=== PATIENT | male | born 1940 | race Caucasian/White ===

== ENCOUNTER → 2016-11-25 | Outpatient (CLI) | payer MEDICARE ==
[~2016-11-25] MED LIST: ASPI-586 PO; ENAL2.5T PO; MELO15TA14 PO; PRAV10TA PO; TAMS0.4C98 PO; TRAM50TA2 PO
--- NOTE | 2016-11-25 12:42 | Diagnostic Imaging Report ---
PROCEDURE: US abdomen complete. TECHNIQUE: Multiple Real-time grayscale images were obtained over the abdomen in various projections. INDICATION: R. 94.5. Abnormal labs. FINDINGS: The pancreas is largely obscured by bowel gas. The liver is normal in size and the parenchyma is unremarkable with no focal lesion. Hepatopetal flow in the portal vein is seen. The gallbladder demonstrates no stones or wall thickening. No pericholecystic fluid. The CBD is 6.6 mm in caliber which is at the upper limits of normal but is probably normal for the patient's age. The abdominal aorta visualized portions demonstrate mild ectasia measuring up to 2.4 cm in caliber in its distal aspect. The visualized portion of the IVC is unremarkable. The spleen is 9.6 cm in length and is normal. The right kidney is 10 and the left kidney is 10.2 cm in length. No hydronephrosis or focal lesion is seen. No fluid collection is seen. The sonographic Rosario sign is reportedly negative. IMPRESSION: Ectasia of the distal abdominal aorta. Dictated by: Dictated on workstation # [id number]
== END ==
LOC: RAD 08:27
PROVIDERS: ATTEND Family Medicine
DX: I77.819 Aortic ectasia, unspecified site (principal); R94.5 Abnormal results of liver function studies; R74.8 Abnormal levels of other serum enzymes
CPT/HCPCS: 76700

== ENCOUNTER 2018-01-16 11:33 | Emergency (ER) | payer MEDICARE ==
[~2018-01-16] VITALS: Ht 188 cm; Wt 78.0 kg
[~2018-01-16 11:33] MED LIST changes: +CIPR-225 PO
--- NOTE | 2018-01-16 12:07 | ED General ---
General Chief Complaint: Neurological Problems Stated Complaint: WEAKNESS Source of Information: Patient, Family Exam Limitations: No Limitations History of Present Illness Date Seen by Provider: Jan 16, 2018 Time Seen by Provider: 12:02 Initial Comments This 77-year-old male presents with generalized weakness and an associated 25 pound weight loss without explanation over the last 6 months. Although the patient relates that he has an adequate caloric intake his weight loss has been persistent during the last half year. He denies associated fever , cough or shortness of breath, abdominal pain, nausea vomiting diarrhea or hemoptysis, hematemesis, or black or tarry stools. Patient's significant past medical history includes coronary bypass surgery and stents. The patient has a large prostate for which he is being treated by Dr. Brush. Patient smokes approximately a pack a day for the last 50 years. Patient denies recreational drugs. The patient has stopped drinking. Allergies and Home Medications Allergies Coded Allergies: No Known Drug Allergies (Unverified , 02/23/16) Home Medications Aspirin 81 Mg Tablet.dr, 81 MG PO DAILY, (Reported) Ciprofloxacin HCl 500 Mg Tablet, 500 MG PO BID Prescribed by: SOUMYA PAREDES on 08/19/17 1551 Enalapril Maleate 2.5 Mg Tablet, 2.5 MG PO BID, (Reported) Pravastatin Sodium 10 Mg Tablet, 10 MG PO DAILY, (Reported) Tamsulosin HCl 0.4 Mg Cap, 0.4 MG PO DAILY, (Reported) Patient Home Medication List Home Medication List Reviewed: Yes Review of Systems Review of Systems Constitutional: chills; No fever; weakness EENTM: hearing loss (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.); No ear pain Respiratory: No cough, No short of breath Cardiovascular: No chest pain, No palpitations Gastrointestinal: No abdominal pain, No diarrhea, No nausea, No vomiting Genitourinary: decreased output Musculoskeletal: No back pain, No joint pain Skin: No rash Psychiatric/Neurological: No Symptoms Reported Hematologic/Lymphatic: No Symptoms Reported Immunological/Allergic: no symptoms reported Past Eamxmbu-Imqqms-Eyulta Hx Past Med/Social Hx: Reviewed Nursing Past Med/Soc Hx Patient Social History Alcohol Use: Denies Use Recreational Drug Use: No Smoking Status: Current Everyday Smoker Type Used: Cigarettes Recent Hopitalizations: No Physical Abuse: No Sexual Abuse: No Mistreated: No Fear: No Immunizations Up To Date Tetanus Booster (TDap): Unknown PED Vaccines UTD: No Seasonal Allergies Seasonal Allergies: No Past Medical History Surgeries: Yes (OPEN HEART) Angioplasty, CABG, Orthopedic Respiratory: No Currently Using CPAP: No Currently Using BIPAP: No Cardiac: Yes (OPEN HEART ) Coronary Artery Disease, Heart Attack, High Cholesterol Neurological: Yes Concussion Reproductive Disorders: No HIV/AIDS: No Genitourinary: Yes Benign Prostatic Hyperpl, Prostate Problems Gastrointestinal: No Musculoskeletal: No Endocrine: No Loss of Vision: Denies Hearing Impairment: Denies Cancer: No Psychosocial: Yes Anxiety Integumentary: No Blood Disorders: No Adverse Reaction/Blood Tranf: No Physical Exam Vital Signs Vital Signs - First Documented 01/16/18 11:56 Temp 97.3 Pulse 53 Resp 20 B/P (MAP) 101/88 (92) Pulse Ox 94 O2 Delivery Room Air Capillary Refill : Height, Weight, BMI Height: 6'1.00" Weight: 178lbs. oz. 80.862555qy; BMI Method:Stated General Appearance: No Apparent Distress Eyes: Bilateral Eye Normal Inspection HEENT: Normal ENT Inspection Neck: Normal Inspection, Supple Respiratory: Lungs Clear Cardiovascular: Regular Rate, Rhythm Gastrointestinal: Normal Bowel Sounds, Non Tender, Soft Back: Normal Inspection Extremity: Normal Inspection Neurologic/Psychiatric: Alert, Oriented x3, No Motor/Sensory Deficits, Normal Mood/Affect Skin: Normal Color, Warm/Dry Progress/Results/Core Measures Suspected Sepsis SIRS Temperature: Pulse: Respiratory Rate: Laboratory Tests 01/16/18 11:42: White Blood Count 5.8 Blood Pressure / Mean: Laboratory Tests 01/16/18 11:42: Creatinine 0.83, Platelet Count 171, Total Bilirubin 0.7 Results/Orders Lab Results Laboratory Tests Test 01/16/18 11:40 01/16/18 11:42 01/16/18 13:29 Range/Units Glucometer 133 H 70-110 MG/DL White Blood Count 5.8 4.3-11.0 10^3/uL Red Blood Count 4.51 4.35-5.85 10^6/uL Hemoglobin 15.1 13.3-17.7 G/DL Hematocrit 43 40-54 % Mean Corpuscular Volume 96 80-99 FL Mean Corpuscular Hemoglobin 34 25-34 PG Mean Corpuscular Hemoglobin Concent 35 32-36 G/DL Red Cell Distribution Width 14.2 10.0-14.5 % Platelet Count 171 130-400 10^3/uL Mean Platelet Volume 10.1 7.4-10.4 FL Neutrophils (%) (Auto) 64 42-75 % Lymphocytes (%) (Auto) 24 12-44 % Monocytes (%) (Auto) 10 0-12 % Eosinophils (%) (Auto) 2 0-10 % Basophils (%) (Auto) 1 0-10 % Neutrophils # (Auto) 3.7 1.8-7.8 X 10^3 Lymphocytes # (Auto) 1.4 1.0-4.0 X 10^3 Monocytes # (Auto) 0.6 0.0-1.0 X 10^3 Eosinophils # (Auto) 0.1 0.0-0.3 10^3/uL Basophils # (Auto) 0.0 0.0-0.1 10^3/uL Sodium Level 140 135-145 MMOL/L Potassium Level 4.4 3.6-5.0 MMOL/L Chloride Level 110 H 98-107 MMOL/L Carbon Dioxide Level 22 21-32 MMOL/L Anion Gap 8 5-14 MMOL/L Blood Urea Nitrogen 9 7-18 MG/DL Creatinine 0.83 0.60-1.30 MG/DL Estimat Glomerular Filtration Rate > 60 BUN/Creatinine Ratio 11 Glucose Level 139 H 70-105 MG/DL Calcium Level 9.5 8.5-10.1 MG/DL Corrected Calcium 9.6 8.5-10.1 MG/DL Total Bilirubin 0.7 0.1-1.0 MG/DL Aspartate Amino Transf (AST/SGOT) 14 5-34 U/L Alanine Aminotransferase (ALT/SGPT) 13 0-55 U/L Alkaline Phosphatase 148 H 40-136 U/L C-Reactive Protein High Sensitivity 0.44 0.00-0.50 MG/DL Total Protein 6.6 6.4-8.2 GM/DL Albumin 3.9 3.2-4.5 GM/DL Lipase 60 8-78 U/L Urine Color YELLOW Urine Clarity CLEAR Urine pH 7 5-9 Urine Specific [place] 1.005 L 1.016-1.022 Urine Protein 1+ H NEGATIVE Urine Glucose (UA) NEGATIVE NEGATIVE Urine Ketones NEGATIVE NEGATIVE Urine Nitrite NEGATIVE NEGATIVE Urine Bilirubin NEGATIVE NEGATIVE Urine Urobilinogen NORMAL NORMAL MG/DL Urine Leukocyte Esterase 1+ H NEGATIVE Urine RBC (Auto) 5+ H NEGATIVE Urine RBC 25-50 H /HPF Urine WBC 5-10 H /HPF Urine Squamous Epithelial Cells RARE /HPF Urine Crystals NONE /LPF Urine Bacteria TRACE /HPF Urine Casts NONE /LPF Urine Mucus NEGATIVE /LPF Urine Culture Indicated YES My Orders Orders - SARAH GARCIA MD Cbc With Automated Diff (01/16/18 11:58) Comprehensive Metabolic Panel (01/16/18 11:58) Psa Screen (01/16/18 11:58) Lipase (01/16/18 11:58) Ua Culture If Indicated (01/16/18 11:58) Ct Chest/Abdomen/Pelvis W (01/16/18 11:58) Carcinoembryonic Antigen (01/16/18 11:58) Hs C Reactive Protein (01/16/18 11:58) Iohexol Injection (Omnipaque 350 Mg/Ml 1 (01/16/18 13:00) Ns (Ivpb) (Sodium Chloride 0.9%) (01/16/18 13:00) Pharmacy Communication (Pharmacy Communi (01/16/18 12:51) Urine Culture (01/16/18 13:29) Medications Given in ED Current Medications Medications Dose Ordered Sig/Ayesha Route Start Time Stop Time Status Last Admin Dose Admin Iohexol 100 ml ONCE ONCE IV 01/16/18 13:00 01/16/18 13:01 DC 01/16/18 13:01 100 ML Sodium Chloride 250 ml ONCE ONCE IV 01/16/18 13:00 01/16/18 13:01 DC 01/16/18 13:02 80 ML Vital Signs/I&O 01/16/18 11:56 Temp 97.3 Pulse 53 Resp 20 B/P (MAP) 101/88 (92) Pulse Ox 94 O2 Delivery Room Air Capillary Refill : Progress Note : Time: 13:59 Progress Note The patient's CT the chest abdomen and pelvis film demonstrated evidence of acute pathology. Patient's laboratory evaluation was similarly unremarkable. I discussed findings with patient and his . I recommend further close follow-up with their caregiver of choice on Friday. I invited them to return to the emergency department for any further problems or questions. Departure Impression Primary Impression: Weight loss, non-intentional Disposition: HOME, SELF-CARE Condition: Unchanged Departure-Patient Inst. Decision time for Depature: 14:01 Referrals: MERVAT GUERRERO MD (PCP) Primary Care Physician Add. Discharge Instructions: Close follow-up with your caregiver choice on Friday. Return if any problems or questions. All discharge instructions reviewed with patient and/or family. Voiced understanding. SARAH GARCIA MD Jan 16, 2018 12:07
[2018-01-16 12:14] LABS: BASOPHILS % (AUTO) 1 % (0-10); EOSINOPHILS # (AUTO) 0.1 10^3/uL (0.0-0.3); EOSINOPHILS % (AUTO) 2 % (0-10); HEMATOCRIT 43 % (40-54); HEMOGLOBIN 15.1 G/DL (13.3-17.7); LYMPHOCYTES # (AUTO) 1.4 X 10^3 (1.0-4.0); LYMPHOCYTES % (AUTO) 24 % (12-44); MEAN CORPUSCULAR HEMOGLOBIN 34 PG (25-34); MEAN CORPUSCULAR HGB CONC 35 G/DL (32-36); MEAN CORPUSCULAR VOLUME 96 FL (80-99); MEAN PLATELET VOLUME 10.1 FL (7.4-10.4); MONOCYTES # (AUTO) 0.6 X 10^3 (0.0-1.0); MONOCYTES % (AUTO) 10 % (0-12); NEUTROPHILS # (AUTO) 3.7 X 10^3 (1.8-7.8); NEUTROPHILS % (AUTO) 64 % (42-75); PLATELET COUNT 171 10^3/uL (130-400); RED BLOOD COUNT 4.51 10^6/uL (4.35-5.85); RED CELL DISTRIBUTION WIDTH 14.2 % (10.0-14.5); WHITE BLOOD COUNT 5.8 10^3/uL (4.3-11.0)
[2018-01-16 12:26] LABS: ALANINE AMINOTRANSFERASE 13 U/L (0-55); ALBUMIN 3.9 GM/DL (3.2-4.5); ALKALINE PHOSPHATASE 148 U/L (40-136); BILIRUBIN,TOTAL 0.7 MG/DL (0.1-1.0); BUN/CREATININE RATIO 11; CALCIUM 9.5 MG/DL (8.5-10.1); CARBON DIOXIDE 22 MMOL/L (21-32); CHLORIDE 110 MMOL/L (98-107); CREATININE SERUM 0.83 MG/DL (0.60-1.30); GFR ESTIMATED > 60; GLUCOSE 139 MG/DL (70-105); LIPASE 60 U/L (8-78); POTASSIUM 4.4 MMOL/L (3.6-5.0); SODIUM 140 MMOL/L (135-145); TOTAL PROTEIN 6.6 GM/DL (6.4-8.2)
[2018-01-16] MEDS ORDERED: NS 250 ML (IVPB) BAG IV ONE (13:00)
[2018-01-16] MEDS ORDERED: IOHEXOL 350 MG/ML 100 ML (OMNIPAQUE 350) VIAL IV ONE (13:00)
[2018-01-16 13:34] LABS: BILIRUBIN,URINE NEGATIVE (NEGATIVE); CLARITY,URINE CLEAR; COLOR,URINE YELLOW; GLUCOSE, URINE (UA) NEGATIVE (NEGATIVE); KETONES,URINE NEGATIVE (NEGATIVE); LEUKOCYTE ESTERASE ,URINE 1+ (NEGATIVE); NITRITE,URINE NEGATIVE (NEGATIVE); PH,URINE 7 (5-9); PROTEIN,URINE 1+ (NEGATIVE); UROBILINOGEN,URINE NORMAL (NORMAL)
--- NOTE | 2018-01-16 13:43 | Diagnostic Imaging Report ---
PROCEDURE: CT chest, abdomen, and pelvis with contrast. TECHNIQUE: Multiple contiguous axial images were obtained through the chest, abdomen, and pelvis after the administration of intravenous contrast. INDICATION: Right hand numbness and weakness, history of open heart surgery. COMPARISON: CT from 08/19/2017. FINDINGS: CT chest: The heart is normal in size. There is no pericardial effusion. No central pulmonary embolus is seen. The aorta demonstrates mild atherosclerosis with no aneurysm. There are mildly prominent lower paratracheal lymph nodes, which measure up to 9 mm in short axis. There are multiple hypoattenuating nodules in the thyroid bilaterally. No focal stenosis is seen in the bilateral subclavian arteries. Sternotomy wires are noted. There is minimal atelectasis in the dependent lungs bilaterally. No airspace consolidation is seen. There is a 4 mm subpleural nodule in the anterior left upper lobe (image 26 series 2). No pleural effusion or pneumothorax is present. No acute osseous abnormality is seen. CT abdomen/pelvis: The liver demonstrates no focal lesions. The spleen appears normal. The adrenal glands are normal. The pancreas is normal. There is mild bilateral perirenal stranding, but no hydronephrosis or evidence of delayed excretion. There is a simple appearing small cyst on the superior right kidney. There is moderate atherosclerosis in the aorta with a small aneurysmal dilatation at the infrarenal abdominal aorta which measures up to 3.4 x 3.1 cm axially. There is significant mural thrombus, but without significant stenosis. Atherosclerosis extends into the bilateral iliac and femoral arteries without a high-grade stenosis seen on this non-angiographic exam. No retroperitoneal adenopathy is seen. The branch vessels of the aorta appear patent. The bowel loops are nondistended without evidence of obstruction. The appendix is normal. There is diverticulosis of the descending colon and sigmoid colon. The sigmoid colon appears to demonstrate wall thickening, although this may be due to decompression. There is no significant pericolonic fat stranding. There is a heterogeneous prostate which appears normal in contour, perhaps slightly large. IMPRESSION: 1. Small 4 mm nodule in the anterior left upper lobe. If the patient is high risk for cancer, consider followup CT in 12 months. 2. No evidence of subclavian stenosis. 3. Small infrarenal abdominal aortic aneurysm measuring up to 3.4 cm without evidence of rupture. 4. Diverticulosis of the distal colon. Wall thickening of the sigmoid colon is thought to be due to decompression, less likely colitis. Dictated by: Dictated on workstation # [id number]
[2018-01-16 13:50] LABS: BACTERIA,URINE TRACE /HPF; RBC,URINE 25-50 /HPF; SQUAMOUS EPITHELIAL CELL,UR RARE /HPF
[2018-01-16 14:14] VITALS: BP 155/89
== END 2018-01-16 14:14 | disposition home or self-care (01) ==
LOC: EDUNIT# 11:33 → ER 11:34
DX: R63.4 Abnormal weight loss (principal); R20.0 Anesthesia of skin; R53.1 Weakness; I25.10 Atherosclerotic heart disease of native coronary artery without angina pectoris; I25.2 Old myocardial infarction; E78.00 Pure hypercholesterolemia, unspecified; F41.9 Anxiety disorder, unspecified; F17.210 Nicotine dependence, cigarettes, uncomplicated; Z79.82 Long term (current) use of aspirin; Z95.5 Presence of coronary angioplasty implant and graft; Z95.1 Presence of aortocoronary bypass graft
CPT/HCPCS: 36415; 71260; 74177; 80053; 81000; 82378; 82962; 83690; 84153; 85025; 86141; 87077; 87088; 93005

== ENCOUNTER 2018-02-05 15:10 | Day surgery (SDC) | payer MEDICARE ==
[~2018-02-05] VITALS: Ht 182.9 cm; Wt 79.1 kg
[2018-02-05] VITALS (7 sets, daily range): BP systolic 122–152; BP diastolic 70–86
[2018-02-05] MEDS ORDERED: HEParin DRIP 25000 UNIT/500ML 500 ML IV SCH (15:30)
[2018-02-05] MEDS ORDERED: CLOPIDOGREL 300 MG (PLAVIX) TABLET PO NR (16:12)
[2018-02-05] MEDS ORDERED: ASPIRIN 325 MG (5 GR) TABLET PO NR (16:12)
[2018-02-05] MEDS ORDERED: PANTOPRAZOLE 40 MG (PROTONIX) TAB PO NR (16:13)
[2018-02-05] MEDS ORDERED: FINA5TAB6 PO (16:14)
[2018-02-05] MEDS ORDERED: ENAL5TAB PO (16:14)
[2018-02-05 16:16] LABS: HEMOGLOBIN 15.8 G/DL (13.3-17.7); MEAN PLATELET VOLUME 9.4 FL (7.4-10.4); RED BLOOD COUNT 4.88 10^6/uL (4.35-5.85); RED CELL DISTRIBUTION WIDTH 13.6 % (10.0-14.5); WHITE BLOOD COUNT 7.9 10^3/uL (4.3-11.0)
[2018-02-05 16:25] LABS: INR 0.9 (0.8-1.4); PROTHROMBIN TIME PATIENT 12.6 SEC (12.2-14.7)
--- NOTE | 2018-02-05 16:25 | Diagnostic Imaging Report ---
INDICATION: History of smoking and peripheral vascular disease. PA and lateral chest obtained at 4:34 p.m. FINDINGS: Heart is normal in size. The patient has had previous sternotomy. The aorta is tortuous. The lungs appear clear. There is no pneumothorax or pleural fluid. There is hyperinflation compatible with COPD. IMPRESSION: COPD changes with hyperinflation. No focal infiltrate, pneumothorax, or pleural fluid. Evidence of previous sternotomy. Dictated by: Dictated on workstation # [id number]
[2018-02-05] MEDS: NS IV 1000 ML 1,000 ML IV SCH (16:30)
[2018-02-05] MEDS: HEParin 1000 UNIT/ML (10ML VIAL) FOR BOLUS IV PRN (16:33)
[2018-02-05 16:40] LABS: ALANINE AMINOTRANSFERASE 23 U/L (0-55); ALBUMIN 4.3 GM/DL (3.2-4.5); ALKALINE PHOSPHATASE 172 U/L (40-136); BILIRUBIN,TOTAL 0.8 MG/DL (0.1-1.0); BUN/CREATININE RATIO 17; CARBON DIOXIDE 22 MMOL/L (21-32); CHLORIDE 108 MMOL/L (98-107); GFR ESTIMATED > 60; GLUCOSE 105 MG/DL (70-105); POTASSIUM 4.7 MMOL/L (3.6-5.0); SODIUM 139 MMOL/L (135-145); TOTAL PROTEIN 7.6 GM/DL (6.4-8.2)
[2018-02-05] MEDS ORDERED: FLU QUADRIvalent (5+ YOA) 2018-2019 (AFLURIA) 0.5 ML IM ONE (17:00)
[2018-02-06] VITALS (13 sets, daily range): BP systolic 104–156; BP diastolic 61–95
[2018-02-06] MEDS: NS IV 1000 ML 1,000 ML IV SCH (02:20)
[2018-02-06 03:24] LABS: HEMOGLOBIN 13.7 G/DL (13.3-17.7); MEAN PLATELET VOLUME 9.3 FL (7.4-10.4); RED BLOOD COUNT 4.2 10^6/uL (4.35-5.85); RED CELL DISTRIBUTION WIDTH 13.2 % (10.0-14.5); WHITE BLOOD COUNT 7.4 10^3/uL (4.3-11.0)
[2018-02-06 03:39] LABS: ALANINE AMINOTRANSFERASE 20 U/L (0-55); ALBUMIN 3.3 GM/DL (3.2-4.5); ALKALINE PHOSPHATASE 134 U/L (40-136); BILIRUBIN,TOTAL 0.6 MG/DL (0.1-1.0); BUN/CREATININE RATIO 22; CALCIUM 8.8 MG/DL (8.5-10.1); CARBON DIOXIDE 19 MMOL/L (21-32); CHLORIDE 112 MMOL/L (98-107); CHOLESTEROL 131 MG/DL (< 200); CREATININE SERUM 0.82 MG/DL (0.60-1.30); GFR ESTIMATED > 60; GLUCOSE 113 MG/DL (70-105); HDL CHOLESTEROL 29 MG/DL (40-60); SODIUM 140 MMOL/L (135-145); TOTAL PROTEIN 5.6 GM/DL (6.4-8.2); TRIGLYCERIDES 83 MG/DL (<150); VLDL CHOLESTEROL 17 MG/DL (5-40)
[2018-02-06] MEDS: HEParin 1000 UNIT/ML (10ML VIAL) FOR BOLUS IV PRN (04:05)
[2018-02-06] MEDS ORDERED: HEParin (CATH LAB) 2,000 ML IV ONE (06:56)
[2018-02-06] MEDS ORDERED: LIDOCAINE 1% INJ 20 ML 20 ML VIAL ONE ×2 (06:56→08:54)
[2018-02-06] MEDS ORDERED: PANTOPRAZOLE 40 MG (PROTONIX) TAB PO SCH (07:00)
[2018-02-06] MEDS ORDERED: MIDAZOLAM 5 MG/5 ML (VERSED) VIAL ONE (07:04)
[2018-02-06] MEDS ORDERED: fentaNYL INJECTION 100 MCG/2 ML AMP ONE (07:04)
--- NOTE | 2018-02-06 07:12 | Cardiology History & Physical ---
HPI-Cardiology Cardiology Consultation Date of Consultation 02/06/18 Date of Admission Time Seen by Provider: 07:08 Indication: Left foot pain and cyanosis HPI 77 years old gentleman with history of coronary artery disease, history of CABG , no cardiology follow-up was done for long time. Started having pain and cyanosis in his foot for about a week which has been worsening. He was sent to my office last night and I admitted him directly. This morning he still having pain and numbness in his feet and toes. There is an early ulceration. Denied any chest pain, having frequent premature ventricular contractions. No syncope or near syncopal episode. Patient is an active smoker with some dyspnea on exertion. No recent cardiac workup was done PMH-Cardiology Immunizations Up To Date Tetanus Booster (DTap): Unknown Seasonal Allergies Seasonal Allergies: No Surgeries Yes (OPEN HEART) Respiratory No Cardiovascular Yes (OPEN HEART 2004 @ [facility], 2006 1 or 2 stents, PVD) High Cholesterol, Hypertension, Coronary Artery Disease Neurological No Concussion Reproductive System Hx Reproductive Disorders: No HIV/AIDS: No Genitourinary Yes Benign Prostatic Hyperpl, Prostate Problems Gastrointestinal No Musculoskeletal No Endocrine No HEENT No Loss of Vision: Denies Hearing Impairment: Denies Cancer No Psychosocial Yes Anxiety Integumentary No Blood Transfusions No Adverse Rxn to Transfusion: No Other PMHx Past medical history as described below Social History Patient Social History Marrital Status: Employed/Student: retired Alcohol Use: Denies Use Recreational Drug Use: No Smoking: Current every day smoker Recent Foreign Travel: No Contact w/other who traveled: No Recent Infectious Disease Expo: No Family Hx Family History: Diabetes mellitus 19 FATHER 19 MOTHER Myocardial infarction 19 MOTHER G8 BROTHER G8 SISTER Neoplasm G8 BROTHER (lung and bladder cancer ) ROS-Cardiology Review of Systems General: No Chills, No Night Sweats, No Fatigue; Malaise; No Appetite HEENT: No Head Aches, No Visual Changes, No Eye Pain, No Ear Pain, No Dysphasia , No Sinus Congestion, No Post Nasal Drip, No Sore Throat Pulmonary: Dyspnea; No Cough, No Pleuritic Chest Pain Cardiovascular: No: Chest Pain, Palpitations, Orthopnea, Paroxysmal Noc. Dyspnea, Edema, Lt Headedness Gastrointestinal: No: Nausea, Vomiting, Abdominal Pain, Diarrhea, Constipation , Melena, Hematochezia Genitourinary: No Dysuria, No Frequency, No Incontinence, No Hematuria, No Retention Musculoskeletal: leg pain, foot pain; No: neck pain, shoulder pain, arm pain, back pain, hand pain Neurological: No: Weakness, Numbness, Incoordination, Change in speech, Confusion, Seizures Home Medications & Allergies Allergies: Coded Allergies: No Known Drug Allergies (Unverified , 02/05/18) Home Medication List Reviewed: Yes Exam-Cardiology Vital Signs Vital Signs Date Time Temp Pulse Resp B/P (MAP) Pulse Ox O2 Delivery O2 Flow Rate FiO2 02/06/18 04:00 98.1 63 14 156/74 (101) 96 Room Air Exam General Appearance: Alert, Oriented X3, Cooperative, No Acute Distress HEENT: Atraumatic, PERRLA Respiratory: Clear to Auscultation, Normal Air Movement Cardiovascular: Regular Rate, Normal S1, Normal S2, Other (Systolic murmur at the left sternal border) Abdominal: Normal Bowel Sounds, Soft, No Tenderness, No Hepatosplenomegaly, No Masses Extremities: Other (Diminished pulse bilaterally, I was unable to palpate dorsalis pedis pulse on the left, cyanosis of the toes and tenderness) Skin: No Rashes, No Significant Lesion, Other (Small ulceration on the third toe on the left) Neuro: Normal Gait, Normal Speech, Strength at 5/5 X4 Ext, Normal Tone, Sensation Intact Psych/Mental Status: Mental Status NL, Mood NL Results Labs Labs Laboratory Tests 02/05/18 16:04: White Blood Count 7.9, Red Blood Count 4.88, Hemoglobin 15.8, Hematocrit 46, Mean Corpuscular Volume 94, Mean Corpuscular Hemoglobin 32, Mean Corpuscular Hemoglobin Concent 34, Red Cell Distribution Width 13.6, Platelet Count 183, Mean Platelet Volume 9.4, Prothrombin Time 12.6, INR Comment 0.9, Activated Partial Thromboplast Time 24, Sodium Level 139, Potassium Level 4.7, Chloride Level 108H, Carbon Dioxide Level 22, Anion Gap 9, Blood Urea Nitrogen 17, Creatinine 1.00, Estimat Glomerular Filtration Rate > 60, BUN/Creatinine Ratio 17, Glucose Level 105, Calcium Level 10.0, Corrected Calcium 9.8, Total Bilirubin 0.8, Aspartate Amino Transf (AST/SGOT) 17, Alanine Aminotransferase ( ALT/SGPT) 23, Alkaline Phosphatase 172H, Total Protein 7.6, Albumin 4.3, Thyroid Stimulating Hormone (TSH) 0.24L 02/05/18 20:28: Activated Partial Thromboplast Time 63H 02/06/18 03:06: White Blood Count 7.4, Red Blood Count 4.20L, Hemoglobin 13.7, Hematocrit 40, Mean Corpuscular Volume 95, Mean Corpuscular Hemoglobin 33, Mean Corpuscular Hemoglobin Concent 35, Red Cell Distribution Width 13.2, Platelet Count 153, Mean Platelet Volume 9.3, Activated Partial Thromboplast Time 47H, Sodium Level 140, Potassium Level 4.0, Chloride Level 112H, Carbon Dioxide Level 19L, Anion Gap 9, Blood Urea Nitrogen 18, Creatinine 0.82, Estimat Glomerular Filtration Rate > 60, BUN/Creatinine Ratio 22, Glucose Level 113H, Calcium Level 8.8, Corrected Calcium 9.4, Total Bilirubin 0.6, Aspartate Amino Transf (AST/SGOT) 17 , Alanine Aminotransferase (ALT/SGPT) 20, Alkaline Phosphatase 134, Total Protein 5.6L, Albumin 3.3, Triglycerides Level 83, Cholesterol Level 131, LDL Cholesterol Direct 99, VLDL Cholesterol 17, HDL Cholesterol 29L A/P-Cardiology Admission Diagnosis Critical limb ischemia Coronary artery disease Hypertension Hyperlipidemia Tobaccoism Admission Status: Observation Assessment/Plan Subacute ischemic foot, critical limb ischemia, I am planning to proceed with angiogram possible angioplasty and stenting. Started on aspirin and Plavix, given heparin. Coronary artery disease history of CABG 1 using DIAZ to LAD done in 2004, no recent cardiac workup. Frequent premature ventricular contractions. We will initiate beta blockers after the angiogram Hypertension, monitor blood pressure. Restart home medication Hyperlipidemia, started on statin and fish oil Tobaccoism, still an active smoker. Educated in length about smoking cessation Prostatic hypertrophy maintained on Flomax. Clinical Quality Measures DVT/VTE Risk/Contraindication: Risk Factor Score Per Nursin RFS Level Per Nursing on Admit: 3=High ABILIO CLAROS MD Feb 06, 2018 07:12
--- NOTE | 2018-02-06 07:15 | Cardiac Procedure Note-CS/ASA ---
Pre-Procedure Note Pre-Op Procedure Note H&P Reviewed The H&P was reviewed, patient examined and no changes noted. Date H&P Reviewed: Feb 06, 2018 Time H&P Reviewed: 07:15 Conscious Sedation Pre-Proced Time 07:15 ASA Score 3 For ASA 3 and 4: Consider anesthesia and medical clearance. Also, for patients with a history of failed moderate sedation consider anesthesia. Airway Lungs Heart ASA score ASA 1: a normal healthy patient ASA 2: a patient with a mild systemic disease (mid diabetes, controlled hypertension, obesity x ASA 3: a patient with a severe systemic disease that limits activity (angina , COPD, prior Myocardial infarction) ASA 4: a patient with an incapacitating disease that is a constant threat to life (CHF, renal failure) ASA 5: a moribund patient not expected to survive 24 hrs. (ruptured aneurysm) ASA 6: a declared brain patient whose organs are being harvested. For emergent operations, add the letter E after the classification Mallampati Classification Grade 3 Sedation Plan Analgesia, Amnesia, Plan communicated to team members, Discussed options with patient/fam, Discussed risks with patient/fam The patient is an appropriate candidate to undergo the planned procedure, sedation, and anesthesia. The patient immediately re-assessed prior to indication. ABILIO CLAROS MD Feb 06, 2018 07:15
[2018-02-06] MEDS ORDERED: HEParin 1000 UNIT/ML (10ML VIAL) FOR BOLUS ONE (07:27)
[2018-02-06] MEDS ORDERED: NITRO DRIP 25000 MCG/D5W 250 ML IV ONE (08:17)
[2018-02-06] MEDS ORDERED: ENALAPRIL 5 MG (VASOTEC) TAB PO SCH (09:00)
[2018-02-06] MEDS ORDERED: FINASTERIDE (PROSCAR) 5 MG TAB PO SCH (09:00)
[2018-02-06] MEDS ORDERED: CLOPIDOGREL 75 MG (PLAVIX) TABLET PO SCH (09:00)
[2018-02-06] MEDS ORDERED: HEParin DRIP 25000 UNIT/500ML 500 ML IV ONE (09:28)
[2018-02-06] MEDS ORDERED: NS IV 1000 ML 1,000 ML IV SCH (09:33)
[2018-02-06] MEDS ORDERED: PRAV10TA PO (09:34)
--- NOTE | 2018-02-06 09:39 | Cardiology Discharge Summary ---
Diagnosis/Chief Complaint Date of Admission Feb 05, 2018 at 3:14 pm Date of Discharge February 07, 2008 Admission Diagnosis Critical limb ischemia Coronary artery disease Hypertension Hyperlipidemia Tobaccoism Discharge Diagnosis Critical limb ischemia Peripheral arterial disease Coronary artery disease Hypertension Hyperlipidemia Chief Complaint/HPI Chief Complaint/HPI Patient was admitted with subacute ischemic foot, cyanosis of his toes with small ulcer. He was started on heparin drip, brought to the catheter lab. Angiogram was done which showed severe disease with occlusion of the distal SFA , balloon angioplasty to the proximal SFA was done, I was unable to cross the distal SFA retrograde or antegrade. Discussed the patient management with Dr. Pratt, I will arrange for transfer to [facility] Summary Hospital Course Hospital Course Subacute ischemic foot, critical limb ischemia, I am planning to proceed with angiogram possible angioplasty and stenting. Started on aspirin and Plavix, given heparin. Peripheral angiogram done showing total occlusion of the left SFA, slow flow distally, unable to cross the lesion, there was severe stenosis of the proximal SFA successful balloon angioplasty with good results, small dissection was noted proximally. Arrangement to transfer the patient to a tertiary care center , discussed the management plan with Dr. Pratt. Coronary artery disease history of CABG 1 using DIAZ to LAD done in 2004, no recent cardiac workup. Frequent premature ventricular contractions. We will initiate beta blockers after the angiogram Hypertension, monitor blood pressure. Restart home medication Hyperlipidemia, started on statin and fish oil Tobaccoism, still an active smoker. Educated in length about smoking cessation Prostatic hypertrophy maintained on Flomax. Labs Laboratory Tests 02/05/18 16:04: Chloride Level 108H, Alkaline Phosphatase 172H, Thyroid Stimulating Hormone (TSH ) 0.24L 02/05/18 20:28: Activated Partial Thromboplast Time 63H 02/06/18 03:06: Chloride Level 112H, Activated Partial Thromboplast Time 47H, Red Blood Count 4.20L, Carbon Dioxide Level 19L, Glucose Level 113H, Total Protein 5.6L, HDL Cholesterol 29L Procedures None. Discharge Physical Examination Allergies: Coded Allergies: No Known Drug Allergies (Unverified , 02/05/18) Vitals & I&Os Vital Signs Date Time Temp Pulse Resp B/P (MAP) Pulse Ox O2 Delivery O2 Flow Rate FiO2 02/06/18 07:45 Room Air 02/06/18 07:00 69 02/06/18 04:00 98.1 14 156/74 (083) 96 General Appearance: Alert, Oriented X3, Cooperative HEENT: Atraumatic, PERRLA Respiratory: Clear to Auscultation Cardiovascular: Regular Rate, Normal S1, Normal S2 Abdominal: Normal Bowel Sounds Extremities: No Clubbing, Other Skin: No Rashes, Other (Ischemic toes with ulcer) Neuro: Normal Gait Discharge Home Medications Reviewed and agree with Discharge Medication list on patient's Discharge Instruction sheet Instructions to Patient/Family Please see electronic discharge instructions given to patient. Clinical Quality Measures Admission Status Admission Status: Observation DVT/VTE Risk/Contraindication: Risk Factor Score Per Nursin RFS Level Per Nursing on Admit: 3=High ABILIO CLAROS MD Feb 06, 2018 9:39 am
[2018-02-06] MEDS ORDERED: PATIENT MAY USE OWN MEDS, ALL PO SCH (09:45)
[2018-02-06] MEDS ORDERED: NITROGLYCERIN 2% OINT 1 GM UNIT DOSE PACKET TOP NR (10:45)
--- NOTE | 2018-02-06 14:05 | OPERATIVE REPORT ---
DATE OF SERVICE: 02/06/2018 PERIPHERAL ANGIOGRAM REPORT BRIEF HISTORY: The patient is a 77-year-old gentleman with history of coronary artery disease, history of CABG, admitted to the hospital with critical limb ischemia, had cyanosis of his toes with ulceration. He was started on heparin drip. Then, he was brought for peripheral angiogram and possible angioplasty and stent. PROCEDURE NOTE: After explaining the procedure to the patient, all pros and cons were explained, all questions were answered. The patient signed the consent, then he was placed on the cardiac catheterization laboratory. His right groin was prepped in a sterile fashion. Local anesthesia applied. The right groin 6-Northern Irish sheath was placed in the right femoral artery. Runoff of the right lower extremity was done through the sheath. Then, I advanced a rim catheter to the abdominal aorta just above the bifurcation and aortogram was done, evaluated the bifurcation that appeared normal. I tried to cross over with a rim catheter without success. I exchanged the rim catheter into IM catheter and I was able to cross over with a Storq wire, then advanced a straight catheter down to the left common iliac artery and performed runoff of the left lower extremity. At that point, I decided to proceed with peripheral intervention. The patient has severe stenosis at the mid left SFA, total occlusion of the distal left SFA, slight amount of contrast in the tibioperoneal trunk and there was slow flow in the posterior tibial artery and anterior tibial artery. The patient was given 6000 units of heparin. The sheath was exchanged into 6-Northern Irish long sheath. Then, I advanced a Command wire 0.014 without success in crossing the lesion, tried mini catheter as a support catheter without success, then I advanced 0.018 V-18 then Command 18 to cross without success in crossing into the true channel of the popliteal artery. I was able to cross to a false channel. The catheter was pulled back and angiogram showed no complication. I decided to do balloon angioplasty to the proximal SFA, which was done using 5 x 200 balloon with good results. At that point, I elected to try retrograde access through the pedal artery. I was able to access the posterior tibial artery with a 6-Northern Irish slender sheath. I tried to advance the Command wire, again it went through a false channel in the popliteal artery. I was unable to communicate between the tibioperoneal trunk and the popliteal artery. Angiogram showed small dissection at the popliteal area. The wire was removed. Then, I performed angiograms through the sheath again showing good flow in the SFA and the collaterals filling the anterior and posterior tibial artery. At that point, I decided to abort the procedure, arrange for transfer to a tertiary care center for high risk intervention and possible vascular surgery with fem-pop bypass surgery. ACT was 140. CONCLUSION: 1. Total occlusion at the distal left SFA unable to cross the lesion using retrograde access and antegrade access. 2. Severe stenosis at the proximal SFA on the left side with successful balloon angioplasty and some improvement of the flow in the collaterals. 3. Total occlusion of the right SFA with minimal collateral filling the popliteal artery. DISCUSSION AND RECOMMENDATION: Attempt for intervention to the left distal SFA for the critical limb ischemia was not successful. Arrangement to transfer the patient to [facility] for attempt for high risk intervention and possible vascular surgery intervention to save the foot at this time. The patient is still having cyanosis of his foot. Job ID: [id number] DocumentID: [id number] Dictated Date: 02/06/2018 10:22:14 Hand Drawer In Date: 02/06/2018 14:04:26 Dictated By: ABILIO CLAROS MD
[2018-02-06] MEDS ORDERED: OMEGA 3 (FISH OIL) 1000 MG CAP PO SCH (17:00)
[2018-02-06] MEDS ORDERED: TAMSULOSIN 0.4 MG (FLOMAX) CAP PO SCH (18:00)
[2018-02-06] MEDS ORDERED: ATORVASTATIN 10 MG (LIPITOR) TABLET PO SCH (21:00)
== END 2018-02-06 13:50 | disposition short-term general hospital (02) ==
LOC: ICU 15:10 → CATH 15:10 → UNDOADMOB 15:14 → ICU 15:14 → EDSTATUS 15:36 → ICU 02-06 12:23 → UNDODISOB 02-06 13:50 → CATH 02-06 13:50
PROVIDERS: ATTEND Internal Medicine Cardiovascular Disease
DX: I70.235 Atherosclerosis of native arteries of right leg with ulceration of other part of foot (principal); I70.245 Atherosclerosis of native arteries of left leg with ulceration of other part of foot; I70.92 Chronic total occlusion of artery of the extremities; I25.10 Atherosclerotic heart disease of native coronary artery without angina pectoris; I49.3 Ventricular premature depolarization; I10 Essential (primary) hypertension; E78.5 Hyperlipidemia, unspecified; F17.210 Nicotine dependence, cigarettes, uncomplicated; N40.0 Benign prostatic hyperplasia without lower urinary tract symptoms; Z95.1 Presence of aortocoronary bypass graft; Z79.899 Other long term (current) drug therapy
CPT/HCPCS: 36415; 71046; 80053; 80061; 84443; 85027; 85610; 85730; 99211

== ENCOUNTER 2018-02-20 16:01 | Emergency (ER) | payer MEDICARE ==
[~2018-02-20] VITALS: Ht 182.9 cm; Wt 78.5 kg
[~2018-02-20 16:01] MED LIST changes: +ENAL5TAB PO; +FINA5TAB6 PO
[2018-02-20 16:15] VITALS: BP 177/71
[2018-02-20 16:36] LABS: CLARITY,URINE VERY CLOUDY; COLOR,URINE AMBER; GLUCOSE, URINE (UA) NEGATIVE (NEGATIVE); KETONES,URINE 1+ (NEGATIVE); LEUKOCYTE ESTERASE ,URINE 2+ (NEGATIVE); NITRITE,URINE POSITIVE (NEGATIVE); PH,URINE 5 (5-9); PROTEIN,URINE 3+ (NEGATIVE); UROBILINOGEN,URINE 1 MG/DL (NORMAL)
[2018-02-20] MEDS ORDERED: SULF1TAB35 PO (16:50)
--- NOTE | 2018-02-20 16:52 | ED General ---
General Chief Complaint: General Problems/Pain Stated Complaint: L FOOT TOE REDNESS/PAIN,URINATING BLOOD Nursing Triage Note: Pt ambulated to rm 5. Pt c/o fourth toe on L foot being painful due to pt filing skin off. Pt also c/o urinating blood for two weeks since he had a "vein opened up" in his leg. Pt states pt is on plavix. Nursing Sepsis Screen: No Definite Risk Allergies and Home Medications Allergies Coded Allergies: No Known Drug Allergies (Unverified , 02/05/18) Home Medications Enalapril Maleate 5 Mg Tablet, 5 MG PO HS, (Reported) Finasteride 5 Mg Tablet, 5 MG PO DAILY, (Reported) LAST FILLED #30 12-29-17 Pravastatin Sodium 10 Mg Tablet, 10 MG PO HS, (Reported) Sulfamethoxazole/Trimethoprim 1 Each Tablet, 1 EACH PO BID Prescribed by: EMMA JACKSON on 02/20/18 1650 Tamsulosin HCl 0.4 Mg Cap, 0.4 MG PO 1800, (Reported) LAST FILLED #30 12-05-17 Past Bqneact-Ksipwe-Hotbnh Hx Patient Social History Type Used: Cigarettes Recent Foreign Travel: No Contact w/Someone Who Travel: No Recent Infectious Disease Expo: No Recent Hopitalizations: No Immunizations Up To Date Tetanus Booster (TDap): Unknown PED Vaccines UTD: No Seasonal Allergies Seasonal Allergies: No Past Medical History Surgeries: Yes (OPEN HEART) Angioplasty, CABG, Orthopedic Respiratory: No Currently Using CPAP: No Currently Using BIPAP: No Cardiac: Yes (OPEN HEART 2004 @ [facility], 2006 1 or 2 stents, PVD) Coronary Artery Disease, Heart Attack, High Cholesterol Neurological: No Concussion Reproductive Disorders: No HIV/AIDS: No Genitourinary: Yes Benign Prostatic Hyperpl, Prostate Problems Gastrointestinal: No Musculoskeletal: No Endocrine: No HEENT: No Loss of Vision: Denies Hearing Impairment: Denies Cancer: No Psychosocial: Yes Anxiety Integumentary: No Blood Disorders: No Adverse Reaction/Blood Tranf: No Family Medical History Diabetes mellitus 19 FATHER 19 MOTHER Myocardial infarction 19 MOTHER G8 BROTHER G8 SISTER Neoplasm G8 BROTHER (lung and bladder cancer ) Physical Exam Vital Signs Vital Signs - First Documented 02/20/18 16:15 Temp 96.9 Pulse 47 Resp 17 B/P (MAP) 177/71 (106) Pulse Ox 98 O2 Delivery Room Air Capillary Refill : Less Than 3 Seconds Height, Weight, BMI Height: 6'0" Weight: 173lbs. 6.0oz. 78.808934gx; 23.5 BMI Method:Stated Progress/Results/Core Measures Suspected Sepsis Recent Fever Within 48 Hours: No Infection Criteria Present: None New/Unexplained Altered Menta: No Sepsis Screen: No Definite Risk SIRS Temperature:96.9 Pulse: 47 Respiratory Rate: 17 Blood Pressure 177 /71 Mean: 106 Results/Orders Lab Results Laboratory Tests Test 02/20/18 16:30 Range/Units Urine Color BRENDA H Urine Clarity VERY CLOUDY H Urine pH 5 5-9 Urine Specific [place] 1.020 1.016-1.022 Urine Protein 3+ H NEGATIVE Urine Glucose (UA) NEGATIVE NEGATIVE Urine Ketones 1+ H NEGATIVE Urine Nitrite POSITIVE H NEGATIVE Urine Bilirubin 1+ H NEGATIVE Urine Urobilinogen 1 NORMAL MG/DL Urine Leukocyte Esterase 2+ H NEGATIVE Urine RBC (Auto) 5+ H NEGATIVE Urine RBC TNTC H /HPF Urine WBC 10-25 H /HPF Urine Squamous Epithelial Cells NONE /HPF Urine Crystals NONE /LPF Urine Bacteria NEGATIVE /HPF Urine Casts NONE /LPF Urine Mucus NEGATIVE /LPF Urine Culture Indicated YES My Orders Orders - EMMA RODRIGUEZ MD Ua Culture If Indicated (02/20/18 16:15) Urine Culture (02/20/18 16:30) Vital Signs/I&O 02/20/18 16:15 Temp 96.9 Pulse 47 Resp 17 B/P (MAP) 177/71 (106) Pulse Ox 98 O2 Delivery Room Air Capillary Refill : Less Than 3 Seconds Blood Pressure Mean: 106 Departure Impression Primary Impression: Abrasion of toe of left foot Qualified Codes: S90.415A - Abrasion, left lesser toe(s), initial encounter Additional Impressions: Peripheral vascular disease Hematuria Qualified Codes: R31.9 - Hematuria, unspecified Disposition: 01 HOME, SELF-CARE Condition: Against Medical Advice Departure-Patient Inst. Referrals: MERVAT GUERRERO MD (PCP/Family) Primary Care Physician Patient Instructions: Blood in the Urine (Hematuria) in Adults Add. Discharge Instructions: Stop Plavix until blood in your urine stops. Follow-up with your primary care provider next week regarding the blood in your urine and your irritated toe. Complete your antibiotics as prescribed. If your toe worsens, return to care. Also return to care if you develop fevers. If this happens after hours, go to [place] where ultrasound studies can be performed at night. Do not take any sharp objects to your feet including nail files. Have calluses managed by a testing and regulating chief. You may apply antibiotic ointment to your toe to reduce irritation. Stop smoking as soon as possible and seek assistance from your primary care provider if necessary. All discharge instructions reviewed with patient and/or family. Voiced understanding. Scripts Sulfamethoxazole/Trimethoprim (Bactrim Ds Tablet) 1 Each Tablet 1 EACH PO BID, #14 TAB Prov: EMMA RODRIGUEZ MD 02/20/18 Copy Copies To 1: ABILIO CLAROS MD, JOSHUA T MD Feb 20, 2018 16:52
[2018-02-20 16:54] LABS: BACTERIA,URINE NEGATIVE /HPF; BILIRUBIN,URINE 1+ (NEGATIVE); RBC,URINE TNTC /HPF
== END 2018-02-20 17:20 | disposition home or self-care (01) ==
LOC: EDUNIT# 16:01 → ER 16:03
DX: S90.415A Abrasion, left lesser toe(s), initial encounter (principal); I73.9 Peripheral vascular disease, unspecified; R31.9 Hematuria, unspecified; I25.10 Atherosclerotic heart disease of native coronary artery without angina pectoris; I25.2 Old myocardial infarction; E78.00 Pure hypercholesterolemia, unspecified; F41.9 Anxiety disorder, unspecified; Z82.49 Family history of ischemic heart disease and other diseases of the circulatory system; Z80.1 Family history of malignant neoplasm of trachea, bronchus and lung; Z80.52 Family history of malignant neoplasm of bladder; Z79.02 Long term (current) use of antithrombotics/antiplatelets; Z87.448 Personal history of other diseases of urinary system; Z95.1 Presence of aortocoronary bypass graft; Z98.61 Coronary angioplasty status; Z95.5 Presence of coronary angioplasty implant and graft; X58.XXXA Exposure to other specified factors, initial encounter
CPT/HCPCS: 81000; 87088; 99282

== ENCOUNTER 2018-05-17 09:50 | Emergency (ER) | payer MEDICARE | END 2018-05-17 11:31 | disposition home or self-care (01) | LOC: ER 09:50 ==

== ENCOUNTER 2018-07-13 06:06 | Emergency (ER) | payer MEDICARE | END 2018-07-13 07:41 | disposition home or self-care (01) | LOC: ER FS 06:06 ==

== ENCOUNTER → 2018-07-23 | Outpatient (CLI) | payer MEDICARE ==
[~2018-07-23] MED LIST changes: +SULF1TAB35 PO
--- NOTE | 2018-07-23 09:39 | Diagnostic Imaging Report ---
PROCEDURE: CT abdomen and pelvis without contrast. TECHNIQUE: Multiple contiguous axial images were obtained through the abdomen and pelvis without the use of intravenous contrast. Auto Exposure Controls were utilized during the CT exam to meet ALARA standards for radiation dose reduction. INDICATION: Gross hematuria. Correlation is made with prior CT from 01/16/2018. FINDINGS: The lung bases are clear. Imaging through the liver demonstrates development of multiple low-density masses. The largest is in the anterior right lobe measuring approximately 2.1 cm in diameter. Features are concerning for metastatic disease. Gallbladder is unremarkable. No biliary ductal dilatation is seen. The pancreas and kidney are unremarkable. No discrete adrenal mass is identified. No renal mass or hydronephrosis is identified. 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 No central retroperitoneal lymphadenopathy is seen. There are mildly prominent lymph nodes in the vijaya hepatis region. The small and large bowel loops are normal caliber. There is diverticulosis of the sigmoid but no evidence of acute diverticulitis. Diverticular disease of the descending colon is also seen. There is no ascites. There appears to be abnormal appearance to the bladder. There is apparent wall thickening of bladder base and to the left. This is not well evaluated without IV contrast. There is enlarged right iliac lymph node measuring 17 mm x 15 mm. No inguinal lymphadenopathy is seen. Bony structures are unremarkable. IMPRESSION: 1. Abnormal appearance of the urinary bladder which appears to be thickwalled and contains possible mass at the base and to the left. Evaluation is limited without IV contrast. Post contrast imaging or cystoscopy is recommended for further evaluation. In addition, there has been development of numerous low-density solid-appearing masses throughout the liver concerning for hepatic metastatic disease. There are some mildly prominent lymph nodes in the vijaya hepatis as well as in the right iliac region which could be metastatic as well. Dictated by: Dictated on workstation # [id number]
== END ==
LOC: RAD 08:09
PROVIDERS: ATTEND Urology
DX: R31.0 Gross hematuria (principal); R16.0 Hepatomegaly, not elsewhere classified; R59.0 Localized enlarged lymph nodes
CPT/HCPCS: 74176

== ENCOUNTER 2018-08-05 17:23 | Inpatient (IN) | payer MEDICARE ==
[~2018-08-05] VITALS: Ht 185.4 cm; Wt 79.9 kg
--- OUTSIDE RECORDS SUMMARY | 2018-08-05 17:28 | XMS REPORT | Encounter Summary ---
Author Author [facility] Organization [facility] Address Unknown Phone Unavailable Care Team Providers Care Steno Typist Name Role Phone Ebonie Isaacs PCP Encounter Details Care Team Description Date Type Department Arrived 07/23/2018 Hospital [facility] [address] [place] [id number] Social History Date Tobacco Use Types Packs/Day Years Used Never Assessed Sex Assigned at Date Recorded Not on file Industry Job Start Date Occupation Not on file Not on file Not on file Travel End Travel History Travel Start No recent travel history available. documented as of this encounter Plan of Treatment Not on filedocumented as of this encounter Procedures Comments Procedure Name Priority Date/Time Associated Diagnosis CT ABD/PEL EXTERNAL Routine 07/23/2018 IMAGING 12:00 AM CDT documented in this encounter Results * CT ABD/PEL EXTERNAL IMAGING (07/23/2018 12:00 AM CDT) Narrative Performed At This order has been auto finalized and does not contain a result. documented in this encounter Visit Diagnoses Not on filedocumented in this encounter
--- OUTSIDE RECORDS SUMMARY | 2018-08-05 17:28 | XMS REPORT | Clinical Summary ---
Author Author [facility] Organization [facility] Address Unknown Phone Unavailable Care Team Providers Care Director Custom Name Role Phone Ebonie Isaacs PCP Source Comments Some departments are not documenting in the electronic medical record. If you do not see the information that you expected, contact Release of Information in the Health Information Management department at [phone] for further assistance in locating additional records.[facility] Allergies Not on File Medications Not on file Active Problems Not on file Encounters Care Team Description Date Type Specialty Bernardino Garcia 08/03/2018 Documentation Oncology Arrived 07/23/2018 Hospital Radiology Encounter from Last 3 Months Social History Date Tobacco Use Types Packs/Day Years Used Never Assessed Sex Assigned at Date Recorded Not on file Industry Job Start Date Occupation Not on file Not on file Not on file Travel End Travel History Travel Start No recent travel history available. Last Filed Vital Signs Not on file Plan of Treatment Health Maintenance Due Date Last Done Comments PHYSICAL (COMPREHENSIVE) 1948 EXAM DTAP/TDAP VACCINES (1 - 11/21/1959 Tdap) SHINGLES RECOMBINANT 11/21/1991 VACCINE (1 of 2) PNEUMONIA (PCV13/PPSV23) 2006 VACCINES (1 of 2 - PCV13) INFLUENZA VACCINE 11/26/2018 Procedures Comments Procedure Name Priority Date/Time Associated Diagnosis CT ABD/PEL EXTERNAL Routine 07/23/2018 IMAGING 12:00 AM CDT from Last 3 Months Results * CT ABD/PEL EXTERNAL IMAGING (07/23/2018 12:00 AM CDT) Narrative Performed At This order has been auto finalized and does not contain a result. from Last 3 Months Insurance Type Payer Benefit Subscriber ID Effective Phone Address Plan / Dates Group Medicare MEDICARE MEDICARE xxxxxxxxxxx [id number] PART A AND resent B Advance Directives Patient has advance care planning documents on file. For more information, please contact: [address] [address]
--- OUTSIDE RECORDS SUMMARY | 2018-08-05 17:28 | XMS REPORT | Encounter Summary ---
Author Author [facility] Organization [facility] Address Unknown Phone Unavailable Care Team Providers Care Pottery Decorator Name Role Phone Ebonie Isaacs PCP Encounter Details Care Team Description Date Type Department Bernardino Garcia 08/03/2018 Documentation [facility] [address] [id number] Social History Date Tobacco Use Types Packs/Day Years Used Never Assessed Sex Assigned at Date Recorded Not on file Industry Job Start Date Occupation Not on file Not on file Not on file Travel End Travel History Travel Start No recent travel history available. documented as of this encounter Plan of Treatment Not on filedocumented as of this encounter Visit Diagnoses Not on filedocumented in this encounter
[2018-08-05] MEDS ORDERED: ONDANSETRON 4 MG/2 ML (SDV) Z0FRAN IVP ONE (17:45)
[2018-08-05] MEDS ORDERED: KETOROLAC 15 MG/ML VIAL IVP ONE (17:45)
[2018-08-05] MEDS ORDERED: KETOROLAC 30 MG/ML VIAL ONE (17:48)
--- NOTE | 2018-08-05 17:54 | ED General ---
General Chief Complaint: Neuro-Stroke Like Symptoms Stated Complaint: RT SIDE ABD PAIN; RT ARM NUMB Nursing Triage Note: ARRIVED VIA WC FROM HOME. STATES YESTERDAY HIS RIGHT ARM/HAND BECAME NUMB AND TODAY IT DOES NOT WANT TO MOVE. ALSO STATES HE IS HAVING PAIN RIGHT LOWER RIB CAGE AND WANTS SCANNED FOR CANCER. Nursing Sepsis Screen: No Definite Risk (KIANA TURPIN DO) History of Present Illness Date Seen by Provider: Aug 05, 2018 Time Seen by Provider: 17:48 Initial Comments Patient presenting to the emergency department with for evaluation of multiple medical symptoms. He says for the past 2 days she has been having right upper quadrant abdominal pain/right lower rib pain. Patient says that the pain is sharp and is worse with deep breaths movements and palpation. No known injury and he denies any fevers chills nausea vomiting dysuria hematuria. He was seeing Dr. Brush for possible bladder cancer and is being seen by oncology on Friday. No biopsies have been done to this point. His other symptom that he is presenting with is right arm weakness. He says he was sitting in his chair with his arm leading to the side and woke up and was not able to move his arm. Time frame on this is quite uncertain as he said it started today however said he was complaining of yesterday and then they think it may have started 2 days ago. He says he is fussy at all time as he just sits at home and does not do anything so all of his days run together. Patient does have weakness and cannot extend his right wrist but he says his right wrist has not been able to extend for 40 years due to a prior tendon surgery. He does have problems with strength and coordination in his right upper extremity and has to use his left arm to lift his right arm. He is right- handed. Says he has a history of heart disease but no prior strokes. (KIANA TURPIN DO) Allergies and Home Medications Allergies Coded Allergies: No Known Drug Allergies (Unverified , 08/05/18) Home Medications Enalapril Maleate 5 Mg Tablet, 5 MG PO HS, (Reported) Finasteride 5 Mg Tablet, 5 MG PO DAILY, (Reported) LAST FILLED #30 9-3-18 Pravastatin Sodium 10 Mg Tablet, 10 MG PO HS, (Reported) Tamsulosin HCl 0.4 Mg Cap, 0.4 MG PO 1800, (Reported) LAST FILLED #30 12-05-17 Patient Home Medication List Home Medication List Reviewed: Yes (KIANA TURPIN DO) Review of Systems Review of Systems Constitutional: No fever EENTM: No blurred vision Respiratory: No short of breath Cardiovascular: No chest pain Gastrointestinal: abdominal pain (RUQ) Genitourinary: No dysuria Musculoskeletal: No back pain Skin: No rash Psychiatric/Neurological: Denies Numbness; Weakness (KIANA TURPIN DO) All Other Systems Reviewed Negative Unless Noted: Yes (KIAAN TURPIN DO) Past Xsazrfc-Fiqcrq-Xylvgr Hx Patient Social History Alcohol Use: Denies Use Recreational Drug Use: No Smoking Status: Current Everyday Smoker Type Used: Cigarettes 2nd Hand Smoke Exposure: No Recent Foreign Travel: No Contact w/Someone Who Travel: No Recent Infectious Disease Expo: No Recent Hopitalizations: No (KIANA TURPIN DO) Immunizations Up To Date Tetanus Booster (TDap): Unknown PED Vaccines UTD: No (KIANA TURPIN DO) Seasonal Allergies Seasonal Allergies: No (KIANA TURPIN DO) Past Medical History Surgeries: Yes (OPEN HEART) Angioplasty, CABG, Orthopedic Respiratory: No Currently Using CPAP: No Currently Using BIPAP: No Cardiac: Yes (OPEN HEART 2004 @ [facility], 2006 1 or 2 stents, PVD) Coronary Artery Disease, Heart Attack, High Cholesterol, Peripheral Vascular Neurological: No Concussion Reproductive Disorders: No HIV/AIDS: No Genitourinary: Yes Benign Prostatic Hyperpl, Prostate Problems Gastrointestinal: No Musculoskeletal: No Endocrine: No HEENT: No Loss of Vision: Denies Hearing Impairment: Denies Cancer: Yes (POSSIBLE BLADDER CA ET HAS UPCOMING APPT AT . ) Bladder Psychosocial: Yes Anxiety Integumentary: No Blood Disorders: No Adverse Reaction/Blood Tranf: No (KIANA TURPIN DO) Family Medical History Diabetes mellitus 19 FATHER 19 MOTHER Myocardial infarction 19 MOTHER G8 BROTHER G8 SISTER Neoplasm G8 BROTHER (lung and bladder cancer ) Physical Exam Vital Signs Vital Signs - First Documented 08/05/18 17:28 Temp 98.5 Pulse 82 Resp 16 B/P (MAP) 132/69 (90) Pulse Ox 96 O2 Delivery Room Air (EMMA RAMEY MD) Vital Signs Capillary Refill : Less Than 3 Seconds (KIANA TURPIN DO) Height, Weight, BMI Height: 6'1.00" Weight: 165lbs. 6.0oz. 74.373375wd; 23.5 BMI Method:Stated General Appearance: WD/WN HEENT: PERRL/EOMI Neck: Full Range of Motion, Non Tender Respiratory: Lungs Clear, No Respiratory Distress Cardiovascular: Regular Rate, Rhythm Gastrointestinal: Normal Bowel Sounds, Tenderness (RUQ) Back: Other (R lateral low rib ttp.) Neurologic/Psychiatric: Alert, Oriented x3, Other (Sensation equal in extremities but he has limb ataxia and weakness with RUE in crossing watchman, wrist, elbow, shouler.) Skin: Normal Color, Warm/Dry (KIANA TURPIN DO) Progress/Results/Core Measures Suspected Sepsis Recent Fever Within 48 Hours: No Infection Criteria Present: None New/Unexplained Altered Menta: No Sepsis Screen: No Definite Risk SIRS Temperature:98.5 Pulse: 82 Respiratory Rate: 16 Blood Pressure 132 /69 Mean: 90 (KIANA TURPIN DO) Results/Orders Lab Results Laboratory Tests Test 08/05/18 17:50 08/05/18 17:55 Range/Units Urine Color OTHER H Urine Clarity CLEAR Urine pH 6.0 5-9 Urine Specific Marrero <=1.005 1.016-1.022 Urine Protein 1+ H NEGATIVE Urine Glucose (UA) NEGATIVE NEGATIVE Urine Ketones NEGATIVE NEGATIVE Urine Nitrite NEGATIVE NEGATIVE Urine Bilirubin NEGATIVE NEGATIVE Urine Urobilinogen 0.2 NORMAL MG/DL Urine Leukocyte Esterase 1+ H NEGATIVE Urine RBC (Auto) 3+ H NEGATIVE Urine RBC 10-25 H /HPF Urine WBC 25-50 H /HPF Urine Squamous Epithelial Cells 0-2 /HPF Urine Crystals NONE /LPF Urine Bacteria TRACE /HPF Urine Casts NONE /LPF Urine Mucus NONE /LPF Urine Yeast FEW H /HPF Urine Culture Indicated YES White Blood Count 6.5 4.3-11.0 10^3/uL Red Blood Count 3.92 L 4.35-5.85 10^6/uL Hemoglobin 12.5 L 13.3-17.7 G/DL Hematocrit 37 L 40-54 % Mean Corpuscular Volume 95 80-99 FL Mean Corpuscular Hemoglobin 32 25-34 PG Mean Corpuscular Hemoglobin Concent 33 32-36 G/DL Red Cell Distribution Width 13.7 10.0-14.5 % Platelet Count 158 130-400 10^3/uL Mean Platelet Volume 9.7 7.4-10.4 FL Neutrophils (%) (Auto) 59 42-75 % Lymphocytes (%) (Auto) 27 12-44 % Monocytes (%) (Auto) 10 0-12 % Eosinophils (%) (Auto) 3 0-10 % Basophils (%) (Auto) 0 0-10 % Neutrophils # (Auto) 3.9 1.8-7.8 X 10^3 Lymphocytes # (Auto) 1.8 1.0-4.0 X 10^3 Monocytes # (Auto) 0.7 0.0-1.0 X 10^3 Eosinophils # (Auto) 0.2 0.0-0.3 10^3/uL Basophils # (Auto) 0.0 0.0-0.1 10^3/uL Sodium Level 142 135-145 MMOL/L Potassium Level 4.3 3.6-5.0 MMOL/L Chloride Level 106 98-107 MMOL/L Carbon Dioxide Level 21 21-32 MMOL/L Anion Gap 15 H 5-14 MMOL/L Blood Urea Nitrogen 16 7-18 MG/DL Creatinine 0.92 0.60-1.30 MG/DL Estimat Glomerular Filtration Rate > 60 BUN/Creatinine Ratio 17 Glucose Level 112 H 70-105 MG/DL Calcium Level 9.4 8.5-10.1 MG/DL Corrected Calcium 9.8 8.5-10.1 MG/DL Magnesium Level 2.1 1.8-2.4 MG/DL Total Bilirubin 0.5 0.1-1.0 MG/DL Aspartate Amino Transf (AST/SGOT) 19 5-34 U/L Alanine Aminotransferase (ALT/SGPT) 16 0-55 U/L Alkaline Phosphatase 152 H 40-136 U/L Troponin T 8 <=15 NG/L Pro-B-Type Natriuretic Peptide 460.5 H <75.0 PG/ML Total Protein 6.8 6.4-8.2 GM/DL Albumin 3.5 3.2-4.5 GM/DL Lipase 27 8-78 U/L (EMMA RAMEY MD) My Orders Orders - EMMA RAMEY MD Levofloxacin Tablet (Levaquin Tablet) (08/05/18 20:45) Nicotine Patch (Nicoderm Patch) (08/06/18 09:00) Nicotine Patch (Nicoderm Patch) (08/05/18 23:03) Levofloxacin Tablet (Levaquin Tablet) (08/05/18 23:03) (EMMA RAMEY MD) Medications Given in ED Current Medications Medications Dose Ordered Sig/Ayesha Route Start Time Stop Time Status Last Admin Dose Admin Ketorolac Tromethamine 15 mg ONCE ONCE IVP 08/05/18 17:45 08/05/18 17:46 DC 08/05/18 17:55 15 MG Ondansetron HCl 4 mg ONCE ONCE IVP 08/05/18 17:45 08/05/18 17:46 DC 08/05/18 17:55 4 MG (EMMA RAMEY MD) Vital Signs/I&O 08/05/18 08/05/18 08/05/18 08/05/18 17:28 21:17 22:05 22:12 Temp 98.5 98.7 97.8 Pulse 82 57 85 Resp 16 18 20 B/P (MAP) 132/69 (90) 119/76 (90) 113/70 Pulse Ox 96 98 98 O2 Delivery Room Air Room Air Room Air 08/05/18 08/06/18 23:20 00:27 Temp 98.2 Pulse 73 71 Resp 18 B/P (MAP) 110/57 (74) Pulse Ox 96 O2 Delivery Room Air (EMMA RAMEY MD) Vital Signs/I&O Capillary Refill : Less Than 3 Seconds (KIANA TURPIN DO) Blood Pressure Mean: 90 Progress Note : Progress Note Patient with multiple complaints I will start with labs and CT head and cervical spine and he may require more imaging. Workup pending at time of shift change at 1800. Transfer of care to Dr. Ramey. (KIANA TURPIN DO) Progress Note : Time: 20:51 Progress Note Care of this patient was assumed from Dr. Turpin at shift change. CT of the head was pending at that time. CT was reviewed with the radiologist who recommended follow-up with MRI to help differentiate the abnormal finding which could be subacute stroke versus mass. By the time of my evaluation patient no longer had any abdominal or flank pain. He was not tender to palpation. His neurologic symptoms in the right upper extremity had also resolved. Patient may have had a nerve palsy from brachial plexus compression due to the position he had been in 2 nights ago. The symptomatology that brought him to the emergency room had completely resolved. Patient's urinalysis suggested a remote recurrence of urinary tract infection. Urine culture from prior visit was reviewed. Levaquin appeared appropriate and he was given Levaquin 500 mg orally in the ER. Options were discussed with patient and his primary care provider, Dr. Lambert. Dr. Lambert wish to ensure patient had MRI of the brain and parotid glands prior to his appointment at [facility] on Friday. She requested patient be transferred to [facility] for MRI imaging and observation. Consultation was sought with Dr. Brush as well. Patient was sent to [facility] via private vehicle. (EMMA RAMEY MD) Diagnostic Imaging Diagonstic Imaging: CT Plain Films/CT/US/NM/MRI: head Comments NAME: SARA ALANIZ [facility] REC#: [id number] PT STATUS: REG ER : 1940 PHYSICIAN: KIANA TURPIN DO ADMIT DATE: 08/05/18/ER FS Signed Date of Exam: 08/05/18 CT HEAD/CERVICAL SPINE WO CLINICAL INDICATION: Yesterday, the patient's right hand and arm became numb and today he does not want to move. Patient has pain in the right lower ribcage and concern for cancer. EXAM: Head CT without IV contrast. Axial CT scan of the cervical spine with sagittal and coronal reformations. COMPARISON: None. FINDINGS: HEAD CT: There is a hruwv-de-ooqheima sized area of low-attenuation involving the left frontal lobe with the appearance of loss of tavarez-white matter distinction. There appears to be mass effect in this area or possibly cystic encephalomalacia. This may be related to infarct, but an underlying mass should be excluded. There is also encephalomalacia involving the anterior aspect of the left temporal lobe. Diffuse brain parenchymal volume loss is seen. There are patchy areas of low-attenuation white matter changes scattered throughout both cerebral hemispheres. There is no hydrocephalus, brain herniation or midline shift. The extracranial soft tissue, skull and orbits show no significant abnormality. There is euijs-wh-wlaftdlj patchy mucosal thickening involving the ethmoid sinus and air-fluid levels. There is partial consolidation of the right mastoid air cells with sclerosis seen. CT CERVICAL SPINE: There is no acute cervical spine fracture. There is grade 1 anterolisthesis of C3 on C4 and C7 on T1. There is intervertebral bony bridging/fusion of the C3-C4 level. There is suggestion of diffuse disc bulge at the C5-C6 level with wnjarete-ye-vhkrtg loss of intervertebral disc height and uncinate spurs. There is severe bilateral C5-C6 neural foramen narrowing. There is no significant bony central canal narrowing. There is moderate right C7-T1 neural foramen narrowing due to facet arthropathy. Mild paraseptal emphysematous changes are seen. Bilateral apical pleural-parenchymal thickening/scarring is noted. There are multiple bilateral intraparotid and periparotid masses seen with the largest one on the right side measuring grossly 1.6 cm x 2.2 cm and the largest one on the left side partially obscured by dental streak artifact and measuring grossly 1.4 cm x 2.5 cm. The remainder of the neck soft tissue structures show no other significant abnormality. Impression: 1: There is a small to moderate-sized area of low density involving the left frontal lobe which is of unknown age. An underlying mass or cystic encephalomalacia in this region may be considered. A subacute or chronic infarct also may be considered. MRI of the brain with and without IV contrast is suggested for further evaluation. 2: Chronic encephalomalacia involving the anterior aspect of the left temporal lobe. 3: There are bilateral intraparotid and periparotid masses. 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 Given patient's age and bilateral location of these lesions, Warthin's tumors are of concern. Enlarged nodes may also be considered. Nonemergent MRI of the parotid glands with and without IV contrast is suggested. ENT consultation is also suggested. 4: Cervical spine degenerative disease with no acute fracture or dislocation. There is no cervical spine mass seen. Results of this report were discussed with Dr. Ramey via the telephone on 08/05/2018 at 1940 hours. Dictated by: Dictated on workstation # [id number] Dict: 08/05/181924 Trans: 08/05/182027 Interpreted by: MARY THURSTON MD Electronically signed by: MARY THURSTON MD 08/05/182027 Reviewed: Reviewed by Me (EMMA RAMEY MD) Departure Communication (Admissions) Time/Spoke to Admitting Phy: 20:35 Dr. Lambert Time/Spoke to Consulting Phy: 20:45 Dr. Brush (EMMA RAMEY MD) Impression Primary Impression: RUE weakness Additional Impressions: Brain lesion Lesion of parotid gland Urinary tract infection Qualified Codes: N39.0 - Urinary tract infection, site not specified; R31.9 - Hematuria, unspecified Right flank pain Bladder cancer Qualified Codes: C67.9 - Malignant neoplasm of bladder, unspecified Disposition: 09 ADMITTED INPATIENT Condition: Improved Admissions Decision to Admit Reason: Admit from ER (General) Decision to Admit/Date: Aug 06, 2018 Time/Decision to Admit Time: 20:35 (EMMA RAMEY MD) Transfer Time Spoke to Accepting Phy: 20:35 Transfer Facility: [place] [facility] Method of Transfer: Private Vehicle (EMMA RAMEY MD) Departure-Patient Inst. Referrals: JM LAMBERT DO (PCP/Family) Primary Care Physician KIANA TURPIN DO Aug 05, 2018 17:54 EMMA RAMEY MD Aug 05, 2018 20:53
[2018-08-05 18:08] LABS: BILIRUBIN,URINE NEGATIVE (NEGATIVE); CLARITY,URINE CLEAR; COLOR,URINE OTHER; GLUCOSE, URINE (UA) NEGATIVE (NEGATIVE); KETONES,URINE NEGATIVE (NEGATIVE); LEUKOCYTE ESTERASE ,URINE 1+ (NEGATIVE); NITRITE,URINE NEGATIVE (NEGATIVE); PROTEIN,URINE 1+ (NEGATIVE); UROBILINOGEN,URINE 0.2 MG/DL (NORMAL)
[2018-08-05 18:09] LABS: BACTERIA,URINE TRACE /HPF; SQUAMOUS EPITHELIAL CELL,UR 0-2 /HPF; WBC,URINE 25-50 /HPF; YEAST,URINE FEW /HPF
[2018-08-05 18:10] LABS: HEMATOCRIT 37 % (40-54); HEMOGLOBIN 12.5 G/DL (13.3-17.7); MEAN CORPUSCULAR HEMOGLOBIN 32 PG (25-34); MEAN CORPUSCULAR HGB CONC 33 G/DL (32-36); MEAN CORPUSCULAR VOLUME 95 FL (80-99); MEAN PLATELET VOLUME 9.7 FL (7.4-10.4); PLATELET COUNT 158 10^3/uL (130-400); RED CELL DISTRIBUTION WIDTH 13.7 % (10.0-14.5); WHITE BLOOD COUNT 6.5 10^3/uL (4.3-11.0)
[2018-08-05 18:11] LABS: BASOPHILS % (AUTO) 0 % (0-10); EOSINOPHILS # (AUTO) 0.2 10^3/uL (0.0-0.3); EOSINOPHILS % (AUTO) 3 % (0-10); LYMPHOCYTES # (AUTO) 1.8 X 10^3 (1.0-4.0); LYMPHOCYTES % (AUTO) 27 % (12-44); MONOCYTES # (AUTO) 0.7 X 10^3 (0.0-1.0); MONOCYTES % (AUTO) 10 % (0-12); NEUTROPHILS # (AUTO) 3.9 X 10^3 (1.8-7.8); NEUTROPHILS % (AUTO) 59 % (42-75)
[2018-08-05 18:43] LABS: BUN/CREATININE RATIO 17; CARBON DIOXIDE 21 MMOL/L (21-32); CHLORIDE 106 MMOL/L (98-107); CREATININE SERUM 0.92 MG/DL (0.60-1.30); GFR ESTIMATED > 60; POTASSIUM 4.3 MMOL/L (3.6-5.0); SODIUM 142 MMOL/L (135-145)
[2018-08-05 18:44] LABS: ALANINE AMINOTRANSFERASE 16 U/L (0-55); ALBUMIN 3.5 GM/DL (3.2-4.5); ALKALINE PHOSPHATASE 152 U/L (40-136); BILIRUBIN,TOTAL 0.5 MG/DL (0.1-1.0); CALCIUM 9.4 MG/DL (8.5-10.1); GLUCOSE 112 MG/DL (70-105); MAGNESIUM 2.1 MG/DL (1.8-2.4); TOTAL PROTEIN 6.8 GM/DL (6.4-8.2)
[2018-08-05 18:45] LABS: LIPASE 27 U/L (8-78)
--- NOTE | 2018-08-05 18:54 | NUR ---
REPORT GIVEN TO MARINO ZAPATA.
--- NOTE | 2018-08-05 20:20 | Diagnostic Imaging Report ---
CLINICAL INDICATION: Yesterday, the patient's right hand and arm became numb and today he does not want to move. Patient has pain in the right lower ribcage and concern for cancer. EXAM: Head CT without IV contrast. Axial CT scan of the cervical spine with sagittal and coronal reformations. COMPARISON: None. FINDINGS: HEAD CT: There is a nawvj-xu-nxbrtxcu sized area of low-attenuation involving the left frontal lobe with the appearance of loss of tavaerz-white matter distinction. There appears to be mass effect in this area or possibly cystic encephalomalacia. This may be related to infarct, but an underlying mass should be excluded. There is also encephalomalacia involving the anterior aspect of the left temporal lobe. Diffuse brain parenchymal volume loss is seen. There are patchy areas of low-attenuation white matter changes scattered throughout both cerebral hemispheres. There is no hydrocephalus, brain herniation or midline shift. The extracranial soft tissue, skull and orbits show no significant abnormality. There is uvari-rg-luzjfewc patchy mucosal thickening involving the ethmoid sinus and air-fluid levels. There is partial consolidation of the right mastoid air cells with sclerosis seen. CT CERVICAL SPINE: There is no acute cervical spine fracture. There is grade 1 anterolisthesis of C3 on C4 and C7 on T1. There is intervertebral bony bridging/fusion of the C3-C4 level. There is suggestion of diffuse disc bulge at the C5-C6 level with wxeotgpa-no-pnzwlw loss of intervertebral disc height and uncinate spurs. There is severe bilateral C5-C6 neural foramen narrowing. There is no significant bony central canal narrowing. There is moderate right C7-T1 neural foramen narrowing due to facet arthropathy. Mild paraseptal emphysematous changes are seen. Bilateral apical pleural-parenchymal thickening/scarring is noted. There are multiple bilateral intraparotid and periparotid masses seen with the largest one on the right side measuring grossly 1.6 cm x 2.2 cm and the largest one on the left side partially obscured by dental streak artifact and measuring grossly 1.4 cm x 2.5 cm. The remainder of the neck soft tissue structures show no other significant abnormality. Impression: 1: There is a small to moderate-sized area of low density involving the left frontal lobe which is of unknown age. An underlying mass or cystic encephalomalacia in this region may be considered. A subacute or chronic infarct also may be considered. MRI of the brain with and without IV contrast is suggested for further evaluation. 2: Chronic encephalomalacia involving the anterior aspect of the left temporal lobe. 3: There are bilateral intraparotid and periparotid masses. 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 Given patient's age and bilateral location of these lesions, Warthin's tumors are of concern. Enlarged nodes may also be considered. Nonemergent MRI of the parotid glands with and without IV contrast is suggested. ENT consultation is also suggested. 4: Cervical spine degenerative disease with no acute fracture or dislocation. There is no cervical spine mass seen. Results of this report were discussed with Dr. Ramey via the telephone on 08/05/2018 at 1940 hours. Dictated by: Dictated on workstation # [id number]
[2018-08-05] MEDS ORDERED: LEVOFLOXACIN 500 MG TAB (LEVAQUIN) PO ONE (20:45)
--- OUTSIDE RECORDS SUMMARY | 2018-08-05 21:55 | XMS REPORT | Clinical Summary ---
Author Author [facility] Organization [facility] Address Unknown Phone Unavailable Care Team Providers Care Account Resolution Analyst Name Role Phone Ebonie Isaacs PCP Source Comments Some departments are not documenting in the electronic medical record. If you do not see the information that you expected, contact Release of Information in the Health Information Management department at [phone] for further assistance in locating additional records.[facility] Allergies Not on File Medications Not on [...] on file. For more information, please contact: [address] [address]
--- OUTSIDE RECORDS SUMMARY | 2018-08-05 21:55 | XMS REPORT | Encounter Summary ---
Author Author [facility] Organization [facility] Address Unknown Phone Unavailable Care Team Providers Care Grain Trimmer Name Role Phone Ebonie Isaacs PCP Encounter Details Care Team Description Date Type Department Arrived 07/23/2018 Hospital [facility] [address] [place] [id number] Social History Date Tobacco Use Types [...]
--- OUTSIDE RECORDS SUMMARY | 2018-08-05 21:55 | XMS REPORT | Encounter Summary ---
Author Author [facility] Organization [facility] Address Unknown Phone Unavailable Care Team Providers Care Natural Gas Shothole Driller Name Role Phone Ebonie Isaacs PCP Encounter Details Care Team Description Date Type Department Bernardino Garcia 08/03/2018 Documentation [facility] [address] [id number] Social History Date Tobacco Use Types Packs/Day [...]
--- NOTE | 2018-08-05 22:05 | NUR ---
SARA ALANIZ admitted to room 417-1, with an admitting diagnosis of brain lesion, UTI, weakness and bladder cancer, on 08/05/18 from [facility] via POV, accompanied by his . SARA ALANIZ introduced to surroundings, call light, bed controls, phone, TV, temperature control, lights, meal times, smoking policy, visitor policy, side rail policy, bathrooms and showers. Patient Rights given to patient in the handbook. SARA ALANIZ verbalizes understanding that [facility] is not responsible for the loss or damage to any personal effects or valuables that are kept in the patients posession during their hospitalization. Plan of care is discussed and there are no questions at this time.
[2018-08-05 22:12] VITALS: BP 113/70
[2018-08-05] MEDS ORDERED: NICOTINE 21 MG (NICODERM) PATCH ONE (23:03)
[2018-08-05] MEDS ORDERED: LEVOFLOXACIN 500 MG TAB (LEVAQUIN) ONE (23:03)
[2018-08-05] MEDS: LEVOFLOXACIN 500 MG TAB (LEVAQUIN) PO SCH (23:08)
--- NOTE | 2018-08-05 23:09 | NUR ---
Nicotine patch is offered and patient refused at this time.
[2018-08-05] MEDS ORDERED: ONDANSETRON 4 MG/2 ML (SDV) Z0FRAN IV PRN (23:15)
[2018-08-05] MEDS ORDERED: ALPRAZolam 0.25 MG (XANAX) TAB PO PRN (23:15)
[2018-08-06 00:27] VITALS: BP 110/57
[2018-08-06 04:00] VITALS: BP 116/62
--- NOTE | 2018-08-06 05:55 | NUR ---
Patient is bladder scanned due to low output overnight. Bladder scan shows 114 mls of urine.
[2018-08-06 06:00] LABS: BASOPHILS % (AUTO) 0 % (0-10); EOSINOPHILS # (AUTO) 0.3 10^3/uL (0.0-0.3); EOSINOPHILS % (AUTO) 4 % (0-10); HEMATOCRIT 35 % (40-54); HEMOGLOBIN 11.7 G/DL (13.3-17.7); LYMPHOCYTES # (AUTO) 1.6 X 10^3 (1.0-4.0); LYMPHOCYTES % (AUTO) 27 % (12-44); MEAN CORPUSCULAR HEMOGLOBIN 32 PG (25-34); MEAN CORPUSCULAR HGB CONC 33 G/DL (32-36); MEAN CORPUSCULAR VOLUME 96 FL (80-99); MONOCYTES # (AUTO) 0.6 X 10^3 (0.0-1.0); MONOCYTES % (AUTO) 10 % (0-12); NEUTROPHILS # (AUTO) 3.6 X 10^3 (1.8-7.8); NEUTROPHILS % (AUTO) 59 % (42-75); PLATELET COUNT 169 10^3/uL (130-400); RED CELL DISTRIBUTION WIDTH 13.9 % (10.0-14.5)
[2018-08-06 06:20] LABS: ALANINE AMINOTRANSFERASE 18 U/L (0-55); ALBUMIN 3.2 GM/DL (3.2-4.5); ALKALINE PHOSPHATASE 141 U/L (40-136); BILIRUBIN,TOTAL 0.4 MG/DL (0.1-1.0); BUN/CREATININE RATIO 17; CALCIUM 9.2 MG/DL (8.5-10.1); CARBON DIOXIDE 22 MMOL/L (21-32); CHLORIDE 108 MMOL/L (98-107); CREATININE SERUM 1.17 MG/DL (0.60-1.30); GFR ESTIMATED > 60; GLUCOSE 153 MG/DL (70-105); POTASSIUM 4.4 MMOL/L (3.6-5.0); SODIUM 138 MMOL/L (135-145)
[2018-08-06] MEDS: NICOTINE 21 MG (NICODERM) PATCH TD SCH (07:35)
[2018-08-06 08:24] VITALS: BP 109/56
[2018-08-06] MEDS ORDERED: PRAV20TA3 PO (09:24)
--- NOTE | 2018-08-06 09:28 | NUR ---
SPOKE WITH THE PATIENT ABOUT HIS MEDICATIONS. HIS LISTED WHAT HE TAKES. I CALLED NOAH IN [place] TO VERIFY. [facility]AH FILLED: 07-24-18 FLOMAX 0.4MG BID 07-10-18 PROSCAR 5MG DAILY 05-05-18 PRAVASTATIN 20MG #90 (STATES HE CUTS IN HALF AND TAKES 1/2 HS) 05-22-18 ENALAPRIL 5MG DAILY #90 (TAKES AT HS) HE DOES NOT TAKE ANY MEDICATIONS OTC AT THIS TIME.
--- NOTE | 2018-08-06 10:19 | History & Physical-Hospitalist ---
History of Present Illness HPI/Chief Complaint Chief Complaint: Right sided weakness HPI: This is a 77yoWM clinic pt of mine only for a couple of visits, has not followed up due to noncompliance, who was recently diagnosed after cystoscopy was normal in August but repeat last month showed a bladder mass that was very aggressive that showed signs of metastasis who had been scheduled to see Urology at at 8:30 on Friday morning this upcoming week with Dr. Bertrand who presented to the [facility] ER with right sided weakness found to have mass on CT Scan so MRI was ordered and along with neck because of parotid gland masses. Currently he feels like his right sided weakness has improved. Still continues to have bladder spasms but pt is tolerating Levaquin for UTI. I will consult PT and OT to evaluate his deficits. Source: patient, family Exam Limitations: no limitations Date Seen 08/06/18 Time Seen by a Provider: 10:00 Attending Physician Ebonie Isaacs DO PCP Ebonie Isaacs DO Referring Physician Date of Admission Aug 05, 2018 at 20:35 Home Medications & Allergies Home Medications Reviewed patient Home Medication Reconciliation performed by pharmacy medication reconciliations machine technician and/or nursing. Patients Allergies have been reviewed. Allergies Allergies Coded Allergies No Known Drug Allergies (Unverified08/05/18) Past Yshkasy-Ixbfht-Crcbuy Hx Past Med/Social Hx: Reviewed Nursing Past Med/Soc Hx, Reviewed and Corrections made Patient Social History Marrital Status: Employed/Student: retired Alcohol Use: Denies Use Recreational Drug Use: No Smoking Status: Current Everyday Smoker Type Used: Cigarettes 2nd Hand Smoke Exposure: No Physical Abuse Screen: No Sexual Abuse: No Recent Foreign Travel: No Contact w/other who traveled: No Recent Hopitalizations: No Recent Infectious Disease Expo: No Immunizations Up To Date Tetanus Booster (TDap): Unknown Pediatric: No Seasonal Allergies Seasonal Allergies: No Past Medical History Surgeries: Angioplasty, CABG, Orthopedic Respiratory: COPD Currently Using CPAP: No Currently Using BIPAP: No Cardiac: Coronary Artery Disease, Heart Attack, High Cholesterol, Peripheral Vascular Neurological: Concussion Reproductive: No HIV/AIDS: No Genitourinary: Benign Prostatic Hyperpl, Prostate Problems Loss of Vision: Denies Hearing Impairment: Denies Cancer: Bladder Psychosocial: Anxiety History of Blood Disorders: No Adverse Reaction to Blood Mcmahon: No Family History Diabetes mellitus 19 FATHER 19 MOTHER Myocardial infarction 19 MOTHER G8 BROTHER G8 SISTER Neoplasm G8 BROTHER (lung and bladder cancer ) Review of Systems Constitutional: see HPI, malaise EENTM: no symptoms reported Respiratory: no symptoms reported Cardiovascular: no symptoms reported Gastrointestinal: no symptoms reported Genitourinary: dysuria, frequency, hematuria, hesitancy Musculoskeletal: no symptoms reported Skin: no symptoms reported Psychiatric/Neurological: Numbness, Paresthesia, Weakness All Other Systems Reviewed Negative Unless Noted: Yes Physical Exam Physical Exam Vital Signs Vital Signs - First Documented 08/05/18 17:28 Temp 98.5 Pulse 82 Resp 16 B/P (MAP) 132/69 (90) Pulse Ox 96 O2 Delivery Room Air Capillary Refill : Less Than 3 Seconds Height, Weight, BMI Height: 6'1.00" Weight: 176lbs. 2.0oz. 79.586847mg; 21.8 BMI Method:Stated General Appearance: No Apparent Distress, WD/WN, Chronically ill, Thin Eyes: Right Eye Normal Inspection, Right Eye PERRL HEENT: PERRL/EOMI, Normal ENT Inspection, Pharynx Normal, Moist Mucous Membranes Neck: Full Range of Motion, Normal Inspection, Non Tender Respiratory: Chest Non Tender, Lungs Clear, Normal Breath Sounds, No Accessory Muscle Use, No Respiratory Distress Cardiovascular: Regular Rate, Rhythm, No Edema, No Gallop, No JVD, No Murmur, Normal Peripheral Pulses Gastrointestinal: Normal Bowel Sounds, No Organomegaly, No Pulsatile Mass, Non Tender, Soft Back: Normal Inspection, No CVA Tenderness, No Vertebral Tenderness Extremity: Normal Capillary Refill, Normal Inspection, Normal Range of Motion, Non Tender, No Calf Tenderness, No Pedal Edema Neurologic/Psychiatric: Alert, Oriented x3, No Motor/Sensory Deficits (except right hand), Normal Mood/Affect, Motor Weakness (right hand 4/5) Skin: Normal Color, Warm/Dry Lymphatic: No Adenopathy Results Results/Procedures Labs Laboratory Tests 08/05/18 17:55 08/06/18 05:40 Patient resulted labs reviewed. Assessment/Plan Admission Diagnosis Assessment: Neurological deficit Mass on CT brain Parotid gland masses Bladder cancer with mets Hematuria Smoker PVD CAD Plan: Home meds PT/OT MRI [facility] Urology Friday Admission Status: Observation Diagnosis/Problems Diagnosis/Problems (1) RUE weakness Status: Acute (2) PVD (peripheral vascular disease) Status: Chronic (3) CAD (coronary artery disease) Qualifiers: Coronary Disease-Associated Artery/Lesion type: [place] artery [place] vs. transplanted heart: [place] heart Associated angina: without angina Qualified Codes: I25.10 - Atherosclerotic heart disease of [place] coronary artery without angina pectoris (4) Smoker Status: Chronic (5) Non-compliance Status: Chronic (6) Brain lesion Status: Acute (7) Lesion of parotid gland Status: Acute (8) Bladder cancer Status: Acute Qualifiers: Bladder location: unspecified site Qualified Codes: C67.9 - Malignant neoplasm of bladder, unspecified (9) Urinary tract infection Status: Acute Qualifiers: Urinary tract infection type: site unspecified Hematuria presence: with hematuria Qualified Codes: N39.0 - Urinary tract infection, site not specified ; R31.9 - Hematuria, unspecified Clinical Quality Measures DVT/VTE Risk/Contraindication: Risk Factor Score Per Nursin RFS Level Per Nursing on Admit: 4+=Very High EBONIE ISAACS DO Aug 06, 2018 10:19
[2018-08-06] MEDS: LEVOFLOXACIN 500 MG TAB (LEVAQUIN) PO SCH (11:29)
[2018-08-06] MEDS: HYDROcodone/APAP 5 MG/325 MG (LORTAB) TAB PO PRN ×2 (11:30→16:27)
--- NOTE | 2018-08-06 11:54 | Physical Therapy Evaluation ---
PT Evaluation-General Medical Diagnosis Admission Date Aug 05, 2018 at 20:35 Medical Diagnosis: brain lesion/UTI/right UE numbness/weakness Onset Date: Aug 05, 2018 Therapy Diagnosis Therapy Diagnosis: debility Height/Weight Height (Feet): 6 Height (Inches): 1.00 Weight (Pounds): 176 Weight (Ounces): 2.0 Precautions Precautions/Isolations: Fall Prevention, Standard Precautions Referral Physician: Ferny Reason for Referral: Evaluation/Treatment Medical History Pertinent Medical History: CABG, CAD, [place], PVD, Smoking Additional Medical History possible prostate/bladder CA per report Current History ED secondary to right UE weakness/numbness and right flank pain. Reviewed History: Yes Social History Home: Single Level Current Living Status: Spouse Entry Into Home: Stairs With Railing PT Steps Into Home: 3 Prior/Core FIM Prior Level of Function Therapy Code Descriptions/Definitions Functional [place] Measure: 0=Not Assessed/NA 4=Minimal Assistance 1=Total Assistance 5=Supervision or Setup 2=Maximal Assistance 6=Modified [place] 3=Moderate Assistance 7=Complete [place] Therapy Quality Codes: 6 Independent with activity with or without an assistive device 5 Patient requires set up or clean up by helper. Patient completes activity by themselves 4 Supervision or touching assist (CGA). [place] provide cues , steadying assist 3 The helper provides less than half the effort to complete the activity 2 The helper provides more than half the effort to complete the activity 1 Dependent. The helper does all the effort to complete an activity 7 Patient refused to complete or attempt activity 9 The patient did not perform the activity before the current illness or injury 88 Not attempted due to Medical conditions or safety concerns Functional Abilities and Goals: Independent: Patient completed the activities by him/herself, with or without an assistive device, with no assistance from a helper. Needed Some Help: Patient needed partial assistance from another person to complete activities. Dependent: A helper completed the activities for the patient. Unknown: Not Applicable: Bed Mobility: 7 Transfers (B,C,W/C) (FIM): 7 Gait: 7 Stairs: 7 Indoor Mobility (Ambulation): Independent Stairs: Independent Prior Devices Use: None PT Evaluation-Current Subjective Patient agrees to PT. Patient reports he is back to "normal" and wants to go home. Pain Numeric Pain Scale: 0-No Pain Location: No Pain Reported Objective Patient Orientation: Normal For Age Problem Solving: Fair ROM/Strength ROM Lower Extremities bilateral LE WFL Strength Lower Extremities 4+/5 grossly bilaterally Integumentary/Posture Integumentary refer to nursing notes Bowel Incontinence: No Bladder Incontinence: No Posture slight kyphosis Neuromuscular (Tone, Coordination, Reflexes) grossly intact Sensory Vision: Functional Hearing: Deaf (right ear) Sensation Right Lower Extremit: Impaired Sensation Left Lower Extremity: Impaired Transfers Therapy Code Descriptions/Definitions Functional [place] Measure: 0=Not Assessed/NA 4=Minimal Assistance 1=Total Assistance 5=Supervision or Setup 2=Maximal Assistance 6=Modified [place] 3=Moderate Assistance 7=Complete [place] Transfers (B, C, W/C) (FIM): 7 Scootin Rollin Supine to/from Sit: 7 Sit to/from Stand: 7 Gait Mode of Locomotion: Walk Anticipated Mode of Locomotion: Walk Gait (FIM): 7 Distance (FIM): 3=150 ft Distance: 400' Gait Level of Assist: 7 Gait Assistive Device: None Comments/Gait Description steady gait sequence/2 episodes of LOB with self correct Stairs Stairs (FIM): 2 #of Steps: 4 Level of Assist: 6 Balance Sitting Static: Normal Sitting Dynamic: Normal Standing Static: Good Standing Dynamic: Good Assessment/Needs 77 y.o. male, is currently at independent [facility] with all gross motor skills and does not require skilled therapy intervention. Thank you for this referral. Rehab Potential: Fair PT Plan Treatment/Plan Treatment Plan: Discontinue PT, goals met Treatment Plan: Other Treatment Duration: Aug 06, 2018 Frequency: 1 time per week Estimated Hrs Per Day: .5 hour per day Patient and/or Family Agrees t: Yes Discharge Recommendations Therapy D/C Recommendations: Home w/ Family Support Time/GCodes Time In: 1130 Time Out: 1146 Total Billed Treatment Time: 16 Total Billed Treatment 1 visit EVLowC 16 min ROLAND BENAVIDES PT Aug 06, 2018 11:54
[2018-08-06 12:00] VITALS: BP 135/53
--- NOTE | 2018-08-06 12:56 | CONSULTATION REPORT ---
DATE OF SERVICE: 08/06/2018 ATTENDING PHYSICIAN: Dr. Isaacs. SUMMARY: This 77-year-old man known to me, who was recently found to have very aggressive cancer of the bladder, filling up most of his bladder and found to have by CT to have liver lesions, lymph node enlargements. He is being admitted for question brain lesion causing neurological symptoms in the right upper extremity and he still have gross hematuria and pyuria. He has an appointment at [facility] with Dr. Bertrand on Friday at 8:30 in the morning. He was unable to get his MRI of the brain today because of pain and inability to lie on the bed. ASSESSMENT: Aggressive metastatic cancer of the bladder, question another primary. PLAN: Give some sedation or pain medication to the patient to be able to take the MRI and make sure that he makes to the appointment on Friday at . Job ID: [id number] DocumentID: [id number] Dictated Date: 08/06/2018 12:37:19 Ignition Expert Date: 08/06/2018 12:55:57 Dictated By: PETE ARMENDARIZ MD
[2018-08-06] MEDS ORDERED: LORazepam INJ 2 MG/ML (ATIVAN) VIAL IVP PRN ×2 (14:15→16:15)
--- NOTE | 2018-08-06 14:50 | Occupational Therapy Eval ---
OT Evaluation-General/PLF Medical Diagnosis Admission Date Aug 05, 2018 at 20:35 Medical Diagnosis: brain lesion/UTI/right UE numbness/weakness Onset Date: Aug 05, 2018 Therapy Diagnosis Therapy Diagnosis: Weakness Height/Weight Height (Feet): 6 Height (Inches): 1.00 Weight (Pounds): 176 Weight (Ounces): 2.0 Precautions Precautions/Isolations: Fall Prevention, Standard Precautions Weight Bear Status Weight Bearing Restriction: Weight Bearing/Tolerated Referral Physician: Ferny Referral Reason: Activity Tolerance, Self Care, Evaluation/Treatment, Strengthening/ROM Medical History Pertinent Medical History: CABG, CAD, [place], PVD, Smoking Additional Medical History Pt. states that he has a "weak right hip." Pt. also has hearing loss on right side. Current History Pt. woke up with decreased right UE movement. This has since resolved. Reviewed History: Yes Social History Home: Single Level Current Living Status: Spouse Entry Into Home: Stairs With Railing Steps Into Home: 3 ADL-Prior Level of Function Therapy Code Descriptions/Definitions Functional [place] Measure: 0=Not Assessed/NA 4=Minimal Assistance 1=Total Assistance 5=Supervision or Setup 2=Maximal Assistance 6=Modified [place] 3=Moderate Assistance 7=Complete [place] Therapy Quality Codes: 6 Independent with activity with or without an assistive device 5 Patient requires set up or clean up by helper. Patient completes activity by themselves 4 Supervision or touching assist (CGA). [place] provide cues , steadying assist 3 The helper provides less than half the effort to complete the activity 2 The helper provides more than half the effort to complete the activity 1 Dependent. The helper does all the effort to complete an activity 7 Patient refused to complete or attempt activity 9 The patient did not perform the activity before the current illness or injury 88 Not attempted due to Medical conditions or safety concerns Functional Abilities and Goals: Independent: Patient completed the activities by him/herself, with or without an assistive device, with no assistance from a helper. Needed Some Help: Patient needed partial assistance from another person to complete activities. Dependent: A helper completed the activities for the patient. Unknown: Not Applicable: ADL PLOF Comments Pt. was fully independent with all ADL skills. Does state that he has always had balance issues since he lost his hearing in right ear. Self Care: Independent Functional Cognition: Unknown DME/Equipment: Tub/Shower OT Current Status Subjective No pain reported. Appearance Pt. in bed. Agrees to work with OT. Mental Status/Objective Patient Orientation: Unable to Assess Attachments: IV Current Hand Dominance: Right Upper Extremity ROM Pt. demonstrates full ROM in bilateral UE. Upper Extremity Strength 5/5 bilateral UE. ADL-Treatment Therapy Code Descriptions/Definitions Functional [place] Measure: 0=Not Assessed/NA 4=Minimal Assistance 1=Total Assistance 5=Supervision or Setup 2=Maximal Assistance 6=Modified [place] 3=Moderate Assistance 7=Complete [place] Therapy Quality Codes: 6 Independent with activity with or without an assistive device 5 Patient requires set up or clean up by helper. Patient completes activity by themselves 4 Supervision or touching assist (CGA). [place] provide cues , steadying assist 3 The helper provides less than half the effort to complete the activity 2 The helper provides more than half the effort to complete the activity 1 Dependent. The helper does all the effort to complete an activity 7 Patient refused to complete or attempt activity 9 The patient did not perform the activity before the current illness or injury 88 Not attempted due to Medical conditions or safety concerns Lower Body Dressing (FIM): 6 Transfers (B, C, W/C) (FIM): 5 (SBA without ambulation device.) Other Treatments Pt. is alert and oriented. Spouse in the room. Pt. begins by stating that he isnt doing well, that he can't walk. reminds him that he ambulated earlier and did well with this. Pt. is able to demonstrate full ROM and good strength in right UE. OT encourages pt. to shower. Pt. states that he can do all that by himself, and agrees. However, pt. is reminded that he is having balance issues and requires supervision. Pt. states that he has always had balance issues. States, "do I stink or something?" Pt. apparently went for MRI, but was unable to lay still. States that he is getting "squirrely" in the bed. Pt. is encouraged to ambulate with OT. Transfers supine-sit with Mod I. Ambulated in hallway with supervision due to decreased balance at times. Pt. ambulated without device, but did hold onto rail in hallway. Ambulated approximately 200 feet. Ambulated back to room and transferred to bed with no difficulty. Will continue to monitor pt. and address needs as they arise, as pt. nor seem to have significant concerns at this time in regards to ADL skills. Education OT Patient Education: Correct positioning, Modified ADL techniques, Progress toward Goal/Update tx plan, Purpose of tx/functional activities, Reviewed precautions, Rehab process, Transfer techniques Teaching Recipient: Patient, Significant Other Teaching Methods: Demonstration, Discussion Response to Teaching: Verbalize Understanding, Return Demonstration OT Short Term Goals Short Term Goals 1=Demonstrate adherence to instructed precautions during ADL tasks. 2=Patient will verbalize/demonstrate understanding of assistive devices/ modifications for ADL. 3=Patient will improve strength/tolerance for activity to enable patient to perform ADL's. OT Mcfp Goals Mcfp Goals Time Frame: Aug 13, 2018 Eating (FIM): 6 Grooming(FIM): 6 Bathing(FIM): 5 Upper Body Dressing(FIM): 6 Lower Body Dressing(FIM): 6 Toileting(FIM): 6 Transfers (B,C,W/C) (FIM): 6 Toilet/Commode Transfer(FIM): 6 Shower Transfer(FIM): 5 Additional Goals: 1-Demonstrate ADL Tasks, 2-Verbalize Understanding, 3- ImproveStrength/Juvencio 1=Demonstrate adherence to instructed precautions during ADL tasks. 2=Patient will verbalize/demonstrate understanding of assistive devices/ modifications for ADL. 3=Patient will improve strength/tolerance for activity to enable patient to perform ADL's. OT Education/Plan Problem List/Assessment Assessment: Decreased Activ Tolerance, Dependent Transfers Discharge Recommendations Plan/Recommendations: Continue POC Therapy D/C Recommendations: Home w/ Family Support Comment Equipment needs to be determined. Treatment Plan/Plan of Care Treatment,Training & Education: Yes Patient would benefit from OT for education, treatment and training to promote independence in ADL's, mobility, safety and/or upper extremity function for ADL' s. Plan of Care: ADL Retraining, Functional Mobility, UE Funct Exercise/Act Treatment Duration: Aug 13, 2018 Frequency: 5 times per week Estimated Hrs Per Day: .25 hour per day Agreement: Yes Rehab Potential: Fair Time/GCodes Start Time: 13:40 Stop Time: 14:05 Total Time Billed (hr/min): 25 Billed Treatment Time 1, EVL x 10minutes, FA x 15minutes ANNEMARIE GREEN OT Aug 06, 2018 14:50
--- NOTE | 2018-08-06 16:25 | Consultation-Cardiology ---
HPI-Cardiology Cardiology Consultation Date of Consultation 08/06/18 Date of Admission Time Seen by Provider: 16:19 Indication: Peripheral arterial disease HPI 77 years old gentleman with history of coronary artery disease, peripheral arterial disease, hypertension hyperlipidemia, active smoker, had bladder tumor , has been complaining of increasing weakness and fatigue, loss of energy, slight confusion, Bhavani to the emergency room and noted to have brain tumor on his workup, he is scheduled for evaluation at next week Home Medications & Allergies Allergies: Coded Allergies: No Known Drug Allergies (Unverified , 08/05/18) Home Medication List Reviewed: Yes [id number] Hx Patient Social History Marital Status: Employed/Student: retired Alcohol Use: Denies Use Recreational Drug Use: No Smoking Status: Current Everyday Smoker Type Used: Cigarettes 2nd Hand Smoke Exposure: No Recent Foreign Travel: No Recent Infectious Disease Expo: No Recent Hopitalizations: No Physical Abuse Screen: No Sexual Abuse: No Immunizations Up To Date Tetanus Booster (TDap): Unknown Past Medical History past medical history as described below Family Medical History Family History: Diabetes mellitus 19 FATHER 19 MOTHER Myocardial infarction 19 MOTHER G8 BROTHER G8 SISTER Neoplasm G8 BROTHER (lung and bladder cancer ) Review of Systems Constitutional: see HPI, malaise, weakness EENTM: see HPI Respiratory: see HPI, cough, dyspnea on exertion; No hemoptysis, No orthopnea, No phlegm, No short of breath, No stridor, No wheezing, No other Cardiovascular: no symptoms reported, see HPI; No chest pain, No edema, No Hx of Intervention, No palpitations, No syncope; vascular heart diseas; No other Gastrointestinal: RUQ, see HPI Genitourinary: see HPI, dysuria, hematuria Musculoskeletal: see HPI, joint pain, muscle pain, muscle weakness Skin: see HPI Psychiatric/Neurological: No Symptoms Reported, See HPI Reviewed Test Results Reviewed Test Results Lab Laboratory Tests Test 08/05/18 17:50 08/05/18 17:55 08/06/18 05:40 08/06/18 11:26 Range/Units Urine Color OTHER H Urine Clarity CLEAR Urine pH 6.0 5-9 Urine Specific [place] <=1.005 1.016-1.022 Urine Protein 1+ H NEGATIVE Urine Glucose (UA) NEGATIVE NEGATIVE Urine Ketones NEGATIVE NEGATIVE Urine Nitrite NEGATIVE NEGATIVE Urine Bilirubin NEGATIVE NEGATIVE Urine Urobilinogen 0.2 NORMAL MG/DL Urine Leukocyte Esterase 1+ H NEGATIVE Urine RBC (Auto) 3+ H NEGATIVE Urine RBC 10-25 H /HPF Urine WBC 25-50 H /HPF Urine Squamous Epithelial Cells 0-2 /HPF Urine Crystals NONE /LPF Urine Bacteria TRACE /HPF Urine Casts NONE /LPF Urine Mucus NONE /LPF Urine Yeast FEW H /HPF Urine Culture Indicated YES White Blood Count 6.5 6.0 4.3-11.0 10^3/uL Red Blood Count 3.92 L 3.66 L 4.35-5.85 10^6/uL Hemoglobin 12.5 L 11.7 L 13.3-17.7 G/DL Hematocrit 37 L 35 L 40-54 % Mean Corpuscular Volume 95 96 80-99 FL Mean Corpuscular Hemoglobin 32 32 25-34 PG Mean Corpuscular Hemoglobin Concent 33 33 32-36 G/DL Red Cell Distribution Width 13.7 13.9 10.0-14.5 % Platelet Count 158 169 130-400 10^3/uL Mean Platelet Volume 9.7 10.0 7.4-10.4 FL Neutrophils (%) (Auto) 59 59 42-75 % Lymphocytes (%) (Auto) 27 27 12-44 % Monocytes (%) (Auto) 10 10 0-12 % Eosinophils (%) (Auto) 3 4 0-10 % Basophils (%) (Auto) 0 0 0-10 % Neutrophils # (Auto) 3.9 3.6 1.8-7.8 X 10^3 Lymphocytes # (Auto) 1.8 1.6 1.0-4.0 X 10^3 Monocytes # (Auto) 0.7 0.6 0.0-1.0 X 10^3 Eosinophils # (Auto) 0.2 0.3 0.0-0.3 10^3/uL Basophils # (Auto) 0.0 0.0 0.0-0.1 10^3/uL Sodium Level 142 138 135-145 MMOL/L Potassium Level 4.3 4.4 3.6-5.0 MMOL/L Chloride Level 106 108 H 98-107 MMOL/L Carbon Dioxide Level 21 22 21-32 MMOL/L Anion Gap 15 H 8 5-14 MMOL/L Blood Urea Nitrogen 16 20 H 7-18 MG/DL Creatinine 0.92 1.17 0.60-1.30 MG/DL Estimat Glomerular Filtration Rate > 60 > 60 BUN/Creatinine Ratio 17 17 Glucose Level 112 H 153 H 70-105 MG/DL Calcium Level 9.4 9.2 8.5-10.1 MG/DL Corrected Calcium 9.8 9.8 8.5-10.1 MG/DL Magnesium Level 2.1 1.8-2.4 MG/DL Total Bilirubin 0.5 0.4 0.1-1.0 MG/DL Aspartate Amino Transf (AST/SGOT) 19 20 5-34 U/L Alanine Aminotransferase (ALT/SGPT) 16 18 0-55 U/L Alkaline Phosphatase 152 H 141 H 40-136 U/L Troponin T 8 <=15 NG/L Pro-B-Type Natriuretic Peptide 460.5 H <75.0 PG/ML Total Protein 6.8 6.0 L 6.4-8.2 GM/DL Albumin 3.5 3.2 3.2-4.5 GM/DL Lipase 27 8-78 U/L Glucometer 130 H 70-110 MG/DL Physical Exam Vital Signs Vital Signs - First Documented 08/05/18 17:28 Temp 98.5 Pulse 82 Resp 16 B/P (MAP) 132/69 (90) Pulse Ox 96 O2 Delivery Room Air Capillary Refill : Less Than 3 Seconds Height, Weight, BMI Height: 6'1.00" Weight: 176lbs. 2.0oz. 79.486292ni; 21.8 BMI Method:Stated General Appearance: No Apparent Distress, WD/WN Eyes: Bilateral Eye Normal Inspection, Bilateral Eye PERRL, Bilateral Eye EOMI HEENT: PERRL/EOMI, TMs Normal, Normal ENT Inspection, Pharynx Normal Neck: Full Range of Motion, Normal Inspection, Non Tender, Supple, Carotid Bruit Respiratory: Chest Non Tender, Lungs Clear, Normal Breath Sounds, No Accessory Muscle Use, No Respiratory Distress Cardiovascular: Regular Rate, Rhythm, No JVD, Systolic Murmur, Gallop/S3 Gastrointestinal: Normal Bowel Sounds, No Organomegaly, No Pulsatile Mass, Non Tender, Soft Back: Normal Inspection, No CVA Tenderness, No Vertebral Tenderness Extremity: Normal Capillary Refill, Normal Inspection, Normal Range of Motion, Non Tender, No Calf Tenderness, No Pedal Edema, Slow Capillary Refill Neurologic/Psychiatric: Alert, Oriented x3, No Motor/Sensory Deficits, Normal Mood/Affect Skin: Normal Color, Warm/Dry Lymphatic: No Adenopathy A/P-Cardiology Admission Diagnosis Metastatic brain tumor Generalized weakness Peripheral arterial disease Coronary artery disease Assessment/Plan Metastatic brain tumor, noted incidentally on CT of the head, undergoing MRI of the head today, CT scan was reported as small to moderate size area involving the left frontal lobe with questionable subacute or chronic infarct, chronic encephalomalacia of the left temporal lobe, 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 Probably due to multiple comorbid condition. Managed by primary care physician History of hematuria, bladder tumor, following with Dr. Brush. Scheduled for evaluation at Peripheral arterial disease, had total occlusion of the distal left SFA, transferred to [facility] underwent peripheral angiogram and angioplasty to the left SFA, had patent 2 vessel runoff. 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 Was unable to tolerate dual antiplatelet therapy due to recurrent hematuria, patient has diminished pulse on the right dorsalis pedis pulse, but a pulse on the left side. Feeling colder on the right side, no acute ischemia was noted at this time. Continue to monitor Coronary artery disease, history of CABG 1 using DIAZ to LAD done in 2004, patient has been refusing any stress testing in the past. Frequent PVC's noted on telemetry, start BB and continue to monitor Hypertension, continue to monitor blood pressure Hyperlipidemia, monitor lipids Tobaccoism, still an active smoker, educated on smoking cessation Significant weight loss over the past 9 months, lung nodule suspicious of malignancy that need further investigation. CT chest done December 2017 revealed small 4 mm nodule in the anterior left upper lobe. Recommended follow- up CT in 12 months. Small infrarenal abdominal aortic aneurysm measuring 3.4 cm without evidence of rupture per CTA done December 2017, continue to monitor. Prostate hypertrophy, maintained on Flomax. Noncompliance with medication and appointment, patient was last seen in my office in February 2018, did not follow-up on his appointment Clinical Quality Measures DVT/VTE Risk/Contraindication: Risk Factor Score Per Nursin RFS Level Per Nursing on Admit: 4+=Very High ABILIO CLAROS MD Aug 06, 2018 16:25
[2018-08-06] MEDS ORDERED: GADOBUTROL 10 MMOL/10 ML (GADAVIST) VIAL IV ONE (17:30)
[2018-08-06 17:41] VITALS: BP 138/66
--- NOTE | 2018-08-06 19:15 | Diagnostic Imaging Report ---
PROCEDURE: MR imaging of the brain with and without contrast. TECHNIQUE: Multiplanar, multisequence MR imaging of the brain was performed with and without contrast. INDICATION: Cancer. COMPARISON STUDY: CT scan of the head and cervical spine from the previous day. FINDINGS: MRI of the brain with and without contrast was obtained. The patient was in severe pain so MRI of the neck was not completed. There are a few images obtained through the parotid glands. FINDINGS: No enhancing lesions are seen within the brain. Diffuse atrophy and white matter changes are present. There is an old area of encephalomalacia in the left frontal lobe. There are few punctate areas of diffusion restriction in the high left parietal region and to lesser degree on the right side. There is also some in the posterior right frontal region near the vertex. Given their distribution from different vascular sources, this is probably embolic from the heart. An area of encephalomalacia is also present in the anterior left frontal lobe. No mass effect or hemorrhage is present. Small amount of fluid is present in the right mastoid air cells. Mucosal thickening and polyps or mucous retention cysts are present in the left maxillary sinus. Images through the parotid glands are very limited and the lesion seen on CT cannot be evaluated. IMPRESSION: 1. There are punctate areas of diffusion restriction in both cerebellar hemispheres consistent with acute punctate infarctions, probably from a cardiogenic source. 2. Old infarcts are present in the left frontal lobe and left temporal lobe. 3. Atrophy and small vessel disease are present. 4. The patient could not tolerate further imaging. Imaging through the parotid lesions was not obtained. 5. There is fluid in the right mastoid air cells. 6. Left maxillary sinusitis. Dictated by: Dictated on workstation # [id number]
[2018-08-06 19:31] VITALS: BP 138/83
[2018-08-06] MEDS: ENALAPRIL 5 MG (VASOTEC) TAB PO SCH (20:31)
[2018-08-06] MEDS: TAMSULOSIN 0.4 MG (FLOMAX) CAP PO SCH (20:31)
[2018-08-06] MEDS: SIMvastatin 10 MG (ZOCOR) TAB PO SCH (20:33)
--- NOTE | 2018-08-06 22:25 | NUR ---
Dr Brush notified of urine retention and results of both pre void and post void bladder scan. orders to place cath to dependent drainage received.
--- NOTE | 2018-08-06 22:35 | NUR ---
report given to and care given to Lorie ZAPATA
[2018-08-07] VITALS (7 sets, daily range): BP systolic 112–137; BP diastolic 56–70
[2018-08-07 06:03] LABS: BASOPHILS % (AUTO) 0 % (0-10); EOSINOPHILS # (AUTO) 0.2 10^3/uL (0.0-0.3); EOSINOPHILS % (AUTO) 3 % (0-10); HEMATOCRIT 35 % (40-54); HEMOGLOBIN 11.7 G/DL (13.3-17.7); LYMPHOCYTES # (AUTO) 1.3 X 10^3 (1.0-4.0); LYMPHOCYTES % (AUTO) 21 % (12-44); MEAN CORPUSCULAR HEMOGLOBIN 32 PG (25-34); MEAN CORPUSCULAR HGB CONC 34 G/DL (32-36); MEAN CORPUSCULAR VOLUME 96 FL (80-99); MEAN PLATELET VOLUME 10.4 FL (7.4-10.4); MONOCYTES # (AUTO) 0.7 X 10^3 (0.0-1.0); MONOCYTES % (AUTO) 11 % (0-12); NEUTROPHILS # (AUTO) 3.8 X 10^3 (1.8-7.8); NEUTROPHILS % (AUTO) 64 % (42-75); PLATELET COUNT 178 10^3/uL (130-400); RED CELL DISTRIBUTION WIDTH 13.8 % (10.0-14.5)
[2018-08-07 06:29] LABS: ALANINE AMINOTRANSFERASE 22 U/L (0-55); ALBUMIN 3.3 GM/DL (3.2-4.5); ALKALINE PHOSPHATASE 138 U/L (40-136); BILIRUBIN,TOTAL 0.4 MG/DL (0.1-1.0); BUN/CREATININE RATIO 21; CALCIUM 9.5 MG/DL (8.5-10.1); CARBON DIOXIDE 18 MMOL/L (21-32); CHLORIDE 111 MMOL/L (98-107); CREATININE SERUM 1.03 MG/DL (0.60-1.30); GFR ESTIMATED > 60; GLUCOSE 124 MG/DL (70-105); MAGNESIUM 2.1 MG/DL (1.8-2.4); POTASSIUM 4.6 MMOL/L (3.6-5.0); SODIUM 140 MMOL/L (135-145)
[2018-08-07] MEDS: TAMSULOSIN 0.4 MG (FLOMAX) CAP PO SCH ×2 (08:58→21:13)
[2018-08-07] MEDS: FINASTERIDE (PROSCAR) 5 MG TAB PO SCH (08:58)
[2018-08-07] MEDS: NICOTINE 21 MG (NICODERM) PATCH TD SCH (09:00)
--- NOTE | 2018-08-07 09:59 | Progress Note-Urology ---
Progress Note-Urology Progress Notes/Assess & Plan Progress/Assessment & Plan ROB INSERTED LAST CHER. URINE CLEAR. DC ROB. KEEP ON FLOMAX BID AND PROSCAR ONCE A DAY. KU ON FRIDAY Final Diagnosis CA BLADDER PETE ARMENDARIZ MD Aug 07, 2018 09:59
--- NOTE | 2018-08-07 10:38 | Occupational Ther Daily Note ---
OT Current Status-Daily Note Subjective Pt alert, lying in bed. Pt agrees to therapy. No c/o pain at this time. Mental Status/Objective Patient Orientation: Person Therapy Code Descriptions/Definitions Functional Dimmit Measure: 0=Not Assessed/NA 4=Minimal Assistance 1=Total Assistance 5=Supervision or Setup 2=Maximal Assistance 6=Modified Dimmit 3=Moderate Assistance 7=Complete Dimmit Attachments: Connors Catheter, IV ADL-Treatment Pt requests using toilet stating that sitting on the toilet helps his bladder empty out into the bag. After therapy, pt lying in bed with call light/phone in reach. present in room. All needs met in room. Grooming (FIM): 7 (Standing at sink, pt able to complete own grooming.) Toileting (FIM): 6 (Using grabbar, pt able to complete own toileting.) Transfers (B, C, W/C) (FIM): 6 (Safety concerns. Pt completes without AE.) Toilet/Commode Transfer (FIM): 7 (Pt able to complete by self.) OT Short Term Goals Short Term Goals 1=Demonstrate adherence to instructed precautions during ADL tasks. 2=Patient will verbalize/demonstrate understanding of assistive devices/ modifications for ADL. 3=Patient will improve strength/tolerance for activity to enable patient to perform ADL's. OT Mcc Goals Supervisor Calibration Goals Time Frame: Aug 13, 2018 Eating (FIM): 6 Grooming(FIM): 6 Bathing(FIM): 5 Upper Body Dressing(FIM): 6 Lower Body Dressing(FIM): 6 Toileting(FIM): 6 Transfers (B,C,W/C) (FIM): 6 Toilet/Commode Transfer(FIM): 6 Shower Transfer(FIM): 5 Additional Goals: 1-Demonstrate ADL Tasks, 2-Verbalize Understanding, 3- ImproveStrength/Juvencio 1=Demonstrate adherence to instructed precautions during ADL tasks. 2=Patient will verbalize/demonstrate understanding of assistive devices/ modifications for ADL. 3=Patient will improve strength/tolerance for activity to enable patient to perform ADL's. OT Education/Plan Discharge Recommendations Plan/Recommendations: Continue POC Treatment Plan/Plan of Care Patient would benefit from OT for education, treatment and training to promote independence in ADL's, mobility, safety and/or upper extremity function for ADL' s. Plan of Care: ADL Retraining, Functional Mobility, UE Funct Exercise/Act Treatment Duration: Aug 13, 2018 Frequency: 5 times per week Estimated Hrs Per Day: .25 hour per day Agreement: Yes Rehab Potential: Fair Time/GCodes Start Time: 10:30 Stop Time: 10:50 Total Time Billed (hr/min): 10 Billed Treatment Time 1 visit-ADL 1 (10 min) SRINIVASAN CARRILLO Aug 07, 2018 10:38
--- NOTE | 2018-08-07 11:33 | Cardiology Progress Note ---
Subjective Date Seen by Provider: Aug 07, 2018 Time Seen by Provider: 11:31 Subjective/Events-last exam patient is laying down in bed, no new complaint, generalized weakness. No chest pain Review of Systems General: No Chills, No Night Sweats, No Fatigue, No Malaise, No Appetite, No Other HEENT: No Head Aches, No Visual Changes, No Eye Pain, No Ear Pain, No Dysphasia , No Sinus Congestion, No Post Nasal Drip, No Sore Throat, No Other Pulmonary: No Dyspnea, No Cough, No Pleuritic Chest Pain, No Other Cardiovascular: No: Chest Pain, Palpitations, Orthopnea, Paroxysmal Noc. Dyspnea, Edema, Lt Headedness, Other Objective-Cardiology Exam Last Set of Vital Signs Vital Signs 08/07/18 08:00 Temp 97.5 Pulse 71 Resp 18 B/P (MAP) 118/60 (79) Pulse Ox 96 O2 Delivery Room Air Capillary Refill : Less Than 3 Seconds I&O Intake and Output 08/07/18 00:00 Intake Total 2430 ml Output Total 900 ml Balance 1530 ml Intake Oral 2430 ml Output Urine Total 900 ml Bladder Scan Volume Amount 515 ml 509 ml # Bowel Movements 2 General: Alert, Oriented X3, Cooperative HEENT: Atraumatic, PERRLA Neck: Supple, No JVD, No Thyromegaly Lungs: Clear to Auscultation, Normal Air Movement Heart: Regular Rate, Normal S1, Normal S2, No Murmurs, Other (S3 present) Abdomen: Normal Bowel Sounds, Soft, No Tenderness, No Hepatosplenomegaly, No Masses Extremities: No Clubbing, No Cyanosis, No Edema, Normal Pulses, No Tenderness/ Swelling Skin: No Rashes, No Breakdown, No Significant Lesion Neuro: Normal Gait, Normal Speech, Strength at 5/5 X4 Ext, Normal Tone, Sensation Intact Psych/Mental Status: Mental Status NL, Mood NL Results Lab Laboratory Tests 08/07/18 05:30 A/P-Cardiology Admission Diagnosis Metastatic brain tumor Generalized weakness Peripheral arterial disease Coronary artery disease Assessment/Plan Multiple brain lesions noted incidentally on CT, was considered metastatic lesion, MRI suggestive of embolization with cardiac source, 2-D echo was done, I 'll review it and planning to evaluate MARK ANTHONY in addition I will evaluate carotid ultrasound. Patient will need to be on aspirin and possible Plavix if he can tolerate it without active bleeding Generalized weakness and loss of energy. Probably due to multiple comorbid condition. Managed by primary care physician History of hematuria, bladder tumor, currently no active bleeding, following with Dr. Brush. Scheduled for evaluation at Peripheral arterial disease, had total occlusion of the distal left SFA, transferred to [facility] underwent peripheral angiogram and angioplasty to the left SFA, had patent 2 vessel runoff. 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 Was unable to tolerate dual antiplatelet therapy due to recurrent hematuria, patient has diminished pulse on the right dorsalis pedis pulse, but a pulse on the left side. Feeling colder on the right side, no acute ischemia was noted at this time. Continue to monitor Coronary artery disease, history of CABG 1 using DIAZ to LAD done in 2004, patient has been refusing any stress testing in the past. Frequent PVC's noted on telemetry, start BB and continue to monitor Hypertension, continue to monitor blood pressure Hyperlipidemia, monitor lipids Tobaccoism, still an active smoker, educated on smoking cessation Significant weight loss over the past 9 months, lung nodule suspicious of malignancy that need further investigation. CT chest done December 2017 revealed small 4 mm nodule in the anterior left upper lobe. Recommended follow- up CT in 12 months. Small infrarenal abdominal aortic aneurysm measuring 3.4 cm without evidence of rupture per CTA done December 2017, continue to monitor. Prostate hypertrophy, maintained on Flomax. Noncompliance with medication and appointment, patient was last seen in my office in February 2018, did not follow-up on his appointment Clinical Quality Measures DVT/VTE Risk/Contraindication: Risk Factor Score Per Nursin RFS Level Per Nursing on Admit: 4+=Very High ABILIO CLAROS MD Aug 07, 2018 11:33
[2018-08-07] MEDS: LEVOFLOXACIN 500 MG TAB (LEVAQUIN) PO SCH (12:09)
--- NOTE | 2018-08-07 12:36 | Progress Note-Hospitalist ---
Subjective HPI/CC On Admission Date Seen by Provider: Aug 07, 2018 Time Seen by Provider: 11:00 Chief Complaint: Right sided weakness HPI: This is a 77yoWM clinic pt of mine only for a couple of visits, has not followed up due to noncompliance, who was recently diagnosed after cystoscopy was normal in August but repeat last month showed a bladder mass that was very aggressive that showed signs of metastasis who had been scheduled to see Urology at at 8:30 on Friday morning this upcoming week with Dr. Bertrand who presented to the [facility] ER with right sided weakness found to have mass on CT Scan so MRI was ordered and along with neck because of parotid gland masses. Currently he feels like his right sided weakness has improved. Still continues to have bladder spasms but pt is tolerating Levaquin for UTI. I will consult PT and OT to evaluate his deficits. Subjective/Events-last exam MRI confirmed strokes likely cardiogenic in origin Updated Dr. Garcia Echocardiogram reveals low ejection fraction Can't even tolerate aspirin Plavix or anticoagulation due to hemorrhagic episodes and bladder due to aggressive bladder tumor Will undergo transesophageal echocardiogram tomorrow to confirm whether vegetation in place causing the clot to the brain or atrial thrombus Maintained on statin treatment Review of Systems General: Fatigue Genitourinary: Hematuria Objective Exam Vital Signs Vital Signs Date Time Temp Pulse Resp B/P (MAP) Pulse Ox O2 Delivery O2 Flow Rate FiO2 08/07/18 08:00 97.5 71 18 118/60 (79) 96 Room Air Capillary Refill : Less Than 3 Seconds General Appearance: No Apparent Distress, WD/WN, Chronically ill, Thin HEENT: PERRL/EOMI, Normal ENT Inspection, Pharynx Normal, Moist Mucous Membranes Neck: Full Range of Motion, Normal Inspection, Non Tender Respiratory: Chest Non Tender, Lungs Clear, Normal Breath Sounds, No Accessory Muscle Use, No Respiratory Distress Cardiovascular: Regular Rate, Rhythm, No Edema, No Gallop, No JVD, No Murmur, Normal Peripheral Pulses Gastrointestinal: Normal Bowel Sounds, No Organomegaly, No Pulsatile Mass, Non Tender, Soft Back: Normal Inspection, No CVA Tenderness, No Vertebral Tenderness Extremity: Normal Capillary Refill, Normal Inspection, Normal Range of Motion, Non Tender, No Calf Tenderness, No Pedal Edema Neurologic/Psychiatric: Alert, Oriented x3, No Motor/Sensory Deficits (except right hand), Normal Mood/Affect, Motor Weakness (right hand 4/5) Skin: Normal Color, Warm/Dry Lymphatic: No Adenopathy Results/Procedures Lab Laboratory Tests 08/07/18 05:30 Patient resulted labs reviewed. 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 to evaluate those structures Bladder cancer with mets Hematuria Smoker PVD CAD Plan: Home meds PT/OT appreciated MRI reviewed Dr Garcia is appreciated MARK ANTHONY tomorrow to evaluate for vegetations versus arterial thrombosis as source for infarcts on MRI brain [facility] Urology Friday Cannot tolerate aspirin or Plavix or anticoagulation due to hemorrhagic episodes from the aggressive bladder tumor considered risk outweighed benefits Diagnosis/Problems Diagnosis/Problems (1) Cerebral infarction Status: Acute Qualifiers: Cerebral infarction mechanism: unspecified mechanism Qualified Codes: I63.9 - Cerebral infarction, unspecified (2) RUE weakness Status: Resolved Resolution Date/Time: 08/07/18 @ 12:35 (3) PVD (peripheral vascular disease) Status: Chronic (4) CAD (coronary artery disease) Qualifiers: Coronary Disease-Associated Artery/Lesion type: [place] artery [place] vs. transplanted heart: [place] heart Associated angina: without angina Qualified Codes: I25.10 - Atherosclerotic heart disease of [place] coronary artery without angina pectoris (5) Smoker Status: Chronic (6) Non-compliance Status: Chronic (7) Brain lesion Status: Acute (8) Lesion of parotid gland Status: Acute (9) Bladder cancer Status: Acute Qualifiers: Bladder location: unspecified site Qualified Codes: C67.9 - Malignant neoplasm of bladder, unspecified (10) Urinary tract infection Status: Acute Qualifiers: Urinary tract infection type: site unspecified Hematuria presence: with hematuria Qualified Codes: N39.0 - Urinary tract infection, site not specified ; R31.9 - Hematuria, unspecified (11) At risk for excessive bleeding Status: Acute Clinical Quality Measures DVT/VTE Risk/Contraindication: Risk Factor Score Per Nursin RFS Level Per Nursing on Admit: 4+=Very High JM LAMBERT DO Aug 07, 2018 12:36
--- NOTE | 2018-08-07 14:50 | NUR ---
Pastoral care visit.
--- NOTE | 2018-08-07 14:59 | Diagnostic Imaging Report ---
CLINICAL INDICATION: Patient with brain lesion, CVA. Comparison: None. Exam: Real-time carotid Doppler duplex imaging is performed bilaterally. Peak systolic velocity, ICA/CCA peak systolic ratio, spectral analysis, and vascular morphology are studied. Findings: ARTERY VELOCITY Right Left CCA 1.00 m/s 0.79 m/s ICA 0.95 m/s 0.80 m/s ECA 1.29 m/s 1.13 m/s ICA/CCA 0.95 1.01 VERT.ART Antegrade Antegrade Irregular heartbeat is noted. There is scattered areas of atherosclerotic disease involving the bilateral carotid arteries which demonstrate no significant stenosis. Impression: 1: Mild bilateral carotid artery atherosclerotic disease with no grayscale or Doppler evidence of significant vascular stenosis. 2: Irregular heartbeat noted. Dictated by: Dictated on workstation # [id number]
--- NOTE | 2018-08-07 16:51 | NUR ---
Referral received from Dr. Isaacs to assist with pt's financial concerns. Pt has Medicare only and no supplement. Pt and his given a financial assistance application and advised to meet with our financial counselors who are available during the week. Also pt provided gas assistance as he has appt. at on Friday.
[2018-08-07] MEDS: ENALAPRIL 5 MG (VASOTEC) TAB PO SCH (21:13)
[2018-08-07] MEDS: SIMvastatin 10 MG (ZOCOR) TAB PO SCH (21:14)
[2018-08-08 04:15] VITALS: BP 121/63
[2018-08-08 07:31] VITALS: BP 94/54
--- NOTE | 2018-08-08 08:32 | Cardiology Progress Note ---
Subjective Date Seen by Provider: Aug 08, 2018 Time Seen by Provider: 08:31 Subjective/Events-last exam patient is laying down in bed, no new complaint. No chest pain or shortness of breath. No palpitation Review of Systems General: No Chills, No Night Sweats, No Fatigue, No Malaise, No Appetite, No Other HEENT: No Head Aches, No Visual Changes, No Eye Pain, No Ear Pain, No Dysphasia , No Sinus Congestion, No Post Nasal Drip, No Sore Throat, No Other Pulmonary: No Dyspnea, No Cough, No Pleuritic Chest Pain, No Other Cardiovascular: No: Chest Pain, Palpitations, Orthopnea, Paroxysmal Noc. Dyspnea, Edema, Lt Headedness, Other Objective-Cardiology Exam Last Set of Vital Signs Vital Signs 08/08/18 08/08/18 07:31 07:53 Temp 97.4 Pulse 61 Resp 20 B/P (MAP) 94/54 (67) Pulse Ox 97 O2 Delivery Room Air Capillary Refill : Less Than 3 Seconds I&O Intake and Output 08/08/18 00:00 Intake Total 2421 ml Output Total 1205 ml Balance 1216 ml Intake Oral 2421 ml Output Urine Total 1155 ml Post Void Residual 50 ml # Voids 2 # Bowel Movements 1 General: Alert, Oriented X3, Cooperative HEENT: Atraumatic, PERRLA Neck: Supple, No JVD, No Thyromegaly Lungs: Clear to Auscultation, Normal Air Movement Heart: Regular Rate, Normal S1, Normal S2, No Murmurs, Other (S3 present) Abdomen: Normal Bowel Sounds, Soft, No Tenderness, No Hepatosplenomegaly, No Masses Extremities: No Clubbing, No Cyanosis, No Edema, Normal Pulses, No Tenderness/ Swelling Skin: No Rashes, No Breakdown, No Significant Lesion Neuro: Normal Gait, Normal Speech, Strength at 5/5 X4 Ext, Normal Tone, Sensation Intact Psych/Mental Status: Mental Status NL, Mood NL Results Lab Laboratory Tests Test 08/07/18 11:53 08/07/18 16:01 Range/Units Glucometer 137 H 146 H 70-110 MG/DL A/P-Cardiology Admission Diagnosis Metastatic brain tumor Generalized weakness Peripheral arterial disease Coronary artery disease Assessment/Plan Multiple brain lesions noted incidentally on CT, was considered metastatic lesion, MRI suggestive of embolization with cardiac source, planning to evaluate MARK ANTHONY in addition I will evaluate carotid ultrasound. Patient will need to be on aspirin and possible Plavix if he can tolerate it without active bleeding Generalized weakness and loss of energy. Probably due to multiple comorbid condition. Managed by primary care physician History of hematuria, bladder tumor, currently no active bleeding, following with Dr. Brush. Scheduled for evaluation at Peripheral arterial disease, had total occlusion of the distal left SFA, transferred to [facility] underwent peripheral angiogram and angioplasty to the left SFA, had patent 2 vessel runoff. 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 Was unable to tolerate dual antiplatelet therapy due to recurrent hematuria, patient has diminished pulse on the right dorsalis pedis pulse, but a pulse on the left side. Feeling colder on the right side, no acute ischemia was noted at this time. Continue to monitor Coronary artery disease, history of CABG 1 using DIAZ to LAD done in 2004, patient has been refusing any stress testing in the past. Frequent PVC's noted on telemetry, start BB and continue to monitor Hypertension, continue to monitor blood pressure Hyperlipidemia, monitor lipids Tobaccoism, still an active smoker, educated on smoking cessation Significant weight loss over the past 9 months, lung nodule suspicious of malignancy that need further investigation. CT chest done December 2017 revealed small 4 mm nodule in the anterior left upper lobe. Recommended follow- up CT in 12 months. Small infrarenal abdominal aortic aneurysm measuring 3.4 cm without evidence of rupture per CTA done December 2017, continue to monitor. Prostate hypertrophy, maintained on Flomax. Noncompliance with medication and appointment, patient was last seen in my office in February 2018, did not follow-up on his appointment Clinical Quality Measures DVT/VTE Risk/Contraindication: Risk Factor Score Per Nursin RFS Level Per Nursing on Admit: 4+=Very High ABILIO CLAROS MD Aug 08, 2018 08:32
[2018-08-08] MEDS ORDERED: fentaNYL INJECTION 100 MCG/2 ML AMP ONE (09:04)
[2018-08-08] MEDS ORDERED: MIDAZOLAM 2 MG/2 ML (VERSED) VIAL ONE ×2 (09:04→09:29)
[2018-08-08] MEDS ORDERED: NS IV 500 ML 500 ML ONE (09:05)
[2018-08-08 09:08] LABS: INR 1.1 (0.8-1.4); PROTHROMBIN TIME PATIENT 14.2 SEC (12.2-14.7)
[2018-08-08] MEDS ORDERED: LIDOCAINE 2% VISCOUS 15 ML UDC ONE (09:28)
[2018-08-08] MEDS ORDERED: HURRICAINE EXT TUBE (BENZOCAINE) ONE (09:31)
[2018-08-08] MEDS ORDERED: MIDAZOLAM 2 MG/2 ML (VERSED) VIAL IV ONE (10:00)
--- NOTE | 2018-08-08 11:20 | NUR ---
Pt transferred to room 417 at this time via bed. Pt is awake and alert prior to and during transfer, gag reflex present. Bedside report given to JODI Vyas who will assume pt care at this time.
[2018-08-08 11:23] VITALS: BP 110/54
[2018-08-08] MEDS: FINASTERIDE (PROSCAR) 5 MG TAB PO SCH (11:34)
[2018-08-08] MEDS: LEVOFLOXACIN 500 MG TAB (LEVAQUIN) PO SCH (11:35)
[2018-08-08] MEDS: TAMSULOSIN 0.4 MG (FLOMAX) CAP PO SCH (11:35)
[2018-08-08] MEDS: NICOTINE 21 MG (NICODERM) PATCH TD SCH (11:37)
[2018-08-08] MEDS ORDERED: METO-387 PO (11:46)
[2018-08-08] MEDS ORDERED: NICO-588 TD (11:46)
[2018-08-08] MEDS ORDERED: LEVO500T80 PO (11:46)
--- NOTE | 2018-08-08 11:47 | Discharge Summary-Hospitalist ---
Diagnosis/Chief Complaint Date of Admission Aug 07, 2018 at 13:36 Date of Discharge Discharge Date: Aug 08, 2018 Admission Diagnosis Assessment: Neurological deficit Mass on CT brain Parotid gland masses Bladder cancer with mets Hematuria Smoker PVD CAD Plan: Home meds PT/OT MRI [facility] Urology Friday Discharge Diagnosis (1) Cerebral infarction Status: Acute (2) RUE weakness Status: Resolved (3) PVD (peripheral vascular disease) Status: Chronic (4) CAD (coronary artery disease) (5) Smoker Status: Chronic (6) Non-compliance Status: Chronic (7) Brain lesion Status: Acute (8) Lesion of parotid gland Status: Acute (9) Bladder cancer Status: Acute (10) Urinary tract infection Status: Acute (11) At risk for excessive bleeding Status: Acute Discharge Summary Discharge Physical Exam Allergies: Coded Allergies: No Known Drug Allergies (Unverified , 08/05/18) Vitals & I&Os Vital Signs Date Time Temp Pulse Resp B/P (MAP) Pulse Ox O2 Delivery O2 Flow Rate FiO2 08/08/18 12:00 08/08/18 11:23 97.4 52 20 94 Room Air General Appearance: No Apparent Distress, WD/WN, Chronically ill, Cachetic Respiratory: Chest Non Tender, Lungs Clear, Normal Breath Sounds, No Accessory Muscle Use, No Respiratory Distress Cardiovascular: Regular Rate, Rhythm, No Edema, No Gallop, No JVD, No Murmur, Normal Peripheral Pulses Neurologic/Psychiatric: Alert, Oriented x3, No Motor/Sensory Deficits, Normal Mood/Affect Hospital Course Was the Problem List Reviewed?: Yes Hospital course: Patient had an uneventful hospital course after he was admitted for right upper extremity weakness and abnormality on CT scan. MRI was obtained after Ativan given showing cerebral infarction possibly cardiogenic source. Echocardiogram completed. Dr. Keller consulted for irregular heartbeat. Patient could not withstand aspirin Plavix or anticoagulation due to hemorrhage risk with chronic hematuria from aggressive bladder mass set to be assessed by Dr. Bertrand in urology at [facility] on Friday morning. PT and OT assess the patient weakness resolved and he was deemed stable for discharge after MARK ANTHONY did not show any source of cardiogenic cause of the stroke. Patient will have close follow-up with me in 1 week. Patient understands the risk of recurrent stroke since he is not on any anticoagulation or antiplatelet therapy because the risk of hemorrhage outweigh the benefits of recurrent stroke. Labs (last 24 hrs) Laboratory Tests 4/13/19 08:47: Prothrombin Time 14.2, INR Comment 1.1, Activated Partial Thromboplast Time 28 Microbiology 08/05/18 Urine Culture - Final, Complete NO GROWTH Patient resulted labs reviewed. Pending Labs Discussion & Recommendations Discharge Planning: <30 minutes discharge planning Discharge Home Medications: Active Scripts Active Metoprolol Succinate 25 Mg Tab.er.24h 25 Mg PO DAILY Nicotine Patch (Nicotine) 1 Each Patch.td24 21 Mg TD DAILY@0900 Levofloxacin 500 Mg Tablet 500 Mg PO DAILY@11 Reported Pravastatin Sodium 20 Mg Tablet 10 Mg PO HS TAKES 1/2 (20MG) TABLET Finasteride 5 Mg Tablet 5 Mg PO DAILY Enalapril Maleate 5 Mg Tablet 5 Mg PO HS Flomax (Tamsulosin HCl) 0.4 Mg Cap 0.4 Mg PO BID Instructions to patient/family Please see electronic discharge instructions given to patient. Clinical Quality Measures DVT/VTE Risk/Contraindication: Risk Factor Score Per Nursin RFS Level Per Nursing on Admit: 4+=Very High Problem Qualifiers (1) Cerebral infarction: Cerebral infarction mechanism: unspecified mechanism Qualified Codes: I63.9 - Cerebral infarction, unspecified (2) CAD (coronary artery disease): Coronary Disease-Associated Artery/Lesion type: [place] artery [place] vs. transplanted heart: [place] heart Associated angina: without angina Qualified Codes: I25.10 - Atherosclerotic heart disease of [place] coronary artery without angina pectoris (3) Bladder cancer: Bladder location: unspecified site Qualified Codes: C67.9 - Malignant neoplasm of bladder, unspecified (4) Urinary tract infection: Urinary tract infection type: site unspecified Hematuria presence: with hematuria Qualified Codes: N39.0 - Urinary tract infection, site not specified ; R31.9 - Hematuria, unspecified JM LAMBERT DO Aug 08, 2018 11:47
== END 2018-08-08 12:30 | disposition home or self-care (01) | DRG 65 ==
LOC: EDUNIT# 17:23 → ER FS 17:24 → 4TH 20:35 → INTOOBSV 20:35 → UNDOADMOB 20:35 → 4TH 22:05 → OBSVTOIN 08-07 13:30 → INTOOBSV 08-07 13:30 → 4TH 08-07 13:32 → OBSVTOIN 08-07 13:36 → INTOOBSV 08-07 13:36 → UNDODISIN 08-08 12:30
PROVIDERS: ADMIT Internal Medicine; ATTEND Internal Medicine
DX: I63.9 Cerebral infarction, unspecified (principal); G81.91 Hemiplegia, unspecified affecting right dominant side; N39.0 Urinary tract infection, site not specified; C67.9 Malignant neoplasm of bladder, unspecified; C79.9 Secondary malignant neoplasm of unspecified site; G93.9 Disorder of brain, unspecified; K11.8 Other diseases of salivary glands; N40.0 Benign prostatic hyperplasia without lower urinary tract symptoms; I49.3 Ventricular premature depolarization; R31.0 Gross hematuria; F17.210 Nicotine dependence, cigarettes, uncomplicated; I25.10 Atherosclerotic heart disease of native coronary artery without angina pectoris; I70.203 Unspecified atherosclerosis of native arteries of extremities, bilateral legs; I10 Essential (primary) hypertension; E78.00 Pure hypercholesterolemia, unspecified; I71.4 Abdominal aortic aneurysm, without rupture; F41.9 Anxiety disorder, unspecified; I25.2 Old myocardial infarction; Z95.1 Presence of aortocoronary bypass graft; Z95.5 Presence of coronary angioplasty implant and graft; Z91.14 Patient's other noncompliance with medication regimen; Z91.19 Patient's noncompliance with other medical treatment and regimen; Z95.820 Peripheral vascular angioplasty status with implants and grafts
CPT/HCPCS: 36415; 70450; 70553; 72125; 80053; 81000; 82962; 83690; 83735; 83880; 84484; 85025; 85027; 85610; 85730; 87088; 93306; 93312; 93320; 93325; 93880; G0378

== ENCOUNTER 2018-09-02 06:21 | Outpatient (CLI) | payer MEDICARE ==
[~2018-09-02] VITALS: Ht 185.4 cm; Wt 74.4 kg
[~2018-09-02 06:21] MED LIST changes: +LEVO500T80 PO; +METO-387 PO; +NICO-588 TD; +PRAV20TA3 PO
[2018-09-02] MEDS ORDERED: AMIO400T5 PO (11:09)
[2018-09-03] MEDS ORDERED: HYDR-3812 PO (08:35)
[2018-09-04] MEDS ORDERED: METO-387 PO (15:04)
== END 2018-09-02 11:21 | disposition home or self-care (01) ==
LOC: PREOP 06:21
PROVIDERS: ATTEND Surgery
DX: Z01.818 Encounter for other preprocedural examination (principal)

== ENCOUNTER 2018-09-03 08:24 | Day surgery (SDC) | payer MEDICARE ==
[2018-09-03] VITALS (10 sets, daily range): BP systolic 90–124; BP diastolic 45–63
[~2018-09-03] VITALS: Ht 185.4 cm; Wt 74.4 kg
[~2018-09-03 08:24] MED LIST changes: +AMIO400T5 PO
--- OUTSIDE RECORDS SUMMARY | 2018-09-03 08:28 | XMS REPORT | Clinical Summary ---
Author Author [facility] Organization [facility] Address Unknown Phone Unavailable Care Team Providers Care Dairy Lab Technician Name Role Phone Ebonie Isaacs PCP Source Comments Some departments are not documenting in the electronic medical record. If you do not see the information that you expected, contact Release of Information in the Health Information Management department at [phone] for further assistance in locating additional records.[facility] Allergies No Known Allergies Medications End Date Status Medication Sig Dispensed Refills Start Date Active finasteride (PROSCAR) 5 1 tablet by 0 mg tablet mouth daily Active tamsulosin (FLOMAX) 0.4 Take 1 0 11/19/ mg capsule capsule by 6 mouth twice daily. Active pravastatin (PRAVACHOL) Take 1 tablet 0 10 mg tablet by mouth at 6 bedtime Active metoprolol XL (TOPROL XL) Take 25 mg by 0 25 mg extended release mouth daily. 9 tablet Hold for Pulse < 60 or hypotensive. Active bacitracin 500 unit/g Apply to tip 14 g 0 topical ointment of penis 3 9 times daily Active hyoscyamine (ANASPAZ; Place one 30 tablet 0 NULEV; SYMAX FASTABS; tablet under 9 HYOMAX-FT; ED-SPAZ; tongue every OSCIMIN) 0.125 mg rapid 6 hours as dissolve tablet needed. Active amiodarone (PACERONE) 400 Twice daily 90 tablet 3 mg tablet Until 08/19 9 and then once daily 08/15/2018 Discontinued enalapril (VASOTEC) 5 mg 1 tablet by 0 tablet mouth at bedtime Active Problems Problem Noted Date Severe malnutrition 08/12/2018 Hypotension 08/10/2018 Encounters Care Team Description Date Type Specialty Jerzy, Sedrick, MD Bladder mass (Primary Dx); Bladder tumor 08/25/2018 Orders Only Oncology Sedrick Fermin MD TRANSURETHRAL RESECTION PROSTATE TUMOR - MEDIUM - 2.0 CM - 5.0 CM 08/14/2018 Surgery Apolonia Calixto CRNA 08/14/2018 Anesthesia Event Gabriel Sheela, KASSANDRA 08/13/2018 Anesthesia Event Sravan Sullivan MD Tarakji, Ahmad Ghaith, MD Ansari, Mohammed W, MD Hypotension 08/10/2018 Hospital - Encounter 08/15/2018 Sedrick Fermin MD Bladder mass 08/10/2018 Ancillary Pre-Admission Testing Procedure Sedrick Fermin MD Bladder mass (Primary Dx) 08/10/2018 Office Visit Oncology Sedrick Fermin MD Bladder tumor (Primary Dx) 08/10/2018 Prep for Case Oncology 08/06/2018 Hospital Radiology Encounter Sedrick Fermin MD Navigation Assessment 08/06/2018 Telephone Oncology 08/05/2018 Hospital Radiology Encounter Bernardino Garcia 08/03/2018 Documentation Oncology 07/23/2018 Hospital Radiology Encounter from Last 3 Months Family History Medical History Relation Name Comments Cancer Brother Heart Disease Brother Heart Disease Mother Heart Disease Sister Relation Name Status Comments Brother Mother Sister Social History Date Tobacco Use Types Packs/Day Years Used Quit: 2017 Former Smoker Cigars, 1 40 Cigarettes Smokeless Tobacco: Never Used Tobacco Cessation: Ready to Quit: No Alcohol Use Drinks/Week oz/Week Comments Never Alcohol Habits Answer Date Recorded How often do you have a drink containing alcohol? Never 08/10/2018 How many drinks containing alcohol do you have on Not asked a typical day when you are drinking? How often do you have six or more drinks on one Not asked occasion? Sex Assigned at Date Recorded Not on file Industry Job Start Date Occupation Not on file Not on file Not on file Travel End Travel History Travel Start No recent travel history available. Last Filed Vital Signs Time Taken Vital Sign Reading 08/15/2018 10:11 AM CDT Blood Pressure 108/56 08/15/2018 10:11 AM CDT Pulse 54 08/15/2018 10:11 AM CDT Temperature 36.5 C (97.7 F) 08/10/2018 8:51 AM CDT Respiratory Rate 18 08/15/2018 10:11 AM CDT Oxygen Saturation 97% - Inhaled Oxygen - Concentration 08/14/2018 7:13 AM CDT Weight 75.4 kg (166 lb 3.6 oz) 08/14/2018 7:13 AM CDT Height 182.9 cm (6') 08/14/2018 7:13 AM CDT Body Mass Index 22.54 Plan of Treatment Health Maintenance Due Date Last Done Comments PHYSICAL (COMPREHENSIVE) 1947 EXAM DTAP/TDAP VACCINES (1 - 11/21/1959 Tdap) SHINGLES RECOMBINANT 11/21/1991 VACCINE (1 of 2) PNEUMONIA (PCV13/PPSV23) 2006 VACCINES (1 of 2 - PCV13) INFLUENZA VACCINE 01/26/2019 Procedures Comments Procedure Name Priority Date/Time Associated Diagnosis MAGNESIUM Routine 08/15/2018 4:30 AM CDT CBC Routine 08/15/2018 4:30 AM CDT BASIC METABOLIC PANEL Routine 08/15/2018 4:30 AM CDT SURGICAL PATHOLOGY 08/14/2018 9:09 AM CDT CYSTOURETHROSCOPY WITH 08/14/2018 Bladder mass FULGURATION/ RESECTION 8:00 AM CDT BLADDER TUMOR - MEDIUM - 2.0 CM - 5.0 CM MAGNESIUM Routine 08/14/2018 5:06 AM CDT CBC Routine 08/14/2018 5:06 AM CDT BASIC METABOLIC PANEL Routine 08/14/2018 5:06 AM CDT MULTI GATED Routine 08/13/2018 7:43 AM CDT TYPE & CROSSMATCH STAT 08/13/2018 Bladder mass 7:00 AM CDT MAGNESIUM Routine 08/13/2018 5:19 AM CDT CBC Routine 08/13/2018 5:19 AM CDT BASIC METABOLIC PANEL Routine 08/13/2018 5:19 AM CDT MAGNESIUM Routine 08/12/2018 4:32 AM CDT BASIC METABOLIC PANEL Routine 08/12/2018 4:32 AM CDT CBC Routine 08/12/2018 4:32 AM CDT ECG 12-LEAD Routine 08/11/2018 5:[address] ABD/PELV W CONTRAST Routine 08/11/2018 2:[address] CHEST W CONTRAST Routine 08/11/2018 2:31 PM CDT 2-D + DOPPLER Routine 08/11/2018 ECHOCARDIOGRAM 2:20 PM CDT CULTURE-URINE Routine 08/11/2018 W/SENSITIVITY 9:30 AM CDT PHOSPHORUS Routine 08/11/2018 6:06 AM CDT MAGNESIUM Routine 08/11/2018 6:06 AM CDT BASIC METABOLIC PANEL Routine 08/11/2018 6:06 AM CDT CBC Routine 08/11/2018 6:06 AM CDT TROPONIN-I Routine 08/11/2018 12:23 AM CDT ECG-SCAN 08/11/2018 12:00 AM CDT TROPONIN-I Routine 08/10/2018 7:25 PM CDT CONTACT AOD TO REQUEST STAT 08/10/2018 INTERNAL MEDICINE 2:45 PM CDT ADMISSION FROM ED NON-OFFICE AUTOMATION CLERK CYTOLOGY (BODY 08/10/2018 FLUIDS/TISSUE) 2:10 PM CDT URINALYSIS, MICROSCOPIC STAT 08/10/2018 1:51 PM CDT URINALYSIS DIPSTICK STAT 08/10/2018 1:51 PM CDT CULTURE-URINE Specimen 08/10/2018 W/SENSITIVITY in Lab 1:51 PM CDT CHEST SINGLE VIEW STAT 08/10/2018 1:38 PM CDT ECG 12-LEAD STAT 08/10/2018 1:27 PM CDT POC TROPONIN 08/10/2018 1:15 PM CDT TSH WITH FREE T4 REFLEX STAT 08/10/2018 1:07 PM CDT PHOSPHORUS STAT 08/10/2018 1:07 PM CDT MAGNESIUM STAT 08/10/2018 1:07 PM CDT COMPREHENSIVE METABOLIC STAT 08/10/2018 PANEL 1:07 PM CDT CBC AND DIFF STAT 08/10/2018 1:07 PM CDT TYPE & SCREEN (NOT Routine 08/10/2018 Bladder mass CROSSMATCH ELIGIBLE) 10:47 AM CDT COMPREHENSIVE METABOLIC Routine 08/10/2018 Bladder mass PANEL 10:47 AM CDT CBC Routine 08/10/2018 Bladder mass 10:47 AM CDT TELEMETRY STRIPS-SCAN 08/10/2018 12:00 AM CDT ECG-SCAN 08/10/2018 12:00 AM CDT MRI HEAD EXTERNAL IMAGING Routine 08/06/2018 4:[address] C-SPINE EXTERNAL Routine 08/05/2018 IMAGING 1:[address] ABD/PEL EXTERNAL Routine 07/23/2018 IMAGING 12:00 AM CDT from Last 3 Months Results * CBC (08/15/2018 4:30 AM CDT) Only the most recent of 6 results within the time period is included. White Blood 6.1 4.5 - 11.0 K/UL [facility] Cells RBC 3.17 (L) 4.4 - 5.5 M/UL [facility] Hemoglobin 10.4 (L) 13.5 - 16.5 GM/DL [facility] Hematocrit 30.0 (L) 40 - 50 % [facility] MCV 94.8 80 - 100 FL [facility] MCH 32.9 26 - 34 PG [facility] MCHC 34.7 32.0 - 36.0 G/DL [facility] RDW 13.5 11 - 15 % [facility] Platelet Count 147 (L) 150 - 400 K/UL [facility] MPV 7.3 7 - 11 FL [facility] Performing Organization Address City/[facility] Phone Number MA[facility] LAB [address] [place] [address] * MAGNESIUM (08/15/2018 4:30 AM CDT) Only the most recent of 6 results within the time period is included. Magnesium 1.9 1.6 - 2.6 mg/dL [facility] Performing Organization Address [facility] Phone Number MAIN LAB [address] [phone] * BASIC METABOLIC PANEL (08/15/2018 4:30 AM CDT) Only the most recent of 5 results within the time period is included. Sodium 135 (L) 137 - 147 MMOL/L [facility] Potassium 3.9 3.5 - 5.1 MMOL/L [facility] Chloride 109 98 - 110 MMOL/L [facility] CO2 21 21 - 30 MMOL/L [facility] Anion Gap 5 3 - 12 [facility] Glucose 106 (H) 70 - 100 MG/DL [facility] Blood Urea 13 7 - 25 MG/DL [facility] Nitrogen Creatinine 0.84 0.4 - 1.24 MG/DL [facility] Calcium 8.8 8.5 - 10.6 MG/DL [facility] eGFR Non >60 >60 mL/min [facility] Comment: [place] The eGFR is not validated for use in drug dosing adjustments.Continue to use estimated creatinine clearance per dosing reference text.Please contact the Clinical Pharmacist for questions. eGFR >60 >60 mL/min [facility] [place] Comment: The eGFR is not validated for use in drug dosing adjustments.Continue to use estimated creatinine clearance per dosing reference text.Please contact the Clinical Pharmacist for questions. Performing Organization Address City/[facility] Phone Number MA[facility] [address] [place] [address] * SURGICAL PATHOLOGY (08/14/2018 9:09 AM CDT) PATHOLOGY [email or web address] Department of Pathology and Laboratory Medicine [address] [place] [address] Surgical Pathology Office:[phone] :[phone] SURGICAL PATHOLOGY REPORT NAME: SARA LEIVA SURG PATH #: [id number] MR #: [id number] SPECIMEN CLASS: SR BILLING #: [id number] ALT ID #:LOCATION: DISCHARGED DATE OF PROCEDURE: 08/14/2018 AGE:77 SEX: M DATE RECEIVED: 08/14/2018 : 1941TIME RECEIVED:09:09 PHYSICIAN: SEDRICK FERMIN MD DATE OF REPORT: 08/19/2018 COPY TO:DATE OF PRINTIN08/19/2018 ############################## ############################## ############ Final Diagnosis: A. 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 See comment. Comment: The specimen is composed exclusively of tumor involving smooth muscle and stromal type tissue. Tumor diffusely involves nearly all of the prostate chips. There is no normal prostatic tissue or normal surface urothelium identifiable which makes it difficult to tell the exact site of the tumor. Per the operative report, the abnormal tissue was in the prostatic urethra with no tumor identified in the bladder, therefore the urethra cancer checklist is utilized in this case; clinical correlation is recommended to confirm exact site, since involvement of the bladder wall cannot be excluded histologically. URETHRA: Biopsy Note: Use of case summary for biopsy specimens is optional. Select a single response unless otherwise indicated. Specimen Urethra Tumor Site (select all that apply) Male Prostatic Tumor Type Invasive carcinoma Histologic Type Urothelial Urothelial carcinoma, invasive Associated Epithelial Lesions (select all that apply) None identified Histologic Grade (select all that apply) Urothelial carcinoma High-grade Tumor Extension (select all that apply) Male Urothelial carcinoma of the prostatic urethra Tumor invades the prostatic stroma surrounding ducts either by direct extension from the urothelial surface or by invasion from prostatic ducts The possibility of tumor invading adjacent structures (extraprostatic invasion of the bladder wall): cannot be excluded Tumor Configuration (select all that apply) Solid/nodule Perineural invasion: Present Lymphovascular invasion: Present The pathologic stage assigned here should be regarded as provisional, as it reflects only current pathologic data and does not incorporate full knowledge of the patient's clinical status and/or prior pathology. Immunostain GATA3 on block A5 is positive in the tumor cells, supporting the diagnosis. Pursuant to the Research Recruiter Program at the [facility] Pathology Department, selected slides from this case have been concurrently reviewed by the following pathologist:Dr. Hanna Ricci, who agrees with the final diagnosis. Block for biomarker testing [A5] Attestation: By this signature, I attest that I have personally formulated the final interpretation expressed in this report and that the above diagnosis is based upon my examination of the slides and/or other material indicated in this report. +++ +++ true/08/14/2018 ############################## ############################## ############ Material Received: A: prostate chips History: 77-year-old male with history of bladder mass. Gross Description: A. Received in formalin labeled "prostate chips" is a 5.0 x 3.7 x 1.1 cm aggregate of irregular, pale louis-pink, glistening soft tissue fragments. The specimen is entirely submitted in cassettes A1-A5. (cg) cg/08/14/2018 If immunohistochemical stains and/or in situ hybridization are cited in this report, the performance characteristics were determined by the Department of Pathology and Laboratory Medicine of the [facility] ([employer]) in compliance with CLIA'88 regulations.Some of these tests rely on the use of "analyte specific reagents" and are subject to specific labeling requirements by the FDA. Known positive and negative control tissues demonstrate appropriate staining.Results should be interpreted with caution given the likelihood of false negativity on decalcified specimens.This testing was developed by the Department of Pathology and Laboratory Medicine of the [facility].It has not been cleared or approved by the FDA.The FDA has determined that such clearance or approval is not necessary. Performing Organization Address City/State/Zipcode Phone Number [facility] [address] [place] [address] * REGADENOSON MPI STRESS TEST (08/13/2018 7:43 AM CDT) Baseline HR 91 bpm OTHER OUTSIDE LAB Baseline BP - 105 mmHg OTHER OUTSIDE Sys LAB Peak HR 94 bpm OTHER OUTSIDE LAB Peak BP - Sys 113 mmHg OTHER OUTSIDE LAB Stress Dose 1.33 mCi OTHER OUTSIDE LAB CV NUCLEAR BMI 22.5 kg/m2 OTHER OUTSIDE LAB Baseline BP - 44 mmHg OTHER OUTSIDE Kwon LAB Peak BP - Kwon 41 OTHER OUTSIDE LAB Study Number [id number] OTHER OUTSIDE LAB PUL TO LUIS M 0.38 OTHER OUTSIDE COUNT RATIO LAB Rest Dose 0.45 mCi OTHER OUTSIDE LAB MPI EF 61 % OTHER OUTSIDE LAB TID Ratio 1.17 OTHER OUTSIDE LAB Summed Stress 2 OTHER OUTSIDE Score LAB Summed Rest 1 OTHER OUTSIDE Score LAB LV volume 76 mL OTHER OUTSIDE LAB Nuclear In aggregate the current study OTHER OUTSIDE Cardiology is low risk in regards to LAB Mortality Risk predicted annual cardiovascular mortality rate. Narrative Performed At OTHER OUTSIDE LAB Nuclear Report [facility] Division of Nuclear Cardiac Imaging Consultation Report EXAMINATION:D-SPECT Gated [id number] Chloride myocardial perfusion single-photon emission computed tomography for viability, resting regional wall function, resting ejection fraction, and perfusion imaging utilizing Regadenoson pharmacological stress. Date of Study:08/13/18 Study #:[id number] Billing ID:[id number] Referring Physician: Requested by:Kong La MD BMI: 22.5 kg/m2 INDICATIONS FOR STUDY (HISTORY):This is a 77 year old male with a history of coronary artery disease, prior bypass surgery, mild LV dysfunction, nonsustained VT.This study is being done to rule out significant myocardial ischemia. PROCEDURAL DETAILS:Initially, the patient received a 5 ml intravenous infusion of Regadenoson at 0.08 mg/ml over 10 to 15 seconds. Approximately 20 seconds later 1.33 mCi of [id number] was injected intravenously. Throughout the infusion continuous electrocardiographic monitoring and serial electrocardiograms were obtained, as well as intermittent blood pressure recordings.Gated upright D-SPECT tomographic images were then acquired approximately 5 minutes after discontinuation of the regadenoson infusion. When indicated supine D-SPECT images were also obtained.The patient returned in approximately 4 hours and received an additional intravenous injection of 0.45 mCi of [id number] Chloride as a reinjected dose to assist in the detection of myocardial ischemia and viability.Images were then reacquired and compared to post stress images. FINDINGS: Pharmacological Stress Electrocardiogram:The patient's resting heart rate was 91 bpm and the resting blood pressure was 105/44.The patient s peak stress heart rate was 94 bpm and the peak stress blood pressure was 113/41. The patient experienced no chest pain. The resting ECG shows Sinus rhythm with PVCs.Following Regadenoson infusion there are no new diagnostic ECG changes. Conclusion:Pharmacologic stress ECG is negative for ischemia. Ysnerpiro-gq-Lslvvlxdgj Count Ratio:0.38(normal=or < 0.52). Scintigraphic Findings:Raw images reveal the left ventricular cavity is normal in size.There is normal pulmonary tracer uptake.There is a mild degree of diaphragmatic attenuation present.No transient ischemic dilation is present. Tomographic images were reconstructed in three orthogonal views.There is fairly normal homogenous uptake of thallium in all myocardial segments on stress imaging.There are no perfusion defects.All myocardial segments appear viable. Polar coordinate map identifies no perfusion abnormalities. TID Ratio:1.17(normal <1.36). Summed Stress Score:2 , Summed Rest Score:1 Regional Wall Thickening and Motion Post Stress: There is normal left ventricular wall motion and thickening of all myocardial segments. Left Ventricular Ejection Fraction=61 %. Left Ventricular End Diastolic Volume: 76 mL SUMMARY/OPINION:This study is probably normal with no evidence of significant myocardial ischemia. Left ventricular systolic function is normal. There are no high risk prognostic indicators present.The ECG portion of the study is negative for ischemia. There are no prior studies available for comparison. In aggregate the current study is low risk in regards to predicted annual cardiovascular mortality rate. Performing Organization Address City/State/Zipcode Phone Number OTHER OUTSIDE LAB * TYPE & CROSSMATCH (08/13/2018 7:00 AM CDT) Units Ordered 0 [facility] Crossmatch 08/16/2018 [facility] Expires Record Check FOUND [facility] ABO/RH(D) A POS [facility] Antibody Screen NEG [facility] Electronic YES [facility] Crossmatch Specimen Blood Performing Organization Address City/State/Zipcode Phone Number MAIN LAB [address] [place] [address] * CT ABD/PELV W CONTRAST (08/11/2018 2:31 PM CDT) Impressions Performed At CHEST: [facility] RAD RESULTS 1. Development of multiple subcentimeter bilateral pulmonary nodules suggestive of pulmonary metastatic disease. 2. No thoracic lymphadenopathy. ABDOMEN AND PELVIS: 1. Asymmetric masslike thickening, centered in the base of the prostate, suggestive of primary prostate neoplasm. Bladder mass with invasion of the prostate could also produce this appearance. 2. At least one additional separate site of nodule bladder wall thickening and enhancement, suggestive of separate primary bladder neoplasm or bladder metastasis. 3. Mild metastatic pelvic lymphadenopathy. 4. Increase in multifocal hepatic metastatic disease. 5. Mild aneurysmal dilatation of the infrarenal abdominal aorta with marked mixed plaque. Approved by Paewl Cash M.D. on 08/11/2018 5:04 PM By my electronic signature, I attest that I have personally reviewed the images for this examination and formulated the interpretations and opinions expressed in this report Finalized by CINDY FLETCHER M.D. on 08/11/2018 5:36 PM. Dictated by Pawel Cash M.D. on 08/11/2018 3:47 PM. Narrative Performed At CT CHEST, ABDOMEN AND PELVIS [facility] RAD RESULTS Clinical Indication:Male, 77 years old. Bladder mass, hematuria, staging Technique: Multiple contiguous axial images were obtained through the chest, abdomen and pelvis following the administration of IV contrast material. Portal venous phase of postcontrast imaging was obtained. Post processing coronal and sagittal reconstruction images were made from the axial images. IV contrast: Yes Bowel contrast:None Comparison: Outside CT chest/abdomen/pelvis 01/16/2018, outside CT abdomen 07/15/2018 CHEST FINDINGS: Lower Neck: Small low-density lesion in the left lobe of thyroid is stable (series 2 image 6). This thyroid nodule(s) does not meet criteria for further ultrasonographic workup based on size and patient age. Axilla, Mediastinum and Jenna: No thoracic lymphadenopathy. Heart and Great Vessels: Prior median sternotomy and CABG. Heart size is normal. There is coronary artery calcification. No pericardial effusion. Thoracic aorta is normal in caliber with mild mixed atherosclerotic plaque. Airway, Lungs and Pleura: There are secretions within the right lower lobe bronchus. There has been development of a multiple subcentimeter bilateral pulmonary nodules, largest in the right lung apex measuring 6 mm (series 2 image 11). There is scarring and atelectasis in the bilateral lung bases. No pneumothorax. Chest Wall and Osseous Structures: No destructive osseous lesion. ABDOMEN AND PELVIS FINDINGS: Liver and Biliary system: Liver is normal in size. There has been increase in size and number of several hypoenhancing metastases throughout both lobes of the liver. A customer care representative mass in segment 3 measures 2.5 cm (series 2 image 97) compared to 2.0 cm on 07/23/2018 when measured in a similar fashion. Major portal and hepatic veins are patent. No calcified gallstone. There is mild ectasia of the common bile duct up to 1 cm. Spleen: Unremarkable. Adrenal Glands and Kidneys: Mild nonspecific thickening of the bilateral adrenal glands. There is bilateral renal cortical scarring. There are a few small bilateral low-density renal lesions which are too small to characterize. No hydronephrosis or nephrolithiasis. Pancreas and Retroperitoneum: Pancreas is unremarkable. No retroperitoneal lymphadenopathy. Aorta and Major Vessels: There is marked mixed atherosclerosis of the abdominal aorta and iliac arteries. There is mild aneurysmal dilatation of the infrarenal abdominal aorta measuring up to 3.2 cm. Bowel, Mesentery and Peritoneal space: Large and small bowel loops are normal in caliber. There are occasional colonic diverticula. No ascites or mesenteric adenopathy. Appendix is normal. Pelvis: There is asymmetric masslike thickening centered within the right base of the prostate, with suggestion of involvement of the lower right seminal vesicle. There is masslike thickening extending to the base of the urinary bladder, suggestive of a primary prostate mass, though incompletely characterized by CT. The bladder is incompletely distended, with at least one subtle separate focus of enhancement along the left posterolateral bladder wall (series 2 image 161, series 602 image 102). There is circumferential bladder wall thickening with mild perivesicular stranding. There is mild bilateral pelvic sidewall and iliac lymphadenopathy. A dominant right external iliac lymph node measures 2.1 x 1.4 cm (series 2 image 155). Several additional indeterminate small perirectal lymph nodes are also noted. No inguinal lymphadenopathy. Abdominal wall and Osseous Structures: Mild lumbar spondylosis. No destructive osseous lesion. Procedure Note Interface, Radiant Results - 08/11/2018 5:[address] CHEST, ABDOMEN AND PELVIS Clinical Indication: Male, 77 years old. Bladder mass, hematuria, staging Technique: Multiple contiguous axial images were obtained through the chest, abdomen and pelvis following the administration of IV contrast material. Portal venous phase of postcontrast imaging was obtained. Post processing coronal and sagittal reconstruction images were made from the axial images. IV contrast: Yes Bowel contrast: None Comparison: Outside CT chest/abdomen/pelvis 01/16/2018, outside CT abdomen 2018 CHEST FINDINGS: Lower Neck: Small low-density lesion in the left lobe of thyroid is stable ( series 2 image 6). This thyroid nodule(s) does not meet criteria for further ultrasonographic workup based on size and patient age. Axilla, Mediastinum and Jenna: No thoracic lymphadenopathy. Heart and Great Vessels: Prior median sternotomy and CABG. Heart size is normal. There is coronary artery calcification. No pericardial effusion. Thoracic aorta is normal in caliber with mild mixed atherosclerotic plaque. Airway, Lungs and Pleura: There are secretions within the right lower lobe bronchus. There has been development of a multiple subcentimeter bilateral pulmonary nodules, largest in the right lung apex measuring 6 mm (series 2 image 11). There is scarring and atelectasis in the bilateral lung bases. No pneumothorax. Chest Wall and Osseous Structures: No destructive osseous lesion. ABDOMEN AND PELVIS FINDINGS: Liver and Biliary system: Liver is normal in size. There has been increase in size and number of several hypoenhancing metastases throughout both lobes of the liver. A customer care representative mass in segment 3 measures 2.5 cm (series 2 image 97 ) compared to 2.0 cm on 07/23/2018 when measured in a similar fashion. Major portal and hepatic veins are patent. No calcified gallstone. There is mild ectasia of the common bile duct up to 1 cm. Spleen: Unremarkable. Adrenal Glands and Kidneys: Mild nonspecific thickening of the bilateral adrenal glands. There is bilateral renal cortical scarring. There are a few small bilateral low-density renal lesions which are too small to characterize. No hydronephrosis or nephrolithiasis. Pancreas and Retroperitoneum: Pancreas is unremarkable. No retroperitoneal lymphadenopathy. Aorta and Major Vessels: There is marked mixed atherosclerosis of the abdominal aorta and iliac arteries. There is mild aneurysmal dilatation of the infrarenal abdominal aorta measuring up to 3.2 cm. Bowel, Mesentery and Peritoneal space: Large and small bowel loops are normal in caliber. There are occasional colonic diverticula. No ascites or mesenteric adenopathy. Appendix is normal. Pelvis: There is asymmetric masslike thickening centered within the right base of the prostate, with suggestion of involvement of the lower right seminal vesicle. There is masslike thickening extending to the base of the urinary bladder, suggestive of a primary prostate mass, though incompletely characterized by CT. The bladder is incompletely distended, with at least one subtle separate focus of enhancement along the left posterolateral bladder wall (series 2 image 161, series 602 image 102). There is circumferential bladder wall thickening with mild perivesicular stranding. There is mild bilateral pelvic sidewall and iliac lymphadenopathy. A dominant right external iliac lymph node measures 2.1 x 1.4 cm (series 2 image 155). Several additional indeterminate small perirectal lymph nodes are also noted. No inguinal lymphadenopathy. Abdominal wall and Osseous Structures: Mild lumbar spondylosis. No destructive osseous lesion. IMPRESSION CHEST: 1. Development of multiple subcentimeter bilateral pulmonary nodules suggestive of pulmonary metastatic disease. 2. No thoracic lymphadenopathy. ABDOMEN AND PELVIS: 1. Asymmetric masslike thickening, centered in the base of the prostate, suggestive of primary prostate neoplasm. Bladder mass with invasion of the prostate could also produce this appearance. 2. At least one additional separate site of nodule bladder wall thickening and enhancement, suggestive of separate primary bladder neoplasm or bladder metastasis. 3. Mild metastatic pelvic lymphadenopathy. 4. Increase in multifocal hepatic metastatic disease. 5. Mild aneurysmal dilatation of the infrarenal abdominal aorta with marked mixed plaque. Approved by Pawel Cash M.D. on 08/11/2018 5:04 PM By my electronic signature, I attest that I have personally reviewed the images for this examination and formulated the interpretations and opinions expressed in this report Finalized by CINDY FLETCHER M.D. on 08/11/2018 5:36 PM. Dictated by Pawel Cash M.D. on 08/11/2018 3:47 PM. Performing Organization Address City/State/Zipcode Phone Number [facility] * CT CHEST W CONTRAST (08/11/2018 2:31 PM CDT) Impressions Performed At CHEST: [facility] 1. Development of multiple subcentimeter bilateral pulmonary nodules suggestive of pulmonary metastatic disease. 2. No thoracic lymphadenopathy. ABDOMEN AND PELVIS: 1. Asymmetric masslike thickening, centered in the base of the prostate, suggestive of primary prostate neoplasm. Bladder mass with invasion of the prostate could also produce this appearance. 2. At least one additional separate site of nodule bladder wall thickening and enhancement, suggestive of separate primary bladder neoplasm or bladder metastasis. 3. Mild metastatic pelvic lymphadenopathy. 4. Increase in multifocal hepatic metastatic disease. 5. Mild aneurysmal dilatation of the infrarenal abdominal aorta with marked mixed plaque. Approved by Pawel Cash M.D. on 08/11/2018 5:04 PM By my electronic signature, I attest that I have personally reviewed the images for this examination and formulated the interpretations and opinions expressed in this report Finalized by CINDY FLETCHER M.D. on 08/11/2018 5:36 PM. Dictated by Pawel Cash M.D. on 08/11/2018 3:47 PM. Narrative Performed At CT CHEST, ABDOMEN AND PELVIS [facility] Clinical Indication:Male, 77 years old. Bladder mass, hematuria, staging Technique: Multiple contiguous axial images were obtained through the chest, abdomen and pelvis following the administration of IV contrast material. Portal venous phase of postcontrast imaging was obtained. Post processing coronal and sagittal reconstruction images were made from the axial images. IV contrast: Yes Bowel contrast:None Comparison: Outside CT chest/abdomen/pelvis 01/16/2018, outside CT abdomen 07/15/2018 CHEST FINDINGS: Lower Neck: Small low-density lesion in the left lobe of thyroid is stable (series 2 image 6). This thyroid nodule(s) does not meet criteria for further ultrasonographic workup based on size and patient age. Axilla, Mediastinum and Jenna: No thoracic lymphadenopathy. Heart and Great Vessels: Prior median sternotomy and CABG. Heart size is normal. There is coronary artery calcification. No pericardial effusion. Thoracic aorta is normal in caliber with mild mixed atherosclerotic plaque. Airway, Lungs and Pleura: There are secretions within the right lower lobe bronchus. There has been development of a multiple subcentimeter bilateral pulmonary nodules, largest in the right lung apex measuring 6 mm (series 2 image 11). There is scarring and atelectasis in the bilateral lung bases. No pneumothorax. Chest Wall and Osseous Structures: No destructive osseous lesion. ABDOMEN AND PELVIS FINDINGS: Liver and Biliary system: Liver is normal in size. There has been increase in size and number of several hypoenhancing metastases throughout both lobes of the liver. A customer care representative mass in segment 3 measures 2.5 cm (series 2 image 97) compared to 2.0 cm on 07/23/2018 when measured in a similar fashion. Major portal and hepatic veins are patent. No calcified gallstone. There is mild ectasia of the common bile duct up to 1 cm. Spleen: Unremarkable. Adrenal Glands and Kidneys: Mild nonspecific thickening of the bilateral adrenal glands. There is bilateral renal cortical scarring. There are a few small bilateral low-density renal lesions which are too small to characterize. No hydronephrosis or nephrolithiasis. Pancreas and Retroperitoneum: Pancreas is unremarkable. No retroperitoneal lymphadenopathy. Aorta and Major Vessels: There is marked mixed atherosclerosis of the abdominal aorta and iliac arteries. There is mild aneurysmal dilatation of the infrarenal abdominal aorta measuring up to 3.2 cm. Bowel, Mesentery and Peritoneal space: Large and small bowel loops are normal in caliber. There are occasional colonic diverticula. No ascites or mesenteric adenopathy. Appendix is normal. Pelvis: There is asymmetric masslike thickening centered within the right base of the prostate, with suggestion of involvement of the lower right seminal vesicle. There is masslike thickening extending to the base of the urinary bladder, suggestive of a primary prostate mass, though incompletely characterized by CT. The bladder is incompletely distended, with at least one subtle separate focus of enhancement along the left posterolateral bladder wall (series 2 image 161, series 602 image 102). There is circumferential bladder wall thickening with mild perivesicular stranding. There is mild bilateral pelvic sidewall and iliac lymphadenopathy. A dominant right external iliac lymph node measures 2.1 x 1.4 cm (series 2 image 155). Several additional indeterminate small perirectal lymph nodes are also noted. No inguinal lymphadenopathy. Abdominal wall and Osseous Structures: Mild lumbar spondylosis. No destructive osseous lesion. Procedure Note Interface, Radiant Results - 08/11/2018 5:[address] CHEST, ABDOMEN AND PELVIS Clinical Indication: Male, 77 years old. Bladder mass, hematuria, staging Technique: Multiple contiguous axial images were obtained through the chest, abdomen and pelvis following the administration of IV contrast material. Portal venous phase of postcontrast imaging was obtained. Post processing coronal and sagittal reconstruction images were made from the axial images. IV contrast: Yes Bowel contrast: None Comparison: Outside CT chest/abdomen/pelvis 01/16/2018, outside CT abdomen 2018 CHEST FINDINGS: Lower Neck: Small low-density lesion in the left lobe of thyroid is stable ( series 2 image 6). This thyroid nodule(s) does not meet criteria for further ultrasonographic workup based on size and patient age. Axilla, Mediastinum and Jenna: No thoracic lymphadenopathy. Heart and Great Vessels: Prior median sternotomy and CABG. Heart size is normal. There is coronary artery calcification. No pericardial effusion. Thoracic aorta is normal in caliber with mild mixed atherosclerotic plaque. Airway, Lungs and Pleura: There are secretions within the right lower lobe bronchus. There has been development of a multiple subcentimeter bilateral pulmonary nodules, largest in the right lung apex measuring 6 mm (series 2 image 11). There is scarring and atelectasis in the bilateral lung bases. No pneumothorax. Chest Wall and Osseous Structures: No destructive osseous lesion. ABDOMEN AND PELVIS FINDINGS: Liver and Biliary system: Liver is normal in size. There has been increase in size and number of several hypoenhancing metastases throughout both lobes of the liver. A customer care representative mass in segment 3 measures 2.5 cm (series 2 image 97 ) compared to 2.0 cm on 07/23/2018 when measured in a similar fashion. Major portal and hepatic veins are patent. No calcified gallstone. There is mild ectasia of the common bile duct up to 1 cm. Spleen: Unremarkable. Adrenal Glands and Kidneys: Mild nonspecific thickening of the bilateral adrenal glands. There is bilateral renal cortical scarring. There are a few small bilateral low-density renal lesions which are too small to characterize. No hydronephrosis or nephrolithiasis. Pancreas and Retroperitoneum: Pancreas is unremarkable. No retroperitoneal lymphadenopathy. Aorta and Major Vessels: There is marked mixed atherosclerosis of the abdominal aorta and iliac arteries. There is mild aneurysmal dilatation of the infrarenal abdominal aorta measuring up to 3.2 cm. Bowel, Mesentery and Peritoneal space: Large and small bowel loops are normal in caliber. There are occasional colonic diverticula. No ascites or mesenteric adenopathy. Appendix is normal. Pelvis: There is asymmetric masslike thickening centered within the right base of the prostate, with suggestion of involvement of the lower right seminal vesicle. There is masslike thickening extending to the base of the urinary bladder, suggestive of a primary prostate mass, though incompletely characterized by CT. The bladder is incompletely distended, with at least one subtle separate focus of enhancement along the left posterolateral bladder wall (series 2 image 161, series 602 image 102). There is circumferential bladder wall thickening with mild perivesicular stranding. There is mild bilateral pelvic sidewall and iliac lymphadenopathy. A dominant right external iliac lymph node measures 2.1 x 1.4 cm (series 2 image 155). Several additional indeterminate small perirectal lymph nodes are also noted. No inguinal lymphadenopathy. Abdominal wall and Osseous Structures: Mild lumbar spondylosis. No destructive osseous lesion. IMPRESSION CHEST: 1. Development of multiple subcentimeter bilateral pulmonary nodules suggestive of pulmonary metastatic disease. 2. No thoracic lymphadenopathy. ABDOMEN AND PELVIS: 1. Asymmetric masslike thickening, centered in the base of the prostate, suggestive of primary prostate neoplasm. Bladder mass with invasion of the prostate could also produce this appearance. 2. At least one additional separate site of nodule bladder wall thickening and enhancement, suggestive of separate primary bladder neoplasm or bladder metastasis. 3. Mild metastatic pelvic lymphadenopathy. 4. Increase in multifocal hepatic metastatic disease. 5. Mild aneurysmal dilatation of the infrarenal abdominal aorta with marked mixed plaque. Approved by Pawel Cash M.D. on 08/11/2018 5:04 PM By my electronic signature, I attest that I have personally reviewed the images for this examination and formulated the interpretations and opinions expressed in this report Finalized by CINDY FLETCHER M.D. on 08/11/2018 5:36 PM. Dictated by Pawel Cash M.D. on 08/11/2018 3:47 PM. Performing Organization Address City/State/Zipcode Phone Number [facility] * 2-D + DOPPLER ECHOCARDIOGRAM (08/11/2018 2:20 PM CDT) IVS 1.16 0.6 - 1.0 cm OTHER OUTSIDE LAB LVIDD 5.28 4.2 - 5.8 cm OTHER OUTSIDE LAB LVIDS 3.84 2.5 - 4.0 cm OTHER OUTSIDE LAB PW 0.84 0.6 - 1.0 cm OTHER OUTSIDE LAB TDI e' 0.08 m/s OTHER OUTSIDE LAB Right 3.04 1.9 - 3.5 cm OTHER OUTSIDE Ventricular Mid LAB Diameter LA size 4.05 3.0 - 4.0 cm OTHER OUTSIDE LAB LA volume 72.09 18 - 58 mL OTHER OUTSIDE LAB Right Atrial 17.82 <18 cm2 OTHER OUTSIDE Area LAB Right Atrial 4.65 2.1 - 2.7 cm OTHER OUTSIDE Major Dimension LAB and a peak 7.56 mmHg OTHER OUTSIDE gradient of LAB AV peak 1.37 m/s OTHER OUTSIDE velocity LAB MV Peak A Sonny 1.13 m/s OTHER OUTSIDE LAB MV Peak E Sonny 0.91 m/s OTHER OUTSIDE PW LAB Right 3.86 2.5 - 4.1 cm OTHER OUTSIDE Ventricular LAB Basal Diameter Right Heart 1.90 >1.7 cm OTHER OUTSIDE Systolic Mmode LAB TAPSE Sinus 3.51 2.8 - 4.0 cm OTHER OUTSIDE LAB BSA 1.96 m2 OTHER OUTSIDE LAB Referring Ebonie Isaacs OTHER OUTSIDE Provider LAB FS 27.27 28 - 44 % OTHER OUTSIDE LAB EF 46.36 % OTHER OUTSIDE LAB LV mass 199.14 96 - 200 g OTHER OUTSIDE LAB RWT 0.32 <=0.42 OTHER OUTSIDE LAB E/A ratio 0.81 OTHER OUTSIDE LAB E/E' ratio 11.38 OTHER OUTSIDE LAB Left Atrium 36.78 16 - 34 OTHER OUTSIDE Index LAB Cardiology Siemens [id number] OTHER OUTSIDE Ultrasound LAB Machine Left Ventricle 101.60 50 - 102 g/m2 OTHER OUTSIDE Mass Index LAB MV vena 0.40 cm OTHER OUTSIDE contracta LAB Right Heart 0.100 m/s OTHER OUTSIDE Systolic TDI S' LAB ECHO EF 50 % OTHER OUTSIDE LAB TV rest 37 mmHg OTHER OUTSIDE pulmonary LAB artery pressure Narrative Performed At OTHER OUTSIDE LAB Left Ventricle: Normal size and wall thickness. Mildly decreased ejection fraction. Frequent PVCs making the accurate estimation of EF difficult due to post PVC augmentation. EF 45-50%, post PVC augmentation to 55%. Global hypokinesis. Right Ventricle: Normal size. Mildly reduced ejection fraction. No hemodynamically significant valvular abnormalities. Left pleural effusion. Estimated Peak Systolic PA Pressure (32 + RA pressure) mmHg. Performing Organization Address City/State/Zipcode Phone Number OTHER OUTSIDE LAB * CULTURE-URINE W/SENSITIVITY (08/11/2018 9:30 AM CDT) Only the most recent of 2 results within the time period is included. Battery Name URINE CULTURE [facility] Specimen URINE, STRAIGHT CATH [facility] Description Special NONE [facility] Requests Culture NO GROWTH [facility] Report Status FINAL [facility] 08/12/2018 Specimen Urine - Urine Straight Catheter Performing Organization Address [facility] Phone Number [facility] [address] [place] [address] * PHOSPHORUS (08/11/2018 6:06 AM CDT) Only the most recent of 2 results within the time period is included. Phosphorus 3.1Comment: NOTE NEW REFERENCE 2.0 - 4.5 MG/DL [facility] RANGES Performing Organization Address [facility] Phone Number [facility] [address] [place] [address] * TROPONIN-I (08/11/2018 12:23 AM CDT) Only the most recent of 2 results within the time period is included. Troponin-I 0.01 0.0 - 0.05 NG/ML [facility] Specimen Blood Performing Organization Address [facility] Phone Number [facility] [address] [place] [address] * ECG-SCAN (08/11/2018 12:00 AM CDT) Narrative Performed At Ordered by an unspecified provider. * NON-OFFICE AUTOMATION CLERK CYTOLOGY (BODY FLUIDS/TISSUE) (08/10/2018 2:10 PM CDT) Cytology [facility] [email or web address] Department of Pathology and Laboratory Medicine [address] [place] [address] Surgical Pathology Office:[phone] :[phone] CYTOLOGY REPORT NAME: SARA LEIVA CYTOLOGY #: [id number] MR #: [id number] ALT ID #: [id number] #: [id number] LOCATION: [facility] DATE OF PROCEDURE: 08/10/2018 AGE: 77 SEX: M DATE RECEIVED: 08/10/2018 : 1940TIME RECEIVED:14:10 PHYSICIAN: SEDRICK FERMIN MD DATE OF REPORT: 08/11/2018 COPY TO:DATE OF PRINTIN08/11/2018 Material Received: A: Urine (Voided) History: 77 year old male with hematuria and bladder lesions. Gross Description: (1 Thinprep)Received 50 ml of turbid pink fluid. ############################## ############################## ############ Final Diagnosis: A. Urine (Voided): High grade urothelial carcinoma. Attestation: By this signature, I attest that I have personally formulated the final interpretation expressed in this report and that the above diagnosis is based upon my examination of the slides and/or other material indicated in this report. +++Electronically Signed Out By+++ /08/11/2018 Interpreted by: Karli Carrasco MD, PhD Anna Holliday D.O. Performing Organization Address City/[facility] Phone Number [facility] [address] [place] [address] * URINALYSIS, MICROSCOPIC (08/10/2018 1:51 PM CDT) WBCs,UA PACKED 0 - 2 /HPF MAIN LAB RBCs,UA PACKED 0 - 3 /HPF MAIN LAB MucousUA 1+ [facility] Bacteria,UA FEW (A) NEG-NEG MAIN LAB Squamous 2-5 0 - 5 [facility] Epithelial Cells Specimen Urine - Urine Performing Organization Address [facility] Phone Number [facility] [address] [place] [address] * URINALYSIS DIPSTICK (08/10/2018 1:51 PM CDT) Color,UA BRENDA [facility] Turbidity,UA 2+ (A) CLEAR-CLEAR [facility] Specific 1.018 1.003 - 1.035 MAIN LAB [place]-Urine pH,UA 5.0 5.0 - 8.0 [facility] Protein,UA 2+ (A) NEG-NEG [facility] Glucose,UA NEG NEG-NEG [facility] Ketones,UA TRACE (A) NEG-NEG MAIN LAB Bilirubin,UA POS (A) NEG-NEG [facility] Blood,UA 3+ (A) NEG-NEG [facility] Urobilinogen,UA INCREASED (A) NORM-NORMAL [facility] Nitrite,UA NEG NEG-NEG [facility] Leukocytes,UA 2+ (A) NEG-NEG [facility] Urine Ascorbic NEG NEG-NEG [facility] Acid, UA Specimen Urine - Urine Performing Organization Address City/[facility]/Zipcode Phone Number [facility] [address] [place] [address] * CHEST SINGLE VIEW (08/10/2018 1:38 PM CDT) Impressions Performed At No acute cardiopulmonary abnormality. [facility] Approved by Nabeel Berrios M.D. on 08/10/2018 3:09 PM By my electronic signature, I attest that I have personally reviewed the images for this examination and formulated the interpretations and opinions expressed in this report Finalized by SHIRLEY FISHER M.D. on 08/10/2018 3:15 PM. Dictated by Nabeel Berrios M.D. on 08/10/2018 2:08 PM. Narrative Performed At CHEST SINGLE VIEW [facility] Clinical Indication: Male, 77 years old. Hypotension, chest pain Comparison: External CT chest 01/15/2018 Findings: Prior median sternotomy and CABG. The heart size and pulmonary vasculature are unremarkable. No consolidating pneumonia, pleural effusion, or pneumothorax. Procedure Note Interface, Radiant Results - 08/10/2018 3:18 PM CDT CHEST SINGLE VIEW Clinical Indication: Male, 77 years old. Hypotension, chest pain Comparison: External CT chest 01/15/2018 Findings: Prior median sternotomy and CABG. The heart size and pulmonary vasculature are unremarkable. No consolidating pneumonia, pleural effusion, or pneumothorax. IMPRESSION No acute cardiopulmonary abnormality. Approved by Nabeel Berrios M.D. on 08/10/2018 3:09 PM By my electronic signature, I attest that I have personally reviewed the images for this examination and formulated the interpretations and opinions expressed in this report Finalized by SHIRLEY FISHER M.D. on 08/10/2018 3:15 PM. Dictated by Nabeel Berrios M.D. on 08/10/2018 2:08 PM. Performing Organization Address City/State/Zipcode Phone Number [facility] RESULTS * POC TROPONIN (08/10/2018 1:15 PM CDT) Cbocyrrt-C-RPJ 0.01 0.00 - 0.05 NG/ML [facility] Performing Organization Address City/[facility]/Zipcode Phone Number [facility] [address] [place] [address] * TSH WITH FREE T4 REFLEX (08/10/2018 1:07 PM CDT) Pathologist [facility] TSH 1.010 0.35 - 5.00 MCU/ML [facility] Specimen Blood Performing Organization Address City/[facility]/Zipcode Phone Number [facility] [address] [place] [address] * CBC AND DIFF (08/10/2018 1:07 PM CDT) Pathologist [facility] White Blood 7.6 4.5 - 11.0 K/UL [facility] Cells RBC 3.88 (L) 4.4 - 5.5 M/UL [facility] Hemoglobin 13.1 (L) 13.5 - 16.5 GM/DL [facility] Hematocrit 37.9 (L) 40 - 50 % [facility] MCV 97.6 80 - 100 FL [facility] MCH 33.6 26 - 34 PG [facility] MCHC 34.4 32.0 - 36.0 G/DL [facility] RDW 13.6 11 - 15 % [facility] Platelet Count 185 150 - 400 K/UL [facility] MPV 8.4 7 - 11 FL [facility] Neutrophils 75 41 - 77 % [facility] Lymphocytes 15 (L) 24 - 44 % [facility] Monocytes 9 4 - 12 % [facility] Eosinophils 0 0 - 5 % [facility] Basophils 1 0 - 2 % [facility] Absolute 5.70 1.8 - 7.0 K/UL [facility] Neutrophil Count Absolute Lymph 1.10 1.0 - 4.8 K/UL [facility] Count Absolute 0.70 0 - 0.80 K/UL [facility] Monocyte Count Absolute 0.00 0 - 0.45 K/UL [facility] Eosinophil Count Absolute 0.10 0 - 0.20 K/UL [facility] Basophil Count Specimen Blood Performing Organization Address City/[facility]/Zipcode Phone Number [facility] [address] [place] [address] * COMPREHENSIVE METABOLIC PANEL (08/10/2018 1:07 PM CDT) Only the most recent of 2 results within the time period is included. Pathologist [facility] Sodium 138 137 - 147 MMOL/L [facility] Potassium 4.3 3.5 - 5.1 MMOL/L [facility] Chloride 108 98 - 110 MMOL/L [facility] Glucose 125 (H) 70 - 100 MG/DL [facility] Blood Urea 23 7 - 25 MG/DL MAIN LAB Nitrogen Creatinine 1.33 (H) 0.4 - 1.24 MG/DL MAIN LAB Calcium 9.8 8.5 - 10.6 MG/DL MAIN LAB Total Protein 7.1 6.0 - 8.0 G/DL [facility] Total Bilirubin 1.0 0.3 - 1.2 MG/DL MAIN LAB Albumin 3.8 3.5 - 5.0 G/DL [facility] Alk Phosphatase 137 (H) 25 - 110 U/L [facility] AST (SGOT) 23 7 - 40 U/L [facility] CO2 25 21 - 30 MMOL/L [facility] ALT (SGPT) 15 7 - 56 U/L [facility] Anion Gap 5 3 - 12 [facility] eGFR Non 52 (L) >60 mL/min MAIN LAB Comment: [place] The eGFR is not validated for use in drug dosing adjustments.Continue to use estimated creatinine clearance per dosing reference text.Please contact the Clinical Pharmacist for questions. eGFR >60 >60 mL/min [facility] [place] Comment: The eGFR is not validated for use in drug dosing adjustments.Continue to use estimated creatinine clearance per dosing reference text.Please contact the Clinical Pharmacist for questions. Specimen Blood Performing Organization Address City/State/Zipcode Phone Number [facility] [address] [place] [place] [phone] * TYPE & SCREEN (NOT CROSSMATCH ELIGIBLE) (08/10/2018 10:47 AM CDT) ABO/RH(D) A [facility] Antibody Screen [facility] Blood Component [facility] Type Specimen Blood, venous - Blood Performing Organization Address City/[facility]/Zipcode Phone Number [facility] [address] [place] [address] * TELEMETRY STRIPS-SCAN (08/10/2018 12:00 AM CDT) Narrative Performed At Ordered by an unspecified provider. * ECG-SCAN (08/10/2018 12:00 AM CDT) Narrative Performed At Ordered by an unspecified provider. * MRI HEAD EXTERNAL IMAGING (08/06/2018 4:50 PM CDT) Narrative Performed At This order has been auto finalized and does not contain a result. * CT C-SPINE EXTERNAL IMAGING (08/05/2018 1:55 PM CDT) Narrative Performed At This order has been auto finalized and does not contain a result. * CT ABD/PEL EXTERNAL IMAGING (07/23/2018 12:00 AM CDT) Narrative Performed At This order has been auto finalized and does not contain a result. from Last 3 Months Insurance Type Payer Benefit Subscriber ID Effective Phone Address Plan / Dates Group Medicare MEDICARE MEDICARE xxxxxxxxxxx [id number] PART A AND resent B Advance Directives Patient has advance care planning documents, and code status on file. For more information, please contact: [facility] [address] [place] [address] Date Inactivated Comments Code Status Date Activated 08/15/2018 3:04 PM Full Code 08/10/2018 5:36 PM Provider has discussed Code Status No, more discussion w/Patient or Family? needed
--- OUTSIDE RECORDS SUMMARY | 2018-09-03 08:28 | XMS REPORT | Encounter Summary ---
Author Author [facility] Organization [facility] Address Unknown Phone Unavailable Care Team Providers Care [employer] Base As[employer]er Name Role Phone Ebonie Isaacs PCP Reason for Referral * Consult, Test & Treat (Routine) Referred By Contact Referred To Contact Status Reason Specialty Diagnoses / Procedures Sedrick Bertrand MD [address] [place] [address] New Request Specialty Services Diagnoses Required Bladder mass Bladder tumor Encounter Details Care Team Description [place] [address] [place] [address] [phone] Bladder mass (Primary Dx); Bladder tumor 08/25/2018 Orders Only The [address] [phone] Social History Date Tobacco Use Types Packs/Day Years Used Quit: 2017 Former Smoker Cigars, 1 40 Cigarettes Smokeless Tobacco: Never Used Alcohol Use Drinks/Week oz/Week Comments Never Alcohol [...] history available. 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
--- OUTSIDE RECORDS SUMMARY | 2018-09-03 08:29 | XMS REPORT | Encounter Summary ---
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 Pt states his BP was in the 60s. * Auth/Cert Referred By Contact Referred To Contact Status Reason Specialty Diagnoses / Procedures Diagnoses Bladder tumor Bladder tumor [D49.4] P rocedures VA CYSTOURETHROSCOPY W/DEST &/RMVL TUMOR LARGE CYSTOURETHROSCOPY WITH FULGURATION/ RESECTION BLADDER TUMOR -LARGE - GREATER THAN 5.0 CM Encounter Details Care Team Description Date Type Department Sravan Sullivan MD [address] [facility] [place] [address] [phone] Tiffany Morales MD [address] [place] [address] [phone] Saundra Hernandez MD [address] [place] [address] [phone] Hypotension 08/10/2018 [facility] 08/15/[address] [place] [id number] Social History Date Tobacco Use Types Packs/Day [...] history available. documented as of this encounter Last Filed Vital Signs Time Taken Vital Sign Reading 08/15/2018 10:11 AM CDT Blood Pressure 108/56 08/15/2018 10:11 AM CDT Pulse 54 08/15/2018 10:11 AM CDT Temperature 36.5 C (97.7 F) - Respiratory Rate - 08/15/2018 10:11 AM CDT Oxygen Saturation 97% - Inhaled Oxygen - Concentration 08/14/2018 7:13 AM CDT Weight 75.4 kg (166 lb 3.6 oz) 08/14/2018 7:13 AM CDT Height 182.9 cm (6') 08/14/2018 7:13 AM CDT Body Mass Index 22.54 documented in this encounter Functional Status Date of Assessment Functional Status Response 08/11/2018 Does the patient have a hearing impairment: Yes documented as of this encounter Discharge Summaries * Shelli Stone MD - 08/15/2018 11:36 AM CDT Physician Discharge Summary Name: Sara Leiva Date Of : 1940 Age: 77 years Admit date: 08/10/2018 Discharge date: 08/15/2018 Attending Physician: Shelli Stone MD Service: [facility] P- 4709 Physician Summary completed by: Shelli Stone MD Reason for hospitalization: Hypotension Significant PMH: Past Medical History: Diagnosis Date Anxiety Arthritis Bladder cancer (HCC) Coronary artery disease Hearing reduced Heart disease Hyperlipidemia Hypertension Myocardial infarction (HCC) 2004 PVD (peripheral vascular disease) (HCC) TIA (transient ischemic attack) 07/2018 Allergies: Patient has no known allergies. Admission Physical Exam notable for: GENERAL: No distress, alert HEENT: PERRL. EOMI. No LAD. LUNGS: CTA b/l, no rhonchi, no wheezes, no crackles. HEART: RRR, S1S2 wnl, no murmur/rubs/gallops ABDOMEN: Soft, non distended, non tender, + BS EXTREMITIES: no LE edema. Distal pulses palpable SKIN: warm. dry. no rash noticed. NEURO: Speech fluent. no focal limb weakness noted PSYCH: normal judgment Admission Lab/Radiology studies notable for: CBC AND DIFF Collection Time: 08/10/18 1:07 PM Result Value Ref Range White Blood Cells 7.6 4.5 - 11.0 K/UL RBC 3.88 (L) 4.4 - 5.5 M/UL Hemoglobin 13.1 (L) 13.5 - 16.5 GM/DL Hematocrit 37.9 (L) 40 - 50 % MCV 97.6 80 - 100 FL MCH 33.6 26 - 34 PG MCHC 34.4 32.0 - 36.0 G/DL RDW 13.6 11 - 15 % Platelet Count 185 150 - 400 K/UL MPV 8.4 7 - 11 FL Neutrophils 75 41 - 77 % Lymphocytes 15 (L) 24 - 44 % Monocytes 9 4 - 12 % Eosinophils 0 0 - 5 % Basophils 1 0 - 2 % Absolute Neutrophil Count 5.70 1.8 - 7.0 K/UL Absolute Lymph Count 1.10 1.0 - 4.8 K/UL Absolute Monocyte Count 0.70 0 - 0.80 K/UL Absolute Eosinophil Count 0.00 0 - 0.45 K/UL Absolute Basophil Count 0.10 0 - 0.20 K/UL COMPREHENSIVE METABOLIC PANEL Collection Time: 08/10/18 1:07 PM Result Value Ref Range Sodium 138 137 - 147 MMOL/L Potassium 4.3 3.5 - 5.1 MMOL/L Chloride 108 98 - 110 MMOL/L Glucose 125 (H) 70 - 100 MG/DL Blood Urea Nitrogen 23 7 - 25 MG/DL Creatinine 1.33 (H) 0.4 - 1.24 MG/DL Calcium 9.8 8.5 - 10.6 MG/DL Total Protein 7.1 6.0 - 8.0 G/DL Total Bilirubin 1.0 0.3 - 1.2 MG/DL Albumin 3.8 3.5 - 5.0 G/DL Alk Phosphatase 137 (H) 25 - 110 U/L AST (SGOT) 23 7 - 40 U/L CO2 25 21 - 30 MMOL/L ALT (SGPT) 15 7 - 56 U/L Anion Gap 5 3 - 12 eGFR Non 52 (L) >60 mL/min eGFR >60 >60 mL/min MAGNESIUM Collection Time: 08/10/18 1:07 PM Result Value Ref Range Magnesium 2.1 1.6 - 2.6 mg/dL PHOSPHORUS Collection Time: 08/10/18 1:07 PM Result Value Ref Range Phosphorus 3.3 2.0 - 4.5 MG/DL TSH WITH FREE T4 REFLEX Collection Time: 08/10/18 1:07 PM Result Value Ref Range TSH 1.010 0.35 - 5.00 MCU/ML POC TROPONIN Collection Time: 08/10/18 1:15 PM Result Value Ref Range Uoqxpbke-D-LIN 0.01 0.00 - 0.05 NG/ML URINALYSIS DIPSTICK Collection Time: 08/10/18 1:51 PM Result Value Ref Range Color,UA BRENDA Turbidity,UA 2+ (A) CLEAR-CLEAR Specific [place]-Urine 1.018 1.003 - 1.035 pH,UA 5.0 5.0 - 8.0 Protein,UA 2+ (A) NEG-NEG Glucose,UA NEG NEG-NEG Ketones,UA TRACE (A) NEG-NEG Bilirubin,UA POS (A) NEG-NEG Blood,UA 3+ (A) NEG-NEG Urobilinogen,UA INCREASED (A) NORM-NORMAL Nitrite,UA NEG NEG-NEG Leukocytes,UA 2+ (A) NEG-NEG Urine Ascorbic Acid, UA NEG NEG-NEG URINALYSIS, MICROSCOPIC Collection Time: 08/10/18 1:51 PM Result Value Ref Range WBCs,UA PACKED 0 - 2 /HPF RBCs,UA PACKED 0 - 3 /HPF MucousUA 1+ Bacteria,UA FEW (A) NEG-NEG Squamous Epithelial Cells 2-5 0 - 5 Brief Hospital Course: The patient was admitted and the following issues were addressed during this hospitalization: (with pertinent details). Patient admitted with asthmatic hypertension. Also with history of known hematuria and bladder mass.orthostatic hypotension improved with IV fluids and adjusting his medications. Echo showed mild reduced EF. Also noted to have some PVCs. Cardiology consulted. Stress test was done which was unremarkable. Started on amiodarone and also restarted his PLANNER INTERN beta-johnathan. CT C/A/P 08/12/18- Development of multiple subcentimeter bilateral pulmonary nodules suggestive of pulmonary metastatic disease. No thoracic lymphadenopathy. Asymmetric masslike thickening, centered in the base of the prostate, suggestive of primary prostate neoplasm. Bladder mass with invasion of the prostate could also produce this appearance. At least one additional separate site of nodule bladder wall thickening and enhancement, suggestive of separate primary bladder neoplasm or bladder metastasis. Mild metastatic pelvic lymphadenopathy.Increase in multifocal hepatic metastatic disease.Mild aneurysmal dilatation of the infrarenal abdominal aorta with marked mixed plaque.Consulted urology.Patient underwent TURP on 08/14/2018. Patient doing fine post procedure. Instructions and prescriptions.. Patient discharged home in stable state. Follow-up with urology outpatient with pathology results. Also follow-up appointment requested with cardiology as outpatient. 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 Plan on discharge was urology to follow-up results and call patient with the results and arrange outpatient follow-up based on the results. On review of chart it appears urology has attempted to call the patient multiple times without any answer. It appears urology is trying to contact the patient and refer the patient to oncology per notes. 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 Hospital Problems Active Problems Hypotension Severe malnutrition (HCC) Surgical Procedures: None Significant Diagnostic Studies and Procedures: noted in brief hospital course Consults: Cardiology and Urology Patient Disposition: Home Patient instructions/medications: Orders/Medications for Discharges to Home and External Facilities: AMB REFERRAL TO ENT Referral Priority: Routine Referral Type: Consult, Test & Treat Referral Reason: Specialty Services Required Number of Visits Requested: 1 Expiration Date: 08/16/19 Activity as Tolerated It is important to keep increasing your activity level after you leave the hospital. Moving around can help prevent blood clots, lung infection (pneumonia ) and other problems. Gradually increasing the number of times you are up moving around will help you return to your normal activity level more quickly. Continue to increase the number of times you are up to the chair and walking daily to return to your normal activity level. Begin to work toward your normal activity level at discharge Report These Signs and Symptoms Please contact your doctor if you have any of the following symptoms: temperature higher than 100 degrees F, uncontrolled pain, persistent nausea and/ or vomiting, difficulty breathing, chest pain, severe abdominal pain, headache, unable to urinate or unable to have bowel movement Questions About Your Stay For questions or concerns regarding your hospital stay. Call [phone] Discharging attending physician: SHELLI STONE [[id number]] Regular Diet You have no dietary restriction. Please continue with a healthy balanced diet. Additional Discharge Instructions Please call your pcp and make follow up appointment in 1-2 weeks Medication List START taking these medications amiodarone 400 mg tablet Commonly known as: PACERONE Twice daily Until 08/19 and then once daily bacitracin 500 unit/g topical ointment Apply to tip of penis 3 times daily hyoscyamine 0.125 mg rapid dissolve tablet Commonly known as: ANASPAZ; NULEV; SYMAX FASTABS; HYOMAX-FT; ED-SPAZ; OSCIMIN Place one tablet under tongue every 6 hours as needed. CONTINUE taking these medications finasteride 5 mg tablet Commonly known as: PROSCAR FLOMAX 0.4 mg capsule Generic drug: tamsulosin metoprolol XL 25 mg extended release tablet Commonly known as: TOPROL XL pravastatin 10 mg tablet Commonly known as: PRAVACHOL STOP taking these medications enalapril 5 mg tablet Commonly known as: VASOTEC Where to Get Your Medications These medications were sent to [facility] - [place], [place] - [address] [facility] [address] [facility] [address] amiodarone 400 mg tablet bacitracin 500 unit/g topical ointment hyoscyamine 0.125 mg rapid dissolve tablet Pending items needing follow up: path Signed: Shelli Stone MD 08/15/2018 cc: Primary Care Physician: Ebonie Isaacs Verified Referring physicians: No ref. provider found Additional provider(s): documented in this encounter Medications at Time of Discharge Start Date End Date Medication Sig Dispensed Refills 08/15/2018 amiodarone (PACERONE) 400 Twice daily 90 tablet 3 mg tablet Until 08/19 and then once daily 08/15/2018 bacitracin 500 unit/g Apply to tip 14 g 0 topical ointment of penis 3 times daily finasteride (PROSCAR) 5 1 tablet by 0 mg tablet mouth daily 08/15/2018 hyoscyamine (ANASPAZ; Place one 30 tablet 0 NULEV; SYMAX FASTABS; tablet under HYOMAX-FT; ED-SPAZ; tongue every OSCIMIN) 0.125 mg rapid 6 hours as dissolve tablet needed. 08/08/2018 metoprolol XL (TOPROL XL) Take 25 mg by 0 25 mg extended release mouth daily. tablet Hold for Pulse < 60 or hypotensive. 02/23/2016 pravastatin (PRAVACHOL) Take 1 tablet 0 10 mg tablet by mouth at bedtime 2015 tamsulosin (FLOMAX) 0.4 Take 1 0 mg capsule capsule by mouth twice daily. documented as of this encounter Progress Notes * Sedrick Fermin MD - 08/15/2018 12:59 PM CDT I have attempted to call the patient multiple times. The mailbox is not set up so I can't leave a message and there are no alternative numbers. Rigoberto, can you get this patient in to see med onc KARUNA? He was sent by Dr. Brush so I'm thinking someone closer to them will likely be better overall. Thanks! EL * Shelli Stone MD - 08/15/2018 11:36 AM CDT Admission History and Physical Examination Name: Sara Leiva Admission Date: 08/10/2018 Assessment/Plan: 77 M with HTN, HLD, CAD s/p CABG, PVD, recent CVA, was seen in Urology clinic for evaluation for bladder cancer/hematuria and was sent to the ED for asymptomatic hypotension Presumed stage IV bladder cancer/Hematuria - presented with ongoing hematuria and mass on cystoscopy at outside provided. referred to [facility] for further eval. - with liver lesions concerning for mets. - Cystoscopy by Dr. Fermin 08/10 demonstrate friable tumor tissue at the bladder neck and prostatic urethra. - CT C/A/P 08/12/18- Development of multiple subcentimeter bilateral pulmonary nodules suggestive of pulmonary metastatic disease. No thoracic lymphadenopathy. Asymmetric masslike thickening, centered in the base of the prostate, suggestive of primary prostate neoplasm. Bladder mass with invasion of the prostate could also produce this appearance. At least one additional separate site of nodule bladder wall thickening and enhancement, suggestive of separate primary bladder neoplasm or bladder metastasis. Mild metastatic pelvic lymphadenopathy.Increase in multifocal hepatic metastatic disease.Mild aneurysmal dilatation of the infrarenal abdominal aorta with marked mixed plaque. - Consulted urology- appreciate recs. - s/p TURBT, 08/14, catheter removed this morning patient is voiding and urine color improving each voiding. Patient discharged. He will follow-up with urology as outpatient with pathology results UTI: - patient is not sure if he is on ABx. - order urine culutres- contaminated - started on Rocephin 08/11/18- stopped today. Multiple PVCs,VTach? On tele: - consulted cardiology - restart BB - started amiodarone 400 mg on 08/12/18 twice dailyx 7 days followed by 400 mg daily - stress test - 08/13/18- unremarkable - monitor -Pain follow-up with cardiology requested Hypotension -Orthostatic hypotension + - improved with medication adjustment and IVFs - noted in the clinic. 60s/40s. sent to the ED, 99/52 initially. - noted to be orthostatic in the ED, with BP dropping to 84/54 standing. - s/p 1L IVF in the ED. still orthostatic. - ECHO- mildly reduced EF - monitor ISMAEL- improved - creat 1.3 on admission. baseline unknown. - hydration as above. - getting records from [facility] [place] HTN / HLD CAD s/p CABG - PLANNER INTERN on enalapril and metop xl. - restarted BB, holding ACEI for now. - continue statin Recent CVA: - admitted to [facility] [place] and was noted to have (per Urology note) MRI brain with punctate areas of diffusion restriction in both cerebellar hemispheres c/w acute punctate infarctions, probably from a cardiogenic source. Old infarcts are present in the left frontal lobe and left temporal lobe. small vessel disease. - will try to obtain records from [facility] - currently not on antiplatelets due to ongoing hematuria. may need to clarify with Urology if this truly prohibitive. - switch pravastatin to lipitor 40mg. 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 - patient was not able to finish MRI to look into his parotids. -Outpatient referral to ENT placed FEN: - IVF none - replace electrolytes as needed. - Diet: Cardiac Disposition: Patient comfortable, voiding without any difficulty. Instructions and prescriptions given. Patient discharged home in stable state. >31 minutes in [id number] time spent with patient, patient/family counseling, coordination of care, and completion of discharge summary. Subjective: No acute overnight events. Venegas catheter removed. Patient voiding without any difficulty. Is comfortable going home. Review of Systems: Complete 10 point review of system was obtained. It is positive per HPI. All other review of system was negative. Physical Exam: Vital Signs: Last Filed In 24 Hours Vital Signs: 24 Hour Range BP: 108/56 (08/15 101) Temp: 36.5 C (97.7 F) (08/15 101) Pulse: 54 (08/15 101) Respirations: 16 PER MINUTE (08/15 101) SpO2: 97 % (08/15 101) O2 Delivery: None (Room Air) (08/15 1010) BP: (89-126)/(41-63) Temp: [36.3 C (97.4 F)-36.7 C (98.1 F)] Pulse: [50-71] Respirations: [16 PER MINUTE] SpO2: [96 %-99 %] O2 Delivery: None (Room Air) Constitutional: Alert and oriented times three. No acute distress. Answer questions appropriately. HEENT: Normal conjunctivae. Pupils equal, round and reactive. Extraocular muscles are intact. Neck: Supple. No thyroidmegaly. No carotid bruits. No jugular venous distension. Cardiovascular: Regular rhythm and rate. Normal S1 and S2. No murmurs, rubs, or gallop. Respiratory: Breathing comfortable without use of accessory muscles. Breath sounds equal bilaterally. No crackles, wheezes, or rhonchi. Gastrointestinal: Normal bowel sounds. Not distended. No tenderness to palpation. No guarding or rebound. No organomegaly. Musculoskeletal: No clubbing, cyanosis, or edema. Lab/Radiology/Other Diagnostic Tests: Results for orders placed or performed during the hospital encounter of (from the past 24 hour(s)) BASIC METABOLIC PANEL Collection Time: 08/15/18 4:30 AM Result Value Ref Range Sodium 135 (L) 137 - 147 MMOL/L Potassium 3.9 3.5 - 5.1 MMOL/L Chloride 109 98 - 110 MMOL/L CO2 21 21 - 30 MMOL/L Anion Gap 5 3 - 12 Glucose 106 (H) 70 - 100 MG/DL Blood Urea Nitrogen 13 7 - 25 MG/DL Creatinine 0.84 0.4 - 1.24 MG/DL Calcium 8.8 8.5 - 10.6 MG/DL eGFR Non >60 >60 mL/min eGFR >60 >60 mL/min CBC Collection Time: 08/15/18 4:30 AM Result Value Ref Range White Blood Cells 6.1 4.5 - 11.0 K/UL RBC 3.17 (L) 4.4 - 5.5 M/UL Hemoglobin 10.4 (L) 13.5 - 16.5 GM/DL Hematocrit 30.0 (L) 40 - 50 % MCV 94.8 80 - 100 FL MCH 32.9 26 - 34 PG MCHC 34.7 32.0 - 36.0 G/DL RDW 13.5 11 - 15 % Platelet Count 147 (L) 150 - 400 K/UL MPV 7.3 7 - 11 FL MAGNESIUM Collection Time: 08/15/18 4:30 AM Result Value Ref Range Magnesium 1.9 1.6 - 2.6 mg/dL Chest Single View Result Date: 08/10/2018 No acute cardiopulmonary abnormality. Approved by Nabeel Berrios M.D. on 2018 3:09 PM By my electronic signature, I attest that I have personally reviewed the images for this examination and formulated the interpretations and opinions expressed in this report Finalized by SHIRLEY FISHER M.D. on 08/10/2018 3:15 PM. Dictated by Nabeel Berrios M.D. on 08/10/2018 2:08 PM. Pertinent radiology reviewed. Shelli Stone MD * Augusto Sher MD - 08/15/2018 10:36 AM CDT Urology Progress Note 08/15/2018 ASSESSMENT: Sara Leiva is a 77 y.o. Male with HTN, HLD, deaf in right ear, ED, myocardial infarction, CAD s/p CABG, recent hospitalization for "mini strokes" and presumed stage IV bladder cancer. LOS: 4 days PLAN: Will discuss plan with staff surgeon - Dr. Bennett - s/p TURP yesterday. path pending - catheter removed this am. - 3 cup voiding routine. Have patient urinate 3 times and as long as urine is light caba or improving with each void he can discharge - we will call patient with pathology results and arrange follow up based on this. - okay to dc from urology standpoint after voiding. Augusto Sher MD Urology PGY-3 Please page urology nylon machine operator with questions SUBJECTIVE: Overnight events: No acute events overnight. NPO since midnight. (-) Nausea. (- ) Emesis. (+) Ambulation. No signs or symptoms of UTI OBJECTIVE: Vital Signs: Most Recent Vital Signs: Past 24 Hours BP: 108/56 (08/15 1011) Temp: 36.5 C (97.7 F) (08/15 1011) Pulse: 54 (08/15 1011) Respirations: 16 PER MINUTE (08/15 1011) SpO2: 97 % (08/15 1011) O2 Delivery: None (Room Air) (08/15 1011) BP: (89-126)/(41-63) Temp: [36.3 C (97.4 F)-36.7 C (98.1 F)] Pulse: [50-71] Respirations: [16 PER MINUTE] SpO2: [96 %-99 %] O2 Delivery: None (Room Air) Physical Exam: General: Alert & oriented, no acute distress Pulm: Equal chest rise, non-labored on RA CV: Regular rate and rhythm Extremities: No edema, SCD's in place Abd: Soft, non-tender, non-distended : 22fr 3way venegas with clear yellow urine with CBI clamped. Intake/Output: Date 08/14/18700 - 08/15/1869908/15/18700 - 08/16/18 07 Shift 6786-9237 2753-6118 24 Hour Total 7021-4410 6578-3447 24 Hour Total INTAKE P.O. 100 100 I.V.(mL/kg/hr) 450(0.5) 450(0.2) Other 500 500 Shift Total(mL/kg) 1050(13.9) 1050(13.9) OUTPUT Urine(mL/kg/hr) 3550(3.9) 2850(3.1) 6400(3.5) Urine Output (ml) (Indwelling Urinary Catheter 08/14/18 0838 22 FR) 3550 2850 6400 Shift Total(mL/kg) 3550(47.1) 2850(37.8) 6400(84.9) NET -2500 -2850 -5350 Weight (kg) 75.4 75.4 75.4 75.4 75.4 75.4 Stool Occurrence: 0 Labs: Hematology Chemistry Recent Labs 08/15/18 0430 WBC 6.1 HGB 10.4* PLTCT 147* Recent Labs 08/15/18 0430 NA 135* K 3.9 CL 109 CO2 21 BUN 13 CR 0.84 GFR >60 GLU 106* CA 8.8 ACTIVE PROBLEMS: Active Problems: Hypotension Severe malnutrition (HCC) * Singh English RN - 08/15/2018 6:04 AM CDT Patient Problem called about: (document change in assessment or concern): BP SOFT THIS MORNING 89/42 63P. ASYMPTOMATIC. STILL ON CBI. DID GET NEW ORDER FROM UROLOGY FOR HYOSCAMINE & RECIEVED A DOSE. Time MD/PUBLICATION SPECIALIST Notified: [id number] MD/PUBLICATION SPECIALIST Name: [facility] GUIDANCE ADVISER PAGER [phone] /PUBLICATION SPECIALIST Response: Interventions: * Singh Enlgish RN - 08/15/2018 3:51 AM CDT Patient Problem called about: (document change in assessment or concern): C/O BURNING IN PENIS SHAFT. CBI GOING WELL. SOME SEDIMENT IN TUBING. BUT LIGHT YELLOW. FENTANYL NOT VERY EFFECTIVE. JUST GAVE TYLENOL. NOT SURE WHAT ELSE CAN BE DONE. HAD PARTIAL TRANS URETHRAL TUMOR RESECT 08/14 Time MD/PUBLICATION SPECIALIST Notified: [id number] /PUBLICATION SPECIALIST Name: DR Janki SHER MD/PUBLICATION SPECIALIST Response: LEVSIN 0.125 Q6HPRN BACITRACIN AROUND TIP OF PENIS TID Interventions: NOTED ORDER ENTERED * Edgar Nieves - 08/14/2018 3:39 PM CDT PHYSICAL THERAPY NOTE Patient was assigned for activity with the mobility aide by the supervising therapist. Patient is unavailable. Therapist: Edgar Nieves Date: 08/14/2018 * Shabana Fernández, PT - 08/14/2018 9:00 AM CDT PHYSICAL THERAPY NOTE The patient not available for PT this AM secondary to being off floor to OR for procedure. Therapist: Shabana Fernández, PT Date: 08/14/2018 * Saundra Hernandez MD - 08/14/2018 8:22 AM CDT Admission History and Physical Examination Name: Sara Leiva Admission Date: 08/10/2018 Assessment/Plan: 77 M with HTN, HLD, CAD s/p CABG, PVD, recent CVA, was seen in Urology clinic for evaluation for bladder cancer/hematuria and was sent to the ED for asymptomatic hypotension Presumed stage IV bladder cancer/Hematuria - presented with ongoing hematuria and mass on cystoscopy at outside provided. referred to [facility] for further eval. - with liver lesions concerning for mets. - Cystoscopy by Dr. Fermin 08/10 demonstrate friable tumor tissue at the bladder neck and prostatic urethra. - CT C/A/P 08/12/18- Development of multiple subcentimeter bilateral pulmonary nodules suggestive of pulmonary metastatic disease. No thoracic lymphadenopathy. Asymmetric masslike thickening, centered in the base of the prostate, suggestive of primary prostate neoplasm. Bladder mass with invasion of the prostate could also produce this appearance. At least one additional separate site of nodule bladder wall thickening and enhancement, suggestive of separate primary bladder neoplasm or bladder metastasis. Mild metastatic pelvic lymphadenopathy.Increase in multifocal hepatic metastatic disease.Mild aneurysmal dilatation of the infrarenal abdominal aorta with marked mixed plaque. - Consulted urology- appreciate recs. - plan to proceed with TURBT, 08/14- getting continuous bladder irrigation overnight, can be dced tomorrow per urology. UTI: - patient is not sure if he is on ABx. - order urine culutres- contaminated - started on Rocephin 08/11/18- stopped today. Multiple PVCs,VTach? On tele: - consulted cardiology - restart BB - started amiodarone 400 mg on 08/12/18 twice dailyx 7 days followed by 400 mg daily - stress test - 08/13/18- unremarkable - monitor Hypotension -Orthostatic hypotension + - improved with medication adjustment and IVFs - noted in the clinic. 60s/40s. sent to the ED, 99/52 initially. - noted to be orthostatic in the ED, with BP dropping to 84/54 standing. - s/p 1L IVF in the ED. still orthostatic. - ECHO- mildly reduced EF - monitor ISMAEL- improved - creat 1.3 on admission. baseline unknown. - hydration as above. - getting records from [facility] HTN / HLD CAD s/p CABG - PLANNER INTERN on enalapril and metop xl. - restarted BB, holding ACEI for now. - continue statin Recent CVA: - admitted to [facility] and was noted to have (per Urology note) MRI brain with punctate areas of diffusion restriction in both cerebellar hemispheres c/w acute punctate infarctions, probably from a cardiogenic source. Old infarcts are present in the left frontal lobe and left temporal lobe. small vessel disease. - will try to obtain records from [facility] - currently not on antiplatelets due to ongoing hematuria. may need to clarify with Urology if this truly prohibitive. - switch pravastatin to lipitor 40mg. 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 - patient was not able to finish MRI to look into his parotids. - may need ENT evaluation outpatient. FEN: - IVF NS at 100ml/hr - replace electrolytes as needed. - Diet: Cardiac Ppx- None due to hematuria and hypotension Full code Saundra Hernandez MD Hospitalist Subjective: Patient was seen on rounds today, was comfortably lying in bed, no acute events overnight, no new complaints this am. Patient denies fevers, chills, nausea, vomiting, diarrhea, SOA, pedal edema, bowel problems. Review of Systems: Complete 10 point review of system was obtained. It is positive per HPI. All other review of system was negative. Physical Exam: Vital Signs: Last Filed In 24 Hours Vital Signs: 24 Hour Range BP: 139/61 (08/14 712) Temp: 36.6 C (97.9 F) (08/14 712) Pulse: 59 (08/14 712) Respirations: 16 PER MINUTE (08/14 712) SpO2: 96 % (08/14 712) O2 Delivery: None (Room Air) (08/14 712) Height: 182.9 cm (72") (08/14 712) BP: (98-149)/(42-68) Temp: [36.4 C (97.5 F)-36.9 C (98.4 F)] Pulse: [54-70] Respirations: [16 PER MINUTE-20 PER MINUTE] SpO2: [96 %-100 %] O2 Delivery: None (Room Air) Constitutional: Alert and oriented times three. No acute distress. Answer questions appropriately. HEENT: Normal conjunctivae. Pupils equal, round and reactive. Extraocular muscles are intact. Neck: Supple. No thyroidmegaly. No carotid bruits. No jugular venous distension. Cardiovascular: Regular rhythm and rate. Normal S1 and S2. No murmurs, rubs, or gallop. Respiratory: Breathing comfortable without use of accessory muscles. Breath sounds equal bilaterally. No crackles, wheezes, or rhonchi. Gastrointestinal: Normal bowel sounds. Not distended. No tenderness to palpation. No guarding or rebound. No organomegaly. Musculoskeletal: No clubbing, cyanosis, or edema. Lab/Radiology/Other Diagnostic Tests: Results for orders placed or performed during the hospital encounter of (from the past 24 hour(s)) BASIC METABOLIC PANEL Collection Time: 08/14/18 5:06 AM Result Value Ref Range Sodium 138 137 - 147 MMOL/L Potassium 4.1 3.5 - 5.1 MMOL/L Chloride 112 (H) 98 - 110 MMOL/L CO2 20 (L) 21 - 30 MMOL/L Anion Gap 6 3 - 12 Glucose 101 (H) 70 - 100 MG/DL Blood Urea Nitrogen 12 7 - 25 MG/DL Creatinine 0.78 0.4 - 1.24 MG/DL Calcium 9.0 8.5 - 10.6 MG/DL eGFR Non >60 >60 mL/min eGFR >60 >60 mL/min CBC Collection Time: 08/14/18 5:06 AM Result Value Ref Range White Blood Cells 6.0 4.5 - 11.0 K/UL RBC 3.30 (L) 4.4 - 5.5 M/UL Hemoglobin 10.9 (L) 13.5 - 16.5 GM/DL Hematocrit 31.6 (L) 40 - 50 % MCV 95.6 80 - 100 FL MCH 33.0 26 - 34 PG MCHC 34.5 32.0 - 36.0 G/DL RDW 13.3 11 - 15 % Platelet Count 156 150 - 400 K/UL MPV 7.6 7 - 11 FL MAGNESIUM Collection Time: 08/14/18 5:06 AM Result Value Ref Range Magnesium 2.0 1.6 - 2.6 mg/dL Chest Single View Result Date: 08/10/2018 No acute cardiopulmonary abnormality. Approved by Nabeel Berrios M.D. on 2018 3:09 PM By my electronic signature, I attest that I have personally reviewed the images for this examination and formulated the interpretations and opinions expressed in this report Finalized by SHIRLEY FISHER M.D. on 08/10/2018 3:15 PM. Dictated by Nabeel Berrios M.D. on 08/10/2018 2:08 PM. Pertinent radiology reviewed. Saundra Hernandez MD * Sedrick Fermin MD - 08/14/2018 7:03 AM CDT Urology Progress Note 08/14/2018 ASSESSMENT: Sara Leiva is a 77 y.o. Male with HTN, HLD, deaf in right ear, ED, myocardial infarction, CAD s/p CABG, recent hospitalization for "mini strokes" and presumed stage IV bladder cancer, currently admitted for asymptomatic hypotension with cardiac stress test 08/13/18 negative scheduled for TURBT on . LOS: 3 days PLAN: Will discuss plan with staff surgeon - Dr. 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 Staff name: Sedrick Fermin MD Date: 08/17/2018 SUBJECTIVE: Overnight events: No acute events overnight. NPO since midnight. (-) Nausea. (- ) Emesis. (+) Ambulation. No signs or symptoms of UTI OBJECTIVE: Vital Signs: Most Recent Vital Signs: Past 24 Hours BP: 132/64 (08/14 537) Temp: 36.6 C (97.9 F) (08/14 537) Pulse: 66 (08/14 537) Respirations: 16 PER MINUTE (08/14 537) SpO2: 97 % (08/14 537) O2 Delivery: None (Room Air) (08/14 537) BP: (98-149)/(42-68) Temp: [36.4 C (97.5 F)-36.9 C (98.4 F)] Pulse: [54-70] Respirations: [16 PER MINUTE-20 PER MINUTE] SpO2: [97 %-100 %] O2 Delivery: None (Room Air) Physical Exam: General: Alert & oriented, no acute distress Pulm: Equal chest rise, non-labored on RA CV: Regular rate and rhythm Extremities: No edema, SCD's in place Abd: Soft, non-tender, non-distended : Voiding naturally Intake/Output: Date 08/13/18700 - 08/14/1869908/14/18700 - 08/15/18 07 Shift 2092-7319 9703-9671 24 Hour Total 9616-9092 6759-1013 24 Hour Total INTAKE P.O. 0 0 0 Shift Total(mL/kg) 0(0) 0(0) 0(0) OUTPUT Urine(mL/kg/hr) 825(0.9) 775(0.9) 1600(0.9) Urine 478 369 5514 Shift Total(mL/kg) 825(10.9) 775(10.3) 1600(21.2) NET -825 -775 -1600 Weight (kg) 75.4 75.4 75.4 75.4 75.4 75.4 Stool Occurrence: 0 Labs: Hematology Chemistry Recent Labs 08/14/18 0506 WBC 6.0 HGB 10.9* PLTCT 156 Recent Labs 08/14/18 0506 NA 138 K 4.1 CL 112* CO2 20* BUN 12 CR 0.78 GFR >60 GLU 101* CA 9.0 ACTIVE PROBLEMS: Active Problems: Hypotension Severe malnutrition (HCC) * Kendrick Cruz MD - 08/13/2018 5:07 PM CDT Urology Brief Note Patient underwent cardiac stress test today which was grossly negative. We will proceed with transurethral bladder tumor resection tomorrow 08/14- tentatively 8 AM. Will notify the patient of plans, and make NPO @ Midnight for procedure. Kendrick Cruz MD Urology 2250 * Edgar Nieves - 08/13/2018 3:32 PM CDT PHYSICAL THERAPY NOTE Patient was assigned for activity with the mobility aide by the supervising therapist. Patient is unavailable. Patient is working with other staff. Therapist: Edgar Nieves Date: 08/13/2018 * Anuel Oro OT - 08/13/2018 3:27 PM CDT OCCUPATIONAL THERAPY PROGRESS NOTE Patient Name: Sara Leiva Room/Bed: [place] [address] Admitting Diagnosis: Mobility Progressive Mobility Level: Walk in hallway Distance Walked (feet): 250 ft Level of Assistance: Stand by assistance Assistive Device: None Time Tolerated: 11-30 minutes Activity Limited By: Weakness Subjective Pertinent Dx per Physician: 77 M with HTN, HLD, CAD s/p CABG, PVD, recent CVA, was seen in Urology clinic for evaluation for bladder cancer/hematuria and was sent to the ED for asymptomatic hypotension Precautions: Standard(SOBOBA on left side) Pain / Complaints: Patient has no c/o pain;Patient agrees to participate in therapy Objective Psychosocial Status: Willing and Cooperative to Participate Persons Present: Spouse Home Living Type of Home: House Home Layout: One Level;Stairs to Enter w/o Rails Bathroom Shower / Tub: Tub/Shower Unit Bathroom Toilet: Standard Bathroom Equipment: Hand-Held Shower Comment: Patient has 3 RAFAEL; reports he took off railing as he did not use it. Has no AE/DME. Prior Function Level Of [place]: Independent with ADLs and functional transfers; Independent with homemaking w/ ambulation Lives With: Spouse Receives Help From: None Needed Other Function Comments: Patient reports being active prior, was driving. ADL's Where Assessed: Edge of Bed(Hallway) LE Dressing Assist: Stand By Assist LE Dressing Deficits: Supervision/Safety;Thread RLE Into Pants;Thread LLE Into Pants;Pull Up Over Hips;Fasteners Functional Transfer Assist: Stand By Assist Functional Transfer Deficits: Supervision/Safety Comment: Supine to EOB standby assist. Donns BLE pants sitting on EOB with setup and supervision. Sit to stand with functional mobility on unit standby assist. Pt returns EOB, doffs BLE pants returns supine with standby assist. Declines further ADLs/toilet transfer. Pt remains supine in bed with all needs met and bed alarm activated. Activity Tolerance Endurance: 3/5 Tolerates 25-30 Minutes Exercise w/Multiple Rests Sitting Balance: 4+/5 Moves/Returns Trunkal Midpoint 1-2 Inches in Multiple Planes Cognition Overall Cognitive Status: WFL to Adequately Complete Self Care Tasks Safely Memory: WFL Adequate to Recall Day to Day Activities Orientation: Alert & Oriented x4 Attention: Awake/Alert Assessment Assessment: Decreased ADL Status;Decreased Endurance;Decreased High-Level ADLs Prognosis: Good Goal Formulation: Pt/family AM-PAC 6 Clicks Daily Activity Inpatient Putting on and taking off regular lower body clothes?: A Little Bathing (Including washing, rinsing, drying): A Little Toileting, which includes using toilet, bedpan, or urinal: A Little Putting on and taking off regular upper body clothing: None Taking care of personal grooming such as brushing teeth: None Eating meals?: None Daily Activity Raw Score: 21 Standardized (t-scale) score: 44.27 CMS 0-100% Score: 32.79 CMS G Code Modifier: CJ Plan OT Frequency: 3-5x/week OT Plan for Next Visit: Toileting wtih clothing mangement, dynamic standing balance for higher level ADLs ADL Goals Patient Will Perform All ADL's: w/ Modified [place] Functional Transfer Goals Pt Will Perform All Functional Transfers: Modified Independent OT Discharge Recommendations OT Discharge Recommendations: Home with family assist Equipment Recommendations: Too early to be determined Additional Information: Anticipate patient to be at baseline function prior to d /c home. Recommend ongoing assistance for: Ambulation, Stairs, Safety concerns Therapist: FAUSTO Luciano/Nanette [id number] Date: 08/13/2018 * Yo Cunningham MD - 08/13/2018 10:22 AM CDT Cardiology progress Note 08/13/2018 ATT: I have discussed with fellow and examined patient and agree with assessment and plan and exam as outlined below. No s3,rales,edema. Sara Leiva Admission Date: 08/10/2018 Assessment/Plan: Active Problems: Hypotension Severe malnutrition (HCC) 1. Hypotension (prior history of hypertension) 2. H/o CAD status post CABG 3. Hyperlipidemia 4.? Stage IV bladder cancer (undergoing evaluation) 5. Recent CVA Plan Telemetry showing ventricular trigeminy, frequent PVCs, however better than Continue amiodarone 400 mg twice dailyx 7 days followed by 400 mg daily Stress MPI on 08/13 is a low risk study with no reversible defects, Normal LV systolic function on the study Echo on 08/11/2018 with mildly reduced ejection fraction, frequent PVCs making accurate estimation of EF difficult due to post PVC augmentation. EF is 40-50%, post PVC augmentation to 55% Start Toprol-XL at 12.5 mg daily when able to and uptitrate slowly as tolerated Maintain K>4.0 and Mg>2.5 Ensure adequate hydration Thank you for involving us in Mr. Leiva's care. Please call us with questions if any. Patient seen and discussed with Dr. Cunningham __ Reason for consult multiple PVCs and VTach on tele, history of CABG, came in for low BPs,any further intevention or recs ? Subjective: is resting in bed this am. Denies any cp,soa,palpitations , dizziness, lightheadedness, orthopnea or PND Review of systems: As above Allergies: Patient has no known allergies. Medications: Scheduled Meds: amiodarone (CORDARONE) tablet 400 mg 400 mg Oral BID cefTRIAXone (ROCEPHIN) IVP 1 g 1 g Intravenous Q24H* finasteride (PROSCAR) tablet 5 mg 5 mg Oral QDAY metoprolol XL (TOPROL XL) tablet 25 mg 25 mg Oral QDAY pravastatin (PRAVACHOL) tablet 10 mg 10 mg Oral QHS tamsulosin (FLOMAX) capsule 0.4 mg 0.4 mg Oral BID WATER FOR INJECTION, STERILE IJ SOLN (Cabinet Override) NOW Continuous Infusions: lactated ringers infusion sodium chloride 0.9 % infusion 100 mL/hr at 08/12/182047 PRN and Respiratory Meds: Physical Exam: Vital Signs: Last Filed In 24 Hours Vital Signs: 24 Hour Range BP: 126/65 (08/14 911) Temp: 36.4 C (97.5 F) (08/14 911) Pulse: 54 (08/14 911) Respirations: 18 PER MINUTE (08/13 950) SpO2: 98 % (08/13 950) O2 Delivery: None (Room Air) (08/14 911) BP: (125-138)/(48-74) Temp: [36.3 C (97.3 F)-36.8 C (98.2 F)] Pulse: [54-84] Respirations: [16 PER MINUTE-20 PER MINUTE] SpO2: [97 %-99 %] O2 Delivery: None (Room Air) Intake/Output Summary: (Last 24 hours) Intake/Output Summary (Last 24 hours) at 08/13/2018 1022 Last data filed at 08/13/2018 0912 Gross per 24 hour Intake 2452.25 ml Output 1750 ml Net 702.25 ml Physical Exam General Appearance: appears stated age, no acute distress Neck Veins: neck veins are not distended Chest Inspection: chest is normal in appearance Respiratory Effort: breathing comfortably, no respiratory distress Auscultation/Percussion: lungs clear to auscultation anteriorly Cardiac Rhythm: irregular rhythm and normal rate Cardiac Auscultation: S1, S2 normal, no rub, no gallop Murmurs: no obvious murmur Carotid Arteries: no bruits Lower Extremity Edema: no lower extremity edema Abdominal Exam: soft, non-tender Neurologic Exam: moves all extremities Laboratory Review: 24-hour labs: Results for orders placed or performed during the hospital encounter of (from the past 24 hour(s)) BASIC METABOLIC PANEL Collection Time: 08/13/18 5:19 AM Result Value Ref Range Sodium 139 137 - 147 MMOL/L Potassium 4.3 3.5 - 5.1 MMOL/L Chloride 113 (H) 98 - 110 MMOL/L CO2 21 21 - 30 MMOL/L Anion Gap 5 3 - 12 Glucose 104 (H) 70 - 100 MG/DL Blood Urea Nitrogen 12 7 - 25 MG/DL Creatinine 0.80 0.4 - 1.24 MG/DL Calcium 8.8 8.5 - 10.6 MG/DL eGFR Non >60 >60 mL/min eGFR >60 >60 mL/min CBC Collection Time: 08/13/18 5:19 AM Result Value Ref Range White Blood Cells 6.2 4.5 - 11.0 K/UL RBC 3.37 (L) 4.4 - 5.5 M/UL Hemoglobin 11.2 (L) 13.5 - 16.5 GM/DL Hematocrit 32.6 (L) 40 - 50 % MCV 96.5 80 - 100 FL MCH 33.2 26 - 34 PG MCHC 34.4 32.0 - 36.0 G/DL RDW 13.5 11 - 15 % Platelet Count 154 150 - 400 K/UL MPV 9.2 7 - 11 FL MAGNESIUM Collection Time: 08/13/18 5:19 AM Result Value Ref Range Magnesium 1.9 1.6 - 2.6 mg/dL TYPE & CROSSMATCH Collection Time: 08/13/18 7:00 AM Result Value Ref Range Units Ordered 0 Crossmatch Expires 08/16/2018 Record Check FOUND ABO/RH(D) A POS Antibody Screen NEG Electronic Crossmatch YES ECG: Ventricular trigeminy, sinus rhythm, left axis deviation, nonspecific IVCD Telemetry: Ventricular bigeminy, frequent PVCs, short run of NSVT Echo Left Ventricle: Normal size and wall thickness. Mildly decreased ejection fraction. Frequent PVCs making the accurate estimation of EF difficult due to post PVC augmentation. EF 45-50%, post PVC augmentation to 55%. Global hypokinesis. Right Ventricle: Normal size. Mildly reduced ejection fraction. No hemodynamically significant valvular abnormalities. Left pleural effusion. Estimated Peak Systolic PA Pressure (32 + RA pressure) mmHg. Stress MPI This study is probably normal with no evidence of significant myocardial ischemia. Left ventricular systolic function is normal. There are no high risk prognostic indicators present. The ECG portion of the study is negative for ischemia. There are no prior studies available for comparison. In aggregate the current study is low risk in regards to predicted annual cardiovascular mortality rate. Kong La MD CV fellow * Jimenez Canchola RT - 08/13/2018 9:54 AM CDT RT Adult Assessment Note NAME:Sara Leiva :1940 AGE: 77 y.o. ADMISSION DATE: 08/10/2018 DAYS ADMITTED: LOS: 2 days RT Treatment Plan: Additional Comments: Impressions of the patient: Patient resting comfortable on RA. No SOA,CHASIDY, or home inhaler use. No current respiratory modalities indicated at this time. Vital Signs: Pulse: RR: 18 PER MINUTE SpO2: 98 % O2 Device: Liter Flow: O2%: 21 % Breath Sounds: Clear (implies normal) Respiratory Effort: Non-Labored * Saundra Hernandez MD - 08/13/2018 9:44 AM CDT Admission History and Physical Examination Name: Sara Leiva Admission Date: 08/10/2018 Assessment/Plan: 77 M with HTN, HLD, CAD s/p CABG, PVD, recent CVA, was seen in Urology clinic for evaluation for bladder cancer/hematuria and was sent to the ED for asymptomatic hypotension UTI: - patient is not sure if he is on ABx. - order urine culutres- contaminated - Cont Rocephin for now, will treat for 7 days- started 08/11/18 Presumed stage IV bladder cancer/Hematuria - presented with ongoing hematuria and mass on cystoscopy at outside provided. referred to [facility] for further eval. - with liver lesions concerning for mets. - Cystoscopy by Dr. Fermin 08/10 demonstrate friable tumor tissue at the bladder neck and prostatic urethra. - CT C/A/P 08/12/18- Development of multiple subcentimeter bilateral pulmonary nodules suggestive of pulmonary metastatic disease. No thoracic lymphadenopathy. Asymmetric masslike thickening, centered in the base of the prostate, suggestive of primary prostate neoplasm. Bladder mass with invasion of the prostate could also produce this appearance. At least one additional separate site of nodule bladder wall thickening and enhancement, suggestive of separate primary bladder neoplasm or bladder metastasis. Mild metastatic pelvic lymphadenopathy.Increase in multifocal hepatic metastatic disease.Mild aneurysmal dilatation of the infrarenal abdominal aorta with marked mixed plaque. - Consulted urology- appreciate recs. - plan to proceed with TURBT, 08/14- but was held due to stress test this am. Multiple PVCs,VTach? On tele: - consulted cardiology - restart BB - started amiodarone 400 mg on 08/12/18 twice dailyx 7 days followed by 400 mg daily - getting stress test this am. - monitor Hypotension -Orthostatic hypotension + - improved with medication adjustment and IVFs - noted in the clinic. 60s/40s. sent to the ED, 99/52 initially. - noted to be orthostatic in the ED, with BP dropping to 84/54 standing. - s/p 1L IVF in the ED. still orthostatic. - ECHO- mildly reduced EF - monitor ISMAEL- improved - creat 1.3 on admission. baseline unknown. - hydration as above. - getting records from [facility] HTN / HLD CAD s/p CABG - PLANNER INTERN on enalapril and metop xl. - restarted BB, holding ACEI for now. - continue statin Recent CVA: - admitted to [facility] and was noted to have (per Urology note) MRI brain with punctate areas of diffusion restriction in both cerebellar hemispheres c/w acute punctate infarctions, probably from a cardiogenic source. Old infarcts are present in the left frontal lobe and left temporal lobe. small vessel disease. - will try to obtain records from [facility] - currently not on antiplatelets due to ongoing hematuria. may need to clarify with Urology if this truly prohibitive. - switch pravastatin to lipitor 40mg. 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 - patient was not able to finish MRI to look into his parotids. - may need ENT evaluation outpatient. PVD: - was supposed to get stented? FEN: - IVF NS at 100ml/hr - replace electrolytes as needed. - Diet: Cardiac Ppx- None due to hematuria and hypotension Full code Saundra Hernandez MD Hospitalist Subjective: Patient was comfortably lying in bed, no acute events overnight, no new complaints this am. Patient denies fevers, chills, nausea, vomiting, or pain this am. Review of Systems: Complete 10 point review of system was obtained. It is positive per HPI. All other review of system was negative. Physical Exam: Vital Signs: Last Filed In 24 Hours Vital Signs: 24 Hour Range BP: 125/59 (08/13 530) Temp: 36.8 C (98.2 F) (08/13 530) Pulse: 84 (08/13 530) Respirations: 18 PER MINUTE (08/13 530) SpO2: 97 % (08/13 530) O2 Delivery: None (Room Air) (08/13 530) BP: (125-138)/(48-74) Temp: [36.3 C (97.3 F)-36.8 C (98.2 F)] Pulse: [65-84] Respirations: [16 PER MINUTE-20 PER MINUTE] SpO2: [97 %-99 %] O2 Delivery: None (Room Air) Constitutional: Alert and oriented times three. No acute distress. Answer questions appropriately. HEENT: Normal conjunctivae. Pupils equal, round and reactive. Extraocular muscles are intact. Neck: Supple. No thyroidmegaly. No carotid bruits. No jugular venous distension. Cardiovascular: Regular rhythm and rate. Normal S1 and S2. No murmurs, rubs, or gallop. Respiratory: Breathing comfortable without use of accessory muscles. Breath sounds equal bilaterally. No crackles, wheezes, or rhonchi. Gastrointestinal: Normal bowel sounds. Not distended. No tenderness to palpation. No guarding or rebound. No organomegaly. Musculoskeletal: No clubbing, cyanosis, or edema. Lab/Radiology/Other Diagnostic Tests: Results for orders placed or performed during the hospital encounter of (from the past 24 hour(s)) BASIC METABOLIC PANEL Collection Time: 08/13/18 5:19 AM Result Value Ref Range Sodium 139 137 - 147 MMOL/L Potassium 4.3 3.5 - 5.1 MMOL/L Chloride 113 (H) 98 - 110 MMOL/L CO2 21 21 - 30 MMOL/L Anion Gap 5 3 - 12 Glucose 104 (H) 70 - 100 MG/DL Blood Urea Nitrogen 12 7 - 25 MG/DL Creatinine 0.80 0.4 - 1.24 MG/DL Calcium 8.8 8.5 - 10.6 MG/DL eGFR Non >60 >60 mL/min eGFR >60 >60 mL/min CBC Collection Time: 08/13/18 5:19 AM Result Value Ref Range White Blood Cells 6.2 4.5 - 11.0 K/UL RBC 3.37 (L) 4.4 - 5.5 M/UL Hemoglobin 11.2 (L) 13.5 - 16.5 GM/DL Hematocrit 32.6 (L) 40 - 50 % MCV 96.5 80 - 100 FL MCH 33.2 26 - 34 PG MCHC 34.4 32.0 - 36.0 G/DL RDW 13.5 11 - 15 % Platelet Count 154 150 - 400 K/UL MPV 9.2 7 - 11 FL MAGNESIUM Collection Time: 08/13/18 5:19 AM Result Value Ref Range Magnesium 1.9 1.6 - 2.6 mg/dL TYPE & CROSSMATCH Collection Time: 08/13/18 7:00 AM Result Value Ref Range Units Ordered 0 Crossmatch Expires 08/16/2018 Record Check FOUND ABO/RH(D) A POS Antibody Screen NEG Electronic Crossmatch YES Chest Single View Result Date: 08/10/2018 No acute cardiopulmonary abnormality. Approved by Nabeel Berrios M.D. on 2018 3:09 PM By my electronic signature, I attest that I have personally reviewed the images for this examination and formulated the interpretations and opinions expressed in this report Finalized by SHIRLEY FISHER M.D. on 08/10/2018 3:15 PM. Dictated by Nabeel Berrios M.D. on 08/10/2018 2:08 PM. Pertinent radiology reviewed. Saundra Hernandez MD * Aisha Ch RN - 08/13/2018 9:28 AM CDT Pt was scheduled for cystoscopy w/ Turbst but the case was cancelled do to MD wanting stress test before the procedure is preformed. 1st part of the stress test was completed this morning 931. 2nd part of the stress test will be at 1215. Nurse called downstairs to [facility] and confirmed that the cystoscopy was cancelled 08/12. Talked with primary MD which confirmed that pt is able to eat and drink what on [facility] nuclear cardiology for thallium images. * Mee Nazario RN - 08/13/2018 5:51 AM CDT Report received from [facility] RN. Anticipating patient to [address] [id number]. Ella Calling lab to see if type and cross is needed, only screen done by bb, need type and cross for surgery. did not get this drawn when he arrived to pre post before he was sent back to his room. Informed floor RN that TYPE and Cross still needed. Patient arrived to [place] [id number], case was moved because patient needs a stress test before surgery. [facility] NUC [id number], will call for patient when they are ready for him. He is in good spirits and understands, transporter is returning patient to inpatient room. Notifying RN. * Jeanette Denton RN - 08/12/2018 3:57 PM CDT I have reviewed the notes, assessment, flow sheets and/or procedures performed by Pily Zarate, Student Nurse and concur with her/his documentation unless otherwise noted. Jeanette Denton RN [facility] Clinical Candle Wrapping Machine Operator * Edgar Nieves - 08/12/2018 3:01 PM CDT PHYSICAL THERAPY MOBILITY NOTE Patient was mobilized today with the assistance of the P.T. mobility aide as part of the ongoing physical therapy plan of care. Mobility Progressive Mobility Level: Walk in hallway Distance Walked (feet): 300 ft Level of Assistance: Assist X1 Assistive Device: Other (Comment)(IV Pole) Time Tolerated: 11-30 minutes Activity Limited By: Patient request to stop Aide: Edgar Nieves Date: 08/12/2018 * Maximiliano Suzette, OT - 08/12/2018 11:43 AM CDT OCCUPATIONAL THERAPY ASSESSMENT NOTE Patient Name: Sara Leiva Room/Bed: [id number] Admitting Diagnosis: Mobility Progressive Mobility Level: Walk in hallway Distance Walked (feet): 200 ft Level of Assistance: Assist X1 Assistive Device: (IV Pole) Time Tolerated: 11-30 minutes Activity Limited By: Weakness Subjective Pertinent Dx per Physician: 77 M with HTN, HLD, CAD s/p CABG, PVD, recent CVA, was seen in Urology clinic for evaluation for bladder cancer/hematuria and was sent to the ED for asymptomatic hypotension Precautions: Standard(SOBOBA on left side) Pain / Complaints: Patient has no c/o pain;Patient agrees to participate in therapy Comments: Upon arrival, patient supine in bed. Orthostatics taken: supine 133/64 , sitting 105/59, standing 120/62, sitting after activity 114/96. Patient's HR reached 127 with mobility, decreased to 90 once sitting; patient asymptomatic. RN notified of numbers. After session, patient back in bed, alarm on, and all needs in reach. Objective Psychosocial Status: Willing and Cooperative to Participate Persons Present: Physical Therapist;Spouse Home Living Type of Home: House Home Layout: One Level;Stairs to Enter w/o Rails Bathroom Shower / Tub: Tub/Shower Unit Bathroom Toilet: Standard Bathroom Equipment: Hand-Held Shower Comment: Patient has 3 RAFAEL; reports he took off railing as he did not use it. Has no AE/DME. Prior Function Level Of [place]: Independent with ADLs and functional transfers; Independent with homemaking w/ ambulation Lives With: Spouse Receives Help From: None Needed Other Function Comments: Patient reports being active prior, was driving. Vision Comment: No acute visual changes. ADL's Where Assessed: Edge of Bed;Standing at Sink Grooming Assist: Stand By Assist Grooming Deficits: Supervision/Safety Functional Transfer Assist: Minimal Assist(CGA) Functional Transfer Deficits: Supervision/Safety Comment: Patient supine > sitting with standby assist, completes room mobility and grooming at sink with standby assist for safety. Patient uses IV pole for steadying when ambulating in hallway, no LOB. Activity Tolerance Endurance: 3/5 Tolerates 25-30 Minutes Exercise w/Multiple Rests Sitting Balance: 4+/5 Moves/Returns Trunkal Midpoint 1-2 Inches in Multiple Planes Cognition Overall Cognitive Status: WFL to Adequately Complete Self Care Tasks Safely Memory: WFL Adequate to Recall Day to Day Activities Orientation: Alert & Oriented x4 Attention: Awake/Alert UE Strength / Tone Overall Strength / Tone: WFL Able to Perform ADL Tasks Education Persons Educated: Patient/Family Barriers To Learning: None Noted Interventions: Repetition of Instructions Teaching Methods: Verbal Instruction Patient Response: Verbalized Understanding Topics: Role of OT, Goals for Therapy Goal Formulation: With Patient/Family Assessment Assessment: Decreased ADL Status;Decreased Endurance;Decreased High-Level ADLs Prognosis: Good Goal Formulation: Pt/family Comments: Patient limited by weakness, requires steadying support when ambulating in hallway- uses IV pole for steadying assist. AM-PAC 6 Clicks Daily Activity Inpatient Putting on and taking off regular lower body clothes?: A Little Bathing (Including washing, rinsing, drying): A Little Toileting, which includes using toilet, bedpan, or urinal: A Little Putting on and taking off regular upper body clothing: None Taking care of personal grooming such as brushing teeth: None Eating meals?: None Daily Activity Raw Score: 21 Standardized (t-scale) score: 44.27 CMS 0-100% Score: 32.79 CMS G Code Modifier: CJ Plan OT Frequency: 3-5x/week OT Plan for Next Visit: Full LE dressing, toileting with clothing management, increase functional endurance- monitor BP ADL Goals Patient Will Perform All ADL's: w/ Modified [place] Functional Transfer Goals Pt Will Perform All Functional Transfers: Modified Independent OT Discharge Recommendations OT Discharge Recommendations: Home with family assist Equipment Recommendations: Too early to be determined Additional Information: Anticipate patient to be at baseline function prior to d /c home. Recommend ongoing assistance for: Ambulation, Stairs, Safety concerns Therapist: FAUSTO Roberts/Nanette [id number] Date: 08/12/2018 * Michaelle James, PT - 08/12/2018 11:40 AM CDT PHYSICAL THERAPY ASSESSMENT MOBILITY: Mobility Progressive Mobility Level: Walk in hallway Distance Walked (feet): 200 ft Level of Assistance: Assist X1 Assistive Device: (IV Pole) Time Tolerated: 11-30 minutes Activity Limited By: Weakness SUBJECTIVE: Subjective Significant hospital events: 77 M with HTN, HLD, CAD s/p CABG, PVD, recent CVA, was seen in Urology clinic for evaluation for bladder cancer/hematuria and was sent to the ED for asymptomatic hypotension Mental / Cognitive Status: Alert;Cooperative;Follows Commands Persons Present: Occupational Therapist;Spouse Patient Owned Equipment: None Home Situation: Lives with Family Type of Home: House Entry Stairs: 3-5 Stairs;Rail on 1 Side In-Home Stairs: Able to Live on One Level STRENGTH: Strength Overall Strength: WFL;No Focal Deficits Noted(BLE) BED MOBILITY/TRANSFERS: Bed Mobility/Transfers Bed Mobility: Supine to Sit: Independent Bed Mobility: Sit to Supine: Independent Transfer Type: Sit to/from Stand Transfer: Assistance Level: To/From;Bed;Standby Assist Transfer: Assistive Device: None End Of Activity Status: In Bed GAIT: Gait Gait Distance: 200 feet Gait: Assistance Level: Minimal Assist Gait: Assistive Device: IV Pole Gait: Descriptors: Pace: Normal;Normal step length HR elevated to 127 with ambulation Orthostatic vital signs Position Heart rate Blood pressure Symptomatic (Y/N) Supine 78 133/64 N Seated 86 105/59 N Standing 120/62 93 N Post-activity 114/96 96 N ACTIVITY/EXERCISE: Activity / Exercise Comments: Pt declined sitting up in the chair EDUCATION: Education Persons Educated: Patient Patient Barriers To Learning: None Noted Interventions: Repetition of Instructions Teaching Methods: Verbal Instruction Patient Response: More Instruction Required Topics: Plan/Goals of PT Interventions;Use of Assistive Device/Orthosis; Mobility Progression;Safety Awareness;Importance of Increasing Activity; Recommend Continued Therapy ASSESSMENT/PROGRESS: Assessment/Progress Impaired Mobility Due To: Impaired Balance(mild needed 1 UE support) Assessment/Progress: Expect Good Progress AM-PAC 6 Clicks Basic Mobility Inpatient Turning from your back to your side while in a flat bed without using bed rails : None Moving from lying on your back to sitting on the side of a flatbed without using bedrails : None Moving to and from a bed to a chair (including a wheelchair): A Little Standing up from a chair using your arms (e.g. wheelchair, or bedside chair): A Little To walk in hospital room: A Little Climbing 3-5 steps with a railing: A Little Raw Score: 20 Standardized (T-scale) Score: 43.99 Basic Mobility CMS 0-100%: 33.32 CMS G Code Modifier for Basic Mobility: CJ GOALS: Goals Goal Formulation: With Patient/Family Time For Goal Achievement: 7 days Patient Will Transfer Sit to Stand: w/ Stand By Assist Patient Will Ambulate: Greater than 200 Feet, w/ No Device, w/ Stand By Assist Patient Will Go Up / Down Stairs: 3-5 Stairs, w/ Stand By Assist PLAN: Plan Treatment Interventions: Mobility Training Plan Frequency: 3-5 Days per Week PT Plan for Next Visit: Progress ambulation distance and stair training P.T. mobility aide to assist with ongoing mobilization and exercise per instructions of licensed physical therapy staff. RECOMMENDATIONS: PT Discharge Recommendations PT Discharge Recommendations: Home with Assistance Equipment Recommendations: None(likely) Recommend ongoing assistance for: Ambulation;Stairs;Safety concerns Therapist: Michaelle James, PT Date: 08/12/2018 * Radha Pena RD - 08/12/2018 11:25 AM CDT CLINICAL NUTRITION Clinical Nutrition Assessment Summary NAME:Sara Leiva :1940 AGE: 77 y.o. ADMISSION DATE: 08/10/2018 DAYS ADMITTED: LOS: 1 day Nutrition Assessment of Patient: BMI Categories Adult: Acceptable: 18.5-24.9 Unintentional Weight Loss: > 10% in 6 months (severe) Current Oral Intake: Inadequate Estimated Calorie Needs: 1456-4121(30-35 kcal/kg present wt 75.4kg) Estimated Protein Needs: 98-113(1.3-1.5 g/kg present wt) Oral Diet Order: Cardiac ICD-10 code E43: Chronic illness/Severe malnutrition Weight loss: >10% x 6 months, Severe loss of muscle mass Loss of Subcutaneous Fat: Yes Mild Orbital, Triceps Muscle Wasting: Yes Severe [place], Clavicle, Interosseous Edema: No Malnutrition Interventions: Boost Plus [place] TIDWM. Comments: 77 M with HTN, HLD, CAD s/p CABG, PVD, recent CVA, was seen in Urology clinic for evaluation for bladder cancer/hematuria and was sent to the ED for asymptomatic hypotension. Pt sleeping soundly at time of visit, did not wake to name or while verifying wristband with . reports pt with poor appetite PLANNER INTERN and now, biggest limiting factor to PO intake is taste of food. Pt dislikes foods provided. Willing to drink Boost, strawberry. Had 100% of 1 Boost yesterday and 25-50% meals. reports wt loss of 24# (13%) in the last 6 months. This is severe wt loss in addition to physical signs of muscle wasting at temples, clavicles, and interosseous areas. Pt presented from OSH with stage II coccyx pressure injury which is healing and scabbed over per RN. No edema. LBM /16 per industrial machine operator. Will continue to follow. Recommendation: Given malnutrition and hypermetabolism with presumed stage IV bladder cancer , recommend liberalizing diet to Regular. Encourage good PO intake and Boost+ TID/PRN. Intervention / Plan: Monitor PO intake, wt trends, meds, labs, and GI health. Nutrition Diagnosis: Malnutrition Etiology: hypermetabolic disease state Signs & Symptoms: severe wt loss and muscle wasting Goals: Patient to consume >75% of meals/supplements Time Frame: Within 5 Days Prevent further weight loss Time Frame: Throughout Stay Radha Pena RD, [place] Phone: [phone] Pager: [phone] * Saundra Hernandez MD - 08/12/2018 10:24 AM CDT Admission History and Physical Examination Name: Sara Leiva Admission Date: 08/10/2018 Assessment/Plan: 77 M with HTN, HLD, CAD s/p CABG, PVD, recent CVA, was seen in Urology clinic for evaluation for bladder cancer/hematuria and was sent to the ED for asymptomatic hypotension Hypotension -Orthostatic hypotension + - improved with medication adjustment and IVFs - noted in the clinic. 60s/40s. sent to the ED, 99/52 initially. - noted to be orthostatic in the ED, with BP dropping to 84/54 standing. - s/p 1L IVF in the ED. still orthostatic. - ECHO- mildly reduced EF - monitor ISMAEL- improved - creat 1.3 on admission. baseline unknown. - hydration as above. - getting records from [facility] [place] UTI: - patient is not sure if he is on ABx. - order urine culutres- contaminated - Cont Rocephin for now Presumed stage IV bladder cancer/Hematuria - presented with ongoing hematuria and mass on cystoscopy at outside provided. referred to [facility] for further eval. - with liver lesions concerning for mets. - Cystoscopy by Dr. Fermin 08/10 demonstrate friable tumor tissue at the bladder neck and prostatic urethra. - plan to proceed with TURBT, 08/14. - CT C/A/P 08/12/18- Development of multiple subcentimeter bilateral pulmonary nodules suggestive of pulmonary metastatic disease. No thoracic lymphadenopathy. Asymmetric masslike thickening, centered in the base of the prostate, suggestive of primary prostate neoplasm. Bladder mass with invasion of the prostate could also produce this appearance. At least one additional separate site of nodule bladder wall thickening and enhancement, suggestive of separate primary bladder neoplasm or bladder metastasis. Mild metastatic pelvic lymphadenopathy.Increase in multifocal hepatic metastatic disease.Mild aneurysmal dilatation of the infrarenal abdominal aorta with marked mixed plaque. - Consulted urology today- appreciate recs. HTN / HLD CAD s/p CABG - PLANNER INTERN on enalapril and metop xl. - restarted BB, holding ACEI for now. - continue statin Multiple PVCs,VTach? On tele: - consulting cardiology today. - restart BB - monitor Recent CVA: - admitted to [facility] and was noted to have (per Urology note) MRI brain with punctate areas of diffusion restriction in both cerebellar hemispheres c/w acute punctate infarctions, probably from a cardiogenic source. Old infarcts are present in the left frontal lobe and left temporal lobe. small vessel disease. - will try to obtain records from [facility] [place] - currently not on antiplatelets due to ongoing hematuria. may need to clarify with Urology if this truly prohibitive. - switch pravastatin to lipitor 40mg. 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 - patient was not able to finish MRI to look into his parotids. - may need ENT evaluation outpatient. PVD: - was supposed to get stented? FEN: - IVF NS at 100ml/hr - replace electrolytes as needed. - Diet: Cardiac Ppx- None due to hematuria and hypotension Full code Saundra Hernandez MD Hospitalist Subjective: Patient was seen on rounds today, was comfortably lying in bed, no acute events overnight, no new complaints this am. Patient denies fevers, chills, nausea, vomiting, diarrhea, SOA. Review of Systems: Complete 10 point review of system was obtained. It is positive per HPI. All other review of system was negative. Physical Exam: Vital Signs: Last Filed In 24 Hours Vital Signs: 24 Hour Range BP: 121/72 (08/12 828) Temp: 36.3 C (97.3 F) (08/12 828) Pulse: 40 (08/12 828) Respirations: 16 PER MINUTE (08/12 828) SpO2: 99 % (08/12 828) O2 Delivery: None (Room Air) (08/12 828) Height: 182.9 cm (72") (08/11 1420) BP: (121-141)/(42-72) Temp: [36.3 C (97.3 F)-36.9 C (98.4 F)] Pulse: [40-73] Respirations: [16 PER MINUTE] SpO2: [98 %-99 %] O2 Delivery: None (Room Air) Intensity Pain Scale (Self Report): 0 (08/12/18 0900) Constitutional: Alert and oriented times three. No acute distress. Answer questions appropriately. HEENT: Normal conjunctivae. Pupils equal, round and reactive. Extraocular muscles are intact. Neck: Supple. No thyroidmegaly. No carotid bruits. No jugular venous distension. Cardiovascular: Regular rhythm and rate. Normal S1 and S2. No murmurs, rubs, or gallop. Respiratory: Breathing comfortable without use of accessory muscles. Breath sounds equal bilaterally. No crackles, wheezes, or rhonchi. Gastrointestinal: Normal bowel sounds. Not distended. No tenderness to palpation. No guarding or rebound. No organomegaly. Musculoskeletal: No clubbing, cyanosis, or edema. Lab/Radiology/Other Diagnostic Tests: Results for orders placed or performed during the hospital encounter of (from the past 24 hour(s)) CBC Collection Time: 08/12/18 4:32 AM Result Value Ref Range White Blood Cells 6.2 4.5 - 11.0 K/UL RBC 3.41 (L) 4.4 - 5.5 M/UL Hemoglobin 11.2 (L) 13.5 - 16.5 GM/DL Hematocrit 33.1 (L) 40 - 50 % MCV 97.1 80 - 100 FL MCH 32.8 26 - 34 PG MCHC 33.7 32.0 - 36.0 G/DL RDW 13.5 11 - 15 % Platelet Count 156 150 - 400 K/UL MPV 8.2 7 - 11 FL BASIC METABOLIC PANEL Collection Time: 08/12/18 4:32 AM Result Value Ref Range Sodium 139 137 - 147 MMOL/L Potassium 4.2 3.5 - 5.1 MMOL/L Chloride 113 (H) 98 - 110 MMOL/L CO2 20 (L) 21 - 30 MMOL/L Anion Gap 6 3 - 12 Glucose 113 (H) 70 - 100 MG/DL Blood Urea Nitrogen 14 7 - 25 MG/DL Creatinine 0.83 0.4 - 1.24 MG/DL Calcium 9.0 8.5 - 10.6 MG/DL eGFR Non >60 >60 mL/min eGFR >60 >60 mL/min MAGNESIUM Collection Time: 08/12/18 4:32 AM Result Value Ref Range Magnesium 1.9 1.6 - 2.6 mg/dL Chest Single View Result Date: 08/10/2018 No acute cardiopulmonary abnormality. Approved by Nabeel Berrios M.D. on 2018 3:09 PM By my electronic signature, I attest that I have personally reviewed the images for this examination and formulated the interpretations and opinions expressed in this report Finalized by SHIRLEY FISHER M.D. on 08/10/2018 3:15 PM. Dictated by Nabeel Berrios M.D. on 08/10/2018 2:08 PM. Pertinent radiology reviewed. Saundra Hernandez MD * Tierra Butt - 08/11/2018 7:48 PM CDT Notified MPP about pt's 17 beat run of V tach, pt currently asymptomatic resting in bed and VSS. No additional orders at this time, will continue to monitor. 08/11/181937 Vitals Pulse 57 SpO2 99 % O2 Delivery RA BP 128/42 Mean NBP (Calculated) 71 MM HG BP Source Arm, Right Upper BP Patient Position Head of bed (Comment degree) (20) * Kristal Ybarra, RN - 08/11/2018 6:33 PM CDT 1630: Team notified of pts ECHO results, report states multiple PVCs. to order telemetry status on patient. Pt asymptomatic at this time. * Kristal Ybarra, RN - 08/11/2018 5:45 PM CDT notified of vent bigeminy with occasional vent trigeminy. Pt is asymptomatic , VSS. MD to order 12 lead EKG. WCTM. * Michaelle James, PT - 08/11/2018 1:44 PM CDT PHYSICAL THERAPY NOTE Attempted x 2 this date and pt in the shower this am and getting echo in the pm. Will cont to follow and see for PT evaluation. Therapist: Michaelle James, PT Date: 08/11/2018 * Saundra Hernandez MD - 08/11/2018 8:35 AM CDT Admission History and Physical Examination Name: Sara Leiva Admission Date: 08/10/2018 Assessment/Plan: 77 M with HTN, HLD, CAD s/p CABG, PVD, recent CVA, was seen in Urology clinic for evaluation for bladder cancer/hematuria and was sent to the ED for asymptomatic hypotension Hypotension: Orthostatic hypotension - noted in the clinic. 60s/40s. sent to the ED, 99/52 initially. - noted to be orthostatic in the ED, with BP dropping to 84/54 standing. - s/p 1L IVF in the ED. still orthostatic. - continue NS 100/hr and re-check in AM - will order ECHO today. ISMAEL- improved - creat 1.3 on admission. baseline unknown. - hydration as above. - getting records from [facility] Presumed stage IV bladder cancer/Hematuria - presented with ongoing hematuria and mass on cystoscopy at outside provided. referred to [facility] for further eval. - with liver lesions concerning for mets. - Cystoscopy by Dr. Fermin 08/10 demonstrate friable tumor tissue at the bladder neck and prostatic urethra. - plan to proceed with TURBT, 08/14. - plan for repeat CT C/A/P today UTI?: - patient is not sure if he is on ABx. - order urine culutres - will start rocephin today. HTN / HLD CAD s/p CABG - PLANNER INTERN on enalapril and metop xl. will hold both in setting of hypotension above - continue statin Recent CVA: - admitted to [facility] and was noted to have (per Urology note) MRI brain with punctate areas of diffusion restriction in both cerebellar hemispheres c/w acute punctate infarctions, probably from a cardiogenic source. Old infarcts are present in the left frontal lobe and left temporal lobe. small vessel disease. - will try to obtain records from [facility] [place] - currently not on antiplatelets due to ongoing hematuria. may need to clarify with Urology if this truly prohibitive. - switch pravastatin to lipitor 40mg. 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 - patient was not able to finish MRI to look into his parotids. - may need ENT evaluation outpatient. PVD: - was supposed to get stented? FEN: - IVF NS at 100ml/hr - replace electrolytes as needed. - Diet: Cardiac Ppx- None due to hematuria and hypotension Full code Saundra Hernandez MD Hospitalist Subjective: Patient was comfortably lying in bed, no acute events overnight, no new complaints this am. Patient denies fevers, chills, nausea, vomiting, or pain this am. Review of Systems: Complete 10 point review of system was obtained. It is positive per HPI. All other review of system was negative. Physical Exam: Vital Signs: Last Filed In 24 Hours Vital Signs: 24 Hour Range BP: 97/44 (08/11 436) Temp: 36.3 C (97.4 F) (08/12 431) Pulse: 52 (08/11 436) Respirations: 15 PER MINUTE (08/12 431) SpO2: 100 % (08/12 431) O2 Delivery: None (Room Air) (08/12 431) SpO2 Pulse: 41 (08/10 1630) Height: 182.9 cm (72") (08/10 1735) BP: (82-142)/(43-117) Temp: [36.3 C (97.3 F)-36.9 C (98.4 F)] Pulse: [47-100] Respirations: [11 PER MINUTE-22 PER MINUTE] SpO2: [97 %-100 %] O2 Delivery: None (Room Air) Constitutional: Alert and oriented times three. No acute distress. Answer questions appropriately. HEENT: Normal conjunctivae. Pupils equal, round and reactive. Extraocular muscles are intact. Neck: Supple. No thyroidmegaly. No carotid bruits. No jugular venous distension. Cardiovascular: Regular rhythm and rate. Normal S1 and S2. No murmurs, rubs, or gallop. Respiratory: Breathing comfortable without use of accessory muscles. Breath sounds equal bilaterally. No crackles, wheezes, or rhonchi. Gastrointestinal: Normal bowel sounds. Not distended. No tenderness to palpation. No guarding or rebound. No organomegaly. Musculoskeletal: No clubbing, cyanosis, or edema. Lab/Radiology/Other Diagnostic Tests: Results for orders placed or performed during the hospital encounter of (from the past 24 hour(s)) CBC AND DIFF Collection Time: 08/10/18 1:07 PM Result Value Ref Range White Blood Cells 7.6 4.5 - 11.0 K/UL RBC 3.88 (L) 4.4 - 5.5 M/UL Hemoglobin 13.1 (L) 13.5 - 16.5 GM/DL Hematocrit 37.9 (L) 40 - 50 % MCV 97.6 80 - 100 FL MCH 33.6 26 - 34 PG MCHC 34.4 32.0 - 36.0 G/DL RDW 13.6 11 - 15 % Platelet Count 185 150 - 400 K/UL MPV 8.4 7 - 11 FL Neutrophils 75 41 - 77 % Lymphocytes 15 (L) 24 - 44 % Monocytes 9 4 - 12 % Eosinophils 0 0 - 5 % Basophils 1 0 - 2 % Absolute Neutrophil Count 5.70 1.8 - 7.0 K/UL Absolute Lymph Count 1.10 1.0 - 4.8 K/UL Absolute Monocyte Count 0.70 0 - 0.80 K/UL Absolute Eosinophil Count 0.00 0 - 0.45 K/UL Absolute Basophil Count 0.10 0 - 0.20 K/UL COMPREHENSIVE METABOLIC PANEL Collection Time: 08/10/18 1:07 PM Result Value Ref Range Sodium 138 137 - 147 MMOL/L Potassium 4.3 3.5 - 5.1 MMOL/L Chloride 108 98 - 110 MMOL/L Glucose 125 (H) 70 - 100 MG/DL Blood Urea Nitrogen 23 7 - 25 MG/DL Creatinine 1.33 (H) 0.4 - 1.24 MG/DL Calcium 9.8 8.5 - 10.6 MG/DL Total Protein 7.1 6.0 - 8.0 G/DL Total Bilirubin 1.0 0.3 - 1.2 MG/DL Albumin 3.8 3.5 - 5.0 G/DL Alk Phosphatase 137 (H) 25 - 110 U/L AST (SGOT) 23 7 - 40 U/L CO2 25 21 - 30 MMOL/L ALT (SGPT) 15 7 - 56 U/L Anion Gap 5 3 - 12 eGFR Non 52 (L) >60 mL/min eGFR >60 >60 mL/min MAGNESIUM Collection Time: 08/10/18 1:07 PM Result Value Ref Range Magnesium 2.1 1.6 - 2.6 mg/dL PHOSPHORUS Collection Time: 08/10/18 1:07 PM Result Value Ref Range Phosphorus 3.3 2.0 - 4.5 MG/DL TSH WITH FREE T4 REFLEX Collection Time: 08/10/18 1:07 PM Result Value Ref Range TSH 1.010 0.35 - 5.00 MCU/ML POC TROPONIN Collection Time: 08/10/18 1:15 PM Result Value Ref Range Osrdokvp-U-EBG 0.01 0.00 - 0.05 NG/ML URINALYSIS DIPSTICK Collection Time: 08/10/18 1:51 PM Result Value Ref Range Color,UA BRENDA Turbidity,UA 2+ (A) CLEAR-CLEAR Specific [place]-Urine 1.018 1.003 - 1.035 pH,UA 5.0 5.0 - 8.0 Protein,UA 2+ (A) NEG-NEG Glucose,UA NEG NEG-NEG Ketones,UA TRACE (A) NEG-NEG Bilirubin,UA POS (A) NEG-NEG Blood,UA 3+ (A) NEG-NEG Urobilinogen,UA INCREASED (A) NORM-NORMAL Nitrite,UA NEG NEG-NEG Leukocytes,UA 2+ (A) NEG-NEG Urine Ascorbic Acid, UA NEG NEG-NEG URINALYSIS, MICROSCOPIC Collection Time: 08/10/18 1:51 PM Result Value Ref Range WBCs,UA PACKED 0 - 2 /HPF RBCs,UA PACKED 0 - 3 /HPF MucousUA 1+ Bacteria,UA FEW (A) NEG-NEG Squamous Epithelial Cells 2-5 0 - 5 TROPONIN-I Collection Time: 08/10/18 7:25 PM Result Value Ref Range Troponin-I 0.01 0.0 - 0.05 NG/ML TROPONIN-I Collection Time: 08/11/18 12:23 AM Result Value Ref Range Troponin-I 0.01 0.0 - 0.05 NG/ML CBC Collection Time: 08/11/18 6:06 AM Result Value Ref Range White Blood Cells 6.6 4.5 - 11.0 K/UL RBC 3.23 (L) 4.4 - 5.5 M/UL Hemoglobin 10.9 (L) 13.5 - 16.5 GM/DL Hematocrit 31.4 (L) 40 - 50 % MCV 97.2 80 - 100 FL MCH 33.6 26 - 34 PG MCHC 34.5 32.0 - 36.0 G/DL RDW 13.9 11 - 15 % Platelet Count 153 150 - 400 K/UL MPV 8.4 7 - 11 FL BASIC METABOLIC PANEL Collection Time: 08/11/18 6:06 AM Result Value Ref Range Sodium 139 137 - 147 MMOL/L Potassium 4.4 3.5 - 5.1 MMOL/L Chloride 113 (H) 98 - 110 MMOL/L CO2 22 21 - 30 MMOL/L Anion Gap 4 3 - 12 Glucose 103 (H) 70 - 100 MG/DL Blood Urea Nitrogen 19 7 - 25 MG/DL Creatinine 0.95 0.4 - 1.24 MG/DL Calcium 8.9 8.5 - 10.6 MG/DL eGFR Non >60 >60 mL/min eGFR >60 >60 mL/min MAGNESIUM Collection Time: 08/11/18 6:06 AM Result Value Ref Range Magnesium 1.9 1.6 - 2.6 mg/dL PHOSPHORUS Collection Time: 08/11/18 6:06 AM Result Value Ref Range Phosphorus 3.1 2.0 - 4.5 MG/DL Chest Single View Result Date: 08/10/2018 No acute cardiopulmonary abnormality. Approved by Nabeel Berrios M.D. on 2018 3:09 PM By my electronic signature, I attest that I have personally reviewed the images for this examination and formulated the interpretations and opinions expressed in this report Finalized by SHIRLEY FISHER M.D. on 08/10/2018 3:15 PM. Dictated by Nabeel Berrios M.D. on 08/10/2018 2:08 PM. Pertinent radiology reviewed. Saundra Hernandez MD * Nicky Rowland RN - 08/10/2018 6:03 PM CDT Patient arrived to room # ([id number]) via cart accompanied by transport. Patient transferred to the bed without assistance. Bedside safety checks completed. Initial patient assessment completed, refer to flowsheet for details. Skin Assessment Performed skin assessment with (JODI Zapien). Patient has pressure injury upon admission to unit. Pt has a healing scabbed over stage 2. Pressure Injury is Stage 2 or greater: Yes Wound Team Consulted: No Please see doc flowsheet for further wound information. Fall Risk Assessment Admission fall risk assessment completed. Patient's Fall Risk: High Risk per Prieto Score or Clinical Judgment High Fall Risk Bundle Implemented: YES documented in this encounter H&P Notes * Tiffany Morales MD - 08/10/2018 3:45 PM CDT Admission History and Physical Examination Name: Sara Leiva Admission Date: 08/10/2018 Assessment/Plan: Active Problems: Hypotension 77 M with HTN, HLD, CAD s/p CABG, PVD, recent CVA, was seen in Urology clinic for evaluation for bladder cancer/hematuria and was sent to the ED for asymptomatic hypotension Hypotension: Orthostatic hypotension - noted in the clinic. 60s/40s. sent to the ED, 99/52 initially. - noted to be orthostatic in the ED, with BP dropping to 84/54 standing. - s/p 1L IVF in the ED. still orthostatic. - continue NS 100/hr and re-check in AM - try to obtain records from [facility], to see if he had ECHO, if not, he will need to get one here. elevated creatinine: - creat 1.3 on admission. baseline unknown. - hydration as above. - getting records from [facility] as indicated elsewhere. Presumed stage IV bladder cancer: Hematuria - presented with ongoing hematuria and mass on cystoscopy at outside provided. referred to [facility] for further eval. - with liver lesions concerning for mets. - Cystoscopy by Dr. Fermin 08/10 demonstrate friable tumor tissue at the bladder neck and prostatic urethra. - plan to proceed with TURBT, 08/14. - plan for repeat CT C/A/P. May obtain tomorrow if kidney function improved UTI?: - patient is not sure if he is on ABx. HTN / HLD CAD s/p CABG - PLANNER INTERN on enalapril and metop xl. will hold both in setting of hypotension above - continue statin Recent CVA: - admitted to [facility] and was noted to have (per Urology note) MRI brain with punctate areas of diffusion restriction in both cerebellar hemispheres c/w acute punctate infarctions, probably from a cardiogenic source. Old infarcts are present in the left frontal lobe and left temporal lobe. small vessel disease. - will try to obtain records from [facility] - currently not on antiplatelets due to ongoing hematuria. may need to clarify with Urology if this truly prohibitive. - switch pravastatin to lipitor 40mg. 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 - patient was not able to finish MRI to look into his parotids. - may need ENT evaluation outpatient. PVD: - was supposed to get stented? FEN: nS 100/hr. lytes PRN. cardiac diet PPx: non chemical Dispo: admit to medicine. Tiffany Morales MD Internal Medicine [id number] __ Chief Complaint: hypotension History of Present Illness: Sara Leiva is a 77 y.o. male with CAD s/p CABG , HTN, HLD, PVD, recent CVA, who was evaluated in [place] for ongoing hematuria, had cystoscopy that showed concern for malignancy. Patient was referred to Urology for further management, and was seen today in the clinic. He was noted to have BP reportedly 60/40 however asymptomatic. Patient was sent to the ED for further management. In the ED patient was orthostatic, given 1L of fluids and remained orthostatic. Patient is poor historian. He only complains of some discomfort in his bladder from cystoscopy today. He reports being hungry. He noted poor oral intake lately. No falls. No LOC. No other symptoms. 12 point ROS was obtained, remarkable for: Positive for bladder discomfort Negative for fever, chills, chest pain, dyspnea, cough, abd pain, nausea, vomiting, diarrhea. Past Medical History: Diagnosis Date Anxiety Arthritis Bladder cancer (HCC) Coronary artery disease Hearing reduced Heart disease Hyperlipidemia Hypertension Myocardial infarction (HCC) 2004 PVD (peripheral vascular disease) (HCC) TIA (transient ischemic attack) 07/2018 Past Surgical History: Procedure Laterality Date CARDIAC SURGERY 2004 CABG HX HEART CATHETERIZATION 2005 stent BALLOON ANGIOPLASTY, ARTERY left leg COLONOSCOPY Family History Problem Relation Age of Onset Heart Disease Mother Heart Disease Sister Cancer Brother Heart Disease Brother Social History Socioeconomic History Marital status: Spouse name: Not on file Number of children: Not on file Years of education: Not on file Highest education level: Not on file Occupational History Not on file Social Needs Financial resource strain: Not on file Food insecurity: Worry: Not on file Inability: Not on file Transportation needs: Medical: Not on file Non-medical: Not on file Tobacco Use Smoking status: Former Smoker Packs/day: 1.00 Years: 40.00 Pack years: 40.00 Types: Cigars, Cigarettes Last attempt to quit: 2016 Years since quittin.2 Smokeless tobacco: Never Used Substance and Sexual Activity Alcohol use: Never Frequency: Never Drug use: Never Sexual activity: Not on file Lifestyle Physical activity: Days per week: Not on file Minutes per session: Not on file Stress: Not on file Relationships Social connections: Talks on phone: Not on file Gets together: Not on file Attends adventism service: Not on file Active member of club or organization: Not on file Attends meetings of clubs or organizations: Not on file Relationship status: Not on file Intimate partner violence: Fear of current or ex partner: Not on file Emotionally abused: Not on file Physically abused: Not on file Forced sexual activity: Not on file Other Topics Concern Not on file Social History Narrative Not on file Immunizations (includes history and patient reported): There is no immunization history on file for this patient. Allergies: Patient has no known allergies. Medications: (Not in a hospital admission) Physical Exam: Vital Signs: Last Filed In 24 Hours Vital Signs: 24 Hour Range BP: 98/62 (08/10 1431) Temp: 36.3 C (97.4 F) (08/10 1253) Pulse: 78 (08/10 1431) Respirations: 11 PER MINUTE (08/10 1431) SpO2: 98 % (08/10 1431) O2 Delivery: None (Room Air) (08/10 1253) SpO2 Pulse: 39 (08/10 1431) Height: 185 cm (72.84") (08/10 1004) BP: (82-126)/(43-73) Temp: [36.3 C (97.3 F)-36.5 C (97.7 F)] Pulse: [76-100] Respirations: [11 PER MINUTE-22 PER MINUTE] SpO2: [97 %-100 %] O2 Delivery: None (Room Air) GENERAL: No distress, alert HEENT: PERRL. EOMI. No LAD. LUNGS: CTA b/l, no rhonchi, no wheezes, no crackles. HEART: RRR, S1S2 wnl, no murmur/rubs/gallops ABDOMEN: Soft, non distended, non tender, + BS EXTREMITIES: no LE edema. Distal pulses palpable SKIN: warm. dry. no rash noticed. NEURO: Speech fluent. no focal limb weakness noted PSYCH: normal judgment Lab/Radiology/Other Diagnostic Tests: 24-hour labs: Results for orders placed or performed during the hospital encounter of (from the past 24 hour(s)) CBC AND DIFF Collection Time: 08/10/18 1:07 PM Result Value Ref Range White Blood Cells 7.6 4.5 - 11.0 K/UL RBC 3.88 (L) 4.4 - 5.5 M/UL Hemoglobin 13.1 (L) 13.5 - 16.5 GM/DL Hematocrit 37.9 (L) 40 - 50 % MCV 97.6 80 - 100 FL MCH 33.6 26 - 34 PG MCHC 34.4 32.0 - 36.0 G/DL RDW 13.6 11 - 15 % Platelet Count 185 150 - 400 K/UL MPV 8.4 7 - 11 FL Neutrophils 75 41 - 77 % Lymphocytes 15 (L) 24 - 44 % Monocytes 9 4 - 12 % Eosinophils 0 0 - 5 % Basophils 1 0 - 2 % Absolute Neutrophil Count 5.70 1.8 - 7.0 K/UL Absolute Lymph Count 1.10 1.0 - 4.8 K/UL Absolute Monocyte Count 0.70 0 - 0.80 K/UL Absolute Eosinophil Count 0.00 0 - 0.45 K/UL Absolute Basophil Count 0.10 0 - 0.20 K/UL COMPREHENSIVE METABOLIC PANEL Collection Time: 08/10/18 1:07 PM Result Value Ref Range Sodium 138 137 - 147 MMOL/L Potassium 4.3 3.5 - 5.1 MMOL/L Chloride 108 98 - 110 MMOL/L Glucose 125 (H) 70 - 100 MG/DL Blood Urea Nitrogen 23 7 - 25 MG/DL Creatinine 1.33 (H) 0.4 - 1.24 MG/DL Calcium 9.8 8.5 - 10.6 MG/DL Total Protein 7.1 6.0 - 8.0 G/DL Total Bilirubin 1.0 0.3 - 1.2 MG/DL Albumin 3.8 3.5 - 5.0 G/DL Alk Phosphatase 137 (H) 25 - 110 U/L AST (SGOT) 23 7 - 40 U/L CO2 25 21 - 30 MMOL/L ALT (SGPT) 15 7 - 56 U/L Anion Gap 5 3 - 12 eGFR Non 52 (L) >60 mL/min eGFR >60 >60 mL/min MAGNESIUM Collection Time: 08/10/18 1:07 PM Result Value Ref Range Magnesium 2.1 1.6 - 2.6 mg/dL PHOSPHORUS Collection Time: 08/10/18 1:07 PM Result Value Ref Range Phosphorus 3.3 2.0 - 4.5 MG/DL TSH WITH FREE T4 REFLEX Collection Time: 08/10/18 1:07 PM Result Value Ref Range TSH 1.010 0.35 - 5.00 MCU/ML POC TROPONIN Collection Time: 08/10/18 1:15 PM Result Value Ref Range [id number] 0.01 0.00 - 0.05 NG/ML URINALYSIS DIPSTICK Collection Time: 08/10/18 1:51 PM Result Value Ref Range Color,UA BRENDA Turbidity,UA 2+ (A) CLEAR-CLEAR Specific [place]-Urine 1.018 1.003 - 1.035 pH,UA 5.0 5.0 - 8.0 Protein,UA 2+ (A) NEG-NEG Glucose,UA NEG NEG-NEG Ketones,UA TRACE (A) NEG-NEG Bilirubin,UA POS (A) NEG-NEG Blood,UA 3+ (A) NEG-NEG Urobilinogen,UA INCREASED (A) NORM-NORMAL Nitrite,UA NEG NEG-NEG Leukocytes,UA 2+ (A) NEG-NEG Urine Ascorbic Acid, UA NEG NEG-NEG URINALYSIS, MICROSCOPIC Collection Time: 08/10/18 1:51 PM Result Value Ref Range WBCs,UA PACKED 0 - 2 /HPF RBCs,UA PACKED 0 - 3 /HPF MucousUA 1+ Bacteria,UA FEW (A) NEG-NEG Squamous Epithelial Cells 2-5 0 - 5 Pertinent radiology reviewed. documented in this encounter Consult Notes * Yo Cunningham MD - 08/12/2018 4:50 PM CDT Associated Order(s): CONSULT CARDIOLOGY PHYSICIAN Cardiology Consult Note 08/12/2018 ATT: I have discussed with fellow and examined patient and agree with assessment and plan and exam as outlined below. No s3, rales,edma. Sara Leiva Admission Date: 08/10/2018 Assessment/Plan: Active Problems: Hypotension Severe malnutrition (HCC) 1. Hypotension (prior history of hypertension) 2. H/o CAD status post CABG 3. Hyperlipidemia 4.? Stage IV bladder cancer (undergoing evaluation) 5. Recent CVA Plan Telemetry showing ventricular bigeminy, frequent PVCs and few beats of NSVT Recommend starting amiodarone 400 mg twice dailyx 7 days followed by 400 mg daily Recommend ischemia evaluation with a pharmacologic stress MPI tomorrow a.m. N.p.o. after midnight Echo on 08/11/2018 with mildly reduced ejection fraction, frequent PVCs making accurate estimation of EF difficult due to post PVC augmentation. EF is 40-50%, post PVC augmentation to 55% Restart Toprol-XL at 12.5 mg daily and uptitrate slowly as tolerated Ensure adequate hydration Thank you for involving us in Mr. Leiva's care. Please call us with questions if any. Patient seen and discussed with Dr. Cunningham __ Reason for consult multiple PVCs and VTach on tele, history of CABG, came in for low BPs,any further intevention or recs ? HPI: Sara Leiva is a 77 y.o. male with a cardiac history notable for CAD s /p CABG in 2004, PCI in 2005, who presented to Urology clinic on 08/10 for evaluation of possible metastatic bladder cancer. In the clinic, he was found to be hypotensive to 60s/40s and was sent to the ED, where he was initially 99/ 52. Orthostatics were positive, dropping to 84/54 standing. He was given 1L bolus in ED and has received IVF while inpatient. His blood pressure seems better today. Cardiology is consulted today for evaluation of his frequent PVCs , short run of NSVT. Mr. Leiva denies any chest pain, shortness of breath, palpitations, lightheadedness or dizziness today. He is unaware of his PVCs. He seemed pleasant at the time of her visit and has agreed to undergo stress MPI tomorrow. Review of systems: As above Allergies: Patient has no known allergies. Medications: Scheduled Meds: cefTRIAXone (ROCEPHIN) IVP 1 g 1 g Intravenous Q24H* finasteride (PROSCAR) tablet 5 mg 5 mg Oral QDAY metoprolol XL (TOPROL XL) tablet 25 mg 25 mg Oral QDAY pravastatin (PRAVACHOL) tablet 10 mg 10 mg Oral QHS tamsulosin (FLOMAX) capsule 0.4 mg 0.4 mg Oral BID Continuous Infusions: sodium chloride 0.9 % infusion 100 mL/hr at 08/12/18 1030 PRN and Respiratory Meds: Physical Exam: Vital Signs: Last Filed In 24 Hours Vital Signs: 24 Hour Range BP: 128/66 (08/12 1254) Temp: 36.3 C (97.3 F) (08/12 1254) Pulse: 65 (08/12 1254) Respirations: 16 PER MINUTE (08/12 1253) SpO2: 99 % (08/12 125) O2 Delivery: None (Room Air) (08/12 1253) BP: (121-141)/(42-72) Temp: [36.3 C (97.3 F)-36.9 C (98.4 F)] Pulse: [40-73] Respirations: [16 PER MINUTE] SpO2: [98 %-99 %] O2 Delivery: None (Room Air) Intensity Pain Scale (Self Report): 0 (08/12/18 0900) Intake/Output Summary: (Last 24 hours) Intake/Output Summary (Last 24 hours) at 08/12/2018 1650 Last data filed at 08/12/2018 1614 Gross per 24 hour Intake 2382.11 ml Output 2575 ml Net -192.89 ml Physical Exam General Appearance: appears stated age, no acute distress Neck Veins: neck veins are not distended Chest Inspection: chest is normal in appearance Respiratory Effort: breathing comfortably, no respiratory distress Auscultation/Percussion: lungs clear to auscultation anteriorly Cardiac Rhythm: irregular rhythm and normal rate Cardiac Auscultation: S1, S2 normal, no rub, no gallop Murmurs: no obvious murmur Carotid Arteries: no bruits Lower Extremity Edema: no lower extremity edema Abdominal Exam: soft, non-tender Neurologic Exam: moves all extremities Laboratory Review: 24-hour labs: Results for orders placed or performed during the hospital encounter of (from the past 24 hour(s)) CBC Collection Time: 08/12/18 4:32 AM Result Value Ref Range White Blood Cells 6.2 4.5 - 11.0 K/UL RBC 3.41 (L) 4.4 - 5.5 M/UL Hemoglobin 11.2 (L) 13.5 - 16.5 GM/DL Hematocrit 33.1 (L) 40 - 50 % MCV 97.1 80 - 100 FL MCH 32.8 26 - 34 PG MCHC 33.7 32.0 - 36.0 G/DL RDW 13.5 11 - 15 % Platelet Count 156 150 - 400 K/UL MPV 8.2 7 - 11 FL BASIC METABOLIC PANEL Collection Time: 08/12/18 4:32 AM Result Value Ref Range Sodium 139 137 - 147 MMOL/L Potassium 4.2 3.5 - 5.1 MMOL/L Chloride 113 (H) 98 - 110 MMOL/L CO2 20 (L) 21 - 30 MMOL/L Anion Gap 6 3 - 12 Glucose 113 (H) 70 - 100 MG/DL Blood Urea Nitrogen 14 7 - 25 MG/DL Creatinine 0.83 0.4 - 1.24 MG/DL Calcium 9.0 8.5 - 10.6 MG/DL eGFR Non >60 >60 mL/min eGFR >60 >60 mL/min MAGNESIUM Collection Time: 08/12/18 4:32 AM Result Value Ref Range Magnesium 1.9 1.6 - 2.6 mg/dL ECG: Ventricular trigeminy, sinus rhythm, left axis deviation, nonspecific IVCD Telemetry: Ventricular bigeminy, frequent PVCs, short run of NSVT Echo Left Ventricle: Normal size and wall thickness. Mildly decreased ejection fraction. Frequent PVCs making the accurate estimation of EF difficult due to post PVC augmentation. EF 45-50%, post PVC augmentation to 55%. Global hypokinesis. Right Ventricle: Normal size. Mildly reduced ejection fraction. No hemodynamically significant valvular abnormalities. Left pleural effusion. Estimated Peak Systolic PA Pressure (32 + RA pressure) mmHg. Kong La MD CV fellow * Sedrick Fermin MD - 08/12/2018 4:32 PM CDT Associated Order(s): CONSULT UROLOGY PHYSICIAN Urology Consult 08/12/2018 Patient: Sara Leiva Admission Date: 08/10/2018, LOS: 1 day Admission Diagnosis: Hypotension [I95.9] Date of Service: August 12, 2018 Reason for Consult: "[place] with urologic ca, requesting to see urology inpatient for possible cystoscopy" Referring Provider: Saundra Hernandez MD Attending Surgeon: Sedrick Fermin MD Consult Performed by: Silke Escamilla MD ASSESSMENT: 77 y.o. male with HTN, HLD, deaf in right ear, ED, myocardial infarction, CAD s/p CABG, recent hospitalization for "mini strokes" and presumed stage IV bladder cancer who was sent to ED from Urology clinic 08/10 and admitted for asymptomatic hypotension. Urology is consulted as patient has upcoming procedure scheduled (TURBT 08/13) PLAN: - Plan for Cystoscopy with TURBT tomorrow 08/13. Consent in chart and patient is boarded. - NPO at midnight - Rest of care per primary Discussed plan of care with staff surgeon, Dr. Fermin, who directed plan of care. Silke Escamilla MD Urology Resident Please page Urology asset protection agent with questions. ATTESTATION I personally performed the faith portions of the E/M visit, discussed case with resident and concur with resident documentation of history, physical exam, assessment, and treatment plan unless otherwise noted. Staff name: Sedrick Fermin MD Date: 08/19/2018 __ HPI: Sara Leiva is a 77 y.o. male with HTN, HLD, deaf in right ear, ED, myocardial infarctionand CAD s/p CABG with presumed stage IV bladder cancer seen in Dr. Fermin's clinic on 08/10/18 for evaluation for presumed metastatic bladder cancer. Patient has had multiple imaging studies as well as cystoscopic evaluations performed all highly suspicious for metastatic bladder cancer. The patient was scheduled to have TURBT for tissue diagnosis on 08/14 to further direct therapy. However, at the conclusion of the clinic visit, patient was sent to ED from Urology clinic and admitted for asymptomatic hypotension. Currently, patient BP WNL, denies fevers, chills, nausea, vomiting or dizziness. Last BM yesterday. ROS: 14 point ROS performed. Pertinent items listed in HPI and PMH. Otherwise negative. Past Medical History: Diagnosis Date Anxiety Arthritis Bladder cancer (HCC) Coronary artery disease Hearing reduced Heart disease Hyperlipidemia Hypertension Myocardial infarction (HCC) 2004 PVD (peripheral vascular disease) (HCC) TIA (transient ischemic attack) 07/2018 Past Surgical History: Procedure Laterality Date CARDIAC SURGERY 2004 CABG HX HEART CATHETERIZATION 2006 stent BALLOON ANGIOPLASTY, ARTERY left leg COLONOSCOPY Medications: No current facility-administered medications on file prior to encounter. Current Outpatient Medications on File Prior to Encounter Medication Sig Dispense Refill enalapril (VASOTEC) 5 mg tablet 1 tablet by mouth at bedtime finasteride (PROSCAR) 5 mg tablet 1 tablet by mouth daily metoprolol XL (TOPROL XL) 25 mg extended release tablet Take 25 mg by mouth daily. Hold for Pulse < 60 or hypotensive. 0 pravastatin (PRAVACHOL) 10 mg tablet Take 1 tablet by mouth at bedtime tamsulosin (FLOMAX) 0.4 mg capsule Take 1 capsule by mouth twice daily. Allergies: Patient has no known allergies. Social History Socioeconomic History Marital status: Spouse name: Not on file Number of children: Not on file Years of education: Not on file Highest education level: Not on file Occupational History Not on file Tobacco Use Smoking status: Former Smoker Packs/day: 1.00 Years: 40.00 Pack years: 40.00 Types: Cigars, Cigarettes Last attempt to quit: 2017 Years since quittin.2 Smokeless tobacco: Never Used Substance and Sexual Activity Alcohol use: Never Frequency: Never Drug use: Never Sexual activity: Not on file Other Topics Concern Not on file Social History Narrative Not on file Family History Problem Relation Age of Onset Heart Disease Mother Heart Disease Sister Cancer Brother Heart Disease Brother Vitals: Vital Signs: Last Filed In 24 Hours Vital Signs: 24 Hour Range BP: 128/66 (08/12 1254) Temp: 36.3 C (97.3 F) (08/12 1254) Pulse: 65 (08/12 1254) Respirations: 16 PER MINUTE (08/12 1254) SpO2: 99 % (08/12 1254) O2 Delivery: None (Room Air) (08/12 1254) BP: (121-141)/(42-72) Temp: [36.3 C (97.3 F)-36.9 C (98.4 F)] Pulse: [40-73] Respirations: [16 PER MINUTE] SpO2: [98 %-99 %] O2 Delivery: None (Room Air) Intensity Pain Scale (Self Report): 0 (08/12/18 0900) Physical Exam: General: well nourished, alert and oriented, no acute distress Head/Eyes/Ears/Nose/Throat: normocephalic, atraumatic, extraocular movements intact Chest: non-labored on RA Cardiovascular: regular rate/rhythm, palpable symmetric radial pulses Abdomen: soft, nontender, nondistended Extremities: no clubbing, cyanosis, edema Neuro: cranial nerves III-XII grossly intact, no focal deficits, moves all extremities Psych: normal mood, affect, and thought process Intake/Output: Intake/Output Summary (Last 24 hours) at 08/12/2018 1632 Last data filed at 08/12/2018 1614 Gross per 24 hour Intake 2382.11 ml Output 2575 ml Net -192.89 ml Lab/Radiology/Other Diagnostic Tests: Recent Labs 08/10/18 1047 08/10/18 1307 08/11/18 0606 08/12/18 0432 HGB 12.4* 13.1* 10.9* 11.2* HCT 36.4* 37.9* 31.4* 33.1* WBC 7.0 7.6 6.6 6.2 PLTCT 181 185 153 156 NA 137 138 139 139 K 4.7 4.3 4.4 4.2 CL 107 108 113* 113* CO2 23 25 22 20* BUN 22 23 19 14 CR 1.33* 1.33* 0.95 0.83 GLU 145* 125* 103* 113* CA 9.5 9.8 8.9 9.0 MG -- 2.1 1.9 1.9 PO4 -- 3.3 3.1 -- ALBUMIN 3.4* 3.8 -- -- TOTPROT 6.5 7.1 -- -- TOTBILI 0.8 1.0 -- -- AST 19 23 -- -- ALT 15 15 -- -- ALKPHOS 123* 137* -- -- documented in this encounter ED Notes * Phyllis Vargas RN - 08/10/2018 4:53 PM CDT [id number] bed assigned, please [place] Nya [place] @ [phone], thanks! * Nya Bhatti RN - 08/10/2018 2:[address] Hall was notified that patient was still orthostatic after 1 L NS. * Sravan Sullivan MD - 08/10/2018 2:37 PM CDT Sara Leiva is a 77 y.o. male. Chief Complaint: Chief Complaint Patient presents with Hypotension Pt sent from [facility] for low blood pressure and dizziness. Pt states his BP was in the 60s. History of Present Illness: Patient is a 77-year-old male with a past medical history of hypertension, hyperlipidemia, CAD status post CABG, PVD, CVA who presents the ED today from outpatient urology clinic at [facility] for hypertension. Per report patient was noted to be systolic in the 60s, however was asymptomatic, was being evaluated for possible stage IV bladder cancer, and was sent here to the emergency department for evaluation for his hypotension. Patient denies any other symptoms at this time, no dizziness, headaches, vision changes, hearing changes, fevers, chills, recent sick contacts, nausea, vomiting, diarrhea, palpitations, dysuria, any changes in his diet decreased oral intake. Does report some hematuria, however this is why he is going to be evaluated in the urology clinic for known mass on cystoscopy at outside hospital. History provided by: Patient and medical records Review of Systems: Review of Systems Constitutional: Negative for chills and fever. HENT: Negative for ear pain and sore throat. Eyes: Negative for photophobia and pain. Respiratory: Negative for cough and shortness of breath. Cardiovascular: Negative for chest pain and palpitations. Hyportension Gastrointestinal: Negative for abdominal pain, diarrhea, nausea and vomiting. Endocrine: Negative for polydipsia and polyuria. Genitourinary: Negative for dysuria and frequency. Musculoskeletal: Negative for arthralgias and back pain. Skin: Negative for color change and rash. Neurological: Negative for dizziness, numbness and headaches. Psychiatric/Behavioral: Negative for confusion. The patient is not nervous/ anxious. All other systems reviewed and are negative. Allergies: Patient has no known allergies. Past Medical History: Past Medical History: Diagnosis Date Anxiety Arthritis Bladder cancer (HCC) Coronary artery disease Hearing reduced Heart disease Hyperlipidemia Hypertension Myocardial infarction (HCC) 2004 PVD (peripheral vascular disease) (HCC) TIA (transient ischemic attack) 07/2018 Past Surgical History: Past Surgical History: Procedure Laterality Date CARDIAC SURGERY 2004 CABG HX HEART CATHETERIZATION 2006 stent BALLOON ANGIOPLASTY, ARTERY left leg COLONOSCOPY Pertinent medical/surgical history reviewed Social History: Social History Tobacco Use Smoking status: Former Smoker Packs/day: 1.00 Years: 40.00 Pack years: 40.00 Types: Cigars, Cigarettes Last attempt to quit: 2017 Years since quittin.2 Smokeless tobacco: Never Used Substance Use Topics Alcohol use: Never Frequency: Never Drug use: Never Social History Substance and Sexual Activity Drug Use Never Family History: Family History Problem Relation Age of Onset Heart Disease Mother Heart Disease Sister Cancer Brother Heart Disease Brother Vitals: ED Vitals Date and Time T BP P RR SPO2P SPO2 User 08/10/18 1431 -- 98/62 78 11 PER MINUTE 39 98 % 08/10/18 1430 -- 126/56 76 13 PER MINUTE 38 99 % 08/10/18 1400 -- 122/50 77 11 PER MINUTE 39 100 % 08/10/18 1330 -- 109/67 83 13 PER MINUTE 41 98 % 08/10/18 1317 -- 84/54 94 21 PER MINUTE 46 99 % 08/10/18 1315 -- 113/49 89 22 PER MINUTE 50 100 % 08/10/18 1313 -- 114/73 83 14 PER MINUTE 41 98 % 08/10/18 1303 -- -- 86 13 PER MINUTE 43 97 % 08/10/18 1301 -- 117/54 -- -- -- -- HH 08/10/18 1254 -- 93/46 -- -- -- -- DS 08/10/18 1253 36.3 C (97.4 F) 99/52 -- 16 PER MINUTE 57 97 % DS Physical Exam: Physical Exam Constitutional: He is oriented to person, place, and time. No distress. HENT: Head: Normocephalic and atraumatic. Right Ear: External ear normal. Left Ear: External ear normal. Nose: Nose normal. Mouth/Throat: Oropharynx is clear and moist. Eyes: Conjunctivae and EOM are normal. Neck: Normal range of motion. Neck supple. Cardiovascular: Regular rhythm and normal heart sounds. No murmur heard. Slightly bradycardic, hypotensive, orthostatic Pulmonary/Chest: Effort normal and breath sounds normal. No respiratory distress. He has no wheezes. Abdominal: Soft. Bowel sounds are normal. He exhibits no distension. There is no tenderness. Musculoskeletal: He exhibits no edema or deformity. Neurological: He is alert and oriented to person, place, and time. No cranial nerve deficit. Skin: Skin is warm and dry. Capillary refill takes less than 2 seconds. He is not diaphoretic. Psychiatric: He has a normal mood and affect. His behavior is normal. Judgment and thought content normal. Nursing note and vitals reviewed. Laboratory Results: Labs Reviewed CBC AND DIFF - Abnormal Result Value Ref Range Status White Blood Cells 7.6 4.5 - 11.0 K/UL Final RBC 3.88 (*) 4.4 - 5.5 M/UL Final Hemoglobin 13.1 (*) 13.5 - 16.5 GM/DL Final Hematocrit 37.9 (*) 40 - 50 % Final MCV 97.6 80 - 100 FL Final MCH 33.6 26 - 34 PG Final MCHC 34.4 32.0 - 36.0 G/DL Final RDW 13.6 11 - 15 % Final Platelet Count 185 150 - 400 K/UL Final MPV 8.4 7 - 11 FL Final Neutrophils 75 41 - 77 % Final Lymphocytes 15 (*) 24 - 44 % Final Monocytes 9 4 - 12 % Final Eosinophils 0 0 - 5 % Final Basophils 1 0 - 2 % Final Absolute Neutrophil Count 5.70 1.8 - 7.0 K/UL Final Absolute Lymph Count 1.10 1.0 - 4.8 K/UL Final Absolute Monocyte Count 0.70 0 - 0.80 K/UL Final Absolute Eosinophil Count 0.00 0 - 0.45 K/UL Final Absolute Basophil Count 0.10 0 - 0.20 K/UL Final COMPREHENSIVE METABOLIC PANEL - Abnormal Sodium 138 137 - 147 MMOL/L Final Potassium 4.3 3.5 - 5.1 MMOL/L Final Chloride 108 98 - 110 MMOL/L Final Glucose 125 (*) 70 - 100 MG/DL Final Blood Urea Nitrogen 23 7 - 25 MG/DL Final Creatinine 1.33 (*) 0.4 - 1.24 MG/DL Final Calcium 9.8 8.5 - 10.6 MG/DL Final Total Protein 7.1 6.0 - 8.0 G/DL Final Total Bilirubin 1.0 0.3 - 1.2 MG/DL Final Albumin 3.8 3.5 - 5.0 G/DL Final Alk Phosphatase 137 (*) 25 - 110 U/L Final AST (SGOT) 23 7 - 40 U/L Final CO2 25 21 - 30 MMOL/L Final ALT (SGPT) 15 7 - 56 U/L Final Anion Gap 5 3 - 12 Final eGFR Non 52 (*) >60 mL/min Final eGFR >60 >60 mL/min Final URINALYSIS DIPSTICK - Abnormal Color,UA BRENDA Final Turbidity,UA 2+ (*) CLEAR-CLEAR Final Specific [place]-Urine 1.018 1.003 - 1.035 Final pH,UA 5.0 5.0 - 8.0 Final Protein,UA 2+ (*) NEG-NEG Final Glucose,UA NEG NEG-NEG Final Ketones,UA TRACE (*) NEG-NEG Final Bilirubin,UA POS (*) NEG-NEG Final Blood,UA 3+ (*) NEG-NEG Final Urobilinogen,UA INCREASED (*) NORM-NORMAL Final Nitrite,UA NEG NEG-NEG Final Leukocytes,UA 2+ (*) NEG-NEG Final Urine Ascorbic Acid, UA NEG NEG-NEG Final URINALYSIS, MICROSCOPIC - Abnormal WBCs,UA PACKED 0 - 2 /HPF Final RBCs,UA PACKED 0 - 3 /HPF Final MucousUA 1+ Final Bacteria,UA FEW (*) NEG-NEG Final Squamous Epithelial Cells 2-5 0 - 5 Final CULTURE-URINE W/SENSITIVITY MAGNESIUM Magnesium 2.1 1.6 - 2.6 mg/dL Final PHOSPHORUS Phosphorus 3.3 2.0 - 4.5 MG/DL Final TSH WITH FREE T4 REFLEX TSH 1.010 0.35 - 5.00 MCU/ML Final POC TROPONIN Ellqniyl-G-YVH 0.01 0.00 - 0.05 NG/ML Final POC TROPONIN Radiology Interpretation: CHEST SINGLE VIEW Final Result No acute cardiopulmonary abnormality. Approved by Nabeel Berrios M.D. on 08/10/2018 3:09 PM By my electronic signature, I attest that I have personally reviewed the images for this examination and formulated the interpretations and opinions expressed in this report Finalized by SHIRLEY FISHER M.D. on 08/10/2018 3:15 PM. Dictated by Nabeel Berrios M.D. on 08/10/2018 2:08 PM. EK lead EKG shows rate of 77 and sinus rhythm. VA interval, QRS duration, QT interval within normal limits. No ST segment elevations or depressions. Interpretation: sinus rhythm with ventricular bigeminy. ED Course: 77 y.o. male presented to the ED for hypotension. - Patient was evaluated by resident and attending physicians. - Available records were reviewed. - Vitals were significant for bradycardic, orthostatic, hypotensive. - Pertinent exam findings include bradycardia, lungs clear to auscultation, no abdominal tenderness to palpation,see physical exam as noted above. - Initial concern was for orthostatic hypotension secondary to dehydration versus infection versus cardiac abnormality versus electrolyte abnormality. At this time order CBC, CMP, coags, troponin, EKG, chest x-ray, UA, orthostatic vital signs. We will give patient 1 L fluid at this time. - Labs significant for Creatinine 1.33, unknown baseline, UA looks dirty, however it discussed squames, concern for contamination, we will not treat at this time but will send for culture. - Imaging significant for chest x-ray with no acute findings - On re-evaluation, patient still orthostatic, although asymptomatic at this time, discussed recommendation for admission to hospital for further workup and evaluation for hypertension, including but not limited likely echocardiogram in the setting of likely stage IV cancer. Patient verbalizes understanding and is in agreement this plan, admit to internal medicine. - Dispo: Admit to Medicine ED Scoring: MDM Reviewed: previous chart, nursing note and vitals Interpretation: labs, ECG and x-ray Consults: admitting MD Facility Administered Meds: Medications sodium chloride 0.9 % infusion (0 mL Intravenous Infusion Stopped 08/10/18 1400 ) sodium chloride 0.9 % infusion (500 mL Intravenous Given - New Bag 08/10/18 1451) Clinical Impression: Clinical Impression Orthostasis ISMAEL (acute kidney injury) (HCC) Hematuria, unspecified type Disposition/Follow up ED Disposition ED Disposition Admit No follow-up provider specified. Medications: New Prescriptions No medications on file Procedure Notes: Procedures Attestation / Supervision: Reji Hall MD Attestation / Supervision Note concerning Sara Leiva: I personally performed the faith portions of the E/M visit, discussed case with resident and concur with resident documentation of history, physical exam, assessment, and treatment plan unless otherwise noted. Sravan Sullivan MD * Nya Bhatti RN - 08/10/2018 1:22 PM CDT Sara Leiva 77 y/o male presents to ED 32 from triage in wheelchair. Patient was sent over from [place] due to hypotension. Patient reports his bp was in 60 's. Patient denies any dizziness, lightheadedness, or chest pain. Patient recently got diagnosed with bladder cancer and is not on chemotherapy yet. Patient also reports he had a TIA last week. Patient is on levaquin for a UTI. Pt is a/ox4, respirations even on room air, on monitor, call light within reach. Belongings: Jaron Aguero White shirt Phone All valuables will be sent home with . Other valuables at bedside in labeled bag. * Nya Bhatti RN - 08/10/2018 1:[address] Vogt notified that patient was orthostatic. documented in this encounter Miscellaneous Notes * Anesthesia Post Op Day 1 - Yuridia Quinones SRNA - 08/15/2018 10:15 AM CDT Anesthesia Follow-Up Evaluation: Post-Procedure Day One Name: Sara Leiva : 1940 Age: 77 y.o. Sex: male Procedure Date: 08/14/2018 Procedure: Procedure(s): TRANSURETHRAL RESECTION PROSTATE TUMOR - MEDIUM - 2.0 CM - 5.0 CM Physical Assessment Height: 182.9 cm (72") Weight: 75.4 kg (166 lb 3.6 oz) Vital Signs (Last Filed in 24 hours) BP: 108/56 (08/15 1011) Temp: 36.5 C (97.7 F) (08/15 1011) Pulse: 54 (08/15 1011) Respirations: 16 PER MINUTE (08/15 1011) SpO2: 97 % (08/15 101) O2 Delivery: None (Room Air) (08/15 1010) Patient History Allergies No Known Allergies Medications Scheduled Meds: [START ON 08/20/2018] amiodarone (CORDARONE) tablet 400 mg 400 mg Oral QDAY amiodarone (CORDARONE) tablet 400 mg 400 mg Oral BID bacitracin topical ointment Topical TID finasteride (PROSCAR) tablet 5 mg 5 mg Oral QDAY metoprolol XL (TOPROL XL) tablet 25 mg 25 mg Oral QDAY pravastatin (PRAVACHOL) tablet 10 mg 10 mg Oral QHS tamsulosin (FLOMAX) capsule 0.4 mg 0.4 mg Oral BID Continuous Infusions: lactated ringers infusion 1,000 mL (08/14/18 0704) sodium chloride 0.9 % irrigation bag 3,000 mL PRN and Respiratory Meds:acetaminophen Q4H PRN, fentaNYL citrate PF Q2H PRN, hyoscyamine Q6H PRN Diagnostic Tests Hematology: Lab Results Component Value Date HGB 10.4 08/15/2018 HCT 30.0 08/15/2018 PLTCT 147 08/15/2018 WBC 6.1 08/15/2018 NEUT 75 08/10/2018 ANC 5.70 08/10/2018 ALC 1.10 08/10/2018 TARA 9 08/10/2018 AMC 0.70 08/10/2018 EOSA 0 08/10/2018 ABC 0.10 08/10/2018 MCV 94.8 08/15/2018 MCH 32.9 08/15/2018 MCHC 34.7 08/15/2018 MPV 7.3 08/15/2018 RDW 13.5 08/15/2018 General Chemistry: Lab Results Component Value Date NA 135 08/15/2018 K 3.9 08/15/2018 CL 109 08/15/2018 CO2 21 08/15/2018 GAP 5 08/15/2018 BUN 13 08/15/2018 CR 0.84 08/15/2018 GLU 106 08/15/2018 CA 8.8 08/15/2018 ALBUMIN 3.8 08/10/2018 MG 1.9 08/15/2018 TOTBILI 1.0 08/10/2018 PO4 3.1 08/11/2018 Coagulation: No results found for: PT, PTT, INR Follow-Up Assessment Patient location during evaluation: floor Anesthetic Complications: Anesthetic complications: The patient did not experience any anesthestic complications. Pain: Management:satisfactory to patient Level of Consciousness: awake and alert Hydration:acceptable Airway Patency: patent Respiratory Status: acceptable Cardiovascular Status:acceptable Regional/Neuroaxial: * Operative Report (Direct Entry) - Augusto Sher MD - 08/14/2018 8:15 AM CDT OPERATIVE REPORT Name: Sara Leiva is a 77 y.o. male : 1940 DATE OF OPERATION: 08/14/2018 Surgeon(s) and Role: * Sedrick Fermin MD - Primary * Augusto Sher MD - Resident - Assisting Preoperative Diagnosis: Bladder mass [N32.89] Post-op Diagnosis * Bladder mass [N32.89] Procedure(s): TRANSURETHRAL RESECTION PROSTATE TUMOR - MEDIUM - 2.0 CM - 5.0 CM Anesthesia Type: General Indications For Procedure: 77M with metastatic disease of unknown origin. tumor suspected at bladder neck and prostatic urethra. Here for resection. Description and Findings of Operative Procedure: After obtaining informed consent, patient was brought back to the operating room and placed in the supine position. General anesthesia was induced smoothly without complication. A proper timeout was performed confirming proper patient, procedure, and laterality. Patient was moved to the dorsal lithotomy position. Patient was prepped and draped in the usual sterile fashion. All instruments were sterile. We began by inserting the 26 hebrew resectoscope with visual obturator into the urethra and passed it into the bladder. A 360 panendoscopy revealed bilateral ureteral orifices in the orthotopic position. There were noted to be mucosal changes in prostatic urethra near verumontanum and bladder neck. there were not tumors noted in the bladder. There was noted to be moderate trabeculation. The visual obturator was exchanged for the resection loop. We evaluated the prostatic urethra and this revealed trilobar obstruction of the urethra. We identified the verumontanum and marked this so that we did not pass distal to this point. We then started the bladder neck and began to resect prostatic tissue at the 6 o'clock position. We did this until we were down to capsule. We then proceeded to move to the patient's left side and this was resected as well. This was then repeated on the right side. We continued until we are down the capsule on all sides and were careful not to pass distal to the verumontanum. We then irrigated the chips out and sent these to pathology. We also obtained hemostasis by coagulating all areas of resection. This was double checked with water flow off to the resectoscope. We then passed a wire to the scope in place a 22 Lithuanian three-way catheter and started CBI. Patient was awoken from anesthesia and transferred to the PACU in stable condition. Dr. Fermin was present and scrubbed and directed all faith portions of procedure. Estimated Blood Loss: No blood loss documented. Specimen(s) Removed/Disposition: ID Type Source Tests Collected by Time Destination 1 : PROSTATE CHIPS Tissue Prostate SURGICAL PATHOLOGY Sedrick Fermin MD 901 Augusto Sher MD Pager [phone] * Case Mgmt DC Plan - Vianney Lee RN - 08/11/2018 1:06 PM CDT Case Management Admission AssessmentNAME:Sara Leiva :1940 AGE: 77 y.o. ADMISSION DATE: 08/10/2018 DAYS ADMITTED: LOS: 0 days Todays Date: 08/11/2018 Source of Information: Pt and pt . Plan Plan: Case Management Assessment, Assist PRN with SW/NCM Services, Discharge Planning for Home Anticipated NCM at bedside, introduced self and explained CM role. NCM received permission to assess with at bedside. Pt admit with hypotension. Pt confirms PCP as Ebonie Isaacs. Pt is independent and has no mobility concerns. Pt does not have Rx coverage, NCM educated on [facility] and [facility] outpt pharmacy payment plans. CM will continue to follow for dc needs. Patient Address/Phone [address] [address] (home) Emergency Contact Extended Emergency Contact Information Primary Emergency Contact: angelia leiva Relation: Spouse Healthcare Directive Transportation Does the patient need discharge transport arranged?: No Transportation Name, Phone and Availability #1: Angelia hall [phone] Does the patient use Medicaid Transportation?: No Expected Discharge Date Expected Discharge Date: 08/13/18 Living Situation Prior to Admission ? Living Arrangements Type of Residence: Home, independent Living Arrangements: Spouse/significant other Bathroom Shower / Tub: Tub/Shower Unit How many levels in the residence?: 1 Can patient live on one level if needed?: Yes Does residence have entry and/or side stairs?: Yes(4 steps to get into home.) Assistance needed prior to admit or anticipated on discharge: No Who provides assistance or could if needed?: Are they in good health?: Unknown Can support system provide 24/7 care if needed?: Maybe ? Level of Function Prior level of function: Independent ? Cognitive Abilities Cognitive Abilities: Alert and Oriented, Engages in problem solving and planning , Participates in decision making Financial Resources ? Coverage Primary Insurance: Medicare Secondary Insurance: No insurance Additional Coverage: None ? Source of Income Source Of Income: Other longterm income ? Financial Assistance Needed? Pt does not have prescription coverage - please be aware when prescribing medications. Psychosocial Needs ? Mental Health Mental Health History: No ? Substance Use History Substance Use History Screen: No ? Other Current/Previous Services ? PCP Ebonie Isaacs, , ? Pharmacy [facility] [address] [place] [id number] ? Durable Medical Equipment Durable Medical Equipment at home: None ? Home Health Receiving home health: No ? Hemodialysis or Peritoneal Dialysis Undergoing hemodialysis or peritoneal dialysis: No ? Tube/Enteral Feeds Receive tube/enteral feeds: No ? Infusion Receive infusions: No ? Private Duty Private duty help used: No ? Home and Community Based Services Home and community based services: No ? Jairo Rosales: N/A ? Hospice Hospice: No ? Outpatient Therapy PT: No OT: No GOLDSMITH APPRENTICE: No ? Mcfp Facility/Detention SNF: No NH: No ? Inpatient Rehab IPR: No ? Long-Term Acute Care Hospital LTACH: No ? 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, cupola patcher helper [phone] documented in this encounter Plan of Treatment Order Schedule Name Priority Associated Diagnoses ONCE for 1 Occurrences starting 08/14/2018 SURGICAL PATHOLOGY Routine Bladder mass Order Schedule Name Priority Associated Diagnoses Ordered: 08/15/2018 AMB REFERRAL TO ENT Routine Parotid mass documented as of this encounter Procedures Comments Procedure Name Priority Date/Time Associated Diagnosis CBC Routine 08/15/2018 4:30 AM CDT MAGNESIUM Routine 08/15/2018 4:30 AM CDT BASIC METABOLIC PANEL Routine 08/15/2018 4:30 AM CDT SURGICAL PATHOLOGY 08/14/2018 9:09 AM CDT CYSTOURETHROSCOPY WITH 08/14/2018 Bladder mass FULGURATION/ RESECTION 8:00 AM CDT BLADDER TUMOR - MEDIUM - 2.0 CM - 5.0 CM CBC Routine 08/14/2018 5:06 AM CDT MAGNESIUM Routine 08/14/2018 5:06 AM CDT BASIC METABOLIC PANEL Routine 08/14/2018 5:06 AM CDT MULTI GATED Routine 08/13/2018 7:43 AM CDT TYPE & CROSSMATCH STAT 08/13/2018 Bladder mass 7:00 AM CDT CBC Routine 08/13/2018 5:19 AM CDT MAGNESIUM Routine 08/13/2018 5:19 AM CDT BASIC METABOLIC PANEL Routine 08/13/2018 5:19 AM CDT CBC Routine 08/12/2018 4:32 AM CDT MAGNESIUM Routine 08/12/2018 4:32 AM CDT BASIC METABOLIC PANEL Routine 08/12/2018 4:32 AM CDT ECG 12-LEAD Routine 08/11/2018 5:[address] ABD/PELV W CONTRAST Routine 08/11/2018 2:[address] CHEST W CONTRAST Routine 08/11/2018 2:31 PM CDT 2-D + DOPPLER Routine 08/11/2018 ECHOCARDIOGRAM 2:20 PM CDT CULTURE-URINE Routine 08/11/2018 W/SENSITIVITY 9:30 AM CDT CBC Routine 08/11/2018 6:06 AM CDT PHOSPHORUS Routine 08/11/2018 6:06 AM CDT MAGNESIUM Routine 08/11/2018 6:06 AM CDT BASIC METABOLIC PANEL Routine 08/11/2018 6:06 AM CDT TROPONIN-I Routine 08/11/2018 12:23 AM CDT TROPONIN-I Routine 08/10/2018 7:25 PM CDT CONTACT AOD TO REQUEST STAT 08/10/2018 INTERNAL MEDICINE 2:45 PM CDT ADMISSION FROM ED URINALYSIS, MICROSCOPIC STAT 08/10/2018 1:51 PM CDT URINALYSIS DIPSTICK STAT 08/10/2018 1:51 PM CDT CULTURE-URINE Specimen 08/10/2018 W/SENSITIVITY in Lab 1:51 PM CDT CHEST SINGLE VIEW STAT 08/10/2018 1:38 PM CDT ECG 12-LEAD STAT 08/10/2018 1:27 PM CDT POC TROPONIN 08/10/2018 1:15 PM CDT TSH WITH FREE T4 REFLEX STAT 08/10/2018 1:07 PM CDT CBC AND DIFF STAT 08/10/2018 1:07 PM CDT PHOSPHORUS STAT 08/10/2018 1:07 PM CDT MAGNESIUM STAT 08/10/2018 1:07 PM CDT COMPREHENSIVE METABOLIC STAT 08/10/2018 PANEL 1:07 PM CDT TELEMETRY STRIPS-SCAN 08/10/2018 12:00 AM CDT ECG-SCAN 08/10/2018 12:00 AM CDT documented in this encounter Results * MAGNESIUM (08/15/2018 4:30 AM CDT) Magnesium 1.9 1.6 - 2.6 mg/dL MAIN LAB Performing Organization Address [facility] Phone Number MAIN LAB [address] [place] [address] * CBC (08/15/2018 4:30 AM CDT) White Blood 6.1 4.5 - 11.0 K/UL [...] [place] [facility] MAIN LAB Performing Organization Address [facility] Phone Number MAIN LAB [address] [phone] * BASIC METABOLIC PANEL (08/15/2018 4:30 AM CDT) Pathologist [facility] Sodium 135 (L) 137 - 147 MMOL/L [...] >60 >60 mL/min [facility] MAIN [facility] Comment: Micronesian The eGFR is not validated for use in drug dosing adjustments.Continue to use estimated creatinine clearance per dosing reference text.Please contact the Clinical Pharmacist for questions. eGFR >60 >60 mL/min [facility] Micronesian Comment: The eGFR is not validated for use in drug dosing adjustments.Continue to use estimated creatinine clearance per dosing reference text.Please contact the Clinical Pharmacist for questions. Performing Organization Address City/State/Zipcode Phone Number [facility] [address] [place] [address] * SURGICAL PATHOLOGY (08/14/2018 9:09 AM CDT) PATHOLOGY [email or web address] Department of Pathology and Laboratory Medicine [address] [place] [address] Surgical Pathology Office:[phone] :[phone] SURGICAL PATHOLOGY REPORT NAME: SARA LEIVA SURG PATH #: [id number] MR #: [id number] SPECIMEN CLASS: SR BILLING #: [id number] ALT ID #:LOCATION: DISCHARGED DATE OF PROCEDURE: [...] cells, supporting the diagnosis. Pursuant to the Public Health Policy Analyst Program at the [facility] Pathology Department, selected slides from this [...] of Pathology and Laboratory Medicine of the [facility] ([employer]) in compliance with CLIA'88 [...] of Pathology and Laboratory Medicine of the [facility].It has not been cleared or approved by the FDA.The FDA has determined that such clearance or approval is not necessary. Performing Organization Address City/[facility]/Zipcode Phone Number [facility] [address] [place] [address] * MAGNESIUM (08/14/2018 5:06 AM CDT) Pathologist [facility] Magnesium 2.0 1.6 - 2.6 mg/dL [facility] Performing Organization Address City/[facility] Phone Number [facility] [address] [place] [address] * CBC (08/14/2018 5:06 AM CDT) Pathologist [facility] White Blood 6.0 4.5 - 11.0 K/UL [facility] Cells RBC 3.30 (L) 4.4 - 5.5 M/UL [facility] Hemoglobin 10.9 (L) 13.5 - 16.5 GM/DL [facility] Hematocrit 31.6 (L) 40 - 50 % MAIN LAB MCV 95.6 80 - 100 [place] [facility] [facility] MCH 33.0 26 - 34 PG [facility] MCHC 34.5 32.0 - 36.0 G/DL [facility] RDW 13.3 11 - 15 % [facility] Platelet Count 156 150 - 400 K/UL [facility] MPV 7.6 7 - 11 FL [facility] Performing Organization Address [facility] Phone Number [facility] [address] [place] [address] * BASIC METABOLIC PANEL (08/14/2018 5:06 AM CDT) Pathologist [facility] Sodium 138 137 - 147 MMOL/L MAIN LAB Potassium 4.1 3.5 - 5.1 MMOL/L [facility] Chloride 112 (H) 98 - 110 MMOL/L [facility] CO2 20 (L) 21 - 30 MMOL/L [facility] Anion Gap 6 3 - 12 [facility] Glucose 101 (H) 70 - 100 MG/DL [facility] Blood Urea 12 7 - 25 MG/DL [facility] Nitrogen Creatinine 0.78 0.4 - 1.24 MG/DL [facility] Calcium 9.0 8.5 - 10.6 MG/DL [facility] eGFR Non >60 >60 mL/min [facility] Comment: Micronesian The eGFR is not validated for use in drug dosing adjustments.Continue to use estimated creatinine clearance per dosing reference text.Please contact the Clinical Pharmacist for questions. eGFR >60 >60 mL/min [facility] MAIN [facility] Micronesian Comment: The eGFR is not validated for use in drug dosing adjustments.Continue to use estimated creatinine clearance per dosing reference text.Please contact the Clinical Pharmacist for questions. Performing Organization Address City/State/Zipcode Phone Number [facility] MAIN LAB [address] [place] [address] * REGADENOSON MPI STRESS TEST (08/13/2018 7:43 [...] Kwon 41 OTHER OUTSIDE LAB Study Number [id number] OTHER OUTSIDE LAB PUL TO LUIS M [...] At OTHER OUTSIDE LAB Nuclear Report [facility] Division of Nuclear Cardiac Imaging Consultation Report EXAMINATION:D-SPECT Gated [id number] Chloride myocardial perfusion single-photon emission computed tomography for viability, resting regional wall function, resting ejection fraction, and perfusion imaging utilizing Regadenoson pharmacological stress. Date of Study:08/13/18 Study #:[id number] [facility] Billing ID:[id number] Referring Physician: Requested by:Kong La MD BMI: [...] Approximately 20 seconds later 1.33 mCi of Fkafpxif924Cvtedfcd was injected intravenously. Throughout the infusion continuous electrocardiographic monitoring and serial electrocardiograms were obtained, as well as intermittent blood pressure recordings.Gated upright D-SPECT tomographic images were then acquired approximately 5 minutes after discontinuation of the regadenoson infusion. When indicated supine D-SPECT images were also obtained.The patient returned in approximately 4 hours and received an additional intravenous injection of 0.45 mCi of Svltftxi339 Chloride as a reinjected dose to assist [...] Conclusion:Pharmacologic stress ECG is negative for ischemia. Cyzachuey-zs-Ohcjmvgkwy Count Ratio:0.38(normal=or < 0.52). Scintigraphic Findings:Raw images [...] annual cardiovascular mortality rate. Performing Organization Address City/[facility] Hospitalcode Phone Number OTHER OUTSIDE LAB * TYPE & CROSSMATCH (08/13/2018 7:00 AM CDT) Units Ordered 0 [facility] MAIN LAB Crossmatch 08/16/2018 [facility] Expires Record Check FOUND [facility] MAIN [facility] ABO/RH(D) A POS [facility]IN [facility] Antibody Screen NEG [facility]IN [facility] Electronic YES MAIN LAB Crossmatch Specimen Blood Performing Organization Address [facility] Phone Number MAIN LAB [address] [place] [address] * MAGNESIUM (08/13/2018 5:19 AM CDT) Pathologist [facility] Magnesium 1.9 1.6 - 2.6 mg/dL [facility] MAIN LAB Performing Organization Address [facility] [email or web address] Phone Number MAIN LAB [address] [place] [address] * CBC (08/13/2018 5:19 AM CDT) White Blood 6.2 4.5 - 11.0 K/UL [facility] MAIN [facility] Cells RBC 3.37 (L) 4.4 - 5.5 M/UL [facility] Hemoglobin 11.2 (L) 13.5 - 16.5 GM/DL [facility]IN [facility] Hematocrit 32.6 (L) 40 - 50 % [facility]IN [facility] MCV 96.5 80 - 100 FL [facility] MAIN [facility] MCH 33.2 26 - 34 PG MAIN LAB MCHC 34.4 32.0 - 36.0 G/DL MAIN LAB RDW 13.5 11 - 15 % [facility]IN [facility] Platelet Count 154 150 - 400 K/UL MAIN LAB MPV 9.2 7 - 11 FL MAIN LAB Performing Organization Address [facility] [email or web address] Phone Number MAIN LAB [address] [place] [address] * BASIC METABOLIC PANEL (08/13/2018 5:19 AM CDT) Pathologist [facility] Sodium 139 137 - 147 MMOL/L [facility]IN [facility] Potassium 4.3 3.5 - 5.1 MMOL/L [facility] Chloride 113 (H) 98 - 110 MMOL/L [facility] CO2 21 21 - 30 MMOL/L [facility] Anion Gap 5 3 - 12 [facility] Glucose 104 (H) 70 - 100 MG/DL [facility] Blood Urea 12 7 - 25 MG/DL [facility]IN [facility] Nitrogen Creatinine 0.80 0.4 - 1.24 MG/DL [facility] Calcium 8.8 8.5 - 10.6 MG/DL [facility]IN [facility] eGFR Non >60 >60 mL/min [facility] Comment: Micronesian The eGFR is not validated for use in drug dosing adjustments.Continue to use estimated creatinine clearance per dosing reference text.Please contact the Clinical Pharmacist for questions. eGFR >60 >60 mL/min [facility]IN [facility] Micronesian Comment: The eGFR is not validated for use in drug dosing adjustments.Continue to use estimated creatinine clearance per dosing reference text.Please contact the Clinical Pharmacist for questions. Performing Organization Address City/[facility]/Zipcode Phone Number [facility] [address] [place] [address] * MAGNESIUM (08/12/2018 4:32 AM CDT) Magnesium 1.9 1.6 - 2.6 mg/dL [facility] Performing Organization Address City/[facility]/Zipcode Phone Number [facility] [address] [place] [address] * BASIC METABOLIC PANEL (08/12/2018 4:32 AM CDT) Sodium 139 137 - 147 MMOL/L [facility] Potassium 4.2 3.5 - 5.1 MMOL/L MAIN LAB Chloride 113 (H) 98 - 110 MMOL/L [facility] CO2 20 (L) 21 - 30 MMOL/L [facility] Anion Gap 6 3 - 12 [facility] Glucose 113 (H) 70 - 100 MG/DL [facility] Blood Urea 14 7 - 25 MG/DL [facility] Nitrogen Creatinine 0.83 0.4 - 1.24 MG/DL [facility] Calcium 9.0 8.5 - 10.6 MG/DL [facility]IN [facility] eGFR Non >60 >60 mL/min [facility] Comment: Micronesian The eGFR is not validated for use in drug dosing adjustments.Continue to use estimated creatinine clearance per dosing reference text.Please contact the Clinical Pharmacist for questions. eGFR >60 >60 mL/min [facility] Micronesian Comment: The eGFR is not validated for use in drug dosing adjustments.Continue to use estimated creatinine clearance per dosing reference text.Please contact the Clinical Pharmacist for questions. Performing Organization Address City/State/Zipcode Phone Number [facility] [address] [place] [address] * CBC (08/12/2018 4:32 AM CDT) White Blood 6.2 4.5 - 11.0 K/UL [facility]IN [facility] Cells RBC 3.41 (L) 4.4 - 5.5 M/UL [facility] Hemoglobin 11.2 (L) 13.5 - 16.5 GM/DL [facility]IN [facility] Hematocrit 33.1 (L) 40 - 50 % [facility]IN [facility] MCV 97.1 80 - 100 FL [facility]IN [facility] MCH 32.8 26 - 34 PG [facility]IN [facility] MCHC 33.7 32.0 - 36.0 G/DL [facility]IN [facility] RDW 13.5 11 - 15 % [facility] Platelet Count 156 150 - 400 K/UL [facility]IN [facility] MPV 8.2 7 - 11 FL [facility] Performing Organization Address City/[facility]/Zipcode Phone Number [facility]IN [facility] [address] [place] [phone] * CT ABD/PELV W CONTRAST (08/11/2018 2:31 [...] throughout both lobes of the liver. A herbicide service sales representative mass in segment 3 measures 2.5 [...] throughout both lobes of the liver. A herbicide service sales representative mass in segment 3 measures 2.5 [...] throughout both lobes of the liver. A herbicide service sales representative mass in segment 3 measures 2.5 [...] throughout both lobes of the liver. A herbicide service sales representative mass in segment 3 measures 2.5 [...] 34 OTHER OUTSIDE Index LAB Cardiology Siemens [id number] OTHER OUTSIDE Ultrasound LAB Machine Left Ventricle [...] + RA pressure) mmHg. Performing Organization Address City/[facility]/Zipcode Phone Number OTHER OUTSIDE LAB * CULTURE-URINE W/SENSITIVITY (08/11/2018 9:30 AM CDT) Battery Name URINE CULTURE [facility]IN [facility] Specimen URINE, STRAIGHT CATH [facility] Description Special NONE [facility]IN [facility] Requests Culture NO GROWTH [facility] Report Status FINAL [facility]IN [facility] 08/12/2018 Specimen Urine - Urine Straight Catheter Performing Organization Address [facility]code Phone Number [facility] [address] [place] [phone] * MAGNESIUM (08/11/2018 6:06 AM CDT) Magnesium 1.9 1.6 - 2.6 mg/dL [facility]IN [facility] Performing Organization Address [facility] Phone Number [facility] [address] [place] [address] * BASIC METABOLIC PANEL (08/11/2018 6:06 AM CDT) Sodium 139 137 - 147 MMOL/L [facility] Potassium 4.4 3.5 - 5.1 MMOL/L [facility] Chloride 113 (H) 98 - 110 MMOL/L [facility] CO2 22 21 - 30 MMOL/L [facility] Anion Gap 4 3 - 12 [facility] Glucose 103 (H) 70 - 100 MG/DL [facility] Blood Urea 19 7 - 25 MG/DL [facility] Nitrogen Creatinine 0.95 0.4 - 1.24 MG/DL [facility] Calcium 8.9 8.5 - 10.6 MG/DL [facility] eGFR Non >60 >60 mL/min [facility] Comment: Micronesian The eGFR is not validated for use in drug dosing adjustments.Continue to use estimated creatinine clearance per dosing reference text.Please contact the Clinical Pharmacist for questions. eGFR >60 >60 mL/min [facility] Micronesian Comment: The eGFR is not validated for use in drug dosing adjustments.Continue to use estimated creatinine clearance per dosing reference text.Please contact the Clinical Pharmacist for questions. Performing Organization Address City/[facility]/Zipcode Phone Number MAIN LAB [address] [place] [address] * CBC (08/11/2018 6:06 AM CDT) Pathologist [facility] White Blood 6.6 4.5 - 11.0 K/UL [facility] MAIN [facility] Cells RBC 3.23 (L) 4.4 - 5.5 M/UL [facility] Hemoglobin 10.9 (L) 13.5 - 16.5 GM/DL [facility]IN [facility] Hematocrit 31.4 (L) 40 - 50 % [facility]IN [facility] MCV 97.2 80 - 100 FL [facility] MCH 33.6 26 - 34 PG [facility]IN [facility] MCHC 34.5 32.0 - 36.0 G/DL [facility]IN [facility] RDW 13.9 11 - 15 % [facility]IN [facility] Platelet Count 153 150 - 400 K/UL [facility]IN [facility] MPV 8.4 7 - 11 FL MAIN LAB Performing Organization Address [facility]code Phone Number MAIN LAB [address] [place] [address] * PHOSPHORUS (08/11/2018 6:06 AM CDT) Pathologist [facility] Phosphorus 3.1Comment: NOTE NEW REFERENCE 2.0 - 4.5 MG/DL MAIN LAB RANGES Performing Organization Address City/[facility]code Phone Number MAIN LAB [address] [place] [address] * TROPONIN-I (08/11/2018 12:23 AM CDT) Pathologist [facility] Troponin-I 0.01 0.0 - 0.05 NG/ML MAIN LAB Specimen Blood Performing Organization Address City/[facility]code Phone Number MAIN LAB [address] [place] [address] * TROPONIN-I (08/10/2018 7:25 PM CDT) Pathologist [facility] Troponin-I 0.01 0.0 - 0.05 NG/ML MAIN LAB Specimen Blood Performing Organization Address [facility]code Phone Number MAIN LAB [address] [place] [address] * CULTURE-URINE W/SENSITIVITY (08/10/2018 1:51 PM CDT) Battery Name URINE CULTURE [facility] MAIN [facility] Specimen URINE MAIN LAB Description Special NONE [facility] MAIN LAB Requests Culture <10,000 organisms/ml MAIN LAB MIXED CONTAMINANTS Report Status FINAL MAIN LAB 08/11/2018 Specimen Urine - Urine Performing Organization Address [facility] Phone Number MAIN LAB [address] [place] [address] * URINALYSIS, MICROSCOPIC (08/10/2018 1:51 PM CDT) WBCs,UA PACKED 0 - 2 /HPF MAIN LAB RBCs,UA PACKED 0 - 3 /HPF MAIN LAB MucousUA 1+ MAIN LAB Bacteria,UA FEW (A) NEG-NEG MAIN LAB Squamous 2-5 0 - 5 MAIN LAB Epithelial Cells Specimen Urine - Urine Performing Organization Address [facility] Phone Number MAIN LAB [address] [place] [address] * URINALYSIS DIPSTICK (08/10/2018 1:51 PM CDT) Color,UA BRENDA MAIN LAB Turbidity,UA 2+ (A) CLEAR-CLEAR MAIN LAB Specific 1.018 1.003 - 1.035 MAIN LAB [place]-Urine pH,UA 5.0 5.0 - 8.0 MAIN LAB Protein,UA 2+ (A) NEG-NEG MAIN LAB Glucose,UA NEG NEG-NEG MAIN LAB Ketones,UA TRACE (A) NEG-NEG MAIN LAB Bilirubin,UA POS (A) NEG-NEG MAIN LAB Blood,UA 3+ (A) NEG-NEG MAIN LAB Urobilinogen,UA INCREASED (A) NORM-NORMAL MAIN LAB Nitrite,UA NEG NEG-NEG MAIN LAB Leukocytes,UA 2+ (A) NEG-NEG MAIN LAB Urine Ascorbic NEG NEG-NEG MAIN LAB Acid, UA Specimen Urine - Urine Performing Organization Address [facility]code Phone Number MAIN LAB [address] [place] [address] * CHEST SINGLE VIEW (08/10/2018 1:38 PM [...] on 08/10/2018 2:08 PM. Performing Organization Address City/[facility] Hospitalcoks Phone Number [facility] RAD RESULTS * POC TROPONIN (08/10/2018 1:15 PM CDT) Bohyhyly-Q-SYX 0.01 0.00 - 0.05 NG/ML [employer] MAIN LAB Performing Organization Address City/[facility] Phone Number MAIN LAB [address] [address] * TSH WITH FREE T4 REFLEX (08/10/2018 1:07 PM CDT) TSH 1.010 0.35 - 5.00 MCU/ML [facility] MAIN LAB Specimen Blood Performing Organization Address [facility]/Zipcode Phone Number [facility] MAIN LAB [address] [place] [address] * PHOSPHORUS (08/10/2018 1:07 PM CDT) Phosphorus 3.3Comment: NOTE NEW REFERENCE 2.0 - 4.5 MG/DL [facility] MAIN LAB RANGES Specimen Blood Performing Organization Address City/[facility] Phone Number [facility] [address] [place] [address] * MAGNESIUM (08/10/2018 1:07 PM CDT) Magnesium 2.1 1.6 - 2.6 mg/dL [facility] MAIN LAB Specimen Blood Performing Organization Address City/[facility]code Phone Number [facility] [address] [place] [address] * COMPREHENSIVE METABOLIC PANEL (08/10/2018 1:07 PM CDT) Sodium 138 137 - 147 MMOL/L [facility] MAIN [facility] Potassium 4.3 3.5 - 5.1 MMOL/L [facility]IN [facility] Chloride 108 98 - 110 MMOL/L [facility]IN [facility] Glucose 125 (H) 70 - 100 MG/DL [facility]IN [facility] Blood Urea 23 7 - 25 MG/DL [facility]IN [facility] Nitrogen Creatinine 1.33 (H) 0.4 - 1.24 MG/DL [facility] MAIN [facility] Calcium 9.8 8.5 - 10.6 MG/DL [facility]IN [facility] Total Protein 7.1 6.0 - 8.0 G/DL [facility] MAIN [facility] Total Bilirubin 1.0 0.3 - 1.2 MG/DL [facility] MAIN [facility] Albumin 3.8 3.5 - 5.0 G/DL [facility] MAIN [facility] Alk Phosphatase 137 (H) 25 - 110 U/L [facility] MAIN [facility] AST (SGOT) 23 7 - 40 U/L [facility] MAIN [facility] CO2 25 21 - 30 MMOL/L [facility]IN [facility] ALT (SGPT) 15 7 - 56 U/L [facility]IN [facility] Anion Gap 5 3 - 12 [facility] MAIN [facility] eGFR Non 52 (L) >60 mL/min [facility]IN [facility] Comment: Micronesian The eGFR is not validated for use in drug dosing adjustments.Continue to use estimated creatinine clearance per dosing reference text.Please contact the Clinical Pharmacist for questions. eGFR >60 >60 mL/min [facility] MAIN [facility] Micronesian Comment: The eGFR is not validated for use in drug dosing adjustments.Continue to use estimated creatinine clearance per dosing reference text.Please contact the Clinical Pharmacist for questions. Specimen Blood Performing Organization Address City/[facility]/Zipcode Phone Number MAIN LAB [address] [place] [address] * CBC AND DIFF (08/10/2018 1:07 PM CDT) White Blood 7.6 4.5 - 11.0 K/UL [...] Basophil Count Specimen Blood Performing Organization Address City/[facility]/Zipcode Phone Number [facility] MAIN LAB [address] [place] [address] * TELEMETRY STRIPS-SCAN (08/10/2018 12:00 AM CDT) Narrative Performed At Ordered by an unspecified provider. * ECG-SCAN (08/10/2018 12:00 AM CDT) Narrative Performed At Ordered by an unspecified provider. documented in this encounter Visit Diagnoses Diagnosis Orthostasis - Primary Orthostatic hypotension ISMAEL (acute kidney injury) (HCC) Acute kidney failure, unspecified Hematuria, unspecified type Bladder mass Other specified disorders of bladder Parotid mass Swelling, mass, or lump in head and neck Severe malnutrition (HCC) Nutritional marasmus Hypotension Hypotension, unspecified documented in this encounter Admitting Diagnoses Diagnosis Hypotension Hypotension, unspecified documented in this encounter Administered Medications Action Date Dose Rate Site Medication Order MAR Action 08/15/2018 3:26 AM CDT 650 mg acetaminophen (TYLENOL) tablet 650 mg Given 650 mg, Oral, EVERY 4 HOURS PRN, Starting Fri08/14/18 at 1146, Until Fri08/15/18 at 1459, Pain non-opioid: may be used alone or in combination with opioid analgesia, TOTAL ACETAMINOPHEN DOSE NOT TO EXCEED 4GM DAILY, 08/13/2018 7:29 AM CDT 50 mg aminophylline injection 50 mg Given 50 mg, Intravenous, NEEDED, Starting Janey 08/13/18 at 0752, Until Janey 08/13/18 at 1951, Other..., Shortness of breath or bronchospasm, IV push slowly over 2-3 minutes if shortness of breath or bronchospasm occurs. Reassess in 10 minutes, if symptoms persists despite stopping regadenoson infusion or if the patient has abdominal pain/GI symptoms. Repeat aminophyline 50mg., MAC Procedure Area Only - Medications 08/15/2018 9:43 AM CDT 400 mg amiodarone (CORDARONE) tablet 400 mg Given 400 mg, Oral, TWICE DAILY, 14 doses, First dose on Fri08/12/18 at 2130, Last dose on Fri08/19/18 at 0900 400 mg Given 08/14/2018 8:23 PM CDT 400 mg Given 08/14/2018 10:37 AM CDT amiodarone (CORDARONE) tablet 400 mg 400 mg, Oral, DAILY, First dose on Janey 08/20/18 at 0900, Until Discontinued 08/15/2018 9:44 AM CDT bacitracin topical ointment Given Topical, THREE TIMES DAILY, First dose on Fri08/15/18 at 0900, Until Discontinued, Apply to TIP OF PENIS, 08/14/2018 10:36 AM CDT 1 g cefTRIAXone (ROCEPHIN) IVP 1 g Given 1 g, Intravenous, EVERY 24 HOURS, 4 doses, First dose on Fri08/11/18 at 0945, Last dose on Fri08/14/18 at 0945, INSTR: IV PUSH -- RECONSTITUTE EACH 1 GM WITH 10 MLS 0.9% NACL , 1 g Given 08/13/2018 9:23 AM CDT 1 g Given 08/12/2018 8:27 AM CDT 08/15/2018 2:04 AM CDT 25 mcg fentaNYL citrate PF (SUBLIMAZE) Given injection 25 mcg 25 mcg, Intravenous, EVERY 2 HOURS PRN, Starting Fri08/14/18 at 1146, Until 08/15/18 at 1459, Pain Injectable 08/15/2018 9:43 AM CDT 5 mg finasteride (PROSCAR) tablet 5 mg Given 5 mg, Oral, DAILY, First dose on Fri08/11/18 at 0900, Until Discontinued, NOTE: If or wanting to become , do not handle broken tablets without gloves due to risk of defects., 5 mg Given 08/14/2018 10:36 AM CDT 5 mg Given 08/13/2018 9:19 AM CDT 08/15/2018 4:01 AM CDT 0.125 mg hyoscyamine (ANASPAZ; NULEV; SYMAX Given FASTABS; HYOMAX-FT; ED-SPAZ; OSCIMIN) rapid dissolve tablet 0.125 mg 0.125 mg, Sublingual, EVERY 6 HOURS PRN, Starting 08/15/18 at 0350, Until 08/15/18 at 1459, Bladder Spasms 08/11/2018 2:45 PM CDT 100 mL iohexol (OMNIPAQUE-350) 350 mg/mL Given injection 100 mL 100 mL, Intravenous, ONCE, 1 dose, Fri08/11/18 at 1445, NOTE: This is a HIGH ALERT Medication., 08/14/2018 7:04 AM CDT 1,000 mL 20 mL/hr lactated ringers infusion Given - New 1,000 mL, 1,000 mL, Intravenous, at 20 Bag mL/hr, CONTINUOUS, Starting Fri08/14/18 at 0600, Until 08/15/18 at 1459, Pre-Op 08/13/2018 6:16 AM CDT 25 mg metoprolol XL (TOPROL XL) tablet 25 mg Given 25 mg, Oral, DAILY, First dose on Fri08/12/18 at 1230, Until Discontinued, Hold for systolic BP < 100, HR<60 tablets may be cut in half, DO NOT CRUSH or CHEW, 08/14/2018 9:37 AM CDT 10 mg oxyCODONE (ROXICODONE, OXY-IR) tablet Given 5-10 mg 5-10 mg, Oral, ONCE PRN, 1 dose, Starting Fri08/14/18 at 0932, Until Fri08/14/18 at 0937, Pain PO, For Pain Score <4, PACU (only) 08/11/2018 2:21 PM CDT 1 Diluted mL perflutren lipid microspheres (DEFINITY) Given injection 1-20 Diluted mL 1-20 Diluted mL, Intravenous, ONCE PRN, 1 dose, Starting Fri08/11/18 at 1400, Until Fri08/11/18 at 1421, For Procedure, A kaiawhina may only administer Definity through a saline lock. If IV is in use or a port, PICC, or central line is being used a nurse must administer. NOTE: This is a HIGH ALERT Medication., MAC Procedure Area Only - Medications 08/14/2018 8:23 PM CDT 10 mg pravastatin (PRAVACHOL) tablet 10 mg Given 10 mg, Oral, AT BEDTIME DAILY, First dose on Fri08/12/18 at 2100, Until Discontinued 10 mg Given 08/13/2018 8:12 PM CDT 10 mg Given 08/12/2018 8:45 PM CDT 08/13/2018 7:25 AM CDT 0.4 mg regadenoson (LEXISCAN) injection 0.4 mg Given 0.4 mg, Intravenous, ONCE, 1 dose, [facility] 08/13/18 at 0700, Inject 0.4 mg Regadenoson IV over 10 to 15 seconds, flush with 10 mL 0.9% Sodium Chloride solution IV over 10-20 seconds., MAC Procedure Area Only - Medications 08/10/2018 1:38 PM CDT 1,000 mL sodium chloride 0.9 % infusion Given - New 1,000 mL, 1,000 mL, Intravenous, ONCE, 1 Bag dose, 08/10/18 at 1330 08/10/2018 2:51 PM CDT 500 mL 999 mL/hr sodium chloride 0.9 % infusion Given - New 500 mL, 500 mL, Intravenous, at 999 Bag mL/hr, ONCE, 1 dose, Fri08/10/18 at 1500 08/12/2018 8:48 PM CDT 100 mL/hr sodium chloride 0.9 % infusion Given - New 1,000 mL, Intravenous, at 100 mL/hr, Bag CONTINUOUS, Starting Fri08/10/18 at 1800, Until Fri08/14/18 at 0847 100 mL/hr Given - New Bag 08/12/2018 10:30 AM CDT 100 mL/hr Given - New Bag 08/12/2018 12:35 AM CDT 08/15/2018 4:03 AM CDT 3,000 mL sodium chloride 0.9 % irrigation bag Given - New 3,000 mL Bag 3,000 mL, 3,000 mL, Irrigation, CONTINUOUS, Starting Fri08/14/18 at 0930, Until 08/15/18 at 1459 08/11/2018 2:45 PM CDT 50 mL sodium chloride PF 0.9% injection 50 mL Given 50 mL, Intravenous, ONCE, 1 dose, 08/11/18 at 1445, DO NOT SEND this medication unless it is requested. This med is usually available in floor stock., Intra-procedure (IR) 08/15/2018 9:43 AM CDT 0.4 mg tamsulosin (FLOMAX) capsule 0.4 mg Given 0.4 mg, Oral, TWICE DAILY, First dose on Fri08/10/18 at 2100, Until Discontinued, NURSING: Please educate patient and document: Give 1/2 hour following same meal everyday. Do not crush, chew or open the capsule. , 0.4 mg Given 08/14/2018 8:23 PM CDT 0.4 mg Given 08/14/2018 10:37 AM CDT documented in this encounter
--- OUTSIDE RECORDS SUMMARY | 2018-09-03 08:30 | XMS REPORT | Encounter Summary ---
Author Author [facility] Organization [facility] Address Unknown Phone Unavailable Care Team Providers Care Director Strategic Account Management Name Role Phone Ebonie Isaacs DO PCP Reason for Visit * Reason Comments Hypotension Pt sent from 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 08/14/2018 Surgery [facility] OR [address] [address] Social History Date Tobacco Use Types [...] 08/15/2018 Attending Physician: Shelli Stone MD Service: [facility] P 4709 Physician Summary completed by: Shelli Stone [...] 08/10/18 1:15 PM Result Value Ref Range Csfyrtbb-I-QOL 0.01 0.00 - 0.05 NG/ML URINALYSIS DIPSTICK Collection Time: 08/10/18 1:51 PM Result Value Ref Range Color,UA BRENDA Turbidity,UA 2+ (A) CLEAR-CLEAR Specific [place]-Urine 1.018 1.003 - 1.035 pH,UA 5.0 5.0 [...] Started on amiodarone and also 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 CT C/A/P 08/12/18- Development of multiple [...] or concerns regarding your hospital stay. Call [phone] Discharging attending physician: SHELLI STONE [[id number]] Regular Diet You have no dietary restriction. [...] Your Medications These medications were sent to [facility] [address] [place] [address] [address] amiodarone 400 mg tablet bacitracin 500 unit/g [...] message and there are no alternative numbers. 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 - restarted BB, holding ACEI for now. - continue statin Recent CVA: - admitted to [facility] and was noted to have (per Urology [...] home in stable state. >31 minutes in [id number] time spent with patient, patient/family counseling, coordination [...] Signs: 24 Hour Range BP: 108/56 (08/15 1010) Temp: 36.5 C (97.7 F) (08/15 1010) Pulse: 54 (08/15 1010) Respirations: 16 PER MINUTE (08/15 1010) SpO2: 97 % (08/15 1010) O2 Delivery: None (Room Air) (08/15 1010) [...] Sher MD Urology PGY-3 Please page urology material control supervisor with questions SUBJECTIVE: Overnight events: No acute events overnight. NPO since midnight. (-) Nausea. (- ) Emesis. (+) Ambulation. No signs or symptoms of UTI OBJECTIVE: Vital Signs: Most Recent Vital Signs: Past 24 Hours BP: 108/56 (08/15 1011) Temp: 36.5 C (97.7 F) (08/15 101) Pulse: 54 (08/15 1011) Respirations: 16 PER MINUTE (08/15 101) SpO2: 97 % (08/15 1011) O2 Delivery: None (Room Air) (08/15 1010) [...] yellow urine with CBI clamped. Intake/Output: Date 08/14/18 0701 - 08/15/18 0708/15/18 07 - 08/16/18 07 Shift 2820-2579 8059-6478 24 Hour Total 6105-1583 8530-4988 24 Hour Total INTAKE P.O. 100 100 I.V.(mL/kg/hr) 450(0.5) 450(0.2) Other 500 500 Shift Total(mL/kg) 1050(13.9) 1050(13.9) OUTPUT Urine(mL/kg/hr) 3550(3.9) 2850(3.1) 6400(3.5) Urine Output (ml) (Indwelling Urinary Catheter 08/14/18 0838 22 FR) 3550 2850 6400 Shift Total(mL/kg) 3550(47.1) 2850(37.8) 6400(84.9) NET -2500 -1830 -5350 Weight (kg) 75.4 75.4 75.4 75.4 [...] FOR HYOSCAMINE & RECIEVED A DOSE. Time MD/MANUAL QA TESTER Notified: 06 MD/MANUAL QA TESTER Name: [facility] CREDENTIALING SPECIALIST PAGER [phone] /MANUAL QA TESTER Response: Interventions: * Singh English RN - 08/15/2018 3:51 AM CDT Patient Problem called about: (document change in assessment or concern): C/O BURNING IN PENIS SHAFT. CBI GOING WELL. SOME SEDIMENT IN TUBING. BUT LIGHT YELLOW. FENTANYL NOT VERY EFFECTIVE. JUST GAVE TYLENOL. NOT SURE WHAT ELSE CAN BE DONE. 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 - restarted BB, holding ACEI for now. - continue statin Recent CVA: - admitted to [facility] and was noted to have (per Urology [...] Laughlin MD Urology PGY-2 Please page urology material control supervisor with questions ATTESTATION I personally performed the [...] 08/13/18700 - 08/14/1869908/14/18700 - 08/15/18 07 Shift 5632-8525 2539-1792 24 Hour Total 4177-9274 1191-1631 24 Hour Total INTAKE P.O. 0 0 0 Shift Total(mL/kg) 0(0) 0(0) 0(0) OUTPUT Urine(mL/kg/hr) 825(0.9) 775(0.9) 1600(0.9) Urine 841 991 6301 Shift Total(mL/kg) 825(10.9) 775(10.3) 1600(21.2) NET -825 [...] Midnight for procedure. Kendrick Cruz MD Urology 4110 * Edgar Nieves - 08/13/2018 3:32 PM CDT PHYSICAL THERAPY NOTE Patient was assigned for activity with the mobility aide by the supervising therapist. Patient is unavailable. Patient is working with other staff. Therapist: Edgar Nieves Date: 08/13/2018 * Shorty Anuel, OT - 08/13/2018 3:27 PM CDT OCCUPATIONAL THERAPY PROGRESS NOTE Patient Name: Sara Leiva Room[facility]Bed: [id number] Admitting Diagnosis: Mobility Progressive Mobility Level: Walk [...] to the ED for asymptomatic hypotension Precautions: Standard(CURYUNG on left side) Pain / Complaints: Patient [...] Has no AE/DME. Prior Function Level Of Pingree: Independent with ADLs and functional transfers; Independent [...] Patient Will Perform All ADL's: w/ Modified Pingree Functional Transfer Goals Pt Will Perform All Functional Transfers: Modified Independent OT Discharge Recommendations OT Discharge Recommendations: Home with family assist Equipment Recommendations: Too early to be determined Additional Information: Anticipate patient to be at baseline function prior to d /c home. Recommend ongoing assistance for: Ambulation, Stairs, Safety concerns Therapist: ROSA MARIA Luciano [id number] Date: 08/13/2018 * Yo Cunningham MD - [...] 0.9 % infusion 100 mL/hr at 08/12/18 2048 PRN and Respiratory Meds: Physical Exam: Vital [...] Intake/Output Summary (Last 24 hours) at 08/13/2018 102 Last data filed at 08/13/2018 0912 Gross [...] Kong La MD CV fellow * Jimenez Canchola, RT - 08/13/2018 9:54 AM CDT RT [...] hydration as above. 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 - restarted BB, holding ACEI for now. - continue statin Recent CVA: - admitted to [facility] and was noted to have (per Urology note) MRI brain with punctate areas of diffusion restriction in both cerebellar hemispheres c/w acute punctate infarctions, probably from a cardiogenic source. Old infarcts are present in the left frontal lobe and left temporal lobe. small vessel disease. - will try to obtain records from [facility] - currently not on antiplatelets due to [...] 1215. Nurse called downstairs to main [facility] and confirmed that the cystoscopy was cancelled 08/12. Talked with primary MD which confirmed that pt is able to eat and drink what on [facility] nuclear cardiology for thallium images. * Mee Nazario RN - 08/13/2018 5:51 AM CDT [facility]. Anticipating patient to [address] [address]. Ella Calling lab to see if type and cross is needed, only screen done by bb, need type and cross for surgery. did not get this drawn when he arrived to pre post before he was sent back to his room. Informed floor RN that TYPE and Cross still needed. Patient [place] to [place] [address], case was moved because patient needs a stress test before surgery. [place] [address], will call for patient when they are ready for him. He is in good spirits and understands, transporter is returning patient to inpatient room. Notifying RN. * Jeanette Denton RN - 08/12/2018 3:57 PM CDT I have reviewed the notes, assessment, flow sheets and/or procedures performed by Pily Zarate, Student Nurse and concur with her/his documentation unless otherwise noted. Jeanette Denton RN [facility] Clinical Magician/Illusionist * Edagr Nieves - 08/12/2018 3:01 PM CDT PHYSICAL [...] stop Aide: Edgar Nieves Date: 08/12/2018 * Suzette Viera OT - 08/12/2018 11:43 AM CDT OCCUPATIONAL THERAPY ASSESSMENT NOTE Patient Name: Sara Leiva Room/Bed: [id number]/ Admitting Diagnosis: Mobility Progressive Mobility Level: Walk [...] to the ED for asymptomatic hypotension Precautions: Standard(CURYUNG on left side) Pain / Complaints: Patient [...] Has no AE/DME. Prior Function Level Of Pingree: Independent with ADLs and functional transfers; Independent [...] Patient Will Perform All ADL's: w/ Modified Pingree Functional Transfer Goals Pt Will Perform All Functional Transfers: Modified Independent OT Discharge Recommendations OT Discharge Recommendations: Home with family assist Equipment Recommendations: Too early to be determined Additional Information: Anticipate patient to be at baseline function prior to d /c home. Recommend ongoing assistance for: Ambulation, Stairs, Safety concerns Therapist: FAUSTO Roberts/Nanette [id number] Date: 08/12/2018 * Michaelle James, PT - [...] ongoing assistance for: Ambulation;Stairs;Safety concerns Therapist: Michaelle James PT Date: 08/12/2018 * Jean RadhaADRIANNE zuñiga - 08/12/2018 11:25 AM CDT CLINICAL NUTRITION Clinical Nutrition Assessment Summary NAME:Sara Leiva :1940 AGE: 77 y.o. ADMISSION DATE: 08/10/2018 DAYS ADMITTED: LOS: 1 day Nutrition Assessment of Patient: BMI Categories Adult: Acceptable: 18.5-24.9 Unintentional Weight Loss: > 10% in 6 months (severe) Current Oral Intake: Inadequate Estimated Calorie Needs: 6088-7741(30-35 kcal/kg present wt 75.4kg) Estimated Protein Needs: 98-113(1.3-1.5 g/kg present wt) Oral Diet Order: Cardiac ICD-10 code E43: Chronic illness/Severe malnutrition Weight loss: >10% x 6 months, Severe loss of muscle mass Loss of Subcutaneous Fat: Yes Mild Orbital, Triceps Muscle Wasting: Yes Severe Muslim, Clavicle, Interosseous Edema: No Malnutrition Interventions: Boost Plus Fajardo TIDWM. Comments: 77 M with HTN, HLD, CAD s/p CABG, PVD, recent CVA, was seen in Urology clinic for evaluation for bladder cancer/hematuria and was sent to the ED for asymptomatic hypotension. Pt sleeping soundly at time of visit, did not wake to name or while verifying wristband with . 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 No edema. LBM 08/11 per floor sweeper. Will continue to follow. Recommendation: Given malnutrition [...] Throughout Stay Radha Pena RD, KRYSTAL Phone: [phone] Pager: [phone] * Saundra Hernandez MD - 08/12/2018 10:24 [...] as above. - getting records from [facility] UTI: - patient is not sure if he is on ABx. - order urine culutres- contaminated - Cont Rocephin for now Presumed stage IV bladder cancer/Hematuria - presented with ongoing hematuria and mass on cystoscopy at outside provided. referred to Urology for further eval. 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 - restarted BB, holding ACEI for now. - continue statin Multiple PVCs,VTach? On tele: - consulting cardiology today. - restart BB - monitor Recent CVA: - admitted to [facility] and was noted to have (per Urology note) MRI brain with punctate areas of diffusion restriction in both cerebellar hemispheres c/w acute punctate infarctions, probably from a cardiogenic source. Old infarcts are present in the left frontal lobe and left temporal lobe. small vessel disease. - will try to obtain records from [facility] - currently not on antiplatelets due to [...] Pertinent radiology reviewed. Saundra Hernandez MD * DaquanMichaelha - 08/11/2018 7:48 PM CDT Notified MPP about pt's 17 beat run of V tach, pt currently asymptomatic resting in bed and VSS. No additional orders at this time, will continue to monitor. 08/11/18 1938 Vitals Pulse 57 SpO2 99 % O2 [...] Pt asymptomatic at this time. * Kristal Ybarra RN - 08/11/2018 5:45 PM CDT MD notified of vent bigeminy with occasional vent trigeminy. Pt is asymptomatic , VSS. to order 12 lead EKG. WCTM. * [...] above. - getting records [facility] Presumed stage IV bladder cancer/Hematuria - presented with ongoing hematuria and mass on cystoscopy at outside provided. referred to Urology for further eval. 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 will hold both in setting of hypotension above - continue statin Recent CVA: - admitted to [facility] and was noted to have (per Urology note) MRI brain with punctate areas of diffusion restriction in both cerebellar hemispheres c/w acute punctate infarctions, probably from a cardiogenic source. Old infarcts are present in the left frontal lobe and left temporal lobe. small vessel disease. - will try to obtain records from [facility] - currently not on antiplatelets due to [...] 08/10/18 1:15 PM Result Value Ref Range Mpadzafo-F-LEN 0.01 0.00 - 0.05 NG/ML URINALYSIS DIPSTICK Collection Time: 08/10/18 1:51 PM Result Value Ref Range Color,UA BRENDA Turbidity,UA 2+ (A) CLEAR-CLEAR Specific [place]-Urine 1.018 1.003 - 1.035 pH,UA 5.0 5.0 [...] PM CDT Patient arrived to room # ([id number]) via cart accompanied by transport. Patient transferred [...] - try to obtain records from [facility], to see if he had ECHO, if not, he will need to get one here. elevated creatinine: - creat 1.3 on admission. baseline unknown. - hydration as above. - getting records from [facility] as indicated elsewhere. 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 will hold both in setting of hypotension above - continue statin Recent CVA: - admitted to [facility] and was noted to have (per Urology note) MRI brain with punctate areas of diffusion restriction in both cerebellar hemispheres c/w acute punctate infarctions, probably from a cardiogenic source. Old infarcts are present in the left frontal lobe and left temporal lobe. small vessel disease. - will try to obtain records from [facility] - currently not on antiplatelets due to [...] to medicine. Tiffany Morales MD Internal Medicine [id number] __ Chief Complaint: hypotension History of Present Illness: Sara Leiva is a 77 y.o. male with CAD s/p CABG , HTN, HLD, PVD, recent CVA, who was evaluated in [place] for ongoing hematuria, had cystoscopy that showed [...] file Gets together: Not on file Attends yazidi service: Not on file Active member of [...] Signs: 24 Hour Range BP: 98/62 (08/10 143) Temp: 36.3 C (97.4 F) (08/10 1253) Pulse: 78 (08/10 143) Respirations: 11 PER MINUTE (08/10 143) SpO2: 98 % (08/10 143) O2 Delivery: None (Room Air) (08/10 1253) [...] 08/10/18 1:15 PM Result Value Ref Range Pguovgqr-E-NZS 0.01 0.00 - 0.05 NG/ML URINALYSIS DIPSTICK Collection Time: 08/10/18 1:51 PM Result Value Ref Range Color,UA BRENDA Turbidity,UA 2+ (A) CLEAR-CLEAR Specific [place]-Urine 1.018 1.003 - 1.035 pH,UA 5.0 5.0 [...] PM CDT Associated Order(s): CONSULT UROLOGY PHYSICIAN [facility] Consult 08/12/2018 Patient: Sara Leiva Admission [...] Escamilla MD Urology Resident Please page Urology remote ruby on rails developer with questions. ATTESTATION I personally performed the [...] Vargas RN - 08/10/2018 4:53 PM CDT [id number] bed assigned, please call Nya for [place] @ [id number], thanks! * Nya Bhatti RN - 08/10/2018 2:[address] Hall was notified that patient was still orthostatic after 1 L NS. * Sravan Sullivan MD - 08/10/2018 2:37 PM CDT Sara Leiva is a 77 y.o. male. Chief Complaint: Chief Complaint Patient presents with Hypotension Pt sent from [facility] for low blood pressure and dizziness. Pt states his BP was in the 60s. History of Present Illness: Patient is a 77-year-old male with a past medical history of hypertension, hyperlipidemia, CAD status post CABG, PVD, CVA who presents the ED today from outpatient urology clinic at [facility] for hypertension. Per report patient was [...] 86 13 PER MINUTE 43 97 % HH 08/10/18 1301 -- 117/54 -- -- -- [...] Final Turbidity,UA 2+ (*) CLEAR-CLEAR Final Specific [place]-Urine 1.018 1.003 - 1.035 Final pH,UA 5.0 [...] 0.35 - 5.00 MCU/ML Final POC TROPONIN Tgwkdwuz-Q-XTC 0.01 0.00 - 0.05 NG/ML Final POC [...] in wheelchair. Patient was sent over from [place] due to hypotension. Patient reports his bp [...] monitor, call light within reach. Belongings: Jaron Eppersonans White shirt Phone All valuables will be [...] 1011) O2 Delivery: None (Room Air) (08/15 101) Patient History Allergies No Known Allergies Medications [...] sterile. We began by inserting the 26 khmer resectoscope with visual obturator into the urethra [...] to the scope in place a 22 Kosovan three-way catheter and started CBI. Patient was [...] Fermin MD 901 Augusto Sher MD Pager [phone] * Case Mgmt DC Plan - Vianney [...] to follow for dc needs. Patient Address/Phone [address] [address] (home) Emergency Contact Extended Emergency Contact Information Primary Emergency Contact: angelia leiva Relation: Spouse Healthcare Directive Transportation Does the patient need discharge transport arranged?: No Transportation Name, Phone and Availability #1: Angelia hall [phone] Does the patient use Medicaid Transportation?: No [...] Source of Income Source Of Income: Other jail income ? Financial Assistance Needed? Pt does not have prescription coverage - please be aware when prescribing medications. Psychosocial Needs ? Mental Health Mental Health History: No ? Substance Use History Substance Use History Screen: No ? Other Current/Previous Services ? PCP Ebonie Isaacs, , ? Pharmacy [facility] - [facility] [address] [facility] [address] [facility] [address] ? Durable Medical Equipment Durable Medical Equipment [...] ? Outpatient Therapy PT: No OT: No AUTOMOTIVE REFINISH TECHNICIAN: No ? Jail Facility/[facility] SNF: No NH: No ? Inpatient Rehab IPR: No ? [facility] Hospital LTACH: No ? 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, insurance executive [phone] documented in this encounter Plan of Treatment [...] mg/dL [facility] Performing Organization Address City/State/Zipcode Phone Number [facility] [address] [place] [address] * CBC (08/15/2018 4:30 AM CDT) White Blood 6.1 4.5 - 11.0 K/UL [facility] Cells RBC 3.17 (L) 4.4 - 5.5 M/UL [facility] Hemoglobin 10.4 (L) 13.5 - 16.5 GM/DL [facility] Hematocrit 30.0 (L) 40 - 50 % [facility] MCV 94.8 80 - 100 FL [facility] MCH 32.9 26 - 34 [facility] MCHC 34.7 32.0 - 36.0 G/DL [facility] RDW 13.5 11 - 15 % [facility] Platelet Count 147 (L) 150 - 400 K/UL [facility] MPV 7.3 7 - 11 FL [facility] Performing Organization Address City/[facility]/Zipcode Phone Number [facility] [address] [place] [address] * BASIC METABOLIC PANEL (08/15/2018 4:30 AM CDT) Sodium 135 (L) 137 - 147 MMOL/L [facility] Potassium 3.9 3.5 - 5.1 MMOL/L [facility] Chloride 109 98 - 110 MMOL/L [facility] CO2 21 21 - 30 MMOL/L [facility] Anion Gap 5 3 - 12 [facility] Glucose 106 (H) 70 - 100 MG/DL [facility] Blood Urea 13 7 - 25 MG/DL [facility] Nitrogen Creatinine 0.84 0.4 - 1.24 MG/DL [facility] Calcium 8.8 8.5 - 10.6 MG/DL [facility] eGFR Non >60 >60 mL/min [facility] Comment: [place] The eGFR is not validated for use in drug dosing adjustments.Continue to use estimated creatinine clearance per dosing reference text.Please contact the Clinical Pharmacist for questions. eGFR >60 >60 mL/min [facility] [place] Comment: The eGFR is not validated for use in drug dosing adjustments.Continue to use estimated creatinine clearance per dosing reference text.Please contact the Clinical Pharmacist for questions. Performing Organization Address City/[facility]/Zipcode Phone Number [facility] [address] [place] [address] * SURGICAL PATHOLOGY (08/14/2018 9:09 AM CDT) PATHOLOGY [facility] [email or web address] Department of Pathology and Laboratory Medicine [address] [place] [address] Surgical Pathology Office:[phone] :[phone] SURGICAL PATHOLOGY REPORT NAME: SARA LEIVA SURG PATH #: [id number] MR #: [id number] SPECIMEN CLASS: SR BILLING #: [id number] ALT ID #:LOCATION: DISCHARGED DATE OF PROCEDURE: 08/14/2018 AGE:77 SEX: M DATE RECEIVED: 08/14/2018 : 1940TIME RECEIVED:09: PHYSICIAN: SEDRICK FERMIN MD DATE OF REPORT: [...] cells, supporting the diagnosis. Pursuant to the Environment Friendly Landscape Designer Program at the [facility] Pathology Department, selected slides from this case [...] material indicated in this report. +++ +++ lkr/08/14/2018 ############################## ############################## ############ Material Received: A: prostate [...] of Pathology and Laboratory Medicine of the [facility] ([employer]) in compliance with [...] of Pathology and Laboratory Medicine of the [facility].It has not been cleared or approved by the FDA.The FDA has determined that such clearance or approval is not necessary. Performing Organization Address City/State/Zipcode Phone Number [facility] [address] [place] [address] * MAGNESIUM (08/14/2018 5:06 AM CDT) Magnesium 2.0 1.6 - 2.6 mg/dL [facility] Performing Organization Address [facility] Phone Number [facility] [address] [place] [address] * CBC (08/14/2018 5:06 AM CDT) White Blood 6.0 4.5 - 11.0 K/UL [facility] Cells RBC 3.30 (L) 4.4 - 5.5 M/UL [facility] Hemoglobin 10.9 (L) 13.5 - 16.5 GM/DL [facility] Hematocrit 31.6 (L) 40 - 50 % [facility] MCV 95.6 80 - 100 FL [facility] MCH 33.0 26 - 34 PG [facility] MCHC 34.5 32.0 - 36.0 G/DL [facility] RDW 13.3 11 - 15 % [facility] Platelet Count 156 150 - 400 K/UL [facility] MPV 7.6 7 - 11 FL [facility] Performing Organization Address [facility] Phone Number [facility] [address] [place] [address] * BASIC METABOLIC PANEL (08/14/2018 5:06 AM CDT) [facility] Sodium 138 137 - 147 MMOL/L [facility] Potassium 4.1 3.5 - 5.1 MMOL/L [facility] Chloride 112 (H) 98 - 110 [...] >60 >60 mL/min [facility] Comment: [place] The eGFR is not validated for use in drug dosing adjustments.Continue to use estimated creatinine clearance per dosing reference text.Please contact the Clinical Pharmacist for questions. eGFR >60 >60 mL/min [facility] [place] Comment: The eGFR is not validated for use in drug dosing adjustments.Continue to use estimated creatinine clearance per dosing reference text.Please contact the Clinical Pharmacist for questions. Performing Organization Address City/[facility] Phone Number [facility] [address] [place] [address] * REGADENOSON MPI STRESS TEST (08/13/2018 7:43 [...] Kwon 41 OTHER OUTSIDE LAB Study Number [id number] OTHER OUTSIDE LAB PUL TO LUIS M [...] At OTHER OUTSIDE LAB Nuclear Report [facility] Division of Nuclear Cardiac Imaging Consultation Report EXAMINATION:D-SPECT Gated [id number] Chloride myocardial perfusion single-photon emission computed tomography for viability, resting regional wall function, resting ejection fraction, and perfusion imaging utilizing Regadenoson pharmacological stress. Date of Study:08/13/18 Study #:[id number] Billing ID:[id number] Referring Physician: Requested by:Kong La MD BMI: [...] Approximately 20 seconds later 1.33 mCi of [id number] was injected intravenously. Throughout the infusion continuous electrocardiographic monitoring and serial electrocardiograms were obtained, as well as intermittent blood pressure recordings.Gated upright D-SPECT tomographic images were then acquired approximately 5 minutes after discontinuation of the regadenoson infusion. When indicated supine D-SPECT images were also obtained.The patient returned in approximately 4 hours and received an additional intravenous injection of 0.45 mCi of [id number] Chloride as a reinjected dose to assist [...] Conclusion:Pharmacologic stress ECG is negative for ischemia. Gugypbqmg-cg-Lpjwlaezba Count Ratio:0.38(normal=or < 0.52). Scintigraphic Findings:Raw images [...] (08/13/2018 7:00 AM CDT) Units Ordered 0 [facility] Crossmatch 08/16/2018 [facility] Expires Record Check FOUND [facility] ABO/RH(D) A POS [facility] Antibody Screen NEG [facility] Electronic YES [facility] Crossmatch Specimen Blood Performing Organization Address City/State/Zipcode Phone Number [facility] [address] [place] [address] * MAGNESIUM (08/13/2018 5:19 AM CDT) Magnesium 1.9 1.6 - 2.6 mg/dL [facility] Performing Organization Address City/[facility]/Zipcode Phone Number [facility] [address] [place] [address] * CBC (08/13/2018 5:19 AM CDT) White Blood 6.2 4.5 - 11.0 K/UL [facility] Cells RBC 3.37 (L) 4.4 - 5.5 M/UL [facility] Hemoglobin 11.2 (L) 13.5 - 16.5 GM/DL [facility] Hematocrit 32.6 (L) 40 - 50 % [facility] MCV 96.5 80 - 100 FL [facility] MCH 33.2 26 - 34 PG [facility] MCHC 34.4 32.0 - 36.0 G/DL [facility] RDW 13.5 11 - 15 % [facility] Platelet Count 154 150 - 400 K/UL [facility] MPV 9.2 7 - 11 FL [facility] Performing Organization Address City/[facility] Phone Number [facility] [address] [place] [address] * BASIC METABOLIC PANEL (08/13/2018 5:19 AM CDT) Sodium 139 137 - 147 [...] >60 >60 mL/min [facility] Comment: [place] The eGFR is not validated for use in drug dosing adjustments.Continue to use estimated creatinine clearance per dosing reference text.Please contact the Clinical Pharmacist for questions. eGFR >60 >60 mL/min [facility] [place] Comment: The eGFR is not validated for use in drug dosing adjustments.Continue to use estimated creatinine clearance per dosing reference text.Please contact the Clinical Pharmacist for questions. Performing Organization Address City/[facility] Phone Number [facility] [address] [place] [phone] * MAGNESIUM (08/12/2018 4:32 AM CDT) Magnesium 1.9 1.6 - 2.6 mg/dL [facility] Performing Organization Address City/[facility] Phone Number [facility] [address] [place] [address] * BASIC METABOLIC PANEL (08/12/2018 4:32 AM CDT) Sodium 139 137 - 147 MMOL/L [facility] Potassium 4.2 3.5 - 5.1 MMOL/L [facility] [...] >60 >60 mL/min [facility] Comment: [place] The eGFR is not validated for use in drug dosing adjustments.Continue to use estimated creatinine clearance per dosing reference text.Please contact the Clinical Pharmacist for questions. eGFR >60 >60 mL/min [facility] [place] Comment: The eGFR is not validated for use in drug dosing adjustments.Continue to use estimated creatinine clearance per dosing reference text.Please contact the Clinical Pharmacist for questions. Performing Organization Address City/[facility] Phone Number [facility] [address] [place] [address] * CBC (08/12/2018 4:32 AM CDT) White [...] FL [facility] Performing Organization Address City/State/Zipcode Phone Number [facility] [address] [place] [address] * CT ABD/PELV W CONTRAST (08/11/2018 2:31 [...] throughout both lobes of the liver. A architectural representative mass in segment 3 measures 2.5 [...] throughout both lobes of the liver. A architectural representative mass in segment 3 measures 2.5 [...] throughout both lobes of the liver. A architectural representative mass in segment 3 measures 2.5 [...] throughout both lobes of the liver. A architectural representative mass in segment 3 measures 2.5 [...] 34 OTHER OUTSIDE Index LAB Cardiology Siemens [id number] OTHER OUTSIDE Ultrasound LAB Machine Left Ventricle [...] [facility] Specimen URINE, STRAIGHT CATH MAIN LAB Description Special NONE MAIN LAB Requests Culture NO GROWTH [facility] Report Status FINAL MAIN LAB 08/12/2018 Specimen Urine - Urine Straight Catheter Performing Organization Address [facility] Cent[facility] Phone Number MAIN LAB [address] [place] [address] * MAGNESIUM (08/11/2018 6:06 AM CDT) Magnesium 1.9 1.6 - 2.6 mg/dL [facility] Performing Organization Address [facility] Cent[facility] Phone Number MAIN LAB [address] [place] [address] * BASIC METABOLIC PANEL (08/11/2018 6:06 AM CDT) Sodium 139 137 - 147 MMOL/L [facility] Potassium 4.4 3.5 - 5.1 MMOL/L [facility] Chloride 113 (H) 98 - 110 MMOL/L [facility] CO2 22 21 - 30 MMOL/L [facility] Anion Gap 4 3 - 12 MAIN LAB Glucose 103 (H) 70 - 100 MG/DL [facility] Blood Urea 19 7 - 25 MG/DL [facility] Nitrogen Creatinine 0.95 0.4 - 1.24 MG/DL [facility] Calcium 8.9 8.5 - 10.6 MG/DL [facility] eGFR Non >60 >60 mL/min MAIN LAB Comment: [place] The eGFR is not validated for use in drug dosing adjustments.Continue to use estimated creatinine clearance per dosing reference text.Please contact the Clinical Pharmacist for questions. eGFR >60 >60 mL/min MAIN LAB [place] Comment: The eGFR is not validated for use in drug dosing adjustments.Continue to use estimated creatinine clearance per dosing reference text.Please contact the Clinical Pharmacist for questions. Performing Organization Address City/[facility]/Zipcode Phone Number MAIN LAB [address] [place] [address] * CBC (08/11/2018 6:06 AM CDT) White Blood 6.6 4.5 - 11.0 K/UL MAIN LAB Cells RBC 3.23 (L) 4.4 - 5.5 M/UL [facility] Hemoglobin 10.9 (L) 13.5 - 16.5 GM/DL [facility] Hematocrit 31.4 (L) 40 - 50 % MAIN LAB MCV 97.2 80 - 100 FL [facility] MCH 33.6 26 - 34 PG [facility] MCHC 34.5 32.0 - 36.0 G/DL MAIN LAB RDW 13.9 11 - 15 % [facility] Platelet Count 153 150 - 400 K/UL [facility] MPV 8.4 7 - 11 FL [facility] Performing Organization Address [facility] Centercode Phone Number MAIN LAB [address] [place] [address] * PHOSPHORUS (08/11/2018 6:06 AM CDT) Phosphorus 3.1Comment: NOTE NEW REFERENCE 2.0 - 4.5 MG/DL MAIN LAB RANGES Performing Organization Address City/[facility] Phone Number MAIN LAB [address] [place] [address] * TROPONIN-I (08/11/2018 12:23 AM CDT) Troponin-I 0.01 0.0 - 0.05 NG/ML MAIN LAB Specimen Blood Performing Organization Address City/[facility] Phone Number MAIN LAB [address] [place] [address] * TROPONIN-I (08/10/2018 7:25 PM CDT) Troponin-I 0.01 0.0 - 0.05 NG/ML MAIN LAB Specimen Blood Performing Organization Address [facility] Phone Number MAIN LAB [address] [place] [address] * CULTURE-URINE W/SENSITIVITY (08/10/2018 1:51 PM CDT) Battery Name URINE CULTURE MAIN LAB Specimen URINE MAIN LAB Description Special NONE [facility] Requests Culture <10,000 organisms/ml MAIN LAB MIXED CONTAMINANTS Report Status FINAL MAIN LAB 08/11/2018 Specimen Urine - Urine Performing Organization Address [facility] Cent[facility] Phone Number MAIN LAB [address] [place] [address] * URINALYSIS, MICROSCOPIC (08/10/2018 1:51 PM CDT) WBCs,UA PACKED 0 - 2 /HPF [facility] RBCs,UA PACKED 0 - 3 /HPF [facility] MucousUA 1+ [facility] Bacteria,UA FEW (A) NEG-NEG [facility] Squamous 2-5 0 - 5 [facility] Epithelial Cells Specimen Urine - Urine Performing Organization Address [facility] Phone Number MAIN LAB [address] [place] [address] * URINALYSIS DIPSTICK (08/10/2018 1:51 PM CDT) Color,UA BRENDA [facility] Turbidity,UA 2+ (A) CLEAR-CLEAR [facility] Specific 1.018 1.003 - 1.035 [facility] [place]-Urine pH,UA 5.0 5.0 - 8.0 [facility] Protein,UA 2+ (A) NEG-NEG [facility] Glucose,UA NEG NEG-NEG [facility] Ketones,UA TRACE (A) NEG-NEG [facility] Bilirubin,UA POS (A) NEG-NEG [facility] Blood,UA 3+ (A) NEG-NEG [facility] Urobilinogen,UA INCREASED (A) NORM-NORMAL [facility] Nitrite,UA NEG NEG-NEG [facility] Leukocytes,UA 2+ (A) NEG-NEG [facility] Urine Ascorbic NEG NEG-NEG [facility] Acid, UA Specimen Urine - Urine Performing Organization Address [facility] Phone Number MAIN LAB [address] [place] [address] * CHEST SINGLE VIEW (08/10/2018 1:38 PM [...] on 08/10/2018 2:08 PM. Performing Organization Address [facility] Phone Number [facility] RESULTS * POC TROPONIN (08/10/2018 1:15 PM CDT) Pathologist [facility] Faezmoum-T-CCV 0.01 0.00 - 0.05 NG/ML MAIN LAB Performing Organization Address [facility] Phone Number MAIN LAB [address] [place] [address] * TSH WITH FREE T4 REFLEX (08/10/2018 1:07 PM CDT) TSH 1.010 0.35 - 5.00 MCU/ML MAIN LAB Specimen Blood Performing Organization Address [facility] Phone Number MAIN LAB [address] [place] [address] * PHOSPHORUS (08/10/2018 1:07 PM CDT) Pathologist [facility] Phosphorus 3.3Comment: NOTE NEW REFERENCE 2.0 - 4.5 MG/DL MAIN LAB RANGES Specimen Blood Performing Organization Address [facility] Phone Number MAIN LAB [address] [place] [address] * MAGNESIUM (08/10/2018 1:07 PM CDT) Pathologist [facility] Magnesium 2.1 1.6 - 2.6 mg/dL MAIN LAB Specimen Blood Performing Organization Address [facility] Phone Number MAIN LAB [address] [place] [address] * COMPREHENSIVE METABOLIC PANEL (08/10/2018 1:07 PM [...] (L) >60 mL/min [facility] Comment: [place] The eGFR is not validated for use in drug dosing adjustments.Continue to use estimated creatinine clearance per dosing reference text.Please contact the Clinical Pharmacist for questions. eGFR >60 >60 mL/min [facility] [place] Comment: The eGFR is not validated for use in drug dosing adjustments.Continue to use estimated creatinine clearance per dosing reference text.Please contact the Clinical Pharmacist for questions. Specimen Blood Performing Organization Address City/State/Zipcode Phone Number MAIN LAB [address] [place] [address] * CBC AND DIFF (08/10/2018 1:07 PM [...] Basophil Count Specimen Blood Performing Organization Address City/State/Zipcode Phone Number MAIN LAB [address] [place] [address] * TELEMETRY STRIPS-SCAN (08/10/2018 12:00 AM CDT) Narrative Performed At Ordered by an unspecified provider. * ECG-SCAN (08/10/2018 12:00 AM CDT) Narrative Performed At Ordered by an unspecified provider. documented in this encounter Visit Diagnoses Diagnosis Bladder mass Other specified disorders of bladder documented in this encounter Admitting Diagnoses Diagnosis Hypotension Hypotension, unspecified documented in this encounter Administered Medications Action Date Dose Rate Site Medication Order MAR Action 08/15/2018 3:26 AM CDT 650 mg acetaminophen (TYLENOL) tablet 650 mg Given 650 mg, Oral, EVERY 4 HOURS PRN, Starting Fri08/14/18 at 1146, Until 08/15/18 at 1459, Pain non-opioid: may be used alone or in combination with opioid analgesia, TOTAL ACETAMINOPHEN DOSE NOT TO EXCEED 4GM DAILY, 08/15/2018 9:43 AM CDT 400 mg amiodarone (CORDARONE) tablet 400 mg Given 400 mg, Oral, TWICE DAILY, 14 doses, First dose on Fri08/12/18 at 2130, Last dose on Fri08/19/18 at 0900 400 mg Given 08/14/2018 8:23 PM CDT 400 mg Given 08/14/2018 10:37 AM CDT amiodarone (CORDARONE) tablet 400 mg 400 mg, Oral, DAILY, First dose on Janey 4/25/19 at 0900, Until Discontinued 08/15/2018 9:44 AM CDT bacitracin topical ointment Given Topical, THREE TIMES DAILY, First dose on Fri08/15/18 at 0900, Until Discontinued, Apply to TIP OF PENIS, 08/14/2018 9:10 AM CDT 1 suppository belladonna/opium (B&O) 16.2/60 mg rectal Given suppository INTRA-PROCEDURE MED, Starting Fri08/14/18 at 0910, Until Fri08/14/18 at 0915, Intra-op 08/15/2018 2:04 AM CDT 25 mcg fentaNYL citrate PF (SUBLIMAZE) Given injection 25 mcg 25 mcg, Intravenous, EVERY 2 HOURS PRN, Starting Fri08/14/18 at 1146, Until Fri08/15/18 at 1459, Pain Injectable 08/15/2018 9:43 AM [...] mg, Sublingual, EVERY 6 HOURS PRN, Starting Fri08/15/18 at 0350, Until Fri08/15/18 at 1459, Bladder Spasms 08/14/2018 7:04 AM CDT 1,000 mL 20 mL/hr lactated ringers infusion Given - New 1,000 mL, 1,000 mL, Intravenous, at 20 Bag mL/hr, CONTINUOUS, Starting Fri08/14/18 at 0600, Until Fri08/15/18 at 1459, Pre-Op 08/13/2018 6:16 AM CDT 25 mg metoprolol XL (TOPROL XL) tablet 25 mg Given 25 mg, Oral, DAILY, First dose on Fri08/12/18 at 1230, Until Discontinued, Hold for systolic BP < 100, HR<60 tablets may be cut in half, DO NOT CRUSH or CHEW, 08/14/2018 8:23 PM CDT 10 mg pravastatin (PRAVACHOL) tablet 10 mg Given 10 mg, Oral, AT BEDTIME DAILY, First dose on Fri08/12/18 at 2100, Until Discontinued 10 mg Given 08/13/2018 8:12 PM CDT 10 mg Given 08/12/2018 8:45 PM CDT 08/15/2018 4:03 AM CDT 3,000 mL sodium chloride 0.9 % irrigation bag Given - New 3,000 mL Bag 3,000 mL, 3,000 mL, Irrigation, CONTINUOUS, Starting Fri08/14/18 at 0930, Until Fri08/15/18 at 1459 08/14/2018 8:54 AM CDT 21,000 mL sodium chloride 0.9 % irrigation bag Given INTRA-PROCEDURE MED, Starting Fri08/14/18 at 0854, Until Fri08/14/18 at 0915, Intra-op 08/15/2018 9:43 AM CDT 0.4 mg tamsulosin [...]
--- OUTSIDE RECORDS SUMMARY | 2018-09-03 08:31 | XMS REPORT | Encounter Summary ---
Author Author [facility] Organization [facility] Address Unknown Phone Unavailable Care Team Providers Care Technical Proposal Writer Name Role Phone Ebonie Isaacs PCP Encounter Details Care Team Description Date Type Department 08/05/2018 Hospital [facility] Encounter [facility] [address] [address] Social History Date Tobacco Use Types Packs/Day Years Used Never Assessed Sex Assigned at Date Recorded Not on file Industry Job Start Date Occupation Not on file Not on file Not on file Travel End Travel History Travel Start No recent travel history available. documented as of this encounter Medications at Time of Discharge Start Date End Date Medication Sig Dispensed Refills 02/23/2016 pravastatin (PRAVACHOL) Take 1 tablet 0 10 mg tablet by mouth at bedtime 2015 tamsulosin (FLOMAX) 0.4 Take 1 0 mg capsule capsule by mouth twice daily. documented as of this encounter Plan of Treatment Not on filedocumented as of this encounter Procedures Comments Procedure Name Priority Date/Time Associated Diagnosis CT C-SPINE EXTERNAL Routine 08/05/2018 IMAGING 1:55 PM CDT documented in this encounter Results * CT C-SPINE EXTERNAL IMAGING (08/05/2018 1:55 PM CDT) Narrative Performed At This order has been auto finalized and does not contain a result. documented in this encounter Visit Diagnoses Not on filedocumented in this encounter
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
--- OUTSIDE RECORDS SUMMARY | 2018-09-03 08:31 | XMS REPORT | Encounter Summary ---
Author Author [facility] Organization [facility] Address Unknown Phone Unavailable Care Team Providers Care Orthopedic Assistant Name Role Phone Ebonie Isaacs PCP Reason for Referral * Radiology Services (Routine) Referred By Contact Referred To Contact Status Reason Specialty Diagnoses / Procedures Sedrick Bertrand MD [address] [place] [address] [address] No Auth Needed Radiology Diagnoses Bladder mass P rocedures CT ABD/PELV W CONTRAST CHG CT THORAX W/CONTRAST MATERIAL Reason for Visit * Reason Comments New Patient BLADDER MASS * Auth/Cert Referred By Contact Referred To Contact Status Reason Specialty Diagnoses / Procedures Diagnoses Bladder tumor Bladder tumor [D49.4] P rocedures VA CYSTOURETHROSCOPY W/DEST &/RMVL TUMOR LARGE CYSTOURETHROSCOPY WITH FULGURATION/ RESECTION BLADDER TUMOR -LARGE - GREATER THAN 5.0 CM Encounter Details Care Team Description Date Type Department Sedrick Bertrand MD [address] [place] [address] Bladder mass (Primary Dx) 08/10/2018 Office Visit The [address] [phone] Social History Date Tobacco Use Types Packs/Day [...] Vital Signs Time Taken Vital Sign Reading 08/10/2018 8:51 AM CDT Blood Pressure 104/69 08/10/2018 8:51 AM CDT Pulse 100 08/10/2018 8:51 AM CDT Temperature 36.5 C (97.7 F) 08/10/2018 8:51 AM CDT Respiratory Rate 18 08/10/2018 8:51 AM CDT Oxygen Saturation 97% - Inhaled Oxygen - Concentration 08/10/2018 8:51 AM CDT Weight 75.4 kg (166 lb 3.2 oz) - Height - - Body Mass Index - documented in this encounter Functional Status Date of Assessment Functional Status Response 08/10/2018 Does the patient have a hearing impairment: No documented as of this encounter Patient Instructions * Patient Instructions* Emily Bourne RN - 08/10/2018 9:00 AM CDT [facility] Pre-Operative Instructions Surgical Procedure: Transurethral resection of bladder tumor, possible bilateral retrograde pyelograms Date of Surgery: 08/14/18 Arrival Time at the Admission Office (Main Lobby): Will call To ensure that your surgery can proceed without delay, you will be contacted by a phone triage nurse from the Preoperative Assessment Clinic (PAC) to complete this process. Please review the information given to you by your surgeon. You will be called by the surgery staff with your day of surgery arrival time between 2:30 - 4:30 PM the business day prior to surgery. If you have not heard from them after 4:30 PM, please call to confirm your arrival time. Pre-Operative Assessment and Instructions:Once you speak to the nurse or are seen in the Pre-Operative Assessment Clinic, you will be given medication instructions. However, if surgery is within 2 weeks, please read and follow the medication instructions below to prepare for surgery before you speak with the phone triage nurse: 14 days prior to surgery: ? Contact your doctor who prescribes any of the following to develop a plan for surgery: o Blood thinners such as aspirin, Aggrenox, Brilinta, Effient, Eliquis, enoxaparin (Lovenox), clopidogrel (Plavix), cilostazol, pentoxifylline (Trental) , Pradaxa, Savaysa, ticlopidine, Xarelto, and warfarin (Coumadin) o Immunosuppresants such as methotrexate, azathioprine, sulfasalazine, everolimus, sirolimus, Humira, Remicade, Enbrel, Simponi, Orencia, Cimzia, Actemra, and Xeljanz o Chemotherapy ? Stop most vitamins, herbals, and supplements including (but not limited to): o Alpha lipoic acid, black cohosh, CoQ10, echinacea, eye vitamins, fish oil, flaxseed oil, garlic, gingko biloba, ginseng, glucosamine/chondroitin, kava, Lovaza, lutein, lysine, multivitamin, red yeast rice, GABRIELA-e, saw palmetto, Henry wort, turmeric, valerian root, Vascepa, Vitamin A, Vitamin B complex, Vitamin C, Vitamin E ? You DO NOT need to stop: iron, magnesium, potassium 7 days prior to surgery: ? Stop anti-inflammatory medications such as ibuprofen (Advil, Motrin), naproxen (Aleve), Latoya[place], Excedrin, Midol, celecoxib (Celebrex), diclofenac (Voltaren), diflunisal, etodolac, flurbiprofen, indomethacin, ketoprofen, ketorolac, meloxicam, nabumetone, and piroxicam Do not drink alcohol within 24 hours of surgery. Please do not eat or drink anything after midnight. No gum, mints, hard candy, snacks, coffee, etc or chewing tobacco allowed after midnight before surgery. You may brush your teeth but be sure to rinse and spit. Please shower with an over the counter antibacterial soap the evening before or the morning of surgery. If your surgery is scheduled as an outpatient, you must arrange to have someone drive you home and have someone with you 24 hours after anesthesia. If you have any questions, please contact your provider's office at [phone]. For emergencies during evenings, nights, weekends, and holidays, contact The [facility] multiple resaw operator and request they contact the on-call Urology Resident at [phone]. documented in this encounter Progress Notes * Sedrick Bertrand MD - 08/10/2018 9:00 AM CDT Name: Sara Leiva : 1940 AGE: 77 y.o. DATE OF SERVICE: 08/10/2018 Subjective: Reason for Visit: New Patient (BLADDER MASS) Sara Leiva is a 77 y.o. male. Cancer Staging No matching staging information was found for the patient. History of Present Illness- 77 y/o male with history of hematuria with clots for over a year. He presented to [facility] ER Apr 2018 with gross hematuria and urinary retention, venegas catheter was placed. He followed up with Dr. Brush who discontinued the catheter mid May 2018. CT abd was completed June 2018, which showed an abnormal appearance of the urinary bladder, a thick- walled appearance and a possible mass at the base and on the left. Cysto was completed by Dr. Brush July 2018 which noted lesions at the prostate, bladder neck and right side of bladder. He is a current everyday smoker. He has smoked a pack a day for 50 years. He has a family history of bladder cancer, his brother. - 01/16/2018 CT SCAN C/A/P - Small 4 mm nodule in the anterior left upper lobe. If the patient is high risk for caner, consider follow up CT in 12 months. No evidence of subclavian stenosis. Small infrarenal abdominal aortic aneurysm measuring up to 3.4 cm without evidence of rupture. Diverticulosis of the distal colon. Wall thickening of the sigmoid colon is thought to be due to decompression, less likely colitis. - 07/09/2018 Cystoscopy no lesions found, all within normal limits. - 07/23/2018 CT SCAN ABD/PELVIS - Abnormal appearance of the urinary bladder which appears to be thick-walled and contains possible mass at the base and to the left. Evaluation is limited without IV contrast. Post contrast imaging or cystoscopy is recommended for further evaluation. In addition, there has been development of numerous low density solid appearing masses throughout the liver concerning for hepatic metastatic disease. There are some mildly prominent lymph nodes in the vijaya hepatis as well as in the right iliac region which could be metastatic as well. - 07/30/2018 Cystoscopy found lesions bladder neck and bladder wall especially on the right. - 08/05/2018 Notified that patient is in the hospital at [facility] in [place], [place] Mr. Leiva went to [facility]'s ER 08/05/2018 with right arm/ hand numbness and inability to move his right arm. A CT SCAN head and cervical spine was completed at that time and small to moderated area of low density involving the left frontal lobe was noted. An underlying mass or cystic encephalomalacia in the region may be considered. A subacute or chronic infarct also may be considered. Chronic encephalomalacia involving the anterior aspect of the left temporal lobe. There are bilateral intraparotid and periparotid masses. 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 Enlarged nodes may also be considered. Nonemergent MRI of the parotid glands with and without IV contrast is suggested. ENT consultation is also suggested. Cervical spine degenerative disease with no acute fracture or dislocation. There is no cervical spine mass seen. He also had a MRI brain completed the following day which noted punctate areas of diffusion restriction in both cerebellar hemispheres consistent with acute punctate infarctions, probably from a cardiogenic source. Old infarcts are present in the left frontal lobe and left temporal lobe. Atrophy and small vessel disease are present. The patient could not tolerate further imaging. Imaging through the parotid lesion was not obtained. There is fluid in the right mastoid air cells. Left maxillary sinusitis. Referred to Urology for further evaluation and treatment. Past medical history is HTN, HLD, deaf in right ear, ED, myocardial infarction and CAD. Recent hospitalization for "mini strokes". Patient has undergone cystoscopy and demonstrated abnormal lesions but he has not undergone any biopsies. CT scan demonstrates questionable lesions in the liver concerning for metastatic disease. Patient having difficulty with walking. Patient had recent weight loss of about 30 lbs, has decreased appetite. Having back pain "near his kidneys". Sitting and in bed most of the day. Able to walk up a flight of stairs. Having gross hematuria. Dr. Brush told the patient that scope showed "aggressive bladder tumors". PMHx: No past medical history on file. HTN HLD, ED Hx of strokes, HI CAD SurgHx: No past surgical history on file. Allergies: Allergies not on file SocHx: Social History Socioeconomic History Marital status: Spouse name: Not on file Number of children: Not on file Years of education: Not on file Highest education level: Not on file Occupational History Not on file Tobacco Use Smoking status: Not on file Substance and Sexual Activity Alcohol use: Not on file Drug use: Not on file Sexual activity: Not on file Other Topics Concern Not on file Social History Narrative Not on file FamHx: No family history on file. Review of Systems +appetite change, fatigue, hematuria, agitation Rest of comprehensive ROS is negative Objective: No current outpatient medications on file. Vitals: 08/10/18 0851 BP: 104/69 Pulse: 100 Resp: 18 Temp: 36.5 C (97.7 F) TempSrc: Oral SpO2: 97% Weight: 75.4 kg (166 lb 3.2 oz) There is no height or weight on file to calculate BMI. Pain Score: Eight Pain Loc: Back Fatigue Scale: 9 Pain Addressed: N/A Patient Evaluated for a Clinical Trial: No treatment clinical trial available for this patient. Eastern Cooperative Oncology Group performance status is 3, Capable of only limited selfcare, confined to bed or chair more than 50% of waking hours. Physical Exam General appearance: alert, cooperative and extremely frail Neurologic: Grossly normal, Alert and oriented x3 Head: Normocephalic, without obvious abnormality, atraumatic. Back: No CVA tenderness. Lungs: breathing is unlabored Heart: pulse is regular Abdomen: soft, non-tender, no palpable masses Male genitalia: normal, penis, no lesions, no urethral discharge. scrotal contents normal to inspection and palpation, normal testes palpated bilaterally Extremities: extremities normal, atraumatic, no cyanosis or edema Skin: No rashes or lesions Assessment and Plan: Mr. Leiva is a 77 y/o male with presumed stage IV bladder cancer. Patient has undergone staging with CT Abd/Pelvis which demonstrates liver lesions concerning for metastatic disease. Cystoscopy today demonstrate friable tumor tissue at the bladder neck and prostatic urethra. Patient will need a definitive tissue diagnosis so we went over proceeding with TURBT. The other option is biopsy of the liver which we also discussed. Will proceed with TURBT given his significant LUTS. Plan to proceed for TURBT. We went over the goals of therapy, the hospital course and risks of surgery in great detail. The risks include but are not limited to bleeding, infection, damage to contiguous organs, perforation of the bladder, injury to the ureteral orifice and/or ureter, need for prolonged venegas catheter, pain, inability to complete the operation, need for other procedures such as percutaneous nephrostomy tube, laparotomy, HI, PE, stroke and . Patient verbalized understanding of the risks and wishes to proceed. The patient signed informed consent. Will obtain a repeat CT C/A/P with contrast this time to assess metastatic burden. Patient will likely require proceeding with systemic therapy after diagnosis. We will send him to PAT. As his performance status is so poor, we may have to delay procedure if other work-up is necessary. documented in this encounter Plan of Treatment Order Schedule Name Priority Associated Diagnoses Expected: 08/10/2018 (Approximate), Expires: 08/11/2019 CT ABD/PELV W CONTRAST Routine Bladder mass Ordered: 08/10/2018 CYTOLOGY URINES Routine Bladder mass documented as of this encounter Procedures Comments Procedure Name Priority Date/Time Associated Diagnosis NON-CERTIFIED GREEN BUILDING ENGINEER CYTOLOGY (BODY 08/10/2018 FLUIDS/TISSUE) 2:10 PM CDT documented in this encounter Results * NON-CERTIFIED GREEN BUILDING ENGINEER CYTOLOGY (BODY FLUIDS/TISSUE) (08/10/2018 2:10 PM CDT) Cytology [facility] [employer] [facility] [email or web address] Department of Pathology and Laboratory Medicine [address] [place] [address] Surgical Pathology Office:[phone] :[phone] CYTOLOGY REPORT NAME: SARA LEIVA CYTOLOGY #: [id number] MR #: [id number] ALT ID #: [id number] #: [id number] LOCATION: [facility] DATE OF PROCEDURE: 08/10/2018 AGE: 77 SEX: M DATE RECEIVED: 08/10/2018 : 1940TIME RECEIVED:14:10 PHYSICIAN: SEDRICK BERTRAND MD DATE OF REPORT: 08/11/2018 COPY TO:DATE [...] in this report. +++Electronically Signed Out By+++ eh/08/11/2018 Interpreted by: Karli Carrasco MD, PhD Anna Holliday D.O. Performing Organization Address City/State/Zipcode Phone Number [facility] [address] [place] [address] * CBC (08/10/2018 10:47 AM CDT) Pathologist [facility] White Blood 7.0 4.5 - 11.0 K/UL [facility] Cells RBC 3.80 (L) 4.4 - 5.5 M/UL [facility] Hemoglobin 12.4 (L) 13.5 - 16.5 GM/DL [facility] Hematocrit 36.4 (L) 40 - 50 % [facility] MCV 95.7 80 - 100 FL [facility] MCH 32.5 26 - 34 PG [facility] MCHC 34.0 32.0 - 36.0 G/DL [facility] RDW 13.8 11 - 15 % [facility] Platelet Count 181 150 - 400 K/UL [facility] MPV 8.1 7 - 11 FL [facility] Specimen Blood Performing Organization Address City/State/Zipcode Phone Number [facility] [address] [place] [address] * COMPREHENSIVE METABOLIC PANEL (08/10/2018 10:47 AM CDT) Pathologist [facility] Sodium 137 137 - 147 MMOL/L [facility] Potassium 4.7 3.5 - 5.1 MMOL/L [facility] Chloride 107 98 - 110 MMOL/L [facility] Glucose 145 (H) 70 - 100 MG/DL [facility] Blood Urea 22 7 - 25 MG/DL [facility] Nitrogen Creatinine 1.33 (H) 0.4 - 1.24 MG/DL [facility] Calcium 9.5 8.5 - 10.6 MG/DL [facility] Total Protein 6.5 6.0 - 8.0 G/DL [facility] Total Bilirubin 0.8 0.3 - 1.2 MG/DL [facility] Albumin 3.4 (L) 3.5 - 5.0 G/DL [facility] Alk Phosphatase 123 (H) 25 - 110 U/L [facility] AST (SGOT) 19 7 - 40 U/L [facility] CO2 23 21 - 30 MMOL/L [facility] ALT (SGPT) 15 7 - 56 U/L [facility] Anion Gap 7 3 - 12 [facility] eGFR Non 52 (L) >60 mL/min [facility] Comment: Citizen Of [place] The eGFR is not validated for use in drug dosing adjustments.Continue to use estimated creatinine clearance per dosing reference text.Please contact the Clinical Pharmacist for questions. eGFR >60 >60 mL/min [facility] Citizen Of [place] Comment: The eGFR is not validated for use in drug dosing adjustments.Continue to use estimated creatinine clearance per dosing reference text.Please contact the Clinical Pharmacist for questions. Performing Organization Address City/State/Zipcode Phone Number [facility] [address] [place] [address] documented in this encounter Visit Diagnoses Diagnosis Bladder mass - Primary Other specified disorders of bladder documented in this encounter
--- OUTSIDE RECORDS SUMMARY | 2018-09-03 08:31 | XMS REPORT | Encounter Summary ---
Author Author [facility] Organization [facility] Address Unknown Phone Unavailable Care Team Providers Care Business Transformation Analyst Name Role Phone Ebonie Isaacs DO PCP Reason for Visit * Reason Comments Navigation Assessment Encounter Details Care Team Description Date Type Department Sedrick Bertrand MD [address] [place] [address] [phone] Navigation Assessment 08/06/[address] Tele[address] [address] Social History Date Tobacco Use Types Packs/Day Years Used Never Assessed Sex Assigned at Date Recorded Not on file Industry Job Start Date Occupation Not on file Not on file Not on file Travel End Travel History Travel Start No recent travel history available. documented as of this encounter Miscellaneous Notes * Telephone Encounter - Julio Cesar Ferraro RN - 08/06/2018 9:10 AM CDT Navigation Intake Assessment Document Patient Name: Cameron Leiva : 1940 Insurance: Medicare Appointment Info: Future Appointments Date Time Provider Department Center 08/10/2018 9:00 AM Sedrick Bertrand MD [facility] Exam 08/10/2018 9:30 AM CC PROCEDURE ROOM [address] [facility] Exam 08/10/2018 10:30 AM [id number] [facility] Diagnosis & Reason for Visit: Bladder mass Physician Info: Referring Physician: Tigre Brush MD PCP: Fozia Isaacs MD Location of Films: PACS Location of Pathology: None History of Present Illness: - 77 y/o male with history of hematuria with clots for over a year. He presented to [facility] ER Apr 2018 with gross hematuria and urinary retention, venegas catheter was placed. He followed up with Dr. Brush who discontinued the catheter mid May 2018. CT abd was completed June 2018, which showed an abnormal appearance of the urinary bladder, a thick-walled appearance and a possible mass at the [...] that patient is in the hospital at [facility] in [place], [place] Mr. Leiva went to [facility]'s ER 08/05/2018 with right arm/ hand numbness [...] air cells. Left maxillary sinusitis. Referred to [facility] for further evaluation and treatment. Past medical history is HTN, HLD, deaf in right ear, ED, myocardial infarction and CAD. Comments: Julio Cesar Brito, MS, RN spoke with patient and informed him of date , time and location of appointment. Patient verbalized understanding. Scheduling letter sent to patient. , Pamela hopes he will be here for appointment on 08/10/2018 and asked that the appointment is not cancelled. documented in this encounter Plan of Treatment Not on filedocumented as of this encounter Visit Diagnoses Not on filedocumented in this encounter
--- OUTSIDE RECORDS SUMMARY | 2018-09-03 08:31 | XMS REPORT | Encounter Summary ---
Author Author [facility] Organization [facility] Address Unknown Phone Unavailable Care Team Providers Care Hvac Estimator Name Role Phone Ebonie Isaacs DO PCP Encounter Details Care Team Description Date Type Department Sedrick Bertrand MD [address] [place], [place] [phone] Bladder tumor (Primary Dx) 08/10/2018 Prep for Case The [address] [phone] Social History Date Tobacco Use Types Packs/Day [...] impairment: No documented as of this encounter Plan of Treatment Not on filedocumented as of this encounter Visit Diagnoses Diagnosis Bladder tumor - Primary Neoplasm of unspecified nature of bladder documented in this encounter
--- OUTSIDE RECORDS SUMMARY | 2018-09-03 08:31 | XMS REPORT | Encounter Summary ---
Author Author [facility] Organization [facility] Address Unknown Phone Unavailable Care Team Providers Care Television Camera Operator Name Role Phone Ebonie Isaacs PCP Encounter Details Care Team Description Date Type Department 08/06/2018 Hospital [facility] Encounter [facility] [address] [address] Social History Date Tobacco Use [...] Comments Procedure Name Priority Date/Time Associated Diagnosis MRI HEAD EXTERNAL IMAGING Routine 08/06/2018 4:50 PM CDT documented in this encounter Results * MRI HEAD EXTERNAL IMAGING (08/06/2018 4:50 PM CDT) Narrative Performed At This order has been auto finalized and does not contain a result. documented in this encounter Visit Diagnoses Not on filedocumented in this encounter
--- OUTSIDE RECORDS SUMMARY | 2018-09-03 08:31 | XMS REPORT | Encounter Summary ---
Author Author [facility] Organization [facility] Address Unknown Phone Unavailable Care Team Providers Care Loom Cleaner Name Role Phone IsaacsEbonie kaiser PCP Encounter Details Care Team Description Date Type Department Bernardino Garcia 08/03/2018 Documentation [facility] [address] [phone] Social History Date Tobacco Use Types Packs/Day [...]
--- OUTSIDE RECORDS SUMMARY | 2018-09-03 08:31 | XMS REPORT | Encounter Summary ---
Author Author [facility] Address Unknown Phone Unavailable Care Team Providers Care Airfield Manager Name Role Phone Ebonie Isaacs PCP Reason for Visit * Auth/Cert Referred By Contact Referred To Contact Status Reason Specialty Diagnoses / Procedures Diagnoses Bladder tumor Bladder tumor [D49.4] P rocedures NM CYSTOURETHROSCOPY W/DEST &/RMVL TUMOR LARGE CYSTOURETHROSCOPY WITH FULGURATION/ RESECTION BLADDER TUMOR -LARGE - GREATER THAN 5.0 CM Encounter Details Care Team Description Date Type Department Sedrick Bertrand MD [address] [facility] [place] [address] Bladder mass 08/10/2018 Ancillary The [address] [address] Anesthesia Record Responsible Anesthesiologist Anesthesia Start Time [...] Signs Time Taken Vital Sign Reading 08/10/2018 10:04 AM CDT Blood Pressure 82/43 08/10/2018 10:04 AM CDT Pulse 93 08/10/2018 10:04 AM CDT Temperature 36.3 C (97.3 F) - Respiratory Rate - 08/10/2018 10:04 AM CDT Oxygen Saturation 98% - Inhaled Oxygen - Concentration 08/10/2018 10:04 AM CDT Weight 75.4 kg (166 lb 3.2 oz) 08/10/2018 10:04 AM CDT Height 185 cm (6' 0.84") 08/10/2018 10:04 AM CDT Body Mass Index 22.03 documented in this encounter Functional Status Date of Assessment Functional Status Response 08/10/2018 Does the patient have a hearing impairment: No documented as of this encounter Patient Instructions * Pre-Anesthesia Patient Instructions* Nadege Joseph RN - 08/10/2018 10:30 AM CDT GENERAL INFORMATION Before you come to the hospital Make arrangements for a responsible adult to drive you home and stay with you for 24 hours following surgery. Bath/Shower Instructions Take a bath or shower using the special soap given to you in PAC. Use half the bottle the night before, and the other half the morning of your procedure. Use clean towels with each bath or shower. Put on clean clothes after bath or shower. Avoid using lotion and oils. If you are having surgery above the waist, wear a shirt that fastens up the front. Sleep on clean sheets if bath or shower is done the night before procedure. Leave money, credit cards, jewelry, and any other valuables at home. [facility] is not responsible for the loss or breakage of personal items. Remove nail maldivian, makeup and all jewelry (including piercings) before coming to the hospital. The morning of your procedure: brush your teeth and tongue do not smoke do not shave the area where you will have surgery What to bring to the hospital ID/ Insurance Card Collar Setter Overlock card Official documents for legal guardianship Copy of your Living Will, Advanced Directives, and/or Durable Power of Research Leader Small bag with a few personal belongings CPAP/BiPAP machine (including all supplies) Walker,cane, or motorized scooter Cases for glasses/hearing aids/contact lens (bring solutions for contacts) Dress in clean, loose, comfortable clothing Eating or drinking before surgery Do not eat or drink anything after 11:00 p.m. the day before your procedure ( including gum, mints, candy, or chewing tobacco) OR follow the specific instructions you were given by your Surgeon. You may have WATER ONLY up to 2 hours before arriving at the hospital. Other instructions: Other instructionsNotify your surgeon if: there is a possibility that you are you become ill with a cough, fever, sore throat, nausea, vomiting or flu- like symptoms you have any open wounds/sores that are red, painful, draining, or are new since you last saw the doctor you need to cancel your procedure You will receive a call with your surgery arrival time from between 2:30pm and 4:30pm the last business day before your procedure. If you do not receive a call, please call [phone] before 4:30pm or [phone] after 4:30pm. Notify us at [facility]: if you need to cancel your procedure if you are going to [place] [address] Park in the Parking Garage, located directly across from the main entrance to the hospital. [employer] parking is available from 7 AM to 4 PM Friday through Friday. Enter through the ground floor [facility] entrance and check in at the Information Desk in the lobby. They will validate your parking ticket and direct you to the next location. If you are a woman between the ages of 10 and 55, and have not had a hysterectomy, you will be asked for a urine sample prior to surgery. Please do not urinate before arriving in the Surgery Waiting Room. Once there, check in and let the attendant know if you need to provide a sample. * Pre-Anesthesia Medication Instructions* Hanna Hodges PHARMD - 08/10/2018 10:30 AM CDT YOUR MEDICATIONS: enalapril (VASOTEC) 5 mg tablet 1 tablet [...] Take 1 capsule by mouth twice daily. YOUR MEDICATION INSTRUCTIONS FOR SURGERY: Before surgery Stop the following vitamins, herbals, and natural supplements 14 days before surgery: Do not start any new vitamins, herbals, or natural supplements before surgery. Stop the following medications 7 days before surgery: Anti-inflammatory medications such as ibuprofen (Advil, Motrin) and naproxen (Aleve) You may use acetaminophen (Tylenol) Morning of surgery On the morning of surgery, do NOT take these medications: Remaining vitamins/supplements Ointments/creams/lotions On the morning of surgery, take ONLY these medications with a sip (1-2 ounces) of water: Finasteride Metoprolol Tamsulosin Other information Before surgery, please contact the clinic pharmacist with any medicine updates or questions. E-mail: [email or web address] Before going home from the hospital, please ask your doctor when you should re- start your medicines that were stopped before surgery. documented in this encounter Plan of Treatment Not on filedocumented as of this encounter Procedures Comments Procedure Name Priority Date/Time Associated Diagnosis CBC Routine 08/10/2018 Bladder mass 10:47 AM CDT TYPE & SCREEN (NOT Routine 08/10/2018 Bladder mass CROSSMATCH ELIGIBLE) 10:47 AM CDT COMPREHENSIVE METABOLIC Routine 08/10/2018 Bladder mass PANEL 10:47 AM CDT documented in this encounter Results * TYPE & SCREEN (NOT CROSSMATCH ELIGIBLE) (08/10/2018 10:47 AM CDT) ABO/RH(D) A POS [facility] Antibody Screen NEG [facility] Blood Component RED CELL GROUP [facility] Type Specimen Blood, venous - Blood Performing Organization Address City/State/Zipcode Phone Number [facility] [address] [place] [address] * COMPREHENSIVE METABOLIC PANEL (08/10/2018 10:47 AM CDT) Sodium 137 137 - 147 MMOL/L [facility] [...] 52 (L) >60 mL/min [facility] Comment: [place] The eGFR is not validated for use in drug dosing adjustments.Continue to use estimated creatinine clearance per dosing reference text.Please contact the Clinical Pharmacist for questions. eGFR >60 >60 mL/min [facility] [place] Comment: The eGFR is not validated for use in drug dosing adjustments.Continue to use estimated creatinine clearance per dosing reference text.Please contact the Clinical Pharmacist for questions. Performing Organization Address [facility]/Zipcode Phone Number [facility] [address] [place] [address] * CBC (08/10/2018 10:47 AM CDT) White Blood 7.0 4.5 - 11.0 K/UL [facility] Cells RBC 3.80 (L) 4.4 - 5.5 M/UL [facility] Hemoglobin 12.4 (L) 13.5 - 16.5 GM/DL [facility] Hematocrit 36.4 (L) 40 - 50 % [facility] MCV 95.7 80 - 100 FL [facility] MCH 32.5 26 - 34 PG [facility] MCHC 34.0 32.0 - 36.0 G/DL [facility] RDW 13.8 11 - 15 % [facility] Platelet Count 181 150 - 400 K/UL [facility] MPV 8.1 7 - 11 FL [facility] Specimen Blood Performing Organization Address City/State/Zipcode Phone Number [facility] [address] [place] [address] documented in this encounter Visit Diagnoses Diagnosis Bladder mass Other specified disorders of bladder documented in this encounter
--- OUTSIDE RECORDS SUMMARY | 2018-09-03 08:32 | XMS REPORT | Encounter Summary ---
Author Author [facility] Organization [facility] Address Unknown Phone Unavailable Care Team Providers Care Manufacturing Engineering Director Name Role Phone PCP Unavailable Encounter Details Care Team Description Date Type Department 07/23/2018 Hospital [facility] [address] [address] Social History Date Tobacco Use [...]
--- NOTE | 2018-09-03 08:34 | Progress Note-Pre Operative ---
Pre-Operative Progress Note H&P Reviewed The H&P was reviewed, patient examined and no changes noted. Date Seen by Provider: September 03, 2018 Time Seen by Provider: 08:30 Date H&P Reviewed: September 03, 2018 Time H&P Reviewed: 08:25 Pre-Operative Diagnosis: Metastatic Bladder Cancer JAI MO FIRE FIGHTING EQUIPMENT SPECIALIST September 03, 2018 08:34
[2018-09-03] MEDS ORDERED: HYDR-3812 PO (08:35)
--- NOTE | 2018-09-03 08:36 | Discharge Inst-Surgical ---
D/C Lap Instructions-KIDO New, Converted, or Re-Newed RX: RX on Chart Follow Up Appt as needed Activity as tolerated No driving for 24 hours No driving while on pain medications Regular Diet Symptoms to Report: Fever over 101 degree F, Nausea/Vomiting Infection Signs and Symptoms to report: Increased redness, Foul odor of wound, Increased drainage Bathing instructions: May shower Operative Area Clean/Dry; Keep incision clean/dry If any problems/questions: Contact your physician or go to Emergency Room JAI MO APRN September 03, 2018 08:36
[2018-09-03] MEDS ORDERED: HYDROcodone/APAP 5 MG/325 MG (LORTAB) TAB PO ONE (08:45)
[2018-09-03] MEDS ORDERED: ACETAMINOPHEN 325 MG TABLET PO PRN (08:45)
[2018-09-03] MEDS ORDERED: morphine INJ 10 MG/ML 1ML (SYR OR VIAL) IVP PRN (08:45)
[2018-09-03] MEDS ORDERED: ONDANSETRON 4 MG/2 ML (SDV) Z0FRAN IVP PRN (08:45)
[2018-09-03] MEDS ORDERED: LACTATED RINGERS 1,000 ML IV PRN (09:07)
[2018-09-03] MEDS ORDERED: ceFAZolin 2 GM/50 ML NS 50 ML ONE (09:14)
[2018-09-03] MEDS ORDERED: ceFAZolin 2 GM/50 ML NS 50 ML IV ONE (09:15)
[2018-09-03] MEDS ORDERED: CATHETER FLUSH 10 ML SYR IV PRN (09:30)
[2018-09-03] MEDS ORDERED: HEParin (CENTRAL IV FLUSH) 500 UNIT/5 ML SYR ONE (09:49)
[2018-09-03] MEDS ORDERED: BUP/EPI 0.5% 1:200,000 (SENSORCAINE) 30 ML VIAL ONE (09:49)
[2018-09-03] MEDS ORDERED: LIDOCAINE/EPI 1%-1:100,000 (XYLOCAINE) 20ML ONE (09:52)
[2018-09-03] MEDS ORDERED: MIDAZOLAM 2 MG/2 ML (VERSED) VIAL ONE (10:31)
[2018-09-03] MEDS ORDERED: PROPOFOL INJECTION 50 ML IV ONE (10:31)
[2018-09-03] MEDS ORDERED: fentaNYL INJECTION 100 MCG/2 ML AMP ONE (10:31)
--- NOTE | 2018-09-03 11:08 | Progress Note-Post Operative ---
Post-Operative Progess Note Surgeon (s)/Portal Architect (s) Surgeon DEDE DAIVS MD Portal Architect: edwin laguna CONTROL TOWER RADIO OPERATOR Pre-Operative Diagnosis Metastatic Bladder Cancer Post-Operative Diagnosis same Procedure & Operative Findings Date of Procedure 09/03/18 Procedure Performed/Findings left subclavian groshong implantable catheter under flouroscopy. Anesthesia Type mac with local Estimated Blood Loss Estimated blood loss (mL): minimal Specimens/Packing Specimens Removed none DEDE DVAIS MD September 03, 2018 11:07
--- NOTE | 2018-09-03 12:01 | Diagnostic Imaging Report ---
CLINICAL INDICATION: Postop PowerPort placement. EXAM: Portable chest x-ray upright view. COMPARISON: Chest x-ray dated 05/17/2018. FINDINGS: There is interval discoid atelectasis or scarring in the right xrw-du-fqddy lung field region. Otherwise, lungs are clear. There is no pleural effusion or pneumothorax. PowerPort seen overlying left chest with the tip in the distal superior vena cava in good position. Pulmonary vasculature and cardiac silhouette is unremarkable and stable. There are stable postop changes to the chest with sternotomy wires and mediastinal clips. There are degenerative spurs involving the spine. There are degenerative spurs involving the bilateral acromioclavicular joints. IMPRESSION: 1: Interval placement of PowerPort overlying left chest with tip in the distal superior vena cava in good position. There is no pneumothorax. 2: There is interval development of discoid atelectasis or scarring in right mid to lower lung field. Dictated by: Dictated on workstation # [id number]
--- NOTE | 2018-09-03 19:52 | OPERATIVE REPORT ---
DATE OF SERVICE: 09/03/2018 ATTENDING PRIMARY CARE PHYSICIAN: Dr. Isaacs. 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 POSTOPERATIVE DIAGNOSIS: Metastatic urethral transitional cell carcinoma. PROCEDURE: Placement of left subclavian Groshong implantable catheter under fluoroscopy. SURGEON: Dede Davis MD SAIL LAY OUT WORKER: Yaw Loomis APRN. ANESTHESIA: Monitored anesthesia care with local. ESTIMATED BLOOD LOSS: Minimal. FINDINGS: Catheter tip at the superior vena cava-right atrial junction. DISPOSITION: The patient tolerated the procedure well. INDICATIONS: The patient is a 77-year-old male referred over to us for a Groshong implantable catheter. Six months ago, he had developed gross hematuria and cystoscopy was performed, which was negative. Then, he continued to have hematuria and another cystoscopy was performed, which did show a bladder mass and was referred to [facility] and found to have metastatic high-grade transitional cell urethral carcinoma. There appeared to be multiple lesions of the bilateral lungs, liver, prostate gland as well as pelvic lymphadenopathy. He will undergo immunotherapy and will require a Groshong implantable catheter. DESCRIPTION OF PROCEDURE: The patient was brought to the operating room, laid supine on the table. After monitored anesthesia care, the chest and neck were prepped and draped in standard surgical fashion. 1% lidocaine with epinephrine was then used to anesthetize the subclavian region. The subclavian vein was then cannulated with drawing of venous blood and the guidewire was inserted under fluoroscopy. The skin incision was then made using a 15 blade and the dilator and sheath were then introduced. The guidewire and dilator were then removed and the Groshong implantable catheter was placed under fluoroscopy and the catheter tip was at the superior vena cava- right atrial junction. The sheath was then removed. The inner wire within the catheter was removed. Catheter cut down to size and the port placed onto the catheter. The skin incision was then extended laterally using a 15 blade and a chest reservoir was then created between the subcutaneous fat and the anterior pectoralis fascia using blunt dissection as well as electrocautery with visualization of good hemostasis. The port was then placed in the reservoir and sutured to the pectoralis fascia using interrupted 3-0 Vicryl sutures. Subcutaneous tissue was then reapproximated using 3-0 Vicryl interrupted suture. Skin was closed using 4-0 Monocryl running subcuticular sutures. Wound was then cleaned and covered with Dermabond. The patient tolerated the procedure well. We will get a post-procedure chest x-ray and once placement confirmed, the catheter may be accessed and used at any time. Job ID: [id number] DocumentID: [id number] Dictated Date: 09/03/2018 11:15:35 Waitstaff Date: 09/03/2018 19:51:13 Dictated By: DEDE DAVIS MD MTDD
--- NOTE | 2018-09-03 20:59 | Diagnostic Imaging Report ---
INDICATION: Fluoroscopy during power port insertion. Fluoroscopy was provided during power port insertion. 14 seconds of fluoroscopy was utilized. Left-sided port appears to have the tip overlying the SVC. IMPRESSION: Fluoroscopy for power port insertion. Dictated by: Dictated on workstation # [id number]
[2018-09-04] MEDS ORDERED: METO-387 PO (15:04)
[2018-09-07] MEDS ORDERED: DOCU-143 PO (09:06)
[2018-09-07] MEDS ORDERED: OXYC1TAB12 PO (09:06)
[2018-09-07] MEDS ORDERED: SENN15TA PO (09:06)
== END 2018-09-03 12:37 | disposition home or self-care (01) ==
LOC: SDC 08:24
PROVIDERS: ATTEND Surgery
DX: C67.9 Malignant neoplasm of bladder, unspecified (principal); C79.82 Secondary malignant neoplasm of genital organs; C78.7 Secondary malignant neoplasm of liver and intrahepatic bile duct; C78.01 Secondary malignant neoplasm of right lung; C78.02 Secondary malignant neoplasm of left lung; I25.10 Atherosclerotic heart disease of native coronary artery without angina pectoris; I73.9 Peripheral vascular disease, unspecified; E03.9 Hypothyroidism, unspecified; N40.0 Benign prostatic hyperplasia without lower urinary tract symptoms; I10 Essential (primary) hypertension; E78.00 Pure hypercholesterolemia, unspecified; E78.5 Hyperlipidemia, unspecified; I45.10 Unspecified right bundle-branch block; F17.210 Nicotine dependence, cigarettes, uncomplicated; Z86.73 Personal history of transient ischemic attack (TIA), and cerebral infarction without residual deficits; Z95.1 Presence of aortocoronary bypass graft; Z95.5 Presence of coronary angioplasty implant and graft; Z79.899 Other long term (current) drug therapy; Z11.2 Encounter for screening for other bacterial diseases
CPT/HCPCS: 71045; 87081

== ENCOUNTER 2018-09-04 13:59 | Inpatient (IN) | payer MEDICARE | END 2018-09-07 10:00 | disposition home or self-care (01) | LOC: 4TH 13:59 ==

== ENCOUNTER 2018-09-14 11:15 | Emergency (ER) | payer MEDICARE ==
[~2018-09-14] VITALS: Ht 182.9 cm; Wt 80.7 kg
[~2018-09-14 11:15] MED LIST changes: +DOCU-143 PO; +HYDR-3812 PO; +OXYC1TAB12 PO; +SENN15TA PO
--- NOTE | 2018-09-14 11:39 | ED General ---
General Chief Complaint: General Problems/Pain Stated Complaint: LOW BP Source of Information: Patient, EMS, Family, Old Records Exam Limitations: No Limitations History of Present Illness Date Seen by Provider: September 14, 2018 Time Seen by Provider: 11:39 Initial Comments Patient brought in by EMS c/ c/o dehydration, weakness, poor p.o. intake. Has known metastatic Ca c/ chronic pain. Just discharged from [facility] last week for similar problems. Timing/Duration: Constant, Getting Worse Severity: Moderate Modifying Factors: improves with Other (none) Associated Systoms: Loss of Appetite, Malaise, Weakness, Other (chronic pain) Allergies and Home Medications Allergies Coded Allergies: No Known Drug Allergies (Unverified , 09/02/18) Home Medications Amiodarone HCl 400 Mg Tablet, 400 MG PO DAILY, (Reported) Cefdinir 300 Mg Capsule, 300 MG PO BID Prescribed by: SARAH ASTORGA on 09/14/18 1352 Docusate Sodium 100 Mg Capsule, 100 MG PO BID Prescribed by: JM LAMBERT on 09/07/18 0906 Finasteride 5 Mg Tablet, 5 MG PO DAILY, (Reported) Metoprolol Succinate 25 Mg Tab.er.24h, 25 MG PO DAILY, (Reported) HOLD FOR PULSE <60 Oxycodone HCl/Acetaminophen 1 Each Tablet, 1 TAB PO Q4H PRN for PAIN-MODERATE Prescribed by: JM LAMBERT on 09/07/18 0906 Sennosides 15 Mg Tablet, 15 MG PO Q48H Prescribed by: JM LAMBERT on 09/07/18 0906 Tamsulosin HCl 0.4 Mg Cap, 0.4 MG PO BID, (Reported) Patient Home Medication List Home Medication List Reviewed: Yes Review of Systems Review of Systems Constitutional: see HPI, malaise, weakness, weight loss Psychiatric/Neurological: See HPI, Weakness All Other Systems Reviewed Negative Unless Noted: Yes (Negative excepted noted.) Past Buolfnj-Tmhsrh-Fvcxpo Hx Patient Social History Type Used: Cigarettes 2nd Hand Smoke Exposure: Yes Recent Hopitalizations: No Immunizations Up To Date Tetanus Booster (TDap): Unknown PED Vaccines UTD: No Seasonal Allergies Seasonal Allergies: No Past Medical History Surgeries: Yes (OPEN HEART, BACK) Angioplasty, CABG Respiratory: No Currently Using CPAP: No Currently Using BIPAP: No Cardiac: Yes Coronary Artery Disease, Heart Attack, High Cholesterol, Irregular Heartbeat, Peripheral Vascular Neurological: No Concussion, TIA Reproductive Disorders: No Sexually Transmitted Disease: No HIV/AIDS: No Genitourinary: No Benign Prostatic Hyperpl, Prostate Problems Gastrointestinal: No Musculoskeletal: No Arthritis Endocrine: No HEENT: Yes Loss of Vision: Denies Hearing Impairment: Hard of Hearing Cancer: No Bladder, Lung What Type of Treatment Did You: Surgical Intervention Psychosocial: No Anxiety Integumentary: No Blood Disorders: No Adverse Reaction/Blood Tranf: No Family Medical History Diabetes mellitus 19 FATHER 19 MOTHER Myocardial infarction 19 MOTHER G8 BROTHER G8 SISTER Neoplasm G8 BROTHER (lung and bladder cancer ) Physical Exam Vital Signs Vital Signs - First Documented 09/14/18 11:15 Temp 96.4 Pulse 62 Resp 18 B/P (MAP) 103/44 (63) Pulse Ox 97 O2 Delivery Room Air Capillary Refill : Height, Weight, BMI Height: 6'0.00" Weight: 158lbs. 8.0oz. 71.522505bx; 21.5 BMI Method:Stated General Appearance: Chronically ill, Thin HEENT: Other (oropharynx somewhat dry) Respiratory: No Respiratory Distress Cardiovascular: Regular Rate, Rhythm Rectal: Deferred Neurologic/Psychiatric: Alert, Oriented x3, No Motor/Sensory Deficits, Depressed Affect Skin: Warm/Dry Progress/Results/Core Measures Suspected Sepsis SIRS Temperature: Pulse: Respiratory Rate: Laboratory Tests 09/14/18 11:20: White Blood Count 9.4 Blood Pressure / Mean: Laboratory Tests 09/14/18 11:20: Creatinine 1.04, Platelet Count 115L, Total Bilirubin 2.0H Results/Orders Lab Results Laboratory Tests Test 09/14/18 11:20 09/14/18 12:25 Range/Units White Blood Count 9.4 4.3-11.0 10^3/uL Red Blood Count 3.48 L 4.35-5.85 10^6/uL Hemoglobin 10.6 L 13.3-17.7 G/DL Hematocrit 33 L 40-54 % Mean Corpuscular Volume 94 80-99 FL Mean Corpuscular Hemoglobin 30 25-34 PG Mean Corpuscular Hemoglobin Concent 32 32-36 G/DL Red Cell Distribution Width 15.3 H 10.0-14.5 % Platelet Count 115 L 130-400 10^3/uL Mean Platelet Volume 10.3 7.4-10.4 FL Neutrophils (%) (Auto) 83 H 42-75 % Lymphocytes (%) (Auto) 7 L 12-44 % Monocytes (%) (Auto) 9 0-12 % Eosinophils (%) (Auto) 0 0-10 % Basophils (%) (Auto) 0 0-10 % Neutrophils # (Auto) 7.7 1.8-7.8 X 10^3 Lymphocytes # (Auto) 0.7 L 1.0-4.0 X 10^3 Monocytes # (Auto) 0.8 0.0-1.0 X 10^3 Eosinophils # (Auto) 0.0 0.0-0.3 10^3/uL Basophils # (Auto) 0.0 0.0-0.1 10^3/uL Neutrophils % (Manual) 78 % Lymphocytes % (Manual) 2 % Monocytes % (Manual) 8 % Eosinophils % (Manual) 0 % Basophils % (Manual) 0 % Metamyelocytes % 0 % Myelocytes % 1 % Band Neutrophils 11 % Anisocytosis SLIGHT Crenated Cell MODERATE Sodium Level 137 135-145 MMOL/L Potassium Level 3.8 3.6-5.0 MMOL/L Chloride Level 98 98-107 MMOL/L Carbon Dioxide Level 21 21-32 MMOL/L Anion Gap 18 H 5-14 MMOL/L Blood Urea Nitrogen 21 H 7-18 MG/DL Creatinine 1.04 0.60-1.30 MG/DL Estimat Glomerular Filtration Rate > 60 BUN/Creatinine Ratio 20 Glucose Level 108 H 70-105 MG/DL Calcium Level 8.4 L 8.5-10.1 MG/DL Corrected Calcium 9.8 8.5-10.1 MG/DL Magnesium Level 2.0 1.8-2.4 MG/DL Total Bilirubin 2.0 H 0.1-1.0 MG/DL Aspartate Amino Transf (AST/SGOT) 130 H 5-34 U/L Alanine Aminotransferase (ALT/SGPT) 54 0-55 U/L Alkaline Phosphatase 255 H 40-136 U/L Total Protein 5.0 L 6.4-8.2 GM/DL Albumin 2.2 L 3.2-4.5 GM/DL Urine Color DARK YELLOW Urine Clarity CLOUDY Urine pH 6.0 5-9 Urine Specific [place] 1.025 H 1.016-1.022 Urine Protein 2+ H NEGATIVE Urine Glucose (UA) TRACE H NEGATIVE Urine Ketones 1+ H NEGATIVE Urine Nitrite NEGATIVE NEGATIVE Urine Bilirubin 2+ H NEGATIVE Urine Urobilinogen 4.0 NORMAL MG/DL Urine Leukocyte Esterase TRACE H NEGATIVE Urine RBC (Auto) 3+ H NEGATIVE Urine RBC 5-10 H /HPF Urine WBC 25-50 H /HPF Urine Squamous Epithelial Cells 0-2 /HPF Urine Crystals NONE /LPF Urine Bacteria MODERATE H /HPF Urine Casts PRESENT /LPF Urine Hyaline Casts 0-2 H /LPF Urine Mucus MODERATE H /LPF Urine Culture Indicated YES My Orders Orders - SARAH ASTORGA DO Cbc With Automated Diff (09/14/18 11:35) Comprehensive Metabolic Panel (09/14/18 11:35) Ua Culture If Indicated (09/14/18 11:35) Ed Iv/Invasive Line Start (09/14/18 11:47) Manual Differential (09/14/18 11:20) Magnesium (09/14/18 11:55) Chest 1 View Ap/Pa Only (09/14/18 12:25) Ceftriaxone For Iv Use (Rocephin For I (09/14/18 13:00) Ns Iv 1000 Ml (Sodium Chloride 0.9%) (09/14/18 13:00) Urine Culture (09/14/18 12:25) Oxycodone/Acet 10/325mg Tablet (Percocet (09/14/18 13:30) Oxycodone/Apap 5/325mg Tablet (Percocet (09/14/18 13:45) Medications Given in ED Current Medications Medications Dose Ordered Sig/Ayesha Route Start Time Stop Time Status Last Admin Dose Admin Ceftriaxone Sodium 1000 mg/ Sterile Water 10 ml @ 200 mls/hr ONCE ONCE IV 09/14/18 13:00 09/14/18 13:06 DC 09/14/18 13:40 200 MLS/HR Oxycodone/ Acetaminophen 2 tab ONCE ONCE PO 09/14/18 13:45 09/14/18 13:46 DC 09/14/18 13:45 2 TAB Sodium Chloride 1,000 ml ONCE ONCE IV 09/14/18 13:00 09/14/18 13:06 DC 09/14/18 13:40 1,000 ML Vital Signs/I&O 09/14/18 09/14/18 11:15 13:45 Temp 96.4 96.4 Pulse 62 Resp 18 B/P (MAP) 103/44 (63) Pulse Ox 97 O2 Delivery Room Air Capillary Refill : Progress Note : Progress Note Improved p/ IVF's. Diagnostic Imaging Diagonstic Imaging: Xray Plain Films/CT/US/NM/MRI: chest (nothing acute) Departure Impression Primary Impression: Dehydration Additional Impressions: UTI (urinary tract infection) Metastatic urothelial carcinoma Disposition: HOME, SELF-CARE Condition: Improved Departure-Patient Inst. Decision time for Depature: 13:51 Referrals: JM LAMBERT DO (PCP/Family) Primary Care Physician Patient Instructions: Urinary Tract Infection, Adult (DC) Add. Discharge Instructions: All discharge instructions reviewed with patient and/or family. Voiced understanding. NEED TO STAY WELL HYDRATED BY DRINKING A LOT MORE WATER. Scripts Cefdinir (Cefdinir) 300 Mg Capsule 300 MG PO BID for UTI, #20 CAP 0 Refills Prov: SARAH ASTORGA DO 09/14/18 SARAH ATSORGA DO September 14, 2018 11:39
[2018-09-14 11:47] LABS: HEMATOCRIT 33 % (40-54); HEMOGLOBIN 10.6 G/DL (13.3-17.7); MEAN CORPUSCULAR HEMOGLOBIN 30 PG (25-34); MEAN CORPUSCULAR HGB CONC 32 G/DL (32-36); MEAN CORPUSCULAR VOLUME 94 FL (80-99); MEAN PLATELET VOLUME 10.3 FL (7.4-10.4); NEUTROPHILS % (AUTO) 83 % (42-75); PLATELET COUNT 115 10^3/uL (130-400); RED CELL DISTRIBUTION WIDTH 15.3 % (10.0-14.5); WHITE BLOOD COUNT 9.4 10^3/uL (4.3-11.0)
[2018-09-14 11:48] LABS: BASOPHILS % (AUTO) 0 % (0-10); EOSINOPHILS % (AUTO) 0 % (0-10); LYMPHOCYTES # (AUTO) 0.7 X 10^3 (1.0-4.0); LYMPHOCYTES % (AUTO) 7 % (12-44); MONOCYTES # (AUTO) 0.8 X 10^3 (0.0-1.0); MONOCYTES % (AUTO) 9 % (0-12); NEUTROPHILS # (AUTO) 7.7 X 10^3 (1.8-7.8)
[2018-09-14 12:00] LABS: CARBON DIOXIDE 21 MMOL/L (21-32); CHLORIDE 98 MMOL/L (98-107); POTASSIUM 3.8 MMOL/L (3.6-5.0); SODIUM 137 MMOL/L (135-145)
[2018-09-14 12:01] LABS: ALANINE AMINOTRANSFERASE 54 U/L (0-55); ALBUMIN 2.2 GM/DL (3.2-4.5); ALKALINE PHOSPHATASE 255 U/L (40-136); BUN/CREATININE RATIO 20; CALCIUM 8.4 MG/DL (8.5-10.1); CREATININE SERUM 1.04 MG/DL (0.60-1.30); GFR ESTIMATED > 60; GLUCOSE 108 MG/DL (70-105)
[2018-09-14 12:11] LABS: ANISOCYTOSIS SLIGHT; BAND NEUTROPHILS 11 %; BASOPHILS % (MANUAL) 0 %; CRENATED RBC MODERATE; EOSINOPHILS % (MANUAL) 0 %; LYMPHOCYTES % (MANUAL) 2 %; METAMYELOCYTES % 0 %; MONOCYTES % (MANUAL) 8 %; MYELOCYTES % 1 %; NEUTROPHILS % (MANUAL) 78 %
--- OUTSIDE RECORDS SUMMARY | 2018-09-14 12:32 | XMS REPORT | Clinical Summary ---
Author Author [facility] Organization [facility] Address Unknown Phone Unavailable Care Team Providers Care Consulting Manager Name Role Phone IsaacsEbonie kaiser PCP Source Comments Some departments are not documenting in the electronic medical record. If you d o not see the information that you expected, contact Release of Information in 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 08/14/2018 Surgery Apolonia Calixto CRNA 08/14/2018 Anesthesia Event Sheela Rios APRN 08/13/2018 Anesthesia Event Sravan Sullivan MD Tarakji, [...] 08/06/2018 Telephone Oncology 08/05/2018 Hospital Radiology Encounter JoseBernardino gtz 08/03/2018 Documentation Oncology 07/23/2018 Hospital Radiology Encounter [...] MEDICINE 2:45 PM CDT ADMISSION FROM ED NON-PRODUCTION SOLDERER CYTOLOGY (BODY 08/10/2018 FLUIDS/TISSUE) 2:10 PM CDT [...] [place] [facility] Performing Organization Address City/[facility]/Zipcode Phone Number [facility] [address] [place] [address] * MAGNESIUM (08/15/2018 4:30 AM CDT) Only the most recent of 6 results within the time period is included. Magnesium 1.9 1.6 - 2.6 mg/dL [facility] Performing Organization Address City/[facility] Phone Number [facility] [address] [place] [address] * BASIC METABOLIC PANEL (08/15/2018 4:30 AM [...] >60 >60 mL/min [facility] Comment: [place] The eGFR is not validated for use in drug dosing adjustments.Continue to use estimated creatinine clearance per dosing reference text.Please contact the Clinical Pharmacist for questions. eGFR >60 >60 mL/min [facility] [place] Comment: The eGFR is not validated for use in drug dosing adjustments.Continue to use estimated creatinine clearance per dosing reference text.Please contact the Clinical Pharmacist for questions. Performing Organization Address City/[facility]/Zipcode Phone Number MAIN LAB [address] [place] [address] * SURGICAL PATHOLOGY (08/14/2018 9:09 AM CDT) PATHOLOGY [facility] [email or web address] Department of Pathology and Laboratory Medicine [address] [place] [id number] Surgical Pathology Office:[phone] :[phone] SURGICAL PATHOLOGY REPORT NAME: SARA LEIVA SURG PATH #: [id number] MR #: [id number] SPECIMEN CLASS: SR BILLING #: [id number] ALT ID #:LOCATION: DISCHARGED DATE OF PROCEDURE: [...] cells, supporting the diagnosis. Pursuant to the Handwriting Expert Program at the [facility] Pathology Department, selected slides from [...] of Pathology and Laboratory Medicine of the [facility] ([employer]) in compliance with CLIA'88 [...] of Pathology and Laboratory Medicine of the [facility].It has not been cleared or approved by the FDA.The FDA has determined that such clearance or approval is not necessary. Performing Organization Address City/State/Zipcode Phone Number [facility] [address] [place] [address] * REGADENOSON MPI STRESS TEST (08/13/2018 7:43 [...] Kwon 41 OTHER OUTSIDE LAB Study Number [id number] OTHER OUTSIDE LAB PUL TO LUIS M [...] At OTHER OUTSIDE LAB Nuclear Report [facility] Division of Nuclear Cardiac Imaging Consultation Report EXAMINATION:D-SPECT Gated [id number] Chloride myocardial perfusion single-photon emission computed tomography for viability, resting regional wall function, resting ejection fraction, and perfusion imaging utilizing Regadenoson pharmacological stress. Date of Study:08/13/18 Study #:[id number] [facility] NA[facility] Billing ID:[id number] Referring Physician: Requested by:Kong La MD BMI: [...] Approximately 20 seconds later 1.33 mCi of [id number] was injected intravenously. Throughout the infusion continuous electrocardiographic monitoring and serial electrocardiograms were obtained, as well as intermittent blood pressure recordings.Gated upright D-SPECT tomographic images were then acquired approximately 5 minutes after discontinuation of the regadenoson infusion. When indicated supine D-SPECT images were also obtained.The patient returned in approximately 4 hours and received an additional intravenous injection of 0.45 mCi of [id number] Chloride as a reinjected dose to assist [...] Conclusion:Pharmacologic stress ECG is negative for ischemia. Lnxwfwkck-id-Zbkcftjnir Count Ratio:0.38(normal=or < 0.52). Scintigraphic Findings:Raw images [...] (08/13/2018 7:00 AM CDT) Units Ordered 0 [facility] Crossmatch 08/16/2018 [facility] Expires Record Check FOUND [facility] ABO/RH(D) A POS [facility] Antibody Screen NEG [facility] Electronic YES [facility] Crossmatch Specimen Blood Performing Organization Address City/State/Zipcode Phone Number MAIN LAB [address] [place] [address] * CT ABD/PELV W CONTRAST (08/11/2018 2:31 [...] throughout both lobes of the liver. A patient portal representative mass in segment 3 measures 2.5 [...] throughout both lobes of the liver. A patient portal representative mass in segment 3 measures 2.5 [...] lymph nodes are also noted. No inguinal lympha denopathy. Abdominal wall and Osseous Structures: Mild lumbar [...] throughout both lobes of the liver. A patient portal representative mass in segment 3 measures 2.5 [...] throughout both lobes of the liver. A patient portal representative mass in segment 3 measures 2.5 [...] lymph nodes are also noted. No inguinal lympha denopathy. Abdominal wall and Osseous Structures: Mild lumbar [...] 34 OTHER OUTSIDE Index LAB Cardiology Siemens [id number] OTHER OUTSIDE Ultrasound LAB Machine Left Ventricle [...] - Urine Straight Catheter Performing Organization Address City/State/Zipcode Phone Number [facility] [address] [place] [address] * PHOSPHORUS (08/11/2018 6:06 AM CDT) Only the most recent of 2 results within the time period is included. Phosphorus 3.1Comment: NOTE NEW REFERENCE 2.0 - 4.5 MG/DL [facility] RANGES Performing Organization Address [facility]/Zipcode Phone Number [facility] [address] [place] [address] * TROPONIN-I (08/11/2018 12:23 AM CDT) Only the most recent of 2 results within the time period is included. Troponin-I 0.01 0.0 - 0.05 NG/ML [facility] Specimen Blood Performing Organization Address [facility] Phone Number [facility] [address] [place] [address] * ECG-SCAN (08/11/2018 12:00 AM CDT) Narrative Performed At Ordered by an unspecified provider. * NON-PRODUCTION SOLDERER CYTOLOGY (BODY FLUIDS/TISSUE) (08/10/2018 2:10 PM CDT) Cytology [facility] [email or web address] Department of Pathology and Laboratory Medicine [address] [place] [address] Surgical Pathology Office:[phone] :[phone] CYTOLOGY REPORT NAME: SARA LEIVA CYTOLOGY #: [id number] MR #: [id number] ALT ID #: BILLING #: [id number] LOCATION: [facility] DATE OF PROCEDURE: 08/10/2018 AGE: 77 SEX: [...] PhD Anna Holliday D.O. Performing Organization Address [facility] Phone Number MAIN LAB [address] [place] [address] * URINALYSIS, MICROSCOPIC (08/10/2018 1:51 PM CDT) WBCs,UA PACKED 0 - 2 /HPF [facility] RBCs,UA PACKED 0 - 3 /HPF [facility] MucousUA 1+ [facility] Bacteria,UA FEW (A) NEG-NEG [facility] Squamous 2-5 0 - 5 [facility] Epithelial Cells Specimen Urine - Urine Performing Organization Address [facility] Phone Number MAIN LAB [address] [place] [address] * URINALYSIS DIPSTICK (08/10/2018 1:51 PM CDT) Color,UA BRENDA [facility] Turbidity,UA 2+ (A) CLEAR-CLEAR [facility] Specific 1.018 1.003 - 1.035 [facility] [place]-Urine pH,UA 5.0 5.0 - 8.0 [facility]IN [...] Specimen Urine - Urine Performing Organization Address [facility]/Zipcode Phone Number [facility] [address] [place] [address] * CHEST SINGLE VIEW (08/10/2018 1:38 PM [...] on 08/10/2018 2:08 PM. Performing Organization Address [facility]/Zipcode Phone Number [facility] RAD RESULTS * POC TROPONIN (08/10/2018 1:15 PM CDT) Pathologist [facility] Auwztxtp-K-HOI 0.01 0.00 - 0.05 NG/ML [facility] MAIN [facility] Performing Organization Address [facility]/Zipcode Phone Number [facility] [address] [place] [address] * TSH WITH FREE T4 REFLEX (08/10/2018 1:07 PM CDT) Pathologist [facility] TSH 1.010 0.35 - 5.00 MCU/ML [facility] Specimen Blood Performing Organization Address City/[facility] Phone Number [facility] [address] [place] [phone] * CBC AND DIFF (08/10/2018 1:07 PM CDT) [facility] White Blood 7.6 4.5 - 11.0 K/UL [...] Basophil Count Specimen Blood Performing Organization Address City/[facility]/Zipcode Phone Number [facility] [address] [place] [address] * COMPREHENSIVE METABOLIC PANEL (08/10/2018 1:07 PM CDT) Only the most recent of 2 results within the time period is included. Pathologist [facility] Sodium 138 137 - 147 MMOL/L [facility] Potassium 4.3 3.5 - 5.1 MMOL/L [facility] Chloride 108 98 - 110 MMOL/L [facility] Glucose 125 (H) 70 - 100 MG/DL [facility] Blood Urea 23 7 - 25 MG/DL [facility] Nitrogen Creatinine 1.33 (H) 0.4 - 1.24 MG/DL [facility] Calcium 9.8 8.5 - 10.6 MG/DL MAIN LAB Total Protein 7.1 6.0 - 8.0 G/DL [facility] Total Bilirubin 1.0 0.3 - 1.2 MG/DL MAIN LAB Albumin 3.8 3.5 - 5.0 G/DL MAIN LAB Alk Phosphatase 137 (H) 25 - 110 U/L [facility] AST (SGOT) 23 7 - 40 U/L MAIN LAB CO2 25 21 - 30 MMOL/L [facility] ALT (SGPT) 15 7 - 56 U/L [facility] Anion Gap 5 3 - 12 MAIN LAB eGFR Non 52 (L) >60 mL/min [facility] Comment: [place] The eGFR is not validated for use in drug dosing adjustments.Continue to use estimated creatinine clearance per dosing reference text.Please contact the Clinical Pharmacist for questions. eGFR >60 >60 mL/min [facility] [place] Comment: The eGFR is not validated for use in drug dosing adjustments.Continue to use estimated creatinine clearance per dosing reference text.Please contact the Clinical Pharmacist for questions. Specimen Blood Performing Organization Address City/State/Zipcode Phone Number [facility] [address] [place] [address] * TYPE & SCREEN (NOT CROSSMATCH ELIGIBLE) (08/10/2018 10:47 AM CDT) ABO/RH(D) A POS [facility] Antibody Screen NEG [facility] Blood Component RED CELL GROUP [facility] Type Specimen Blood, venous - Blood Performing Organization Address City/[facility]/Zipcode Phone Number [facility] [address] [place] [address] * TELEMETRY STRIPS-SCAN (08/10/2018 12:00 AM CDT) [...] and code status on file. For more i nformation, please contact: [facility] [address] [place] [address] Date Inactivated Comments Code Status Date Activated 08/15/2018 3:04 PM Full Code 08/10/2018 5:36 PM Provider has discussed Code Status No, more discussion w/Patient or Family? needed
--- OUTSIDE RECORDS SUMMARY | 2018-09-14 12:33 | XMS REPORT | Encounter Summary ---
Author Author [facility] Organization [facility] Address Unknown Phone Unavailable Care Team Providers Care Stock Mover Name Role Phone Ebonie Isaacs PCP Reason for Referral * Consult, Test & Treat (Routine) Referred By Contact Referred To Contact Status Reason Specialty Diagnoses / Procedures Sedrick Bertrand MD [address] [place] [address] New Request Specialty Services Diagnoses Required Bladder mass Bladder tumor Encounter Details Care Team Description [place] [address] [place] [address] [phone] Bladder mass (Primary Dx); Bladder tumor 08/25/2018 Orders Only The [address] [phone] Social History Date Tobacco Use Types Packs/Day [...]
--- OUTSIDE RECORDS SUMMARY | 2018-09-14 12:34 | XMS REPORT | Encounter Summary ---
Author Author [facility] Organization [facility] Address Unknown Phone Unavailable Care Team Providers Care Human Services Care Specialist Name Role Phone Ebonie Isaacs PCP Reason for Referral * Consult, Test & Treat (Routine) Referred By Contact Referred To Contact Status Reason Specialty Diagnoses / Procedures Shelli Stone MD [address] [place] [address] [facility] Ent [address] [facility] [address] [place] [address] Closed Specialty Services Otolaryngology Diagnoses Required Parotid mass Reason for Visit * Reason Comments Hypotension Pt sent from [facility] for low blood pressure and dizziness. Pt states his BP was in the 60s. * Auth/Cert Referred By Contact Referred To Contact Status Reason Specialty Diagnoses / Procedures Diagnoses Bladder tumor Bladder tumor [D49.4] P rocedures [place] CYSTOURETHROSCOPY W/DEST &/RMVL TUMOR LARGE CYSTOURETHROSCOPY WITH FULGURATION/ RESECTION BLADDER TUMOR -LARGE - GREATER THAN 5.0 CM Encounter Details Care Team Description Date Type Department Sravan Sullivan MD [address] [facility] [place] [address] [phone] Tiffany Morales MD [address] [place] [address] [phone] Saundra Hernandez MD [address] [place] [address] [phone] Hypotension 08/10/2018 [facility] 08/15/[address] [place] [id number] Social History Date Tobacco Use Types Packs/Day [...] 08/15/2018 Attending Physician: Shelli Stone MD Service: [facility] P- [id number] Physician Summary completed by: Shelli [...] 08/10/18 1:15 PM Result Value Ref Range Lrvnmnwu-U-NMO 0.01 0.00 - 0.05 NG/ML URINALYSIS DIPSTICK Collection Time: 08/10/18 1:51 PM Result Value Ref Range Color,UA BRENDA Turbidity,UA 2+ (A) CLEAR-CLEAR Specific [place]-Urine 1.018 1.003 - 1.035 pH,UA 5.0 5.0 [...] was admitted and the following issues were a ddressed during this hospitalization: (with pertinent details). Patient admitte d with asthmatic hypertension. Also with history of known hematuria and bladder mass.orthostatic hypotension improved with IV fluids and adjusting his medicati ons. Echo showed mild reduced EF. Also noted to have some PVCs. Cardiology co nsulted. Stress test was done which was unremarkable. 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 CT C/A/P 08/12/18- Development of multipl e subcentimeter bilateral pulmonary nodules suggestive of pulmonary metastatic d isease. No thoracic lymphadenopathy. Asymmetric masslike thickening, centered in the base of the prostate, suggestive of primary prostate neoplasm. Bladder mass with invasion of the prostate could also produce this appearance. At least one additional separate site of nodule bladder wall thickening and enhancement, sugg estive of separate primary bladder neoplasm or bladder metastasis. Mild metastat ic pelvic lymphadenopathy.Increase in multifocal hepatic metastatic disease.Mild aneurysmal dilatation of the infrarenal abdominal aorta with marked mixed plaqu e.Consulted urology.Patient underwent TURP on 08/14/2018. Patient doing fine pos t procedure. Instructions and prescriptions.. Patient discharged home in stabl e state. Follow-up with urology outpatient with pathology results. Also follow -up appointment requested with cardiology as outpatient. 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 Plan on discharge was urology to follow-up results and call patient with the [facility] ults and arrange outpatient follow-up based on the results. On review of chart it appears urology has attempted to call the patient multiple times without any answer. It appears urology is trying to contact the patient and refer the patient to oncology per notes. 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 Hospital Problems Active Problems Hypotension Severe [...] your activity level after you leave the hosp ital. Moving around can help prevent blood clots, lung infection (pneumonia) an d other problems. Gradually increasing the number of times you are up moving ar ound will help you return to your normal activity level more quickly. Continue to increase the number of times you are up to the chair and walking daily to ret urn to your normal activity level. Begin to work toward your normal activity lev el at discharge Report These Signs and Symptoms Please contact your doctor if you have any of the following symptoms: temperatu re higher than 100 degrees F, uncontrolled pain, persistent nausea and/or vomiti ng, difficulty breathing, chest pain, severe abdominal pain, headache, unable to urinate or unable to have bowel movement Questions About Your Stay For questions or concerns regarding your hospital stay. Call [phone] Discharging attending physician: SHELLI STONE [[id number]] Regular Diet You have no dietary restriction. [...] Your Medications These medications were sent to [facility] - [place], [place] - [address] [facility] [address] [facility] [id number] amiodarone 400 mg tablet bacitracin 500 unit/g [...] times. The mailbox is not set up s o I can't leave a message and there are no alternative numbers. Rigoberto, can you get this patient in to see med onc KARUNA? He was sent by Dr. Brush so I'm thinking someone closer to them will likely be better overall. Thanks! EL * Shelli Stone MD - 08/15/2018 11:36 AM CDT Admission History and Physical Examination Name: Sara Leiva 1 Admission Date: 08/10/2018 Assessment/Plan: 77 M with HTN, HLD, CAD s/p CABG, PVD, recent CVA, was seen in Urology clinic fo r evaluation for bladder cancer/hematuria and was sent to the ED for asymptomati c hypotension Presumed stage IV bladder cancer/Hematuria - presented with ongoing hematuria and mass on cystoscopy at outside provided. r eferred to Urology for further eval. - with liver lesions concerning for mets. - Cystoscopy by Dr. Fermin 08/10 demonstrate friable tumor tissue at the bladder nec k and prostatic urethra. - CT C/A/P 08/12/18- Development of multiple subcentimeter bilateral pulmonary no dules suggestive of pulmonary metastatic disease. No thoracic lymphadenopathy. Asymmet sanya masslike thickening, centered in the base of the prostate, suggestive of gerard shan prostate neoplasm. Bladder mass with invasion of the prostate could also pr oduce this appearance. At least one additional separate site of nodule bladder w all thickening and enhancement, suggestive of separate primary bladder neoplasm or bladder metastasis. 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 - Consulted urology- appreciate recs. - s/p TURBT, 08/14, catheter removed this morning patient is voiding and urine c olor improving each voiding. Patient discharged. He will follow-up with urolog y as outpatient with pathology results UTI: - patient is not sure if he is on ABx. - order urine culutres- contaminated - started on Rocephin 08/11/18- stopped today. Multiple PVCs,VTach? On tele: - consulted cardiology - restart BB - started amiodarone 400 mg on 08/12/18 twice dailyx 7 days followed by 400 mg d aily - stress test - 08/13/18- unremarkable - [...] as above. - getting records from [facility] HTN / HLD CAD s/p CABG - [employer]OR on enalapril and metop xl. - restarted BB, holding ACEI for now. - continue statin Recent CVA: - admitted to [facility] and was noted to have (per Urology note) MRI brain wit h punctate areas of diffusion restriction in both cerebellar hemispheres c/w acu te punctate infarctions, probably from a cardiogenic source. Old infarcts are pr esent in the left frontal lobe and left temporal lobe. small vessel disease. - will try to obtain records from [facility] - currently not on antiplatelets due to ongoing hematuria. may need to clarify w ith Urology if this truly prohibitive. - switch [...] home in stable state. >31 minutes in qtpc-dw-wpsd time spent with patient, patient/family counseling, coordination of care, and completion of discharge summary. Subjective: No acute overnight events. Venegas catheter removed. Patient voiding without any difficulty. Is comfortable going home. Review of Systems: Complete 10 point review of system was obtained. It is positive per HPI. All o ther review of system was negative. Physical Exam: [...] oriented times three. No acute distress. Answer questi ons appropriately. HEENT: Normal conjunctivae. Pupils equal, round and reactive. Extraocular muscle s are intact. Neck: Supple. No thyroidmegaly. No carotid bruits. No jugular venous distension. Cardiovascular: Regular rhythm and rate. Normal S1 and S2. No murmurs, rubs, or gallop. Respiratory: Breathing comfortable without use of accessory muscles. Breath soun ds equal bilaterally. No crackles, wheezes, or rhonchi. Gastrointestinal: Normal bowel sounds. Not distended. No tenderness to palpatio n. No guarding or rebound. No organomegaly. Musculoskeletal: No clubbing, cyanosis, or edema. Lab/Radiology/Other Diagnostic Tests: Results for orders placed or performed during the hospital encounter of 08/10/18 (from the past 24 hour(s)) BASIC METABOLIC [...] abnormality. Approved by Nabeel Berrios M.D. on 9 3:09 PM By my electronic signature, I attest that I have personally reviewed t he images for this examination and formulated the interpretations and opinions e xpressed in this report Finalized by SHIRLEY FISHER M.D. on 08/10/2018 3:15 PM. D ictated by Nabeel Berrios M.D. on 08/10/2018 2:08 PM. Pertinent radiology reviewed. Shelli Stone MD * Augusto Sher MD - 08/15/2018 10:36 AM CDT Urology Progress Note 08/15/2018 ASSESSMENT: Sara Leiva is a 77 y.o. Male with HTN, HLD, deaf in right ear, ED, myocard ial infarction, CAD s/p CABG, recent hospitalization for "mini strokes" and pre sumed stage IV bladder cancer. LOS: 4 days PLAN: Will discuss plan with staff surgeon - Dr. Bennett - s/p LUCERO yesterday. path pending - catheter removed this am. - 3 cup voiding routine. Have patient urinate 3 times and as long as urine is li ght caba or improving with each void he can discharge - we will call patient with pathology results and arrange follow up based on jarrett s. - okay to ronnie from urology standpoint after voiding. Augusto Sher MD Urology PGY-3 Please page urology electrical control assembler with questions SUBJECTIVE: Overnight events: No acute events overnight. NPO since midnight. (-) Nausea. (- ) Emesis. (+) Ambulation. No signs or symptoms of UTI OBJECTIVE: Vital Signs: Most Recent Vital Signs: Past 24 Ho urs BP: 108/56 (08/15 1010) Temp: 36.5 C [...] urine with CBI clamped. Intake/Output: Date 08/14/18 07 - 08/15/18 0700 08/15/18 0701 - 08/16/18 0700 Shift 7098-0214 7703-7749 24 Hour Total 1393-3513 3236-8643 24 Hour Total INTAKE P.O. 100 100 [...] (document change in assessment or concern): BP SO FT THIS MORNING 89/42 63P. ASYMPTOMATIC. STILL ON CBI. DID GET NEW ORDER FROM UR [facility]LOGY FOR HYOSCAMINE & RECIEVED A DOSE. Time MD/DISTANCE LEARNING ADMINISTRATOR Notified: 06 MD/DISTANCE LEARNING ADMINISTRATOR Name: [facility]N SETTER PAGER [phone] MD/DISTANCE LEARNING ADMINISTRATOR Response: Interventions: * Singh English RN - 08/15/2018 3:51 AM CDT Patient Problem called about: (document change in assessment or concern): C/O B URNING IN PENIS SHAFT. CBI GOING WELL. SOME SEDIMENT IN TUBING. BUT LIGHT YELLOW . FENTANYL NOT VERY EFFECTIVE. JUST GAVE TYLENOL. NOT SURE WHAT ELSE CAN BE DONE . HAD PARTIAL TRANS URETHRAL TUMOR RESECT 08/14 Time MD/DISTANCE LEARNING ADMINISTRATOR Notified: 454 MD/DISTANCE LEARNING ADMINISTRATOR Name: DR Janki SHER MD/DISTANCE LEARNING ADMINISTRATOR Response: LEVSIN 0.125 Q6HPRN BACITRACIN AROUND TIP OF PENIS TID Interventions: NOTED ORDER ENTERED * Edgar Nieves - 08/14/2018 3:39 PM CDT PHYSICAL THERAPY NOTE Patient was assigned for activity with the mobility aide by the supervising ther apist. Patient is unavailable. Therapist: Edgar Nieves Date: 08/14/2018 * Shabana Fernández, PT - 08/14/2018 9:00 AM CDT PHYSICAL THERAPY NOTE The patient not available for PT this AM secondary to being off floor to OR for procedure. Therapist: Shabana Fernández, PT Date: 08/14/2018 * Saundra Hernandez MD - 08/14/2018 8:22 AM CDT Admission History and Physical Examination Name: Sara Leiva 1 Admission Date: 08/10/2018 Assessment/Plan: 77 M with HTN, HLD, CAD s/p CABG, PVD, recent CVA, was seen in Urology clinic fo r evaluation for bladder cancer/hematuria and was sent to the ED for asymptomati c hypotension Presumed stage IV bladder cancer/Hematuria - presented with ongoing hematuria and mass on cystoscopy at outside provided. r eferred to [facility] for further eval. - with liver lesions concerning for mets. - Cystoscopy by Dr. Fermin 08/10 demonstrate friable tumor tissue at the bladder nec k and prostatic urethra. - CT C/A/P 08/12/18- Development of multiple subcentimeter bilateral pulmonary no dules suggestive of pulmonary metastatic disease. No thoracic lymphadenopathy. Asymmet sanya masslike thickening, centered in the base of the prostate, suggestive of gerard shan prostate neoplasm. Bladder mass with invasion of the prostate could also pr oduce this appearance. At least one additional separate site of nodule bladder w all thickening and enhancement, suggestive of separate primary bladder neoplasm or bladder metastasis. 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 - Consulted urology- appreciate recs. - plan to proceed with TURBT, 08/14- getting continuous bladder irrigation overni ght, can be dced tomorrow per urology. UTI: - patient is not sure if he is on ABx. - order urine culutres- contaminated - started on Rocephin 08/11/18- stopped today. Multiple PVCs,VTach? 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 - restarted BB, holding ACEI for now. - continue statin Recent CVA: - admitted to [facility] and was noted to have (per Urology note) MRI brain wit h punctate areas of diffusion restriction in both cerebellar hemispheres c/w acu te punctate infarctions, probably from a cardiogenic source. Old infarcts are pr esent in the left frontal lobe and left temporal lobe. small vessel disease. - will try to obtain records from [facility] - currently not on antiplatelets due to ongoing hematuria. may need to clarify w ith Urology if this truly prohibitive. - switch [...] this am. Patient denies fevers, chills, nausea, vom iting, diarrhea, SOA, pedal edema, bowel problems. Review of Systems: Complete 10 point review of system was obtained. It is positive per HPI. All o ther review of system was negative. Physical Exam: [...] oriented times three. No acute distress. Answer questi ons appropriately. HEENT: Normal conjunctivae. Pupils equal, round and reactive. Extraocular muscle s are intact. Neck: Supple. No thyroidmegaly. No carotid bruits. No jugular venous distension. Cardiovascular: Regular rhythm and rate. Normal S1 and S2. No murmurs, rubs, or gallop. Respiratory: Breathing comfortable without use of accessory muscles. Breath soun ds equal bilaterally. No crackles, wheezes, or rhonchi. Gastrointestinal: Normal bowel sounds. Not distended. No tenderness to palpatio n. No guarding or rebound. No organomegaly. Musculoskeletal: No clubbing, cyanosis, or edema. Lab/Radiology/Other Diagnostic Tests: Results for orders placed or performed during the hospital encounter of 08/10/18 (from the past 24 hour(s)) BASIC METABOLIC [...] abnormality. Approved by Nabeel Berrios M.D. on 9 3:09 PM By my electronic signature, I attest that I have personally reviewed t he images for this examination and formulated the interpretations and opinions e xpressed in this report Finalized by SHIRLEY FISHER M.D. on 08/10/2018 3:15 PM. D ictated by Nabeel Berrios M.D. on 08/10/2018 2:08 PM. Pertinent radiology reviewed. Saundra Hernandez MD * Sedrick Fermin MD - 08/14/2018 7:03 AM CDT Urology Progress Note 08/14/2018 ASSESSMENT: Sara Leiva is a 77 y.o. Male with HTN, HLD, deaf in right ear, ED, myocard ial infarction, CAD s/p CABG, recent hospitalization for "mini strokes" and pre sumed stage IV bladder cancer, currently admitted for asymptomatic hypotension w ith cardiac stress test 08/13/18 negative scheduled for TURBT on 08/14/18. LOS: 3 days PLAN: Will discuss plan [...] including but not limited to perforation bladder, st ricture, injury to ureteral orifices, need for further procedures - NPO until procedure, may resume diet after from a urologic prospective Lucian Laughlin MD Urology PGY-2 Please page urology electrical control assembler with questions ATTESTATION I personally performed the faith portions of the E/M visit, discussed case with re sident and concur with resident documentation of history, physical exam, assessm ent, and treatment plan unless otherwise noted. Staff name: Sedrick Fermin MD Date: 08/17/2018 SUBJECTIVE: Overnight events: No acute events overnight. NPO since midnight. (-) Nausea. (- ) Emesis. (+) Ambulation. No signs or symptoms of UTI OBJECTIVE: Vital Signs: Most Recent Vital Signs: Past 24 Ho urs BP: 132/64 (08/14 537) Temp: 36.6 C [...] non-tender, non-distended : Voiding naturally Intake/Output: Date 08/13/18 07 - 08/14/18 0700 08/14/18 0701 - 08/15/18 07 Shift [id number] 24 Hour Total 6407-2493 7141-2409 24 Hour Total INTAKE P.O. 0 0 0 Shift Total(mL/kg) 0(0) 0(0) 0(0) OUTPUT Urine(mL/kg/hr) 825(0.9) 775(0.9) 1600(0.9) Urine 412 018 1166 Shift Total(mL/kg) 825(10.9) 775(10.3) 1600(21.2) NET -825 [...] with transurethral bladder tumor resection tomorrow 08/14- tentat ively 8 AM. Will notify the patient of plans, and make NPO @ Midnight for procedure. Kendrick Cruz MD Urology [id number] * Edgar Nieves - 08/13/2018 3:32 PM CDT PHYSICAL THERAPY NOTE Patient was assigned for activity with the mobility aide by the supervising ther apist. Patient is unavailable. Patient is working with other staff. Therapist: Edgar Nieves Date: 08/13/2018 * Anuel Oro OT - 08/13/2018 3:27 PM CDT OCCUPATIONAL THERAPY PROGRESS NOTE Patient Name: Sara Leiva Room/Bed: [place] [address] Admitting Diagnosis: Mobility Progressive Mobility Level: Walk in hallway Distance Walked (feet): 250 ft Level of Assistance: Stand by assistance Assistive Device: None Time Tolerated: 11-30 minutes Activity Limited By: Weakness Subjective Pertinent Dx per Physician: 77 M with HTN, HLD, CAD s/p CABG, PVD, recent CVA, w as seen in Urology clinic for evaluation for bladder cancer/hematuria and was se nt to the ED for asymptomatic hypotension Precautions: Standard(HUALAPAI on left side) Pain / Complaints: Patient has no c/o pain;Patient agrees to participate in ther apy Objective Psychosocial Status: Willing and Cooperative to Participate Persons Present: Spouse Home Living Type of Home: House Home Layout: One Level;Stairs to Enter w/o Rails Bathroom Shower / Tub: Tub/Shower Unit Bathroom Toilet: Standard Bathroom Equipment: Hand-Held Shower Comment: Patient has 3 ROMEO; reports he took off railing as he did not use it. Alejo s no AE/DME. Prior Function Level Of [place]: Independent with ADLs and functional transfers;Independen t with homemaking w/ ambulation Lives With: Spouse Receives Help From: None Needed Other Function Comments: Patient reports being active prior, was driving. ADL's Where Assessed: Edge of Bed(Hallway) LE Dressing Assist: Stand By Assist LE Dressing Deficits: Supervision/Safety;Thread RLE Into Pants;Thread LLE Into P ants;Pull Up Over Hips;Fasteners Functional Transfer Assist: Stand By Assist Functional Transfer Deficits: Supervision/Safety Comment: Supine to EOB standby assist. Donns BLE pants sitting on EOB with setup and supervision. Sit to stand with functional mobility on unit standby assist. Pt returns EOB, doffs BLE pants returns supine with standby assist. Declines fur ther ADLs/toilet transfer. Pt remains supine in bed with all needs met and bed a larm activated. Activity Tolerance Endurance: 3/5 Tolerates 25-30 Minutes Exercise w/Multiple Rests Sitting Balance: 4+/5 Moves/Returns Trunkal Midpoint 1-2 Inches in Multiple Plan es Cognition Overall Cognitive Status: WFL to Adequately [...] Visit: Toileting wtih clothing mangement, dynamic standing orestes nce for higher level ADLs ADL Goals Patient Will Perform All ADL's: w/ Modified [place] Functional Transfer Goals Pt Will Perform All Functional Transfers: Modified Independent OT Discharge Recommendations OT Discharge Recommendations: Home with family assist Equipment Recommendations: Too early to be determined Additional Information: Anticipate patient to be at baseline function prior to d /c home. Recommend ongoing assistance for: Ambulation, Stairs, Safety concerns Therapist: ROSA MARIA Luciano [id number] Date: 08/13/2018 * Yo Cunningham MD - 08/13/2018 10:22 AM CDT Cardiology progress Note 08/13/2018 ATT: I have discussed with fellow and examined patient and agree with assessmen t and plan and exam as outlined below. No s3,rales,edema. Sara Daooe Admission Date: 08/10/2018 Assessment/Plan: Active Problems: Hypotension [...] when able to and uptitrate slowly as tolerat ed Maintain K>4.0 and Mg>2.5 Ensure adequate hydration [...] or performed during the hospital encounter of 08/10/18 (from the past 24 hour(s)) BASIC METABOLIC [...] size and wall thickness. Mildly decreased ejection fra ction. Frequent PVCs making the accurate estimation of EF difficult due to post PVC augmentation. EF 45-50%, post PVC augmentation to 55%. Global hypokinesis. Right Ventricle: Normal size. Mildly reduced ejection fraction. No hemodynamically significant valvular abnormalities. Left pleural effusion. Estimated Peak Systolic PA Pressure (32 + RA pressure) mmHg. Stress MPI This study is probably normal with no evidence of significant myocardial ischemi a. Left ventricular systolic function is normal. There are no high risk prognost ic indicators present. The ECG portion of the study is negative for ischemia. There are no prior studies available for comparison. In aggregate the current study is low risk in regards to predicted annual cardio vascular mortality rate. Kong La MD CV fellow * Jimenez Canchola RT - 08/13/2018 9:54 AM CDT RT Adult Assessment Note NAME:Sara Leiva :1940 AGE: 77 y.o. ADMISSION DATE: 08/10/2018 DAYS ADMITTED: LOS: 2 days RT Treatment Plan: Additional Comments: Impressions of the patient: Patient resting comfortable on RA. No SOA,CHASIDY, or ho me inhaler use. No current respiratory modalities indicated at this time. Vital Signs: Pulse: RR: 18 PER MINUTE SpO2: 98 % O2 Device: Liter Flow: O2%: 21 % Breath Sounds: Clear (implies normal) Respiratory Effort: Non-Labored * Saundra Hernandez MD - 08/13/2018 9:44 AM CDT Admission History and Physical Examination Name: Sara Leiva 1 Admission Date: 08/10/2018 Assessment/Plan: 77 M with HTN, HLD, CAD s/p CABG, PVD, recent CVA, was seen in Urology clinic fo r evaluation for bladder cancer/hematuria and was sent to the ED for asymptomati c hypotension UTI: - patient is not sure if he is on ABx. - order urine culutres- contaminated - Cont Rocephin for now, will treat for 7 days- started 08/11/18 Presumed stage IV bladder cancer/Hematuria - presented with ongoing hematuria and mass on cystoscopy at outside provided. r eferred to Urology for further eval. - with liver lesions concerning for mets. - Cystoscopy by Dr. Fermin 08/10 demonstrate friable tumor tissue at the bladder nec k and prostatic urethra. - CT C/A/P 08/12/18- Development of multiple subcentimeter bilateral pulmonary no dules suggestive of pulmonary metastatic disease. No thoracic lymphadenopathy. Asymmet sanya masslike thickening, centered in the base of the prostate, suggestive of gerard shan prostate neoplasm. Bladder mass with invasion of the prostate could also pr oduce this appearance. At least one additional separate site of nodule bladder w all thickening and enhancement, suggestive of separate primary bladder neoplasm or bladder metastasis. 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 - Consulted urology- appreciate recs. - plan to proceed with TURBT, 08/14- but was held due to stress test this am. Multiple PVCs,VTach? On tele: - consulted cardiology - restart BB - started amiodarone 400 mg on 08/12/18 twice dailyx 7 days followed by 400 mg d aily - getting stress test this am. 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 - restarted BB, holding ACEI for now. - continue statin Recent CVA: - admitted to [facility] and was noted to have (per Urology note) MRI brain wit h punctate areas of diffusion restriction in both cerebellar hemispheres c/w acu te punctate infarctions, probably from a cardiogenic source. Old infarcts are pr esent in the left frontal lobe and left temporal lobe. small vessel disease. - will try to obtain records from [facility] - currently not on antiplatelets due to ongoing hematuria. may need to clarify w ith Urology if this truly prohibitive. - switch [...] bed, no acute events overnight, no new complain ts this am. Patient denies fevers, chills, nausea, vomiting, or pain this am. Review of Systems: Complete 10 point review of system was obtained. It is positive per HPI. All o ther review of system was negative. Physical Exam: [...] oriented times three. No acute distress. Answer questi ons appropriately. HEENT: Normal conjunctivae. Pupils equal, round and reactive. Extraocular muscle s are intact. Neck: Supple. No thyroidmegaly. No carotid bruits. No jugular venous distension. Cardiovascular: Regular rhythm and rate. Normal S1 and S2. No murmurs, rubs, or gallop. Respiratory: Breathing comfortable without use of accessory muscles. Breath soun ds equal bilaterally. No crackles, wheezes, or rhonchi. Gastrointestinal: Normal bowel sounds. Not distended. No tenderness to palpatio n. No guarding or rebound. No organomegaly. Musculoskeletal: No clubbing, cyanosis, or edema. Lab/Radiology/Other Diagnostic Tests: Results for orders placed or performed during the hospital encounter of 08/10/18 (from the past 24 hour(s)) BASIC METABOLIC [...] abnormality. Approved by Nabeel Berrios M.D. on 9 3:09 PM By my electronic signature, I attest that I have personally reviewed t he images for this examination and formulated the interpretations and opinions e xpressed in this report Finalized by SHIRLEY FISHER M.D. on 08/10/2018 3:15 PM. D ictated by Nabeel Berrios M.D. on 08/10/2018 2:08 PM. Pertinent radiology reviewed. Saundra Hernandez MD * Aisha Ch RN - 08/13/2018 9:28 AM CDT Pt was scheduled for cystoscopy w/ Turbst but the case was cancelled do to MD charlie ibrahim stress test before the procedure is preformed. 1st part of the stress test was completed this morning 931. 2nd part of the stre ss test will be at 1215. Nurse called downstairs to [facility] and confirmed that the cystoscopy was cancelled 08/12. Talked with primary MD which confirmed that pt is able to eat and drink what on [facility] for thallium images. * Mee Nazario RN - 08/13/2018 5:51 AM CDT Report received from Shaheen villalta RN. Anticipating patient to [address] [id number] . Ella Calling lab to see if type and cross is needed, only screen done by bb, need type and cross for surgery. did not get this drawn when he arrived to pre p ost before he was sent back to his room. Informed floor RN that TYPE and Cross still needed. Patient arrived to [facility], case was moved because patient needs a stress test before [place]. [place] [id number], will call for patient when they are ready fo r him. He is in good spirits and understands, transporter is returning patient to innet ient room. Notifying RN. * Jeanette Denton RN - 08/12/2018 3:57 PM CDT I have reviewed the notes, assessment, flow sheets and/or procedures performed Galina Zarate, Student Nurse and concur with her/his documentation unless oth erwise noted. Jeanette Denton RN [facility] Clinical Corporate Tax Manager * Edgar Nieves - 08/12/2018 3:01 PM CDT PHYSICAL THERAPY MOBILITY NOTE Patient was mobilized today with the assistance of the P.T. mobility aide as par t of the ongoing physical therapy plan of care. Mobility Progressive Mobility Level: Walk in hallway Distance Walked (feet): 300 ft Level of Assistance: Assist X1 Assistive Device: Other (Comment)(IV Pole) Time Tolerated: 11-30 minutes Activity Limited By: Patient request to stop Aide: Edgar Nieves Date: 08/12/2018 * Suzette Viera OT - 08/12/2018 11:43 AM CDT OCCUPATIONAL THERAPY ASSESSMENT NOTE Patient Name: [facility] Room/Bed: [id number]/ Admitting Diagnosis: Mobility Progressive Mobility Level: Walk in hallway Distance Walked (feet): 200 ft Level of Assistance: Assist X1 Assistive Device: (IV Pole) Time Tolerated: 11-30 minutes Activity Limited By: Weakness Subjective Pertinent Dx per Physician: 77 M with HTN, HLD, CAD s/p CABG, PVD, recent CVA, w as seen in Urology clinic for evaluation for bladder cancer/hematuria and was se nt to the ED for asymptomatic hypotension Precautions: Standard(HUALAPAI on left side) Pain / Complaints: Patient has no c/o pain;Patient agrees to participate in ther apy Comments: Upon arrival, patient supine in bed. Orthostatics taken: supine 133/64 , sitting 105/59, standing 120/62, sitting after activity 114/96. Patient's HR r eached 127 with mobility, decreased to 90 once [...] Equipment: Hand-Held Shower Comment: Patient has 3 ROMEO; reports he took off railing as he did not use it. Alejo s no AE/DME. Prior Function Level Of [place]: Independent with ADLs and functional transfers;Independen t with homemaking w/ ambulation Lives With: Spouse [...] Moves/Returns Trunkal Midpoint 1-2 Inches in Multiple Plan es Cognition Overall Cognitive Status: WFL to Adequately [...] limited by weakness, requires steadying support when ambulatin g in hallway- uses IV pole for steadying [...] Full LE dressing, toileting with clothing management, in crease functional endurance- monitor BP ADL Goals Patient Will Perform All ADL's: w/ Modified [place] Functional Transfer Goals Pt Will Perform All Functional Transfers: Modified Independent OT Discharge Recommendations OT Discharge Recommendations: Home with family assist Equipment Recommendations: Too early to be determined Additional Information: Anticipate patient to be at baseline function prior to d /c home. Recommend ongoing assistance for: Ambulation, Stairs, Safety concerns Therapist: FAUSTO Roberts/Nanette [id number] Date: 08/12/2018 * Jacob, Michaelle, PT - 08/12/2018 11:40 AM CDT PHYSICAL [...] for evaluation for bladder cancer/hematuria and was s ent to the ED for asymptomatic hypotension Mental [...] Topics: Plan/Goals of PT Interventions;Use of Assistive Device/Orthosis;Mobility Progression;Safety Awareness;Importance of Increasing Activity;Recommend Contin ued Therapy ASSESSMENT/PROGRESS: Assessment/Progress Impaired Mobility Due To: Impaired Balance(mild needed 1 UE support) Assessment/Progress: Expect Good Progress AM-PAC 6 Clicks Basic Mobility Inpatient Turning from your back to your side while in a flat bed without using bed rails: None Moving from lying on your back [...] assist with ongoing mobilization and exercise per instruct ions of licensed physical therapy staff. RECOMMENDATIONS: PT Discharge Recommendations PT Discharge Recommendations: Home with Assistance Equipment Recommendations: None(likely) Recommend ongoing assistance for: Ambulation;Stairs;Safety concerns Therapist: Michaelle James, MARGARITA Date: 08/12/2018 * Radha PenaADRIANNE - 08/12/2018 11:25 AM CDT CLINICAL NUTRITION Clinical Nutrition Assessment Summary NAME:Sara Leiva :1940 AGE: 77 y.o. ADMISSION DATE: 08/10/2018 DAYS ADMITTED: LOS: 1 day Nutrition Assessment of Patient: BMI Categories Adult: Acceptable: 18.5-24.9 Unintentional Weight Loss: > 10% in 6 months (severe) Current Oral Intake: Inadequate Estimated Calorie Needs: 1234-4764(30-35 kcal/kg present wt 75.4kg) Estimated Protein Needs: 98-113(1.3-1.5 g/kg present wt) Oral Diet Order: Cardiac ICD-10 code E43: Chronic illness/Severe malnutrition Weight loss: >10% x 6 months, Severe loss of muscle mass Loss of Subcutaneous Fat: Yes Mild Orbital, Triceps Muscle Wasting: Yes Severe Congregation, Clavicle, Interosseous Edema: No Malnutrition Interventions: Boost Plus Hepzibah TIDWM. Comments: 77 M with HTN, HLD, CAD s/p CABG, PVD, recent CVA, was seen in Urology clinic fo r evaluation for bladder cancer/hematuria and was sent to the ED for asymptomati c hypotension. Pt sleeping soundly at time of visit, did not wake to name or whi le verifying wristband with . 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 Pt dislikes foods provi ded. Willing to drink Boost, strawberry. Had 100% of 1 Boost yesterday and 25-50 % meals. reports wt loss of 24# (13%) in the last 6 months. This is severe wt loss in addition to physical signs of muscle wasting at temples, clavicles, a nd interosseous areas. Pt presented from OSH with stage II coccyx pressure injur y which is healing and scabbed over per RN. No edema. LBM /16 per RN documentat ion. Will continue to follow. Recommendation: Given malnutrition and hypermetabolism with presumed stage IV bladder cancer, recommend liberalizing diet to Regular. Encourage good [...] Time Frame: Throughout Stay Radha Pena RD, LD Phone: [phone] Pager: [phone] * Saundra Hernandez MD - 08/12/2018 10:24 AM CDT Admission History and Physical Examination Name: Sara Leiva 1 Admission Date: 08/10/2018 Assessment/Plan: 77 M with HTN, HLD, CAD s/p CABG, PVD, recent CVA, was seen in Urology clinic fo r evaluation for bladder cancer/hematuria and was sent to the ED for asymptomati c hypotension Hypotension -Orthostatic hypotension + - improved [...] as above. - getting records from [facility] UTI: - patient is not sure if he is on ABx. - order urine culutres- contaminated - Cont Rocephin for now Presumed stage IV bladder cancer/Hematuria - presented with ongoing hematuria and mass on cystoscopy at outside provided. r eferred to Urology for further eval. - with liver lesions concerning for mets. - Cystoscopy by Dr. Fermin 08/10 demonstrate friable tumor tissue at the bladder nec k and prostatic urethra. - plan to proceed with TURBT, 08/14. - CT C/A/P 08/12/18- Development of multiple subcentimeter bilateral pulmonary no dules suggestive of pulmonary metastatic disease. No thoracic lymphadenopathy. Asymmet sanya masslike thickening, centered in the base of the prostate, suggestive of gerard shan prostate neoplasm. Bladder mass with invasion of the prostate could also pr oduce this appearance. At least one additional separate site of nodule bladder w all thickening and enhancement, suggestive of separate primary bladder neoplasm or bladder metastasis. 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 - Consulted urology today- appreciate recs. 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 - restarted BB, holding ACEI for now. - continue statin Multiple PVCs,VTach? On tele: - consulting cardiology today. - restart BB - monitor Recent CVA: - admitted to [facility] and was noted to have (per Urology note) MRI brain wit h punctate areas of diffusion restriction in both cerebellar hemispheres c/w acu te punctate infarctions, probably from a cardiogenic source. Old infarcts are pr esent in the left frontal lobe and left temporal lobe. small vessel disease. - will try to obtain records from [facility] - currently not on antiplatelets due to ongoing hematuria. may need to clarify w ith Urology if this truly prohibitive. - switch [...] this am. Patient denies fevers, chills, nausea, vom iting, diarrhea, SOA. Review of Systems: Complete 10 point review of system was obtained. It is positive per HPI. All o ther review of system was negative. Physical Exam: [...] oriented times three. No acute distress. Answer questi ons appropriately. HEENT: Normal conjunctivae. Pupils equal, round and reactive. Extraocular muscle s are intact. Neck: Supple. No thyroidmegaly. No carotid bruits. No jugular venous distension. Cardiovascular: Regular rhythm and rate. Normal S1 and S2. No murmurs, rubs, or gallop. Respiratory: Breathing comfortable without use of accessory muscles. Breath soun ds equal bilaterally. No crackles, wheezes, or rhonchi. Gastrointestinal: Normal bowel sounds. Not distended. No tenderness to palpatio n. No guarding or rebound. No organomegaly. Musculoskeletal: No clubbing, cyanosis, or edema. Lab/Radiology/Other Diagnostic Tests: Results for orders placed or performed during the hospital encounter of 08/10/18 (from the past 24 hour(s)) CBC Collection [...] abnormality. Approved by Nabeel Berrios M.D. on 9 3:09 PM By my electronic signature, I attest that I have personally reviewed t he images for this examination and formulated the interpretations and opinions e xpressed in this report Finalized by SHIRLEY FISHER M.D. on 08/10/2018 3:15 PM. D ictated by Nabeel Berrios M.D. on 08/10/2018 2:08 PM. Pertinent radiology reviewed. Suandra Hernandez MD * Tierra Butt - 08/11/2018 [...] of bed (Comment degree) (20) * Kristal Ybarra RN - 08/11/2018 6:33 PM CDT 1630: Team notified of pts ECHO results, report states multiple PVCs. to orde r telemetry status on patient. Pt asymptomatic at [...] Michaelle James, PT Date: 08/11/2018 * Saundra Hernanedz MD - 08/11/2018 8:35 AM CDT Admission History and Physical Examination Name: Sara Leiva 1 Admission Date: 08/10/2018 Assessment/Plan: 77 M with HTN, HLD, CAD s/p CABG, PVD, recent CVA, was seen in Urology clinic fo r evaluation for bladder cancer/hematuria and was sent to the ED for asymptomati c hypotension Hypotension: Orthostatic hypotension - noted in [...] as above. - getting records from [facility] Presumed stage IV bladder cancer/Hematuria - presented with ongoing hematuria and mass on cystoscopy at outside provided. r eferred to Urology for further eval. - with liver lesions concerning for mets. - Cystoscopy by Dr. Fermin 08/10 demonstrate friable tumor tissue at the bladder nec k and prostatic urethra. - plan to proceed with TURBT, 08/14. - plan for repeat CT C/A/P today UTI?: - patient is not sure if he is on ABx. - order urine culutres - will start rocephin today. 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 will hold both in setting of hypotension above - continue statin Recent CVA: - admitted to [facility] and was noted to have (per Urology note) MRI brain wit h punctate areas of diffusion restriction in both cerebellar hemispheres c/w acu te punctate infarctions, probably from a cardiogenic source. Old infarcts are pr esent in the left frontal lobe and left temporal lobe. small vessel disease. - will try to obtain records from [facility] - currently not on antiplatelets due to ongoing hematuria. may need to clarify w [facility] Urology if this truly prohibitive. - switch [...] bed, no acute events overnight, no new complain ts this am. Patient denies fevers, chills, nausea, vomiting, or pain this am. Review of Systems: Complete 10 point review of system was obtained. It is positive per HPI. All o ther review of system was negative. Physical Exam: [...] oriented times three. No acute distress. Answer questi ons appropriately. HEENT: Normal conjunctivae. Pupils equal, round and reactive. Extraocular muscle s are intact. Neck: Supple. No thyroidmegaly. No carotid bruits. No jugular venous distension. Cardiovascular: Regular rhythm and rate. Normal S1 and S2. No murmurs, rubs, or gallop. Respiratory: Breathing comfortable without use of accessory muscles. Breath soun ds equal bilaterally. No crackles, wheezes, or rhonchi. Gastrointestinal: Normal bowel sounds. Not distended. No tenderness to palpatio n. No guarding or rebound. No organomegaly. Musculoskeletal: No clubbing, cyanosis, or edema. Lab/Radiology/Other Diagnostic Tests: Results for orders placed or performed during the hospital encounter of 08/10/18 (from the past 24 hour(s)) CBC AND [...] 08/10/18 1:15 PM Result Value Ref Range Flfdcogm-A-VNO 0.01 0.00 - 0.05 NG/ML URINALYSIS DIPSTICK Collection Time: 08/10/18 1:51 PM Result Value Ref Range Color,UA BRENDA Turbidity,UA 2+ (A) CLEAR-CLEAR Specific [place]-Urine 1.018 1.003 - 1.035 pH,UA 5.0 5.0 [...] abnormality. Approved by Nabeel Berrios M.D. on 9 3:09 PM By my electronic signature, I attest that I have personally reviewed t he images for this examination and formulated the interpretations and opinions e xpressed in this report Finalized by SHIRLEY FISHER M.D. on 08/10/2018 3:15 PM. D ictated by Nabeel Berrios M.D. on 08/10/2018 2:08 PM. Pertinent radiology reviewed. Saundra Hernandez MD * Nicky Rowland RN - 08/10/2018 6:03 PM CDT Patient arrived to room # ([id number]) via cart accompanied by transport. Patient tra nsferred to the bed without assistance. Bedside safety checks completed. Initial patient assessment completed, refer to flowsheet for details. Skin Assessment Performed skin assessment with (JODI Zapien). Patient has pressure injury upon admission to unit. Pt has a healing scabbed ove r stage 2. Pressure Injury is Stage 2 [...] History and Physical Examination Name: Sara Leiva 1 Admission Date: 08/10/2018 Assessment/Plan: Active Problems: Hypotension 77 M with HTN, HLD, CAD s/p CABG, PVD, recent CVA, was seen in Urology clinic fo r evaluation for bladder cancer/hematuria and was sent to the ED for asymptomati c hypotension Hypotension: Orthostatic hypotension - noted in the clinic. 60s/40s. sent to the ED, 99/52 initially. - noted to be orthostatic in the ED, with BP dropping to 84/54 standing. - s/p 1L IVF in the ED. still orthostatic. - continue NS 100/hr and re-check in AM - try to obtain records from [facility], to see if he had ECHO, if not, he will need to get one here. elevated creatinine: - creat 1.3 on admission. baseline unknown. - hydration as above. - getting records from [facility] as indicated elsewhere. Presumed stage IV bladder cancer: Hematuria - presented with ongoing hematuria and mass on cystoscopy at outside provided. r eferred to Urology for further eval. - with liver lesions concerning for mets. - Cystoscopy by Dr. Fermin 08/10 demonstrate friable tumor tissue at the bladder nec k and prostatic urethra. - plan to proceed with TURBT, 08/14. - plan for repeat CT C/A/P. May obtain tomorrow if kidney function improved UTI?: - patient is not sure if he is on ABx. 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 will hold both in setting of hypotension above - continue statin Recent CVA: - admitted to [facility] and was noted to have (per Urology note) MRI brain wit h punctate areas of diffusion restriction in both cerebellar hemispheres c/w acu te punctate infarctions, probably from a cardiogenic source. Old infarcts are pr esent in the left frontal lobe and left temporal lobe. small vessel disease. - will try to obtain records from [facility] - currently not on antiplatelets due to ongoing hematuria. may need to clarify w [facility] Urology if this truly prohibitive. - switch [...] to medicine. Tiffany Morales MD Internal Medicine [id number] __ Chief Complaint: hypotension History of Present Illness: Sara Leiva is a 77 y.o. male with CAD s/p CABG , HTN, HLD, PVD, recent CVA, who was evaluated in [place] for ongoing hematuri a, had cystoscopy that showed concern for malignancy. [...] complains of some discomfort in his bladder f rom cystoscopy today. He reports being hungry. He noted poor oral intake lately. No falls. No LOC. No other symptoms. 12 point ROS was obtained, remarkable for: Positive for bladder discomfort Negative for fever, chills, chest pain, dyspnea, cough, abd pain, nausea, vomiti ng, diarrhea. Past Medical History: Diagnosis Date Anxiety [...] file Gets together: Not on file Attends oriental orthodox service: Not on file Active member of [...] MINUTE (08/10 143) SpO2: 98 % (08/10 1430) O2 Delivery: None (Room Air) (08/10 125) SpO2 Pulse: 39 (08/10 1430) Height: 185 cm (72.84") (08/10 100) BP: (82-126)/(43-73) Temp: [36.3 C (97.3 F)-36.5 [...] or performed during the hospital encounter of 08/10/18 (from the past 24 hour(s)) CBC AND [...] 08/10/18 1:15 PM Result Value Ref Range [place]-U-UIG 0.01 0.00 - 0.05 NG/ML URINALYSIS DIPSTICK Collection Time: 08/10/18 1:51 PM Result Value Ref Range Color,UA BRENDA Turbidity,UA 2+ (A) CLEAR-CLEAR Specific [place]-Urine 1.018 1.003 - 1.035 pH,UA 5.0 5.0 [...] fellow and examined patient and agree with assessmen t and plan and exam as outlined below. [...] dailyx 7 days followed by 400 mg d aily Recommend ischemia evaluation with a pharmacologic stress [...] presented to Urology clinic on 08/10 for evalua tion of possible metastatic bladder cancer. In the clinic, he was found to be hy potensive to 60s/40s and was sent to the ED, where he was initially 99/52. Ortho statics were positive, dropping to 84/54 standing. He was given 1L bolus in ED a nd has received IVF while inpatient. His blood pressure seems better today. Ca rdiology is consulted today for evaluation of his frequent PVCs, short run of NS VT. Mr. Leiva denies any chest pain, shortness of breath, palpitations, lightheade dness or dizziness today. He is unaware of [...] or performed during the hospital encounter of 08/10/18 (from the past 24 hour(s)) CBC Collection [...] size and wall thickness. Mildly decreased ejection fra ction. Frequent PVCs making the accurate estimation of [...] with urologic ca, [facility]" Referring Provider: Saundra Hernandez MD Attending Surgeon: Sedrick Fermin MD Consult Performed by: Silke Escamilla MD ASSESSMENT: 77 y.o. male with HTN, HLD, deaf in right ear, ED, myocardial infarc tion, CAD s/p CABG, recent hospitalization for "mini strokes" and presumed stag e IV bladder cancer who was sent to ED from Urology clinic 08/10 and admitted for asymptomatic hypotension. Urology is consulted as patient has upcoming procedur e scheduled (TURBT 08/13) PLAN: - Plan for Cystoscopy with TURBT tomorrow 08/13. Consent in chart and patient is boarded. - NPO at midnight - Rest of care per primary Discussed plan of care with staff surgeon, Dr. Fermin, who directed plan of care. Silke Escamilla MD Urology Resident Please page Urology electronic gaming device supervisor with questions. ATTESTATION I personally performed the faith portions of the E/M visit, discussed case with re sident and concur with resident documentation of history, physical exam, assessm ent, and treatment plan unless otherwise noted. Staff name: Sedrick Fermin MD Date: 08/19/2018 __ HPI: Sara Leiva is a 77 y.o. male with HTN, HLD, deaf in right ear, ED, my ocardial infarctionand CAD s/p CABG with presumed stage IV bladder cancer seen in Dr. Fermin's clinic on 08/10/18 for evaluation for presumed metastatic bladder c ancer. Patient has had multiple imaging studies as well as cystoscopic evaluatio ns performed all highly suspicious for metastatic bladder cancer. The patient wa s scheduled to have TURBT for tissue diagnosis on 08/14 to further direct therapy . However, at the conclusion of the clinic visit, patient was sent to ED from [facility] and admitted for asymptomatic hypotension. Currently, patient BP WN L, denies fevers, chills, nausea, vomiting or dizziness. Last BM yesterday. ROS: 14 point ROS performed. Pertinent items listed in HPI and PMH. Otherwise negativ e. Past Medical History: Diagnosis Date Anxiety Arthritis [...] acute distress Head/Eyes/Ears/Nose/Throat: normocephalic, atraumatic, extraocular movements int act Chest: non-labored on RA Cardiovascular: regular rate/rhythm, palpable symmetric radial pulses Abdomen: soft, nontender, nondistended Extremities: no clubbing, cyanosis, edema Neuro: cranial nerves III-XII grossly intact, no focal deficits, moves all extre mities Psych: normal mood, affect, and thought process [...] Vargas RN - 08/10/2018 4:53 PM CDT [id number] bed assigned, please call Nya for report @ [phone], thanks! * Nya Bhatti RN - 08/10/2018 2:[address] Hall was notified that patient was still orthostatic after 1 L NS. * Sravan Sullivan MD - 08/10/2018 2:37 PM CDT Sara Levia is a 77 y.o. male. Chief Complaint: Chief Complaint Patient presents with Hypotension Pt sent from [facility] for low blood pressure and dizziness. Pt states h is BP was in the 60s. History of Present Illness: Patient is a 77-year-old male with a past medical history of hypertension, hyper lipidemia, CAD status post CABG, PVD, CVA who presents the ED today from outpati ent urology clinic at [facility] for hypertension. Per report patient was noted to be systolic in the 60s, however was asymptomatic, was being evaluated f or possible stage IV bladder cancer, and was sent here to the emergency departme for evaluation for his hypotension. Patient denies any other symptoms at thi s time, no dizziness, headaches, vision changes, hearing changes, fevers, chills , recent sick contacts, nausea, vomiting, diarrhea, palpitations, dysuria, any c hanges in his diet decreased oral intake. Does report some hematuria, however t his is why he is going to be evaluated in the urology clinic for known mass on c ystoscopy at outside hospital. History provided by: Patient [...] Negative for confusion. The patient is not nervous/anxio us. All other systems reviewed and are negative. [...] T BP P RR SPO2P SPO2 User 04/15/19 1431 -- 98/62 78 11 PER MINUTE [...] normal and breath sounds normal. No respiratory distress . He has no wheezes. Abdominal: Soft. Bowel sounds are normal. He exhibits no distension. There is no tenderness. Musculoskeletal: He exhibits no edema or deformity. Neurological: He is alert and oriented to person, place, and time. No cranial ne rve deficit. Skin: Skin is warm and dry. Capillary refill takes less than 2 seconds. He is no t diaphoretic. Psychiatric: He has a normal mood and affect. His behavior is normal. Judgment a nd thought content normal. Nursing note and vitals [...] Final Turbidity,UA 2+ (*) CLEAR-CLEAR Final Specific [place]-Urine 1.018 1.003 - 1.035 Final pH,UA 5.0 [...] 0.35 - 5.00 MCU/ML Final POC TROPONIN Qeavornq-H-JAK 0.01 0.00 - 0.05 NG/ML Final POC TROPONIN Radiology Interpretation: CHEST SINGLE VIEW Final Result No acute cardiopulmonary abnormality. Approved by Nabeel Berrios M.D. on 08/10/2018 3:09 PM By my electronic signature, I attest that I have personally reviewed the images for this examination and formulated the interpretations and opinions expressed i n this report Finalized by SHIRLEY FISHER M.D. on 08/10/2018 3:15 PM. Dictated by Nabeel Berrios M.D. on 08/10/2018 2:08 PM. EK lead EKG shows rate of 77 and sinus rhythm. AZ interval, QRS duration, QT interval within normal [...] include bradycardia, lungs clear to auscultation, no a bdominal tenderness to palpation,see physical exam as noted above. - Initial concern was for orthostatic hypotension secondary to dehydration versu s infection versus cardiac abnormality versus electrolyte abnormality. At this time order CBC, CMP, coags, troponin, EKG, chest x-ray, UA, orthostatic vital si gns. We will give patient 1 L fluid at this time. - Labs significant for Creatinine 1.33, unknown baseline, UA looks dirty, howeve r it discussed squames, concern for contamination, we will not treat at this wade e but will send for culture. - Imaging significant for chest x-ray with no acute findings - On re-evaluation, patient still orthostatic, although asymptomatic at this wade e, discussed recommendation for admission to hospital for further workup and arlette luation for hypertension, including but not limited likely [...] mL Intravenous Given - New Bag 08/10/18 145 1) Clinical Impression: Clinical Impression Orthostasis ISMAEL (acute kidney injury) (HCC) Hematuria, unspecified type Disposition/Follow up ED Disposition ED Disposition Admit No follow-up provider specified. Medications: New Prescriptions No medications on file Procedure Notes: Procedures Attestation / Supervision: Reji Hall MD Attestation / Supervision Note concerning Sara Gonzales Cali: I personally perform ed the faith portions of the E/M visit, discussed case with resident and concur [facility] resident documentation of history, physical exam, assessment, and treatment p shazia unless otherwise noted. Sravan Sullivan MD * Nya Bhatti, JODI - 08/10/2018 1:22 PM CDT Sara Leiva 77 y/o male presents to ED 32 from triage in wheelchair. Patient was sent over from [place] due to hypotension. Patient reports his bp was in 60 's. Patient denies any dizziness, lightheadedness, or chest pain. Patient recent ly got diagnosed with bladder cancer and is not on chemotherapy yet. Patient als o reports he had a TIA last week. [...] Q4H PRN, fentaNYL citrate PF Q2H PRN, hyo scyamine Q6H PRN Diagnostic Tests Hematology: Lab Results [...] The patient did not experience any anesthestic complic ations. Pain: Management:satisfactory to patient Level of Consciousness: awake and alert Hydration:acceptable Airway Patency: patent Respiratory Status: acceptable Cardiovascular Status:acceptable Regional/Neuroaxial: * Operative Report (Direct Entry) - Augusto Sher MD - 08/14/2018 8:15 AM CDT OPERATIVE REPORT Name: Sara Leiva is a 77 y.o. male : 1940 MRN#: [id number] DATE OF OPERATION: 08/14/2018 Surgeon(s) and Role: [...] supine position. General anesthesia was induced smoothly with out complication. A proper timeout was performed confirming proper patient, proc edure, and laterality. Patient was moved to the dorsal lithotomy position. Patie nt was prepped and draped in the usual sterile fashion. All instruments were romeo rile. We began by inserting the 26 uzbek resectoscope with visual obturator in to the urethra and passed it into the bladder. A 360 panendoscopy revealed bilat eral ureteral orifices in the orthotopic position. There were noted to be mucos al changes in prostatic urethra near verumontanum and bladder neck. there were n ot tumors noted in the bladder. There was noted to be moderate trabeculation. T he visual obturator was exchanged for the resection loop. We evaluated the pros tatic urethra and this revealed trilobar obstruction of the urethra. We identif ied the verumontanum and marked this so that we did not pass distal to this poin t. We then started the bladder neck and began to resect prostatic tissue at the 6 o'clock position. We did this until we were down to capsule. We then procee ded to move to the patient's left side and this was resected as well. This was then repeated on the right side. We continued until we are down the capsule on all sides and were careful not to pass distal to the verumontanum. We then irr igated the chips out and sent these to pathology. We also obtained hemostasis b y coagulating all areas of resection. This was double checked with water flow o ff to the resectoscope. We then passed a wire to the scope in place a 22 Nauruan three-way catheter and started CBI. Patient was awoken from anesthesia and tra nsferred to the PACU in stable condition. Dr. Fermin was present and scrubbed and directed all faith portions of procedure. Estimated Blood Loss: No blood loss documented. Specimen(s) Removed/Disposition: ID Type Source Tests Collected by Time Destination 1 : PROSTATE CHIPS Tissue Prostate SURGICAL PATHOLOGY Sedrick Fermin MD 0902 Augusto Sher MD Pager [phone] * Case Mgmt DC Plan - Vianney Lee RN - 08/11/2018 1:06 PM CDT Case Management Admission AssessmentNAME:Sara Leiva :1940 AGE: 77 y.o. ADMISSION DATE: 08/10/2018 DAYS ADMITTED: LOS: 0 days Todays Date: 08/11/2018 Source of Information: Pt and pt . Plan Plan: Case Management Assessment, Assist PRN with SW/NCM Services, Discharge Navi nning for Home Anticipated NCM at bedside, introduced self and explained CM role. NCM received permission to assess with at bedside. Pt admit with hypotension. Pt confirms PCP as Ebonie Isaacs. Pt is independent and has no mobility concerns. Pt does not have Rx coverage, NCM educated on Good Rx and [facility] outpt pharmacy p ayment plans. CM will continue to follow for dc needs. Patient Address/Phone [address] [facility] [address] [facility] [phone] (home) Emergency Contact Extended Emergency Contact Information Primary Emergency Contact: angelia leiva Relation: Spouse Healthcare Directive Transportation Does the patient need discharge transport arranged?: No Transportation Name, Phone and Availability #1: Angelia hall [phone] Does the patient use Medicaid Transportation?: No [...] Source of Income Source Of Income: Other custodial income ? Financial Assistance Needed? Pt does not have prescription coverage - please be aware when prescribing medica tions. Psychosocial Needs ? Mental Health Mental Health History: No ? Substance Use History Substance Use History Screen: No ? Other Current/Previous Services ? PCP Ebonie Isaacs, , ? Pharmacy [address] [address] ? Durable Medical Equipment Durable Medical Equipment at home: None ? Home Health Receiving home health: No ? Hemodialysis or Peritoneal Dialysis Undergoing hemodialysis or peritoneal dialysis: No ? Tube/Enteral Feeds Receive tube/enteral feeds: No ? Infusion Receive infusions: No ? Private Duty Private duty help used: No ? Home and Community Based Services Home and community based services: No ? Jairo White Jairo White: N/A ? Hospice Hospice: No ? Outpatient Therapy PT: No OT: No BLACK PICKLER: No ? Usp Facility/Detention SNF: No NH: No ? Inpatient Rehab IPR: No ? Long-Term Acute Care Hospital LTACH: No ? 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 [phone] documented in this encounter Plan of Treatment [...] mg/dL [facility] Performing Organization Address [facility] Phone Number [facility] [address] [place] [address] * CBC (08/15/2018 4:30 AM CDT) White [...] FL [facility] Performing Organization Address [facility] Phone Number [facility] [address] [place] [address] * BASIC METABOLIC PANEL (08/15/2018 4:30 AM [...] >60 >60 mL/min [facility] Comment: [place] The eGFR is not validated for use in drug dosing adjustments.Continue to use estimated creatinine clearance per dosing reference text.Please contact the Clinical Pharmacist for questions. eGFR >60 >60 mL/min [facility] [place] Comment: The eGFR is not validated for use in drug dosing adjustments.Continue to use estimated creatinine clearance per dosing reference text.Please contact the Clinical Pharmacist for questions. Performing Organization Address City/State/Zipcode Phone Number [facility] [address] [place] [address] * SURGICAL PATHOLOGY (08/14/2018 9:09 AM CDT) PATHOLOGY [facility] [email or web address] Department of Pathology and Laboratory Medicine [address] [place] [address] Surgical Pathology Office:[phone] :[phone] SURGICAL PATHOLOGY REPORT NAME: SARA LEIVA SURG PATH #: [id number] MR #: [id number] SPECIMEN CLASS: SR BILLING #: [id number] ALT ID #:LOCATION: DISCHARGED DATE OF PROCEDURE: [...] cells, supporting the diagnosis. Pursuant to the Care Administrative Tech Program at the [facility] Pathology Department, selected slides from this case [...] approval is not necessary. Performing Organization Address City/[facility]/Zipcode Phone Number [facility] [address] [place] [address] * MAGNESIUM (08/14/2018 5:06 AM CDT) Magnesium 2.0 1.6 - 2.6 mg/dL [facility] Performing Organization Address City/[facility] Phone Number [facility] [address] [place] [phone] * CBC (08/14/2018 5:06 AM CDT) White Blood 6.0 4.5 - 11.0 K/UL [facility] Cells RBC 3.30 (L) 4.4 - 5.5 M/UL [facility] Hemoglobin 10.9 (L) 13.5 - 16.5 GM/DL [facility] Hematocrit 31.6 (L) 40 - 50 % [facility] MCV 95.6 80 - 100 FL [facility] MCH 33.0 26 - 34 PG [facility] MCHC 34.5 32.0 - 36.0 G/DL [facility] RDW 13.3 11 - 15 % [facility] Platelet Count 156 150 - 400 K/UL [facility] MPV 7.6 7 - 11 FL [facility] Performing Organization Address [facility] Phone Number [facility] [address] [place] [phone] * BASIC METABOLIC PANEL (08/14/2018 5:06 AM CDT) Sodium 138 137 - 147 MMOL/L [facility] Potassium 4.1 3.5 - 5.1 MMOL/L [...] >60 >60 mL/min [facility] Comment: [place] The eGFR is not validated for use in drug dosing adjustments.Continue to use estimated creatinine clearance per dosing reference text.Please contact the Clinical Pharmacist for questions. eGFR >60 >60 mL/min [facility] [place] Comment: The eGFR is not validated for use in drug dosing adjustments.Continue to use estimated creatinine clearance per dosing reference text.Please contact the Clinical Pharmacist for questions. Performing Organization Address City/State/Zipcode Phone Number MAIN LAB [address] [place] [address] * REGADENOSON MPI STRESS TEST (08/13/2018 7:43 [...] Kwon 41 OTHER OUTSIDE LAB Study Number [id number] OTHER OUTSIDE LAB PUL TO LUIS M [...] At OTHER OUTSIDE LAB Nuclear Report [facility] Division of Nuclear Cardiac Imaging Consultation Report EXAMINATION:D-SPECT Gated [id number] Chloride myocardial perfusion single-photon emission computed tomography for viability, resting regional wall function, resting ejection fraction, and perfusion imaging utilizing Regadenoson pharmacological stress. Date of Study:08/13/18 Study #:[id number] NAHID Billing ID:[id number] Referring Physician: Requested by:Kong La MD BMI: [...] Approximately 20 seconds later 1.33 mCi of [id number] was injected intravenously. Throughout the infusion continuous electrocardiographic monitoring and serial electrocardiograms were obtained, as well as intermittent blood pressure recordings.Gated upright D-SPECT tomographic images were then acquired approximately 5 minutes after discontinuation of the regadenoson infusion. When indicated supine D-SPECT images were also obtained.The patient returned in approximately 4 hours and received an additional intravenous injection of 0.45 mCi of Cnafsfom797 Chloride as a reinjected dose to assist [...] Conclusion:Pharmacologic stress ECG is negative for ischemia. Gkchvgskd-xe-Amrjgouoti Count Ratio:0.38(normal=or < 0.52). Scintigraphic Findings:Raw images [...] annual cardiovascular mortality rate. Performing Organization Address City/[facility] Phone Number OTHER OUTSIDE LAB * TYPE & CROSSMATCH (08/13/2018 7:00 AM CDT) Pathologist [facility] Units Ordered 0 MAIN LAB Crossmatch 08/16/2018 [facility] Expires Record Check FOUND [facility] ABO/RH(D) A POS MAIN LAB Antibody Screen NEG MAIN LAB Electronic YES MAIN LAB Crossmatch Specimen Blood Performing Organization Address [facility] Phone Number MAIN LAB [address] [place] [address] * MAGNESIUM (08/13/2018 5:19 AM CDT) [facility] Magnesium 1.9 1.6 - 2.6 mg/dL MAIN LAB Performing Organization Address [facility] Phone Number MAIN LAB [address] [place] [address] * CBC (08/13/2018 5:19 AM CDT) Pathologist [facility] White Blood 6.2 4.5 - 11.0 K/UL MAIN LAB Cells RBC 3.37 (L) 4.4 - 5.5 M/UL MAIN LAB Hemoglobin 11.2 (L) 13.5 - [...] 11 FL MAIN LAB Performing Organization Address [facility] Phone Number MAIN LAB [address] [place] [address] * BASIC METABOLIC PANEL (08/13/2018 5:19 AM [...] >60 >60 mL/min [facility] Comment: [place] The eGFR is not validated for use in drug dosing adjustments.Continue to use estimated creatinine clearance per dosing reference text.Please contact the Clinical Pharmacist for questions. eGFR >60 >60 mL/min [facility] [place] Comment: The eGFR is not validated for use in drug dosing adjustments.Continue to use estimated creatinine clearance per dosing reference text.Please contact the Clinical Pharmacist for questions. Performing Organization Address City/State/Zipcode Phone Number [facility] [address] [place] [address] * MAGNESIUM (08/12/2018 4:32 AM CDT) Magnesium 1.9 1.6 - 2.6 mg/dL MAIN LAB Performing Organization Address City/[facility]/Zipcode Phone Number [facility] [address] [place] [phone] * BASIC METABOLIC PANEL (08/12/2018 4:32 AM [...] >60 >60 mL/min [facility] Comment: [place] The eGFR is not validated for use in drug dosing adjustments.Continue to use estimated creatinine clearance per dosing reference text.Please contact the Clinical Pharmacist for questions. eGFR >60 >60 mL/min [facility] [place] Comment: The eGFR is not validated for use in drug dosing adjustments.Continue to use estimated creatinine clearance per dosing reference text.Please contact the Clinical Pharmacist for questions. Performing Organization Address City/State/Zipcode Phone Number MAIN LAB [address] [place] [address] * CBC (08/12/2018 4:32 AM CDT) White [...] FL [facility] Performing Organization Address City/[facility] Phone Number MAIN LAB [address] [place] [address] * CT ABD/PELV W CONTRAST (08/11/2018 2:31 [...] throughout both lobes of the liver. A rental representative mass in segment 3 measures 2.5 [...] throughout both lobes of the liver. A rental representative mass in segment 3 measures 2.5 [...] throughout both lobes of the liver. A rental representative mass in segment 3 measures 2.5 [...] throughout both lobes of the liver. A rental representative mass in segment 3 measures 2.5 [...] 34 OTHER OUTSIDE Index LAB Cardiology Siemens [id number] OTHER OUTSIDE Ultrasound LAB Machine Left Ventricle [...] - Urine Straight Catheter Performing Organization Address City/[facility] Phone Number [facility] [address] [place] [phone] * MAGNESIUM (08/11/2018 6:06 AM CDT) Magnesium 1.9 1.6 - 2.6 mg/dL [facility] Performing Organization Address City/[facility] Phone Number [facility] [address] [place] [address] * BASIC METABOLIC PANEL (08/11/2018 6:06 AM [...] >60 >60 mL/min [facility] Comment: [place] The eGFR is not validated for use in drug dosing adjustments.Continue to use estimated creatinine clearance per dosing reference text.Please contact the Clinical Pharmacist for questions. eGFR >60 >60 mL/min [facility] [place] Comment: The eGFR is not validated for use in drug dosing adjustments.Continue to use estimated creatinine clearance per dosing reference text.Please contact the Clinical Pharmacist for questions. Performing Organization Address City/[facility]/Zipcode Phone Number MAIN LAB [address] [place] [address] * CBC (08/11/2018 6:06 AM CDT) White [...] FL [facility] Performing Organization Address City/[facility] Phone Number [facility] [address] [place] [address] * PHOSPHORUS (08/11/2018 6:06 AM CDT) Phosphorus 3.1Comment: NOTE NEW REFERENCE 2.0 - 4.5 MG/DL [facility] RANGES Performing Organization Address City/[facility]/Zipcode Phone Number [facility] [address] [place] [address] * TROPONIN-I (08/11/2018 12:23 AM CDT) Pathologist [facility] [place] Troponin-I 0.01 0.0 - 0.05 NG/ML MAIN LAB Specimen Blood Performing Organization Address City/[facility]/Zipcode Phone Number [facility] [address] [place] [address] * TROPONIN-I (08/10/2018 7:25 PM CDT) Troponin-I 0.01 0.0 - 0.05 NG/ML MAIN LAB Specimen Blood Performing Organization Address [facility] Phone Number [facility] [address] [place] [address] * CULTURE-URINE W/SENSITIVITY (08/10/2018 1:51 PM CDT) Battery Name URINE CULTURE MAIN LAB Specimen URINE MAIN LAB Description Special NONE MAIN LAB Requests Culture <10,000 organisms/ml MAIN LAB MIXED CONTAMINANTS Report Status FINAL MAIN LAB 08/11/2018 Specimen Urine - Urine Performing Organization Address [facility] Phone Number MAIN LAB [address] [place] [address] * URINALYSIS, MICROSCOPIC (08/10/2018 1:51 PM CDT) WBCs,UA PACKED 0 - 2 /HPF MAIN LAB RBCs,UA PACKED 0 - 3 /HPF MAIN LAB MucousUA 1+ MAIN LAB Bacteria,UA FEW (A) NEG-NEG MAIN LAB Squamous 2-5 0 - 5 MAIN LAB Epithelial Cells Specimen Urine - Urine Performing Organization Address [facility] Phone Number MAIN LAB [address] [place] [address] * URINALYSIS DIPSTICK (08/10/2018 1:51 PM CDT) Color,UA BRENDA MAIN LAB Turbidity,UA 2+ (A) CLEAR-CLEAR MAIN LAB Specific 1.018 1.003 - 1.035 MAIN LAB [place]-Urine pH,UA 5.0 5.0 - 8.0 [facility] Protein,UA 2+ (A) NEG-NEG MAIN LAB Glucose,UA NEG NEG-NEG MAIN LAB Ketones,UA TRACE (A) NEG-NEG MAIN LAB Bilirubin,UA POS (A) NEG-NEG MAIN LAB Blood,UA 3+ (A) NEG-NEG MAIN LAB Urobilinogen,UA INCREASED (A) NORM-NORMAL MAIN LAB Nitrite,UA NEG NEG-NEG MAIN LAB Leukocytes,UA 2+ (A) NEG-NEG MAIN LAB Urine Ascorbic NEG NEG-NEG MAIN LAB Acid, UA Specimen Urine - Urine Performing Organization Address City/[facility]/Zipcode Phone Number MAIN LAB [address] [place] [address] * CHEST SINGLE VIEW (08/10/2018 1:38 PM [...] on 08/10/2018 2:08 PM. Performing Organization Address [facility]/Zipcode Phone Number [facility] RAD RESULTS * POC TROPONIN (08/10/2018 1:15 PM CDT) Qfrjvyxe-F-BNE 0.01 0.00 - 0.05 NG/ML [employer] MAIN LAB Performing Organization Address [facility]/Zipcode Phone Number MAIN LAB [address] [place] [address] * TSH WITH FREE T4 REFLEX (08/10/2018 1:07 PM CDT) TSH 1.010 0.35 - 5.00 MCU/ML [facility] Specimen Blood Performing Organization Address City/[facility]/Zipcode Phone Number [facility] [address] [place] [address] * PHOSPHORUS (08/10/2018 1:07 PM CDT) Phosphorus 3.3Comment: NOTE NEW REFERENCE 2.0 - 4.5 MG/DL [facility] RANGES Specimen Blood Performing Organization Address City/[facility] Phone Number MAIN LAB [address] [place] [address] * MAGNESIUM (08/10/2018 1:07 PM CDT) Magnesium 2.1 1.6 - 2.6 mg/dL [facility] Specimen Blood Performing Organization Address [facility] Phone Number [facility] [address] [place] [address] * COMPREHENSIVE METABOLIC PANEL (08/10/2018 1:07 PM CDT) Pathologist [facility] [place] Sodium 138 137 - 147 MMOL/L [facility] [...] (L) >60 mL/min [facility] Comment: [place] The eGFR is not validated for use in drug dosing adjustments.Continue to use estimated creatinine clearance per dosing reference text.Please contact the Clinical Pharmacist for questions. eGFR >60 >60 mL/min [facility] [place] Comment: The eGFR is not validated for use in drug dosing adjustments.Continue to use estimated creatinine clearance per dosing reference text.Please contact the Clinical Pharmacist for questions. Specimen Blood Performing Organization Address City/[facility]/Zipcode Phone Number MAIN LAB [address] [place] [address] * CBC AND DIFF (08/10/2018 1:07 PM [...] Basophil Count Specimen Blood Performing Organization Address City/[facility]/Zipcode Phone Number MAIN LAB [address] [place] [address] * TELEMETRY STRIPS-SCAN (08/10/2018 12:00 AM CDT) [...] Topical, THREE TIMES DAILY, First dose on 08/15/18 at 0900, Until Discontinued, Apply to TIP [...] Until Fri08/11/18 at 1421, For Procedure, A clinical nursing instructor may only administer Definity through a saline [...] Given 0.4 mg, Intravenous, ONCE, 1 dose, [facility] 08/13/18 at 0700, Inject 0.4 mg Regadenoson [...]
--- OUTSIDE RECORDS SUMMARY | 2018-09-14 12:36 | XMS REPORT | Encounter Summary ---
Author Author [facility] Organization [facility] Address Unknown Phone Unavailable Care Team Providers Care Manager Small Business Name Role Phone Ebonie Isaacs DO PCP Encounter Details Care Team Description Date Type Department Sedrick Bertrand MD [address] [place], [place] [phone] Bladder tumor (Primary Dx) 08/10/2018 Prep for Case The [address] [phone] Social History Date Tobacco Use Types Packs/Day [...]
--- OUTSIDE RECORDS SUMMARY | 2018-09-14 12:36 | XMS REPORT | Encounter Summary ---
Author Author [facility] Organization [facility] Address Unknown Phone Unavailable Care Team Providers Care Parenting Skills Instructor Name Role Phone Ebonie Isaacs PCP Reason for Visit * Auth/Cert Referred By Contact Referred To Contact Status Reason Specialty Diagnoses / Procedures Diagnoses Bladder tumor Bladder tumor [D49.4] P rocedures [place] CYSTOURETHROSCOPY W/DEST &/RMVL TUMOR LARGE CYSTOURETHROSCOPY WITH FULGURATION/ RESECTION BLADDER TUMOR -LARGE - GREATER THAN 5.0 CM Encounter Details Care Team Description Date Type Department Sedrick Bertrand MD [address] [facility] [place] [address] Bladder mass 08/10/2018 Ancillary The [address] [address] Anesthesia Record Responsible Anesthesiologist Anesthesia [...] given to you in PAC. Use half th e bottle the night before, and the other half the morning of your procedure. Use clean towels with each bath or shower. Put on clean clothes after bath or shower. Avoid using lotion and oils. If you are having surgery above the waist, wear a shirt that fastens up the f ront. Sleep on clean sheets if bath or shower is done the night before procedure. Leave money, credit cards, jewelry, and any other valuables at home. The [facility] is not responsible for the loss or breakage of [employer] items. Remove nail indonesian, makeup and all jewelry (including piercings) before comin g to the hospital. The morning of your procedure: brush your teeth and tongue do not smoke do not shave the area where you will have surgery What to bring to the hospital ID/ Insurance Card H[employer] Tr[employer] card Official documents for legal guardianship Copy of your Living Will, Advanced Directives, and/or Durable Power of Attorn ey Small bag with a few personal belongings CPAP/BiPAP machine (including all supplies) Walker,cane, or motorized scooter Cases for glasses/hearing aids/contact lens (bring solutions for contacts) Dress in clean, loose, comfortable clothing Eating or drinking before surgery Do not eat or drink anything after 11:00 p.m. the day before your procedure ( including gum, mints, candy, or chewing tobacco) OR follow the specific instruct ions you were given by your Surgeon. You may have WATER ONLY up to 2 hours before arriving at the hospital. Other instructions: Other instructionsNotify your surgeon if: there is a possibility that you are you become ill with a cough, fever, sore throat, nausea, vomiting or flu-like symptoms you have any open wounds/sores that are red, painful, draining, or are new si nce you last saw the doctor you need to cancel your procedure You will receive a call with your surgery arrival time from between 2:30pm an d 4:30pm the last business day before your procedure. If you do not receive a c all, please call [phone] before 4:30pm or [phone] after 4:30pm. Notify us at [facility]: if you need to cancel your procedure if you are going to be late Arrival at the [facility] [address] [place] [address] Park in the Parking Garage, located directly across from the main entrance to the hospital. Therapy Technician parking is available from 7 AM to 4 PM Friday through Friday. Enter through the ground floor [facility] entrance and check in at the Inf ormation Desk in the lobby. They will validate your parking ticket and direct you to the next location. If you are a woman between the ages of 10 and 55, and have not had a hysterec shae, you will be asked for a urine sample prior to surgery. Please do not urin ate before arriving in the Surgery Waiting Room. Once there, check in and let t he attendant know if you need to provide [...] herbals, and natural supplements 14 days before adriano belén: Do not start any new vitamins, herbals, or natural supplements before surgery . Stop the following medications 7 days before surgery: Anti-inflammatory medications such as ibuprofen (Advil, Motrin) and naproxen (Aleve) You may use acetaminophen (Tylenol) Morning of surgery On the morning of surgery, do NOT take these medications: Remaining vitamins/supplements Ointments/creams/lotions On the morning of surgery, take ONLY these medications with a sip (1-2 ounces) o f water: Finasteride Metoprolol Tamsulosin Other information Before surgery, please contact the clinic pharmacist with any medicine updates o r questions. E-mail: [email or web address] Before going home from the hospital, please ask your doctor when you should re-s tart your medicines that were stopped before surgery. [...] Blood Performing Organization Address City/State/Zipcode Phone Number [facility] [address] [place] [address] * COMPREHENSIVE METABOLIC PANEL (08/10/2018 10:47 AM CDT) Sodium 137 137 - 147 MMOL/L [facility] Potassium 4.7 3.5 - 5.1 MMOL/L [facility] Chloride 107 98 - 110 MMOL/L [facility] Glucose 145 (H) 70 - 100 MG/DL [facility] Blood Urea 22 7 - 25 MG/DL [facility] Nitrogen Creatinine 1.33 (H) 0.4 - [...] LAB Anion Gap 7 3 - 12 [facility] eGFR Non 52 (L) >60 mL/min [facility] Comment: [place] The eGFR is not validated for use in drug dosing adjustments.Continue to use estimated creatinine clearance per dosing reference text.Please contact the Clinical Pharmacist for questions. eGFR >60 >60 mL/min [facility] [place] Comment: The eGFR is not validated for use in drug dosing adjustments.Continue to use estimated creatinine clearance per dosing reference text.Please contact the Clinical Pharmacist for questions. Performing Organization Address City/State/Zipcode Phone Number [facility] [address] [place] [address] * CBC (08/10/2018 10:47 AM CDT) White Blood 7.0 4.5 - 11.0 K/UL [facility] Cells RBC 3.80 (L) 4.4 - 5.5 M/UL [facility] Hemoglobin 12.4 (L) 13.5 - 16.5 GM/DL [facility] Hematocrit 36.4 (L) 40 - 50 % [facility] MCV 95.7 80 - 100 FL [facility] MCH 32.5 26 - 34 PG [facility] MCHC 34.0 32.0 - 36.0 G/DL [facility] RDW 13.8 11 - 15 % [facility] Platelet Count 181 150 - 400 K/UL [facility] MPV 8.1 7 - 11 FL [facility] Specimen Blood Performing Organization Address City/State/Zipcode Phone Number [facility] [address] [place] [address] documented in this encounter Visit Diagnoses Diagnosis Bladder mass Other specified disorders of bladder documented in this encounter
--- OUTSIDE RECORDS SUMMARY | 2018-09-14 12:36 | XMS REPORT | Encounter Summary ---
Author Author [facility] Address Unknown Phone Unavailable Care Team Providers Care Superintendent House Name Role Phone Ebonie Isaacs DO PCP Reason for Visit * Reason Comments Hypotension Pt sent from [facility] for low blood pressure and dizziness. Pt states his BP was in the 60s. 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 CT C/A/P 08/12/18- Development of multipl [...] follow-up results and call patient with the [facility] ults and arrange outpatient follow-up based on [...] or concerns regarding your hospital stay. Call [phone] Discharging attending physician: SHELLI STONE [[id number]] Regular Diet You have no dietary restriction. [...] Your Medications These medications were sent to [facility] - [place], [place] - [address] [address] amiodarone 400 mg tablet bacitracin 500 unit/g [...] HTN / HLD CAD s/p CABG - SHEET ROCK SANDER on enalapril and metop xl. - restarted [...] home in stable state. >31 minutes in bsqt-gh-voxw time spent with patient, patient/family counseling, coordination [...] abnormality. Approved by Nabeel Berrios M.D. on 3:09 PM By my electronic signature, I [...] and arrange follow up based on jarrett wynn to ronnie from urology standpoint after voiding. Augusto Sher MD Urology PGY-3 Please page urology target aircraft controller with questions SUBJECTIVE: Overnight events: No acute events overnight. NPO since midnight. (-) Nausea. (- ) Emesis. (+) Ambulation. No signs or symptoms of UTI OBJECTIVE: Vital Signs: Most Recent Vital Signs: Past 24 Ho urs BP: 108/56 (08/15 1011) Temp: 36.5 C [...] clamped. Intake/Output: Date 08/14/18 0701 - 08/15/18 0700 08/15/18 0701 - 08/16/18 0700 Shift 0420-5340 7161-1686 24 Hour Total 5971-9790 7325-8993 24 Hour Total INTAKE P.O. 100 100 [...] FOR HYOSCAMINE & RECIEVED A DOSE. Time MD/PEDIATRIC PATHOLOGIST Notified: 0604 /PEDIATRIC PATHOLOGIST Name: MPP FREIGHT [employer] DELTA SYSTEM PAGER [phone] /PEDIATRIC PATHOLOGIST Response: Interventions: * Singh English, JODI - 08/15/2018 3:51 AM CDT Patient Problem called about: (document change in assessment or concern): C/O B URNING IN PENIS SHAFT. CBI GOING WELL. SOME SEDIMENT IN TUBING. BUT LIGHT YELLOW . FENTANYL NOT VERY EFFECTIVE. JUST GAVE TYLENOL. NOT SURE WHAT ELSE CAN BE DONE . HAD PARTIAL TRANS URETHRAL TUMOR RESECT 08/14 Time MD/PEDIATRIC PATHOLOGIST Notified: 0340 MD/PEDIATRIC PATHOLOGIST Name: DR Janki SHER MD/PEDIATRIC PATHOLOGIST Response: LEVSIN 0.125 Q6HPRN BACITRACIN AROUND TIP [...] HTN / HLD CAD s/p CABG - SHEET ROCK SANDER on enalapril and metop xl. - restarted [...] Laughlin MD Urology PGY-2 Please page urology target aircraft controller with questions ATTESTATION I personally performed the [...] : Voiding naturally Intake/Output: Date 08/13/18700 - 08/14/18 0708/14/18700 - 08/15/18 07 Shift 2995-8689 9570-1811 24 Hour Total 8379-0560 4114-4756 24 Hour Total INTAKE P.O. 0 0 0 Shift Total(mL/kg) 0(0) 0(0) 0(0) OUTPUT Urine(mL/kg/hr) 825(0.9) 775(0.9) 1600(0.9) Urine 282 847 9989 Shift Total(mL/kg) 825(10.9) 775(10.3) 1600(21.2) NET -825 [...] PROGRESS NOTE Patient Name: Sara Leiva Room/Bed: [place] [address] Admitting Diagnosis: Mobility Progressive Mobility Level: Walk [...] to the ED for asymptomatic hypotension Precautions: Standard(TUNICA-BILOXI on left side) Pain / Complaints: Patient [...] s no AE/DME. Prior Function Level Of [place]: Independent with ADLs and functional transfers;Independen t [...] Patient Will Perform All ADL's: w/ Modified [place] Functional Transfer Goals Pt Will Perform All Functional Transfers: Modified Independent OT Discharge Recommendations OT Discharge Recommendations: Home with family assist Equipment Recommendations: Too early to be determined Additional Information: Anticipate patient to be at baseline function prior to d /c home. Recommend ongoing assistance for: Ambulation, Stairs, Safety concerns Therapist: FAUSTO Luciano/Nanette [id number] Date: 08/13/2018 * Yo Cunningham MD - [...] chloride 0.9 % infusion 100 mL/hr at 08/12/188 PRN and Respiratory Meds: Physical Exam: Vital [...] HTN / HLD CAD s/p CABG - SHEET ROCK SANDER on enalapril and metop xl. - restarted [...] be at 1215. Nurse called downstairs to [facility] and confirmed that the cystoscopy was cancelled 08/12. Talked with primary MD which confirmed that pt is able to eat and drink what on [facility] nuclear cardiology for thallium images. * Mee Nazario RN - 08/13/2018 5:51 AM CDT Report received from Shaheen cox branson RN. Anticipating patient to [address] [address] . Ella Calling lab to see if type and cross is needed, only screen done by bb, need type and cross for surgery. did not get this drawn when he arrived to pre p ost before he was sent back to his room. Informed floor RN that TYPE and Cross still needed. Patient [place] [address], case was moved because patient needs a stress test before surgery. Mac NUC [id number], will call for patient when they are ready fo r him. He is in good spirits and understands, [facility]. Notifying RN. * Jeanette Denton RN - 08/12/2018 3:57 PM CDT I have reviewed the notes, assessment, flow sheets and/or procedures performed Galina Zarate, Student Nurse and concur with her/his documentation unless oth erwise noted. Jeanette Denton RN [facility] Clinical Hydrometallurgical Engineer * Edgar Nieves - 08/12/2018 3:01 PM [...] Aide: Edgar Nieves Date: 08/12/2018 * Suzette Viera, OT - 08/12/2018 11:43 AM CDT OCCUPATIONAL THERAPY ASSESSMENT NOTE Patient Name: Sara Gonzales Ross Room/Bed: [place] [address] Admitting Diagnosis: Mobility Progressive Mobility Level: Walk [...] to the ED for asymptomatic hypotension Precautions: Standard(T[place]-BILOXI on left side) Pain / Complaints: Patient [...] s no AE/DME. Prior Function Level Of [place]: Independent with ADLs and functional transfers;Independen t [...] Patient Will Perform All ADL's: w/ Modified [place] Functional Transfer Goals Pt Will Perform All Functional Transfers: Modified Independent OT Discharge Recommendations OT Discharge Recommendations: Home with family assist Equipment Recommendations: Too early to be determined Additional Information: Anticipate patient to be at baseline function prior to d /c home. Recommend ongoing assistance for: Ambulation, Stairs, Safety concerns Therapist: FAUSTO Roberts/Nanette [id number] Date: 08/12/2018 * Michaelle James, PT - [...] Therapist: Michaelle James PT Date: 08/12/2018 * Radha Pena RD - 08/12/2018 11:25 AM CDT CLINICAL NUTRITION Clinical Nutrition Assessment Summary NAME:Sara Leiva :1940 AGE: 77 y.o. ADMISSION DATE: 08/10/2018 DAYS ADMITTED: LOS: 1 day Nutrition Assessment of Patient: BMI Categories Adult: Acceptable: 18.5-24.9 Unintentional Weight Loss: > 10% in 6 months (severe) Current Oral Intake: Inadequate Estimated Calorie Needs: 8900-5888(30-35 kcal/kg present wt 75.4kg) Estimated Protein Needs: 98-113(1.3-1.5 g/kg present wt) Oral Diet Order: Cardiac ICD-10 code E43: Chronic illness/Severe malnutrition Weight loss: >10% x 6 months, Severe loss of muscle mass Loss of Subcutaneous Fat: Yes Mild Orbital, Triceps Muscle Wasting: Yes Severe Buddhism, Clavicle, Interosseous Edema: No Malnutrition Interventions: Boost Plus [place] TIDWM. Comments: 77 M with HTN, HLD, CAD s/p CABG, PVD, recent CVA, was seen in Urology clinic fo r evaluation for bladder cancer/hematuria and was sent to the ED for asymptomati c hypotension. Pt sleeping soundly at time of visit, did not wake to name or whi le verifying wristband with . reports pt with poor appetite SHEET ROCK SANDER and now , biggest limiting factor to [...] scabbed over per RN. No edema. LBM 16 per RN documentat ion. Will continue to [...] Throughout Stay Radha Pena RD, LD Phone: [phone] Pager: [phone] * Saundra Hernandez MD - 08/12/2018 10:24 [...] HTN / HLD CAD s/p CABG - SHEET ROCK SANDER on enalapril and metop xl. - restarted BB, holding ACEI for now. - continue statin Multiple PVCs,VTach? On tele: - consulting cardiology today. - restart BB - monitor Recent CVA: - admitted to [facility] and was noted to have (per Urology note) MRI brain wit h punctate areas of diffusion restriction in both cerebellar hemispheres c/w acu te punctate infarctions, probably from a cardiogenic source. Old infarcts are pr esent in the left frontal lobe and left temporal lobe. small vessel disease. - will try to obtain records from [facility] - currently not on antiplatelets due [...] bed (Comment degree) (20) * Kristal Ybarra, JODI - 08/11/2018 6:33 PM CDT 1630: Team [...] HTN / HLD CAD s/p CABG - SHEET ROCK SANDER on enalapril and metop xl. will hold both in setting of hypotension above - continue statin Recent CVA: - admitted to [facility] and was noted to have (per Urology note) MRI brain wit h punctate areas of diffusion restriction in both cerebellar hemispheres c/w acu te punctate infarctions, probably from a cardiogenic source. Old infarcts are pr esent in the left frontal lobe and left temporal lobe. small vessel disease. - will try to obtain records from [facility] - currently not on antiplatelets [...] 08/10/18 1:15 PM Result Value Ref Range Dzcvifff-Z-FCC 0.01 0.00 - 0.05 NG/ML URINALYSIS DIPSTICK Collection Time: 08/10/18 1:51 PM Result Value Ref Range Color,UA BRENDA Turbidity,UA 2+ (A) CLEAR-CLEAR Specific [place]-Urine 1.018 1.003 - 1.035 pH,UA 5.0 5.0 [...] PM CDT Patient arrived to room # ([id number]) via cart accompanied by transport. Patient tra [...] above. - getting records from [facility] as indicated elsewhere. Presumed stage IV bladder [...] HTN / HLD CAD s/p CABG - SHEET ROCK SANDER on enalapril and metop xl. will hold both in setting of hypotension above - continue statin Recent CVA: - admitted to [facility] and was noted to have [...] to medicine. Tiffany Morales MD Internal Medicine [id number] __ Chief Complaint: hypotension History of Present Illness: Sara Leiva is a 77 y.o. male with CAD s/p CABG , HTN, HLD, PVD, recent CVA, who was evaluated in [place] for ongoing hematuri a, had cystoscopy that [...] file Gets together: Not on file Attends bahai service: Not on file Active member of [...] Air) (08/10 1253) SpO2 Pulse: 39 (08/10 143) Height: 185 cm (72.84") (08/10 1004) BP: [...] 08/10/18 1:15 PM Result Value Ref Range Dbhswpap-E-III 0.01 0.00 - 0.05 NG/ML URINALYSIS DIPSTICK Collection Time: 08/10/18 1:51 PM Result Value Ref Range Color,UA BRENDA Turbidity,UA 2+ (A) CLEAR-CLEAR Specific [place]-Urine 1.018 1.003 - 1.035 pH,UA 5.0 5.0 [...] as outlined below. No s3, rales,edma. Sara Daooe Admission Date: 08/10/2018 Assessment/Plan: Active [...] BPs,any further intevention or recs ? HPI: Sraa Leiva is a 77 y.o. male with [...] (08/12 1254) Respirations: 16 PER MINUTE (08/12 125) SpO2: 99 % (08/12 125) O2 Delivery: [...] with urologic ca, [facility] Referring Provider: Saundra [...] Escamilla MD Urology Resident Please page Urology regional truck driver with questions. ATTESTATION I personally performed the [...] visit, patient was sent to ED from Ur ology clinic and admitted for asymptomatic hypotension. Currently, [...] Vargas RN - 08/10/2018 4:53 PM CDT [id number] bed assigned, please [place] Nya for [place] @ [phone], thanks! * Nya Bhatti RN - 08/10/2018 2:[address] Hall was notified that patient was still orthostatic after 1 L NS. * Sravan Sullivan MD - 08/10/2018 2:37 PM CDT Sara Leiva is a 77 y.o. male. Chief Complaint: Chief Complaint Patient presents with Hypotension Pt sent from [facility] for low blood pressure and dizziness. Pt states h is BP was in the 60s. History of Present Illness: Patient is a 77-year-old male with a past medical history of hypertension, hyper lipidemia, CAD status post CABG, PVD, CVA who presents the ED today from outpati ent urology clinic at [facility] for hypertension. Per report patient was noted to be systolic in the 60s, however was asymptomatic, was being evaluated f or possible stage IV bladder cancer, and [facility]. Patient denies [...] 1301 -- 117/54 -- -- -- -- 08/10/18 1254 -- 93/46 -- -- -- -- 08/10/18 1253 36.3 C (97.4 F) 99/52 [...] Final Turbidity,UA 2+ (*) CLEAR-CLEAR Final Specific [place]-Urine 1.018 1.003 - 1.035 Final pH,UA 5.0 [...] 0.35 - 5.00 MCU/ML Final POC TROPONIN Xkcwyokt-B-JWW 0.01 0.00 - 0.05 NG/ML Final POC [...] shows rate of 76 and sinus rhythm. DE interval, QRS duration, QT interval within normal [...] Creatinine 1.33, unknown baseline, UA looks dirty, osito r it discussed squames, concern for contamination, [...] Supervision Note concerning Sara Leiva: I personally perform ed the faith portions of the E/M visit, discussed case with resident and concur [facility] resident documentation of history, physical exam, assessment, and treatment p shazia unless otherwise noted. Sravan Sullivan MD * Nya Bhatti RN - 08/10/2018 1:22 PM CDT Sara Leiva 77 y/o male presents to ED 32 from triage in wheelchair. Patient was sent over from [place] due to hypotension. Patient reports his bp [...] on monitor, call light within reach. Belongings: Brown MOON Wearables Zhouans White shirt Phone All valuables will be [...] 101) O2 Delivery: None (Room Air) (08/15 101) [...] 77 y.o. male : 1940 MRN#: [id number] DATE OF OPERATION: 08/14/2018 Surgeon(s) and Role: [...] rile. We began by inserting the 26 english resectoscope with visual obturator in to the [...] to the scope in place a 22 Yi three-way catheter and started CBI. Patient was [...] Fermin MD 901 Augusto Sher MD Pager [phone] * Case Mgmt DC Deirdre - Vianney Lee RN - 08/11/2018 1:06 [...] for dc needs. Patient Address/Phone [address] [facility] [address] (home) Emergency Contact Extended Emergency Contact Information Primary Emergency Contact: angelia leiva Relation: Spouse Healthcare Directive Transportation Does the patient need discharge transport arranged?: No Transportation Name, Phone and Availability #1: Angelia hall [phone] Does the patient use Medicaid Transportation?: No [...] ? PCP Ebonie Isaacs, , ? Pharmacy [facility] [address] [address] ? Durable Medical Equipment Durable Medical Equipment [...] ? Outpatient Therapy PT: No OT: No DIRECTOR OF LABORATORY OPERATIONS: No ? Detention Facility/Prison SNF: No NH: No ? Inpatient Rehab IPR: No ? [facility] LTACH: No ? 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, health information manager [phone] documented in this encounter Plan of Treatment [...] Address City/State/Zipcode Phone Number [facility] [address] [place] [address] * CBC (08/15/2018 4:30 AM CDT) White [...] LAB MPV 7.3 7 - 11 [place] [facility] Performing Organization Address City/State/Zipcode Phone Number MAIN LAB [address] [place] [address] * BASIC METABOLIC PANEL (08/15/2018 4:30 AM [...] >60 >60 mL/min [facility] Comment: [place] The eGFR is not validated for use in drug dosing adjustments.Continue to use estimated creatinine clearance per dosing reference text.Please contact the Clinical Pharmacist for questions. eGFR >60 >60 mL/min MA[facility] [place] Comment: The eGFR is not validated for use in drug dosing adjustments.Continue to use estimated creatinine clearance per dosing reference text.Please contact the Clinical Pharmacist for questions. Performing Organization Address City/[facility]/Zipcode Phone Number [facility] [address] [place] [address] * SURGICAL PATHOLOGY (08/14/2018 9:09 AM CDT) PATHOLOGY [facility] www.[email or web address] Department of Pathology and Laboratory Medicine [address] [place] [address] Surgical Pathology Office:[phone] :[phone] SURGICAL PATHOLOGY REPORT NAME: SARA LEIVA SURG PATH #: [id number] MR #: [id number] SPECIMEN CLASS: SR BILLING #: [id number] ALT ID #:LOCATION: DISCHARGED DATE OF PROCEDURE: [...] cells, supporting the diagnosis. Pursuant to the Associate Merchandise Planner Program at the [facility] Pathology Department, selected slides from [...] of Pathology and Laboratory Medicine of the [facility] ([employer]) in compliance with CLIA'88 [...] of Pathology and Laboratory Medicine of the [facility]It has not been cleared or approved by the FDA.The FDA has determined that such clearance or approval is not necessary. Performing Organization Address City/State/Zipcode Phone Number [facility] [address] [place] [address] * MAGNESIUM (08/14/2018 5:06 AM CDT) Pathologist [facility] Magnesium 2.0 1.6 - 2.6 mg/dL [facility] Performing Organization Address City/[facility]/Zipcode Phone Number [facility] [address] [place] [address] * CBC (08/14/2018 5:06 AM CDT) Pathologist [facility] White Blood 6.0 4.5 - 11.0 K/UL [...] [place] [facility] Performing Organization Address [facility] Phone Number [facility] [address] [place] [address] * BASIC METABOLIC PANEL (08/14/2018 5:06 AM CDT) Pathologist [facility] Sodium 138 137 - 147 MMOL/L [facility] [...] >60 >60 mL/min [facility] Comment: [place] The eGFR is not validated for use in drug dosing adjustments.Continue to use estimated creatinine clearance per dosing reference text.Please contact the Clinical Pharmacist for questions. eGFR >60 >60 mL/min [facility] [place] Comment: The eGFR is not validated for use in drug dosing adjustments.Continue to use estimated creatinine clearance per dosing reference text.Please contact the Clinical Pharmacist for questions. Performing Organization Address City/State/Zipcode Phone Number [facility] [address] [place] [address] * REGADENOSON MPI STRESS TEST (08/13/2018 7:43 [...] Kwon 41 OTHER OUTSIDE LAB Study Number [id number] OTHER OUTSIDE LAB PUL TO LUIS M [...] At OTHER OUTSIDE LAB Nuclear Report [facility] Division of Nuclear Cardiac Imaging Consultation Report EXAMINATION:D-SPECT Gated [id number] Chloride myocardial perfusion single-photon emission computed tomography for viability, resting regional wall function, resting ejection fraction, and perfusion imaging utilizing Regadenoson pharmacological stress. Date of Study:08/13/18 Study #:[id number] [facility] Billing ID:[id number] Referring Physician: Requested by:Kong La MD BMI: [...] Approximately 20 seconds later 1.33 mCi of [id number] was injected intravenously. Throughout the infusion continuous electrocardiographic monitoring and serial electrocardiograms were obtained, as well as intermittent blood pressure recordings.Gated upright D-SPECT tomographic images were then acquired approximately 5 minutes after discontinuation of the regadenoson infusion. When indicated supine D-SPECT images were also obtained.The patient returned in approximately 4 hours and received an additional intravenous injection of 0.45 mCi of Cnyxzqyq278 Chloride as a reinjected dose to assist [...] Conclusion:Pharmacologic stress ECG is negative for ischemia. Isxfjxghp-wd-Mknvdbdbmj Count Ratio:0.38(normal=or < 0.52). Scintigraphic Findings:Raw images [...] (08/13/2018 7:00 AM CDT) Units Ordered 0 [facility] Crossmatch 08/16/2018 [facility] Expires Record Check FOUND [facility] ABO/RH(D) A POS [facility] Antibody Screen NEG [facility] Electronic YES [facility] Crossmatch Specimen Blood Performing Organization Address City/State/Zipcode Phone Number [facility]IN [facility] [address] [place] [address] * MAGNESIUM (08/13/2018 5:19 AM CDT) Pathologist [facility] Magnesium 1.9 1.6 - 2.6 mg/dL [facility] Performing Organization Address City/[facility]/Zipcode Phone Number [facility]IN LAB [address] [place] [address] * CBC (08/13/2018 5:19 AM CDT) Pathologist [facility] White Blood 6.2 4.5 - 11.0 K/UL [...] FL [facility] Performing Organization Address [facility]/Zipcode Phone Number [facility] [address] [place] [address] * BASIC METABOLIC PANEL (08/13/2018 5:19 AM CDT) Pathologist [facility] Sodium 139 137 - 147 MMOL/L [facility] [...] >60 >60 mL/min [facility] Comment: [place] The eGFR is not validated for use in drug dosing adjustments.Continue to use estimated creatinine clearance per dosing reference text.Please contact the Clinical Pharmacist for questions. eGFR >60 >60 mL/min [facility] [place] Comment: The eGFR is not validated for use in drug dosing adjustments.Continue to use estimated creatinine clearance per dosing reference text.Please contact the Clinical Pharmacist for questions. Performing Organization Address City/[facility]/Zipcode Phone Number [facility] [address] [place] [phone] * MAGNESIUM (08/12/2018 4:32 AM CDT) Magnesium 1.9 1.6 - 2.6 mg/dL [facility] Performing Organization Address City/[facility] Phone Number [facility] [address] [place] [address] * BASIC METABOLIC PANEL (08/12/2018 4:32 AM [...] >60 >60 mL/min [facility] Comment: [place] The eGFR is not validated for use in drug dosing adjustments.Continue to use estimated creatinine clearance per dosing reference text.Please contact the Clinical Pharmacist for questions. eGFR >60 >60 mL/min [facility] [place] Comment: The eGFR is not validated for use in drug dosing adjustments.Continue to use estimated creatinine clearance per dosing reference text.Please contact the Clinical Pharmacist for questions. Performing Organization Address City/[facility]/Zipcode Phone Number [facility] [address] [place] [address] * CBC (08/12/2018 4:32 AM CDT) White [...] Address City/State/Zipcode Phone Number [facility] [address] [place] [address] * CT ABD/PELV W CONTRAST (08/11/2018 2:31 [...] throughout both lobes of the liver. A in store marketing representative mass in segment 3 measures 2.5 [...] throughout both lobes of the liver. A in store marketing representative mass in segment 3 measures 2.5 [...] aorta with marked mixed plaque. Approved by Pawle Cash M.D. on 08/11/2018 5:04 PM By [...] throughout both lobes of the liver. A in store marketing representative mass in segment 3 measures 2.5 [...] throughout both lobes of the liver. A in store marketing representative mass in segment 3 measures 2.5 [...] on 08/11/2018 5:36 PM. Dictated by Pawel Cahs M.D. on 08/11/2018 3:47 PM. Performing Organization [...] 34 OTHER OUTSIDE Index LAB Cardiology Siemens [id number] OTHER OUTSIDE Ultrasound LAB Machine Left Ventricle [...] NONE MAIN LAB Requests Culture NO GROWTH MAIN LAB Report Status FINAL MAIN LAB 08/12/2018 Specimen Urine - Urine Straight Catheter Performing Organization Address [facility]/Zipcode Phone Number MAIN LAB [address] [place] [address] * MAGNESIUM (08/11/2018 6:06 AM CDT) Pathologist [facility] Magnesium 1.9 1.6 - 2.6 mg/dL MAIN LAB Performing Organization Address [facility]/Zipcode Phone Number MAIN LAB [address] [place] [address] * BASIC METABOLIC PANEL (08/11/2018 6:06 AM CDT) Pathologist [facility] Sodium 139 137 - 147 MMOL/L MAIN LAB Potassium 4.4 3.5 - 5.1 [...] Nitrogen Creatinine 0.95 0.4 - 1.24 MG/DL MAIN LAB Calcium 8.9 8.5 - 10.6 MG/DL MAIN LAB eGFR Non >60 >60 mL/min MAIN LAB Comment: [place] The eGFR is not validated for use in drug dosing adjustments.Continue to use estimated creatinine clearance per dosing reference text.Please contact the Clinical Pharmacist for questions. eGFR >60 >60 mL/min MAIN LAB [place] Comment: The eGFR is not validated for use in drug dosing adjustments.Continue to use estimated creatinine clearance per dosing reference text.Please contact the Clinical Pharmacist for questions. Performing Organization Address City/[facility]/Zipcode Phone Number MAIN LAB [address] [place] [address] * CBC (08/11/2018 6:06 AM CDT) White Blood 6.6 4.5 - 11.0 K/UL MAIN LAB Cells RBC 3.23 (L) 4.4 - 5.5 M/UL KU MAIN LAB Hemoglobin 10.9 (L) 13.5 - 16.5 GM/DL KU MAIN LAB Hematocrit 31.4 (L) 40 - 50 % MAIN LAB MCV 97.2 80 - 100 FL KU MAIN LAB MCH 33.6 26 - 34 PG MAIN LAB MCHC 34.5 32.0 - 36.0 G/DL MAIN LAB RDW 13.9 11 - 15 % K[facility] MAIN LAB Platelet Count 153 150 - 400 K/UL KU MAIN LAB MPV 8.4 7 - 11 FL KU MAIN LAB Performing Organization Address City/[facility] Phone Number MAIN LAB [address] [place] [address] * PHOSPHORUS (08/11/2018 6:06 AM CDT) Phosphorus 3.1Comment: NOTE NEW REFERENCE 2.0 - 4.5 MG/DL MAIN LAB RANGES Performing Organization Address City/[facility] Phone Number MAIN LAB [address] [place] [address] * TROPONIN-I (08/11/2018 12:23 AM CDT) Troponin-I 0.01 0.0 - 0.05 NG/ML MAIN LAB Specimen Blood Performing Organization Address City/[facility]/Zipcode Phone Number MAIN LAB [address] [place] [address] * TROPONIN-I (08/10/2018 7:25 PM CDT) Troponin-I 0.01 0.0 - 0.05 NG/ML MAIN LAB Specimen Blood Performing Organization Address [facility] Phone Number MAIN LAB [address] [place] [address] * CULTURE-URINE W/SENSITIVITY (08/10/2018 1:51 PM CDT) Battery Name URINE CULTURE MAIN LAB Specimen URINE MAIN LAB Description Special NONE [facility] MAIN LAB Requests Culture <10,000 organisms/ml MAIN LAB MIXED CONTAMINANTS Report Status FINAL MAIN LAB 08/11/2018 Specimen Urine - Urine Performing Organization Address [facility]/Zipcode Phone Number MAIN LAB [address] [place] [address] * URINALYSIS, MICROSCOPIC (08/10/2018 1:51 PM CDT) WBCs,UA PACKED 0 - 2 /HPF KU MAIN LAB RBCs,UA PACKED 0 - 3 /HPF KU MAIN LAB MucousUA 1+ [facility] MAIN LAB Bacteria,UA FEW (A) NEG-NEG [facility] MAIN LAB Squamous 2-5 0 - 5 [facility] MAIN LAB Epithelial Cells Specimen Urine - Urine Performing Organization Address [facility] Phone Number [facility] MAIN LAB [address] [place] [address] * URINALYSIS DIPSTICK (08/10/2018 1:51 PM CDT) Color,UA BRENDA [facility] MAIN LAB Turbidity,UA 2+ (A) CLEAR-CLEAR [facility] MAIN LAB Specific 1.018 1.003 - 1.035 K[facility] MAIN LAB [place]-Urine pH,UA 5.0 5.0 - 8.0 KU MAIN [...] Specimen Urine - Urine Performing Organization Address [facility] Phone Number KU MAIN LAB [address] [place] [address] * CHEST SINGLE VIEW (08/10/2018 1:38 PM [...] on 08/10/2018 2:08 PM. Performing Organization Address City/[facility] Phone Number RAD RESULTS * POC TROPONIN (08/10/2018 1:15 PM CDT) Pathologist [facility] Ccldzjmq-M-NSI 0.01 0.00 - 0.05 NG/ML MAIN LAB Performing Organization Address [facility] Phone Number MAIN LAB [address] [place] [address] * TSH WITH FREE T4 REFLEX (08/10/2018 1:07 PM CDT) Pathologist [facility] TSH 1.010 0.35 - 5.00 MCU/ML MAIN LAB Specimen Blood Performing Organization Address [facility] Phone Number MAIN LAB [address] [place] [address] * PHOSPHORUS (08/10/2018 1:07 PM CDT) Pathologist [facility] Phosphorus 3.3Comment: NOTE NEW REFERENCE 2.0 - 4.5 MG/DL MAIN LAB RANGES Specimen Blood Performing Organization Address [facility] Phone Number MAIN LAB [address] [place] [address] * MAGNESIUM (08/10/2018 1:07 PM CDT) Pathologist [facility] Magnesium 2.1 1.6 - 2.6 mg/dL MAIN LAB Specimen Blood Performing Organization Address [facility] Phone Number MAIN LAB [address] [place] [address] * COMPREHENSIVE METABOLIC PANEL (08/10/2018 1:07 PM [...] (L) >60 mL/min KU MAIN LAB Comment: [place] The eGFR is not validated for use in drug dosing adjustments.Continue to use estimated creatinine clearance per dosing reference text.Please contact the Clinical Pharmacist for questions. eGFR >60 >60 mL/min K[facility] MAIN LAB [place] Comment: The eGFR is not validated for use in drug dosing adjustments.Continue to use estimated creatinine clearance per dosing reference text.Please contact the Clinical Pharmacist for questions. Specimen Blood Performing Organization Address City/State/Zipcode Phone Number MAIN LAB [address] [place] [address] * CBC AND DIFF (08/10/2018 1:07 PM [...] Phone Number [facility] MAIN LAB [address] [place] [address] * TELEMETRY STRIPS-SCAN (08/10/2018 12:00 AM CDT) [...] 0350, Until 08/15/18 at 1459, Bladder Spasms 08/14/2018 7:04 AM [...] Fri08/14/18 at 0930, Until 08/15/18 at 1459 08/14/2018 8:54 AM CDT 21,000 [...]
--- OUTSIDE RECORDS SUMMARY | 2018-09-14 12:36 | XMS REPORT | Encounter Summary ---
Author Author [facility] Organization [facility] Address Unknown Phone Unavailable Care Team Providers Care Aluminum Siding Mechanic Name Role Phone Ebonie Isaacs PCP Reason for Referral * Radiology Services (Routine) Referred By Contact Referred To Contact Status Reason Specialty Diagnoses / Procedures Sedrick Bertrand MD [address] [place] [address] [address] No Auth Needed Radiology Diagnoses Bladder mass P rocedures CT ABD/PELV W CONTRAST CHG CT THORAX W/CONTRAST MATERIAL Reason for Visit * Reason Comments New Patient BLADDER MASS * Auth/Cert Referred By Contact Referred To Contact Status Reason Specialty Diagnoses / Procedures Diagnoses Bladder tumor Bladder tumor [D49.4] P rocedures [place] CYSTOURETHROSCOPY W/DEST &/RMVL TUMOR LARGE CYSTOURETHROSCOPY WITH FULGURATION/ RESECTION BLADDER TUMOR -LARGE - GREATER THAN 5.0 CM Encounter Details Care Team Description Date Type Department Sedrick Bertrand MD [address] [place] [address] Bladder mass (Primary Dx) 08/10/2018 Office Visit The [address] [id number] Social History Date Tobacco Use Types Packs/Day [...] RN - 08/10/2018 9:00 AM CDT [facility] Pre-Operative Instructions Surgical Procedure: Transurethral resection of bladder tumor, possible bilatera l retrograde pyelograms Date of Surgery: 08/14/18 Arrival Time at the Admission Office (Main Lobby): Will call To ensure that your surgery can proceed without delay, you will be contacted by a phone triage nurse from the Preoperative Assessment Clinic (PAC) to complete t his process. Please review the information given to you by your surgeon. You will be called by the surgery staff with your day of surgery arrival time be tween 2:30 - 4:30 PM the business day prior to surgery. If you have not heard fr om them after 4:30 PM, please call to confirm your arrival time. Pre-Operative Assessment and Instructions:Once you speak to the nurse or are see n in the Pre-Operative Assessment Clinic, you will be given medication instructi ons. However, if surgery is within 2 weeks, please read and follow the medicatio n instructions below to prepare for surgery before you speak with the phone tria maris nurse: 14 days prior to surgery: ? Contact your doctor who prescribes any of the following to develop a plan for surgery: o Blood thinners such as aspirin, Aggrenox, Brilinta, Effient, Eliquis, enoxapar in (Lovenox), clopidogrel (Plavix), cilostazol, pentoxifylline (Trental), Pradax a, Savaysa, ticlopidine, Xarelto, and warfarin (Coumadin) o Immunosuppresants such as methotrexate, azathioprine, sulfasalazine, everolimu s, sirolimus, Humira, Remicade, Enbrel, Simponi, Orencia, Cimzia, Actemra, and X eljanz o Chemotherapy ? Stop most vitamins, herbals, and supplements including (but not limited to): o Alpha lipoic acid, black cohosh, CoQ10, echinacea, eye vitamins, fish oil, fla xseed oil, garlic, gingko biloba, ginseng, glucosamine/chondroitin, kava, Lovaza , lutein, lysine, multivitamin, red yeast rice, GABRIELA-e, saw palmetto, [place] s wort, turmeric, valerian root, Vascepa, Vitamin A, Vitamin B complex, Vitamin C, Vitamin E ? You DO NOT need to stop: iron, magnesium, potassium 7 days prior to surgery: ? Stop anti-inflammatory medications such as ibuprofen (Advil, Motrin), naproxen (Aleve), Latoya-Douglas, Excedrin, Midol, celecoxib (Celebrex), diclofenac ([place] peng), diflunisal, etodolac, flurbiprofen, indomethacin, ketoprofen, ketorolac, m eloxicam, nabumetone, and piroxicam Do not drink alcohol within 24 hours of surgery. Please do not eat or drink anything after midnight. No gum, mints, hard candy, snacks, coffee, etc or chewing tobacco allowed after midnight before surgery. Y ou may brush your teeth but be sure [...] questions, please contact your provider's office at [phone] . For emergencies during evenings, nights, weekends, and holidays, contact [facility] circle cutting saw operator and request they contact the on-call Urology Resident at [phone]. documented in this encounter Progress Notes * Sedrick Bertrand MD - 08/10/2018 9:00 AM CDT Name: Sara Leiva : 1940 AGE: 77 y. o. DATE OF SERVICE: 08/10/2018 Subjective: Reason for Visit: New Patient (BLADDER MASS) Sara Leiva is a 77 y.o. male. Cancer Staging No matching staging information was found for the patient. History of Present Illness- 77 y/o male with history of hematuria with clots for over a year. He presented to [facility] ER Apr 2018 with gross hematuria an d urinary retention, venegas catheter was placed. He followed up with Dr. Brush wh o discontinued the catheter mid May 2018. CT abd was completed June 2018, which showed an abnormal appearance of the urinary bladder, a thick-walled appearance and a possible mass at the base and on the left. Cysto was completed by Dr. Carrizales il July 2018 which noted lesions at the prostate, bladder neck and right side o f bladder. He is a current everyday smoker. He has smoked a pack a day for 50 ye ars. He has a family history of bladder cancer, his brother. - 01/16/2018 CT SCAN C/A/P - Small 4 mm nodule in the anterior left upper lobe. If the patient is high risk for caner, consider follow up CT in 12 months. No e vidence of subclavian stenosis. Small infrarenal abdominal aortic aneurysm measu ring up to 3.4 cm without evidence of rupture. Diverticulosis of the distal colo n. Wall thickening of the sigmoid colon is thought to be due to decompression, l ess likely colitis. - 07/09/2018 Cystoscopy no lesions found, all within normal limits. - 07/23/2018 CT SCAN ABD/PELVIS - Abnormal appearance of the urinary bladder wh ich appears to be thick-walled and contains possible mass at the base and to the left. Evaluation is limited without IV contrast. Post contrast imaging or cysto scopy is recommended for further evaluation. In addition, there has been develop ment of numerous low density solid appearing masses throughout the liver concern ing for hepatic metastatic disease. There are some mildly prominent lymph nodes in the vijaya hepatis as well as in the right iliac region which could be metasta tic as well. - 07/30/2018 Cystoscopy found lesions bladder neck and bladder wall especially on the right. - 08/05/2018 Notified that patient is in the hospital at [facility] in [place], [place] Mr. Leiva went to [facility]'s ER 08/05/2018 with right arm/hand numb ness and inability to move his right arm. A CT SCAN head and cervical spine was completed at that time and small to moderated area of low density involving the left frontal lobe was noted. An underlying mass or cystic encephalomalacia in t he region may be considered. A subacute or chronic infarct also may be considere d. Chronic encephalomalacia involving the anterior aspect of the left temporal l obe. There are bilateral intraparotid and periparotid masses. These are concerni ng for primary salivary gland neoplasms. Given patient's age and bilateral locat ion of these lesions, Warthin's tumors are of concern. Enlarged nodes may also b e considered. Nonemergent MRI of the parotid glands with and without IV contrast is suggested. ENT consultation is also suggested. Cervical spine degenerative d isease with no acute fracture or dislocation. There is no cervical spine mass se en. He also had a MRI brain completed the following day which noted punctate are as of diffusion restriction in both cerebellar hemispheres consistent with acute punctate infarctions, probably from a cardiogenic source. Old infarcts are pres ent in the left frontal lobe and left temporal lobe. Atrophy and small vessel di sease are present. The patient could not tolerate further imaging. Imaging throu gh the parotid lesion was not obtained. There is fluid in the right mastoid air cells. Left maxillary sinusitis. Referred to Urology for further evaluation and treatment. Past medical histor y is HTN, HLD, deaf in right ear, ED, myocardial infarction and CAD. Recent hospitalization for "mini strokes". Patient has undergone cystoscopy and demonstrated abnormal lesions but he has not undergone any biopsies. CT scan dem onstrates questionable lesions in the liver concerning for metastatic disease. P atient having difficulty with walking. Patient had recent weight loss of about 3 0 lbs, has decreased appetite. Having back pain "near his kidneys". Sitting and in bed most of the day. Able to walk up a flight of stairs. Having gross hematur ia. Dr. Brush told the patient that scope showed "aggressive bladder tumors". PMHx: No past medical history on file. HTN HLD, ED Hx of strokes, IL CAD SurgHx: No past surgical history on [...] Clinical Trial: No treatment clinical trial available fo r this patient. Eastern Cooperative Oncology Group performance status is 3, Capable of only limi juanis selfcare, confined to bed or chair more than 50% of waking hours. Physical Exam General appearance: alert, cooperative and extremely frail Neurologic: Grossly normal, Alert and oriented x3 Head: Normocephalic, without obvious abnormality, atraumatic. Back: No CVA tenderness. Lungs: breathing is unlabored Heart: pulse is regular Abdomen: soft, non-tender, no palpable masses Male genitalia: normal, penis, no lesions, no urethral discharge. scrotal conten ts normal to inspection and palpation, normal testes palpated bilaterally Extremities: extremities normal, atraumatic, no cyanosis or edema Skin: No rashes or lesions Assessment and Plan: Mr. Leiva is a 77 y/o male with presumed stage IV bladder cancer. Patient has undergone staging with CT Abd/Pelvis which demonstrates liver lesions concernin g for metastatic disease. Cystoscopy today demonstrate friable tumor tissue at t he bladder neck and prostatic urethra. Patient will need a definitive tissue denice gnosis so we went over proceeding with TURBT. The other option is biopsy of the liver which we also discussed. Will proceed with TURBT given his significant LUT S. Plan to proceed for TURBT. We went over the goals of therapy, the hospital cours e and risks of surgery in great detail. The risks include but are not limited t o bleeding, infection, damage to contiguous organs, perforation of the bladder, injury to the ureteral orifice and/or ureter, need for prolonged venegas catheter, pain, inability to complete the operation, need for other procedures such as pe rcutaneous nephrostomy tube, laparotomy, IL, PE, stroke and . Patient verb alized understanding of the risks and wishes to proceed. The patient signed inf ormed consent. Will obtain a repeat CT C/A/P with contrast this time to assess metastatic burde n. Patient will likely require proceeding with systemic therapy after diagnosis. We will send him to PAT. As his performance status is so poor, we may have to d elay procedure if other work-up is necessary. documented in this encounter Plan of Treatment Order Schedule Name Priority Associated Diagnoses Expected: 08/10/2018 (Approximate), Expires: 08/11/2019 CT ABD/PELV W CONTRAST Routine Bladder mass Ordered: 08/10/2018 CYTOLOGY URINES Routine Bladder mass documented as of this encounter Procedures Comments Procedure Name Priority Date/Time Associated Diagnosis NON-BILLET SAWYER CYTOLOGY (BODY 08/10/2018 FLUIDS/TISSUE) 2:10 PM CDT documented in this encounter Results * NON-BILLET SAWYER CYTOLOGY (BODY FLUIDS/TISSUE) (08/10/2018 2:10 PM CDT) Cytology [facility] [email or web address] Department of Pathology and Laboratory Medicine [address] [place] [address] Surgical Pathology Office:[phone] :[phone] CYTOLOGY REPORT NAME: SARA LEIVA CYTOLOGY #: [id number] MR #: [id number] ALT ID #: BILLING #: [id number] LOCATION: [facility] DATE OF PROCEDURE: 08/10/2018 AGE: 77 SEX: [...] PhD Anna Holliday D.O. Performing Organization Address City/[facility]/Zipcode Phone Number [facility] [address] [place] [address] * CBC (08/10/2018 10:47 AM CDT) White [...] [facility] LAB Specimen Blood Performing Organization Address City/[facility] Phone Number [facility] [address] [place] [address] * COMPREHENSIVE METABOLIC PANEL (08/10/2018 10:47 AM [...] 52 (L) >60 mL/min [facility] LAB Comment: [place] The eGFR is not validated for use in drug dosing adjustments.Continue to use estimated creatinine clearance per dosing reference text.Please contact the Clinical Pharmacist for questions. eGFR >60 >60 mL/min [facility] [place] Comment: The eGFR is not validated for use in drug dosing adjustments.Continue to use estimated creatinine clearance per dosing reference text.Please contact the Clinical Pharmacist for questions. Performing Organization Address City/State/Zipcode Phone Number [facility] [address] [place] [address] documented in this encounter Visit Diagnoses Diagnosis Bladder mass - Primary Other specified disorders of bladder documented in this encounter
--- OUTSIDE RECORDS SUMMARY | 2018-09-14 12:36 | XMS REPORT | Encounter Summary ---
Author Author [facility] Organization [facility] Address Unknown Phone Unavailable Care Team Providers Care Senior Paralegal Name Role Phone Ebonie Isaacs PCP Reason for Visit * Auth/Cert Referred By Contact Referred To Contact Status Reason Specialty Diagnoses / Procedures Diagnoses Bladder tumor Bladder tumor [D49.4] P rocedures [place] CYSTOURETHROSCOPY W/DEST &/RMVL TUMOR LARGE CYSTOURETHROSCOPY WITH FULGURATION/ RESECTION BLADDER TUMOR -LARGE - GREATER THAN 5.0 CM Encounter Details Care Team Description Date Type Department Helen Eaton SRNA 08/13/2018 Anesthesia [facility] OR [address] [place] [id number] Anesthesia Record Responsible Anesthesiologist Anesthesia Start Time [...] OR Notes * Anesthesia Preprocedure Evaluation - GabrielhSeela farooq APRN - 08/10/2018 11:06 AM CDT Anesthesia Pre-Procedure Evaluation Name: Cameron Leiva : 1940 Age: 77 y.o. Sex: male Procedure Date: 08/14/2018 Procedure: * No surgery found * CYSTOURETHROSCOPY WITH FULGURATION/ RESECTION BL ADDER TUMOR -LARGE - GREATER THAN 5.0 CM with Sedrick Bertrand MD Physical Assessment Vital Signs (last filed in past 24 hours): BP: 82/43 (08/104) Temp: 36.3 C (97.3 F) (08/11 1003) [...] release tablet Take 25 mg by mouth shea y. Hold for Pulse < 60 or hypotensive. [...] METS Beta Florentino therapy: Yes Hypertension, Past PR (2004), > 6 months Coronary artery disease [...] 92/52 sitting. Standing 88/44 denies dizziness or lightheade d. Diagnostic Tests Hematology: Lab Results Component Value [...]
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
--- OUTSIDE RECORDS SUMMARY | 2018-09-14 12:37 | XMS REPORT | Encounter Summary ---
Author Author [facility] Organization [facility] Address Unknown Phone Unavailable Care Team Providers Care Spot Man Name Role Phone Ebonie Isaacs PCP Encounter Details Care Team Description Date Type Department 08/05/2018 Hospital [facility] Encounter [facility] [address] [address] Social History Date Tobacco Use [...]
--- OUTSIDE RECORDS SUMMARY | 2018-09-14 12:37 | XMS REPORT | Encounter Summary ---
Author Author [facility] Organization [facility] Address Unknown Phone Unavailable Care Team Providers Care Core Loader Name Role Phone Ebonie Isaacs PCP Encounter Details Care Team Description Date Type Department 08/06/2018 Hospital [facility] Encounter Health System [address] [address] Social History Date Tobacco Use [...]
--- OUTSIDE RECORDS SUMMARY | 2018-09-14 12:37 | XMS REPORT | Encounter Summary ---
Author Author [facility] Organization [facility] Address Unknown Phone Unavailable Care Team Providers Care Assistant Shift Supervisor Name Role Phone Ebonie Isaacs DO PCP Reason for Visit * Reason Comments Navigation Assessment Encounter Details Care Team Description Date Type Department Sedrick Bertrand MD [address] [place] [address] [phone] Navigation Assessment 08/06/2018 Telephone [address] [address] Social History Date Tobacco Use Types Packs/Day [...] 08/10/2018 9:00 AM Sedrick Bertrand MD [facility] Exam 08/10/2018 9:30 AM CC PROCEDURE ROOM 1 CCC2 [facility] Exam 08/10/2018 10:30 AM [id number] WWPRE CCWW Diagnosis & Reason for Visit: Bladder mass Physician Info: Referring Physician: Tigre Brush MD PCP: Fozia Isaacs MD Location of Films: PACS Location of Pathology: None History of Present Illness: - 77 y/o male with history of hematuria with clots for over a year. He presented to [facility] ER Apr 2018 with gross hematuria and urinary retention, venegas catheter was placed. He followed up with Dr. Brush who discontinued the catheter mid May 2018. CT abd was completed June 2018, which showed an abnormal appear ance of the urinary bladder, a thick-walled appearance and a possible mass at th e base and on the left. Cysto was completed by Dr. Brush July 2018 which noted lesions at the prostate, bladder neck and right side of bladder. He is a current everyday smoker. He has smoked a pack a day for 50 years. He has a family hist ory of bladder cancer, his brother. - 01/16/2018 [...] that patient is in the hospital at [facility] in [place], [place] Mr. Leiva went to [facility]'s ER 08/05/2018 with right arm/hand numb ness [...]
--- OUTSIDE RECORDS SUMMARY | 2018-09-14 12:37 | XMS REPORT | Encounter Summary ---
Author Author [facility] Organization [facility] Address Unknown Phone Unavailable Care Team Providers Care Field Contractor Name Role Phone IsaacsEbonie kaiser PCP Encounter Details Care Team Description Date Type Department Bernardino Garcia 08/03/2018 Documentation [facility] [address] [phone] Social History Date Tobacco Use Types Packs/Day [...]
--- OUTSIDE RECORDS SUMMARY | 2018-09-14 12:37 | XMS REPORT | Encounter Summary ---
Author Author [facility] Organization [facility] Address Unknown Phone Unavailable Care Team Providers Care Copyright Clerk Name Role Phone PCP Unavailable Encounter Details Care Team Description Date Type Department 07/23/2018 Hospital [facility] Encounter Health System [address] [address] Social History Date Tobacco Use [...]
[2018-09-14 12:42] LABS: CLARITY,URINE CLOUDY; COLOR,URINE DARK YELLOW; GLUCOSE, URINE (UA) TRACE (NEGATIVE); KETONES,URINE 1+ (NEGATIVE); NITRITE,URINE NEGATIVE (NEGATIVE); PROTEIN,URINE 2+ (NEGATIVE)
[2018-09-14 12:43] LABS: BILIRUBIN,URINE 2+ (NEGATIVE); LEUKOCYTE ESTERASE ,URINE TRACE (NEGATIVE)
[2018-09-14 12:44] LABS: BACTERIA,URINE MODERATE /HPF; HYALINE CASTS, URINE 0-2 /LPF; SQUAMOUS EPITHELIAL CELL,UR 0-2 /HPF; WBC,URINE 25-50 /HPF
[2018-09-14] MEDS ORDERED: cefTRIAXone FOR IV USE 1,000 MG in WATER (STERILE) FOR INJECTION 10 ML IV ONE (13:00)
[2018-09-14] MEDS ORDERED: NS 1000 ML IV BAG IV ONE (13:00)
--- NOTE | 2018-09-14 13:05 | Diagnostic Imaging Report ---
INDICATION: Low blood pressure. TIME OF EXAM: 12:39 p.m. COMPARISON: Correlation is made with prior study from 09/04/2018. FINDINGS: Changes of median sternotomy are noted. The left-sided line has tip overlying the SVC right atrial junction. There is some atelectasis or scarring in the right mid lung and left base. No effusion or pneumothorax is seen. IMPRESSION: Bilateral subsegmental atelectasis or scarring. No other significant abnormality is seen. Dictated by: Dictated on workstation # [id number]
[2018-09-14] MEDS ORDERED: oxyCODONE/APAP 10/325MG (PERCOCET 10) TABLET PO ONE (13:30)
[2018-09-14] MEDS ORDERED: oxyCODONE/APAP 5/325MG (PERCOCET 5) TABLET PO ONE (13:45)
[2018-09-14] MEDS ORDERED: CEFD300C3 PO (13:52)
[2018-09-14 14:45] VITALS: BP 140/52
--- NOTE | 2018-09-14 14:45 | NUR ---
PT DISCHARGED TO HOME AFTER REVIEW OF HOME INSTRUCTIONS DISCUSSED AND QUESTIONS ANSWERED. UPON ASKING IF MAINTAINING HYDRATION BY SIPPING FREQUENTLY ON FLUIDS UNDERSTOOD I.E. SUCKING ON LOZENGERS/MINTS FOR DRY MOUTH, TRYING POPSICLES, SLUSHY, FROZEN ICE, AND EVEN A WARMER TEMP LIQUID. PT RESPONDS "I REALLY CAN'T TASTE ANYTHING AND NOTHING SOUNDS OR TASTES GOOD SO THAT IS WHY I DON'T EAT OR DRINK."
== END 2018-09-14 14:45 | disposition home or self-care (01) ==
LOC: EDUNIT# 11:22 → ER FS 11:23
DX: E86.0 Dehydration (principal); N39.0 Urinary tract infection, site not specified; C67.9 Malignant neoplasm of bladder, unspecified; C79.9 Secondary malignant neoplasm of unspecified site; I25.10 Atherosclerotic heart disease of native coronary artery without angina pectoris; I25.2 Old myocardial infarction; E78.00 Pure hypercholesterolemia, unspecified; I73.9 Peripheral vascular disease, unspecified; F41.9 Anxiety disorder, unspecified; Z85.118 Personal history of other malignant neoplasm of bronchus and lung; Z82.49 Family history of ischemic heart disease and other diseases of the circulatory system; Z80.1 Family history of malignant neoplasm of trachea, bronchus and lung; Z80.52 Family history of malignant neoplasm of bladder; Z87.448 Personal history of other diseases of urinary system; Z86.73 Personal history of transient ischemic attack (TIA), and cerebral infarction without residual deficits; Z77.22 Contact with and (suspected) exposure to environmental tobacco smoke (acute) (chronic); Z95.1 Presence of aortocoronary bypass graft; Z98.61 Coronary angioplasty status
CPT/HCPCS: 36415; 71045; 80053; 81000; 83735; 85007; 85027; 87088

== ENCOUNTER 2018-09-18 08:38 | Emergency (ER) | payer MEDICARE ==
[~2018-09-18] VITALS: Ht 182.9 cm; Wt 63.5 kg
[~2018-09-18 08:38] MED LIST changes: +CEFD300C3 PO
--- OUTSIDE RECORDS SUMMARY | 2018-09-18 08:44 | XMS REPORT | Encounter Summary ---
Author Author [facility] Organization [facility] Address Unknown Phone Unavailable Care Team Providers Care Duralumin Metalworker Name Role Phone Ebonie Isaacs PCP Reason for Referral * Consult, Test & Treat (Routine) Referred By Contact Referred To Contact Status Reason Specialty Diagnoses / Procedures Sedrick Bertrand MD [address] [place] [address] New Request Specialty Services Diagnoses Required Bladder mass Bladder tumor Encounter Details Care Team Description [place] [address] [place] [address] [phone] Bladder mass (Primary Dx); Bladder tumor 08/25/2018 Orders Only The [address] [phone] Social History Date Tobacco Use Types Packs/Day [...]
--- OUTSIDE RECORDS SUMMARY | 2018-09-18 08:44 | XMS REPORT | Clinical Summary ---
Author Author [facility] Organization [facility] Address Unknown Phone Unavailable Care Team Providers Care Pretzel Packer Name Role Phone IsaacsEbonie kaiser PCP Source Comments Some departments are not documenting in the electronic medical record. If you d o not see the information that you expected, contact Release of Information in [facility] [employer] Information Management department at [phone] for further assistan ce in locating additional records.[facility] Allergies No Known Allergies Medications End Date [...] MEDICINE 2:45 PM CDT ADMISSION FROM ED NON-SALES FORCE ADMINISTRATOR CYTOLOGY (BODY 08/10/2018 FLUIDS/TISSUE) 2:10 PM CDT [...] FL [facility] Performing Organization Address City/[facility]/Zipcode Phone Number [facility] [address] [place] [address] * MAGNESIUM (08/15/2018 4:30 AM CDT) Only the most recent of 6 results within the time period is included. Magnesium 1.9 1.6 - 2.6 mg/dL [facility] Performing Organization Address City/[facility] Phone Number [facility] [address] [place] [address] * BASIC METABOLIC PANEL (08/15/2018 4:30 AM [...] >60 >60 mL/min [facility] Comment: [place] The eGFR is not validated for use in drug dosing adjustments.Continue to use estimated creatinine clearance per dosing reference text.Please contact the Clinical Pharmacist for questions. eGFR >60 >60 mL/min [facility] [place] Comment: The eGFR is not validated for use in drug dosing adjustments.Continue to use estimated creatinine clearance per dosing reference text.Please contact the Clinical Pharmacist for questions. Performing Organization Address City/[facility]/Zipcode Phone Number MAIN LAB [address] [place] [address] * SURGICAL PATHOLOGY (08/14/2018 9:09 AM CDT) PATHOLOGY [facility] [email or web address] Department of Pathology and Laboratory Medicine [address] [place] [address] Surgical Pathology Office:[phone] :[phone] SURGICAL PATHOLOGY REPORT NAME: SARA LEIVA SURG PATH #: [id number] MR #: [id number] SPECIMEN CLASS: SR BILLING #: [id number] ALT ID #:LOCATION: DISCHARGED DATE OF PROCEDURE: [...] cells, supporting the diagnosis. Pursuant to the Director Statistical Programming Program at the [facility] Pathology Department, selected slides from this [...] Number NAH[facility] MAIN LAB [address] [place] [address] * REGADENOSON MPI STRESS TEST (08/13/2018 7:43 [...] Kwon 41 OTHER OUTSIDE LAB Study Number [id number] OTHER OUTSIDE LAB PUL TO LUIS M [...] At OTHER OUTSIDE LAB Nuclear Report The [facility] Division of Nuclear Cardiac Imaging Consultation Report EXAMINATION:D-SPECT Gated [id number] Chloride myocardial perfusion single-photon emission computed tomography for viability, resting regional wall function, resting ejection fraction, and perfusion imaging utilizing Regadenoson pharmacological stress. Date of Study:08/13/18 Study #:[id number] NAHID NAHID Billing ID:[id number] Referring Physician: Requested by:Kong La MD BMI: [...] Approximately 20 seconds later 1.33 mCi of [id number] was injected intravenously. Throughout the infusion continuous electrocardiographic monitoring and serial electrocardiograms were obtained, as well as intermittent blood pressure recordings.Gated upright D-SPECT tomographic images were then acquired approximately 5 minutes after discontinuation of the regadenoson infusion. When indicated supine D-SPECT images were also obtained.The patient returned in approximately 4 hours and received an additional intravenous injection of 0.45 mCi of [id number] Chloride as a reinjected dose to assist [...] Conclusion:Pharmacologic stress ECG is negative for ischemia. Azhtxrxiq-vy-Yxbcaxrsfx Count Ratio:0.38(normal=or < 0.52). Scintigraphic Findings:Raw images [...] (08/13/2018 7:00 AM CDT) Units Ordered 0 Body [facility] Crossmatch 08/16/2018 Body [facility] Expires Record Check FOUND [facility] ABO/RH(D) A POS [facility] Antibody Screen NEG [facility] Electronic YES Body [facility] Crossmatch Specimen Blood Performing Organization Address City/State/Zipcode Phone Number MAIN LAB [address] [place] [address] * CT ABD/PELV W CONTRAST (08/11/2018 2:31 [...] throughout both lobes of the liver. A national account representative mass in segment 3 measures 2.5 [...] throughout both lobes of the liver. A national account representative mass in segment 3 measures 2.5 [...] throughout both lobes of the liver. A national account representative mass in segment 3 measures 2.5 [...] throughout both lobes of the liver. A national account representative mass in segment 3 measures 2.5 [...] 34 OTHER OUTSIDE Index LAB Cardiology Siemens [id number] OTHER OUTSIDE Ultrasound LAB Machine Left Ventricle [...] Address City/State/Zipcode Phone Number [facility] [address] [place] [address] * PHOSPHORUS (08/11/2018 6:06 AM CDT) Only the most recent of 2 results within the time period is included. Phosphorus 3.1Comment: NOTE NEW REFERENCE 2.0 - 4.5 MG/DL [facility] RANGES Performing Organization Address [facility]/Zipcode Phone Number [facility] [address] [place] [address] * TROPONIN-I (08/11/2018 12:23 AM CDT) Only the most recent of 2 results within the time period is included. Troponin-I 0.01 0.0 - 0.05 NG/ML [facility] Specimen Blood Performing Organization Address [facility] Services[facility] Phone Number [facility] [address] [place] [address] * ECG-SCAN (08/11/2018 12:00 AM CDT) Narrative Performed At Ordered by an unspecified provider. * NON-SALES FORCE ADMINISTRATOR CYTOLOGY (BODY FLUIDS/TISSUE) (08/10/2018 2:10 PM CDT) Cytology [facility] www.[employer] Department of Pathology and Laboratory Medicine [address] [place] [address] Surgical Pathology Office:[phone] :[phone] CYTOLOGY REPORT NAME: SARA LEIVA CYTOLOGY #: [id number] MR #: [id number] ALT ID #: BILLING #: [id number] LOCATION: [facility] DATE OF PROCEDURE: 08/10/2018 AGE: 77 [...] PhD Anna Holliday D.O. Performing Organization Address [facility] Phone Number MAIN LAB [address] [place] [address] * URINALYSIS, MICROSCOPIC (08/10/2018 1:51 PM CDT) WBCs,UA PACKED 0 - 2 /HPF [facility] RBCs,UA PACKED 0 - 3 /HPF [facility] MucousUA 1+ [facility] Bacteria,UA FEW (A) NEG-NEG [facility] Squamous 2-5 0 - 5 [facility] Epithelial Cells Specimen Urine - Urine Performing Organization Address [facility] Phone Number [facility]IN LAB [address] [place] [address] * URINALYSIS DIPSTICK (08/10/2018 1:51 PM CDT) Color,UA BRENDA [facility] Turbidity,UA 2+ (A) CLEAR-CLEAR [facility] Specific 1.018 1.003 - 1.035 [facility] Caro-Urine pH,UA 5.0 5.0 - 8.0 [facility]IN [...] Specimen Urine - Urine Performing Organization Address [facility]/Zipcode Phone Number [facility] [address] [place] [address] * CHEST SINGLE VIEW (08/10/2018 1:38 PM [...] on 08/10/2018 2:08 PM. Performing Organization Address [facility]/Zipcode Phone Number K[facility] RAD RESULTS * POC TROPONIN (08/10/2018 1:15 PM CDT) Pathologist [facility] Ayozsdrr-O-BXE 0.01 0.00 - 0.05 NG/ML [facility] Performing Organization Address [facility]/Zipcode Phone Number [facility] [address] [place] [address] * TSH WITH FREE T4 REFLEX (08/10/2018 1:07 PM CDT) Pathologist [facility] TSH 1.010 0.35 - 5.00 MCU/ML [facility] Specimen Blood Performing Organization Address City/[facility] Services[facility] Phone Number [facility] [address] [place] [phone] * CBC AND DIFF (08/10/2018 1:07 PM CDT) [facility] White Blood 7.6 4.5 - 11.0 K/UL [...] Basophil Count Specimen Blood Performing Organization Address City/[facility]/Zipcode Phone Number [facility] [address] [place] [address] * COMPREHENSIVE METABOLIC PANEL (08/10/2018 1:07 PM CDT) Only the most recent of 2 results within the time period is included. Pathologist [facility] Sodium 138 137 - 147 MMOL/L [facility] Potassium 4.3 3.5 - 5.1 MMOL/L [facility] Chloride 108 98 - 110 MMOL/L [facility] Glucose 125 (H) 70 - 100 MG/DL [facility] Blood Urea 23 7 - 25 MG/DL [facility] Nitrogen Creatinine 1.33 (H) 0.4 - 1.24 MG/DL [facility] Calcium 9.8 8.5 - 10.6 MG/DL MAIN LAB Total Protein 7.1 6.0 - 8.0 G/DL [facility] Total Bilirubin 1.0 0.3 - 1.2 MG/DL MAIN LAB Albumin 3.8 3.5 - 5.0 G/DL MAIN LAB Alk Phosphatase 137 (H) 25 - 110 U/L [facility] AST (SGOT) 23 7 - 40 U/L MAIN LAB CO2 25 21 - 30 MMOL/L [facility] ALT (SGPT) 15 7 - 56 U/L [facility] Anion Gap 5 3 - 12 MAIN LAB eGFR Non 52 (L) >60 mL/min [facility] Comment: [place] The eGFR is not validated for use in drug dosing adjustments.Continue to use estimated creatinine clearance per dosing reference text.Please contact the Clinical Pharmacist for questions. eGFR >60 >60 mL/min [facility] [place] Comment: The eGFR is not validated for use in drug dosing adjustments.Continue to use estimated creatinine clearance per dosing reference text.Please contact the Clinical Pharmacist for questions. Specimen Blood Performing Organization Address City/State/Zipcode Phone Number [facility] [address] [place] [address] * TYPE & SCREEN (NOT CROSSMATCH ELIGIBLE) (08/10/2018 10:47 AM CDT) ABO/RH(D) A POS [facility] Antibody Screen NEG [facility] Blood Component [employer] [facility] Type Specimen Blood, venous - Blood Performing Organization Address City/[facility]/Zipcode Phone Number [facility] [address] [place] [address] * TELEMETRY STRIPS-SCAN (08/10/2018 12:00 AM CDT) [...] file. For more i nformation, please contact: [facility] [address] [place] [address] Date Inactivated Comments Code Status Date Activated 08/15/2018 3:04 PM Full Code 08/10/2018 5:36 PM Provider has discussed Code Status No, more discussion w/Patient or Family? needed
[2018-09-18] MEDS: NS IV 1000 ML 1,000 ML IV SCH ×2 (08:45→14:47)
--- OUTSIDE RECORDS SUMMARY | 2018-09-18 08:46 | XMS REPORT | Encounter Summary ---
Author Author [facility] Organization [facility] Address Unknown Phone Unavailable Care Team Providers Care Head Trimmer Name Role Phone Ebonie Isaacs PCP Reason for Referral * Consult, Test & Treat (Routine) Referred By Contact Referred To Contact Status Reason Specialty Diagnoses / Procedures Shelli Stone MD [address] [place] [address] [facility] Ent [address] [facility] Level [address] [place] [address] Closed Specialty Services Otolaryngology Diagnoses Required Parotid mass Reason for Visit * Reason Comments Hypotension Pt sent from [facility] for low blood pressure and dizziness. Pt states his BP was in the 60s. * Auth/Cert Referred By Contact Referred To Contact Status Reason Specialty Diagnoses / Procedures Diagnoses Bladder tumor Bladder tumor [D49.4] P rocedures [place] CYSTOURETHROSCOPY W/DEST &/RMVL TUMOR LARGE CYSTOURETHROSCOPY WITH FULGURATION/ RESECTION BLADDER TUMOR -LARGE - GREATER THAN 5.0 CM Encounter Details Care Team Description Date Type Department Sravan Sullivan MD [address] [facility] [place] [address] [phone] Tiffany Morales MD [address] [place] [address] [phone] Saundra Hernandez MD [address] [place] [address] [phone] Hypotension 08/10/2018 [facility] 08/15/[address] [place] [address] Social History Date Tobacco Use Types Packs/Day [...] 08/15/2018 Attending Physician: Shelli Stone MD Service: [facility] P- 4709 Physician Summary completed [...] 08/10/18 1:15 PM Result Value Ref Range Tisatgcs-R-YIL 0.01 0.00 - 0.05 NG/ML URINALYSIS DIPSTICK Collection Time: 08/10/18 1:51 PM Result Value Ref Range Color,UA BRENDA Turbidity,UA 2+ (A) CLEAR-CLEAR Specific [place]-Urine 1.018 1.003 - 1.035 pH,UA 5.0 5.0 [...] on amiodarone an d also 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 CT C/A/P 08/12/18- Development of multipl [...] follow-up results and call patient with the [facility] ults and arrange outpatient [...] or concerns regarding your hospital stay. Call [phone] Discharging attending physician: SHELLI STONE [[id number]] Regular Diet You have no dietary restriction. [...] Your Medications These medications were sent to [facility] - [place], [place] - [address] [facility] [address] [facility] [address] amiodarone 400 mg tablet bacitracin 500 unit/g [...] as above. 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 - restarted [...] home in stable state. >31 minutes in rjgy-ap-pvnb time spent with patient, patient/family counseling, coordination [...] staff surgeon - Dr. Bennett - s/p LUCREO yesterday. path pending - catheter removed this [...] Sher MD Urology PGY-3 Please page urology global professional with questions SUBJECTIVE: Overnight events: No acute [...] 0700 08/15/18 0701 - 08/16/18 0700 Shift 7507-4168 4180-3647 24 Hour Total 5601-2772 8856-7121 24 Hour Total INTAKE P.O. 100 100 [...] FOR HYOSCAMINE & RECIEVED A DOSE. Time MD/DRAWING BOX TENDER Notified: 06 MD/DRAWING BOX TENDER Name: [facility] BALLISTIC TECHNICIAN PAGER [phone] MD/DRAWING BOX TENDER Response: Interventions: * Singh English RN - 08/15/2018 3:51 AM CDT Patient Problem called about: (document change in assessment or concern): C/O B URNING IN PENIS SHAFT. CBI GOING WELL. SOME SEDIMENT IN TUBING. BUT LIGHT YELLOW . FENTANYL NOT VERY EFFECTIVE. JUST GAVE TYLENOL. NOT SURE WHAT ELSE CAN BE DONE . 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 - restarted BB, holding ACEI for now. - continue statin Recent CVA: - admitted to [facility] and was noted to have (per Urology [...] Laughlin MD Urology PGY-2 Please page urology global professional with questions ATTESTATION I personally performed the [...] 0700 08/14/18 0701 - 08/15/18 07 Shift [id number] 24 Hour Total 2757-6353 3350-5833 24 Hour Total INTAKE P.O. 0 0 0 Shift Total(mL/kg) 0(0) 0(0) 0(0) OUTPUT Urine(mL/kg/hr) 825(0.9) 775(0.9) 1600(0.9) Urine 996 720 9596 Shift Total(mL/kg) 825(10.9) 775(10.3) 1600(21.2) NET -825 [...] Midnight for procedure. Kendrick Cruz MD Urology 5542 * Edgar Nieves - 08/13/2018 3:32 PM CDT PHYSICAL THERAPY NOTE Patient was assigned for activity with the mobility aide by the supervising ther apist. Patient is unavailable. Patient is working with other staff. Therapist: Edgar Nieves Date: 08/13/2018 * Anuel Oro OT - 08/13/2018 3:27 PM CDT OCCUPATIONAL THERAPY PROGRESS NOTE Patient Name: Sara Leiva Room/Bed: [place] [address] Admitting Diagnosis: Mobility Progressive Mobility Level: Walk [...] to the ED for asymptomatic hypotension Precautions: Standard([place] on left side) Pain / Complaints: Patient [...] s no AE/DME. Prior Function Level Of Warrick: Independent with ADLs and functional transfers;Independen t [...] Patient Will Perform All ADL's: w/ Modified Warrick Functional Transfer Goals Pt Will Perform All Functional Transfers: Modified Independent OT Discharge Recommendations OT Discharge Recommendations: Home with family assist Equipment Recommendations: Too early to be determined Additional Information: Anticipate patient to be at baseline function prior to d /c home. 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 - restarted BB, holding ACEI for now. - continue statin Recent CVA: - admitted to [facility] and was noted to have (per [...] be at 1215. Nurse called downstairs to [facility] and confirmed that the cystoscopy was cancelled 08/12. Talked with primary MD which confirmed that pt is able to eat and drink what on [facility] nuclear cardiology for thallium images. * Mee Nazario RN - 08/13/2018 5:51 AM CDT Report received from Shaheen villalta RN. Anticipating patient to [address] [address] . Ella Calling lab to see if type and cross is needed, only screen done by bb, need type and cross for surgery. did not get this drawn when he arrived to pre p ost before he was sent back to his room. Informed floor RN that TYPE and Cross still needed. Patient arrived to [facility], case was moved because patient needs a stress test before surgery. Mac NUC [address], will call for patient when they are ready fo r him. He is in good spirits and understands, transporter is returning patient to inalt ient room. Notifying RN. * Jeanette Denton RN - 08/12/2018 3:57 PM CDT I have reviewed the notes, assessment, flow sheets and/or procedures performed Galina Zarate, Student Nurse and concur with her/his documentation unless oth erwise noted. Jeanette Denton RN [facility] Clinical Auto Glass Installer * Edgar Nieves - 08/12/2018 3:01 PM [...] CDT OCCUPATIONAL THERAPY ASSESSMENT NOTE Patient Name: [facility] Room/Bed: [id number]/ Admitting Diagnosis: Mobility Progressive Mobility Level: Walk [...] to the ED for asymptomatic hypotension Precautions: Standard([place] on left side) Pain / Complaints: Patient [...] s no AE/DME. Prior Function Level Of Warrick: Independent with ADLs and functional transfers;Independen t [...] Patient Will Perform All ADL's: w/ Modified Warrick Functional Transfer Goals Pt Will Perform All Functional Transfers: Modified Independent OT Discharge Recommendations OT Discharge Recommendations: Home with family assist Equipment Recommendations: Too early to be determined Additional Information: Anticipate patient to be at baseline function prior to d /c home. Recommend ongoing assistance for: Ambulation, Stairs, Safety concerns Therapist: FAUSTO Roberts/Nanette [id number] Date: 08/12/2018 * Jacob, Michaelle, PT - [...] Current Oral Intake: Inadequate Estimated Calorie Needs: 2921-7939(30-35 kcal/kg present wt 75.4kg) Estimated Protein Needs: 98-113(1.3-1.5 g/kg present wt) Oral Diet Order: Cardiac ICD-10 code E43: Chronic illness/Severe malnutrition Weight loss: >10% x 6 months, Severe loss of muscle mass Loss of Subcutaneous Fat: Yes Mild Orbital, Triceps Muscle Wasting: Yes Severe Religious, Clavicle, Interosseous Edema: No Malnutrition Interventions: Boost Plus [place] TIDWM. Comments: 77 M with HTN, HLD, CAD s/p CABG, PVD, recent CVA, was seen in Urology clinic fo r evaluation for bladder cancer/hematuria and was sent to the ED for asymptomati c hypotension. Pt sleeping soundly at time of visit, did not wake to name or whi le verifying wristband with . reports pt with poor appetite FUNDING SPECIALIST and now , biggest limiting factor to [...] Throughout Stay Radha Pena RD, LD Phone: [phone] Pager: [phone] * Saundra Hernandez MD - 08/12/2018 10:24 [...] as above. 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 - restarted BB, holding ACEI for now. - continue statin Multiple PVCs,VTach? On tele: - consulting cardiology today. - restart BB - monitor Recent CVA: - admitted to [facility] and was noted to have (per Urology note) MRI brain wit h punctate areas of diffusion restriction in both cerebellar hemispheres c/w acu te punctate infarctions, probably from a cardiogenic source. Old infarcts are pr esent in the left frontal lobe and left temporal lobe. small vessel disease. - will try to obtain records from [facility] - currently not on antiplatelets due [...] as above. 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 will hold both in setting of hypotension above - continue statin Recent CVA: - admitted to [facility] and was noted to have (per Urology note) MRI brain wit h punctate areas of diffusion restriction in both cerebellar hemispheres c/w acu te punctate infarctions, probably from a cardiogenic source. Old infarcts are pr esent in the left frontal lobe and left temporal lobe. small vessel disease. - will try to obtain records from [facility] - currently not on antiplatelets due to ongoing hematuria. may need to clarify w [facility] Urology if this truly prohibitive. - switch [...] 08/10/18 1:15 PM Result Value Ref Range Myotrwnv-G-HEN 0.01 0.00 - 0.05 NG/ML URINALYSIS DIPSTICK Collection Time: 08/10/18 1:51 PM Result Value Ref Range Color,UA BRENDA Turbidity,UA 2+ (A) CLEAR-CLEAR Specific [place]-Urine 1.018 1.003 - 1.035 pH,UA 5.0 5.0 [...] PM CDT Patient arrived to room # ([id number]) via cart accompanied by transport. Patient tra [...] as above. - getting records from [facility] as indicated elsewhere. 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 will hold [...] ongoing hematuria. may need to clarify w [facility] Urology if this truly prohibitive. - switch [...] to medicine. Tiffany Morales MD Internal Medicine [id number] __ Chief Complaint: hypotension History of Present Illness: Sara Leiva is a 77 y.o. male with CAD s/p CABG , HTN, HLD, PVD, recent CVA, who was evaluated in [place] for ongoing hematuri a, had cystoscopy that [...] file Gets together: Not on file Attends yazdanism service: Not on file Active member of [...] 08/10/18 1:15 PM Result Value Ref Range Nrdchvnb-E-AKR 0.01 0.00 - 0.05 NG/ML URINALYSIS DIPSTICK Collection Time: 08/10/18 1:51 PM Result Value Ref Range Color,UA BRENDA Turbidity,UA 2+ (A) CLEAR-CLEAR Specific [place]-Urine 1.018 1.003 - 1.035 pH,UA 5.0 5.0 [...] with urologic ca, [facility] Referring Provider: Saundra [...] Escamilla MD Urology Resident Please page Urology client onboarding analyst with questions. ATTESTATION I personally performed the [...] Vargas RN - 08/10/2018 4:53 PM CDT [id number] bed assigned, please call Nya for report @ [phone], thanks! * Nya Bhatti RN - 08/10/2018 2:[address] Hall was notified that patient was still orthostatic after 1 L NS. * Sravan Sullivan MD - 08/10/2018 2:37 PM CDT Sara Leiva is a 77 y.o. male. Chief Complaint: Chief Complaint Patient presents with Hypotension Pt sent from [facility] for low blood pressure and dizziness. Pt states h is BP was in the 60s. History of Present Illness: Patient is a 77-year-old male with a past medical history of hypertension, hyper lipidemia, CAD status post CABG, PVD, CVA who presents the ED today from outpati ent urology clinic at [facility] for hypertension. Per report patient was [...] Final Turbidity,UA 2+ (*) CLEAR-CLEAR Final Specific [place]-Urine 1.018 1.003 - 1.035 Final pH,UA 5.0 [...] 0.35 - 5.00 MCU/ML Final POC TROPONIN Reanjgkl-J-GAA 0.01 0.00 - 0.05 NG/ML Final POC [...] shows rate of 77 and sinus rhythm. [place] interval, QRS duration, QT interval within normal [...] visit, discussed case with resident and concur [facility] resident documentation of history, physical exam, assessment, and treatment p shazia unless otherwise noted. Sravan Sullivan MD * Nya Bhatti, JODI - 08/10/2018 1:22 PM CDT Sara Leiva 77 y/o male presents to ED 32 from triage in wheelchair. Patient was sent over from [facility] due to hypotension. Patient reports his bp [...] 77 y.o. male : 1940 MRN#: [id number] DATE OF OPERATION: 08/14/2018 Surgeon(s) and Role: [...] rile. We began by inserting the 26 qatari resectoscope with visual obturator in to the [...] to the scope in place a 22 Canadian three-way catheter and started CBI. Patient was [...] Fermin MD 0902 Augusto Sher MD Pager [phone] * Case Mgmt DC Plan - Vianney [...] to follow for dc needs. Patient Address/Phone [address] [address] (home) Emergency Contact Extended Emergency Contact Information Primary Emergency Contact: angelia leiva Relation: Spouse Healthcare Directive Transportation Does the patient need discharge transport arranged?: No Transportation Name, Phone and Availability #1: Angelia hall [phone] Does the patient use Medicaid Transportation?: No [...] Source of Income Source Of Income: Other fpc income ? Financial Assistance Needed? Pt does not have prescription coverage - please be aware when prescribing medica tions. Psychosocial Needs ? Mental Health Mental Health History: No ? Substance Use History Substance Use History Screen: No ? Other Current/Previous Services ? PCP Ebonie Isaacs, , ? Pharmacy [address] [address] ? Durable Medical Equipment Durable Medical Equipment [...] ? Outpatient Therapy PT: No OT: No CABLE ENGINEER: No ? Penitentiary Facility/Longterm SNF: No NH: No ? Inpatient Rehab IPR: No ? Long-Term Acute Care Hospital LTACH: No ? 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, shuttle final inspector [phone] documented in this encounter Plan of Treatment [...] mg/dL [facility] Performing Organization Address [facility] Phone Number [facility] [address] [place] [address] * CBC (08/15/2018 4:30 AM CDT) White [...] FL [facility] Performing Organization Address [facility] Phone Number [facility] [address] [place] [address] * BASIC METABOLIC PANEL (08/15/2018 4:30 AM [...] >60 >60 mL/min [facility] Comment: [place]ian The eGFR is not validated for use in drug dosing adjustments.Continue to use estimated creatinine clearance per dosing reference text.Please contact the Clinical Pharmacist for questions. eGFR >60 >60 mL/min [facility] Gambian Comment: The eGFR is not validated for use in drug dosing adjustments.Continue to use estimated creatinine clearance per dosing reference text.Please contact the Clinical Pharmacist for questions. Performing Organization Address City/State/Zipcode Phone Number [facility] [address] [place] [address] * SURGICAL PATHOLOGY (08/14/2018 9:09 AM CDT) PATHOLOGY [facility] [email or web address] Department of Pathology and Laboratory Medicine [address] [place] [address] Surgical Pathology Office:[phone] :[phone] SURGICAL PATHOLOGY REPORT NAME: SARA LEIVA SURG PATH #: [id number] MR #: [id number] SPECIMEN CLASS: SR BILLING #: [id number] ALT ID #:LOCATION: DISCHARGED DATE OF PROCEDURE: [...] cells, supporting the diagnosis. Pursuant to the Student Success Counselor Program at the [facility] Pathology Department, selected slides from this case [...] of [facility] the [facility] ([employer]) in compliance with [...] of Pathology and [facility] of the [facility].It has not been cleared or approved by the FDA.The FDA has determined that such clearance or approval is not necessary. Performing Organization Address City/[facility]/Zipcode Phone Number [facility] [address] [place] [address] * MAGNESIUM (08/14/2018 5:06 AM CDT) Magnesium 2.0 1.6 - 2.6 mg/dL [facility] Performing Organization Address City/[facility] Phone Number [facility] [address] [place] [phone] * CBC (08/14/2018 5:06 AM CDT) White Blood 6.0 4.5 - 11.0 K/UL [facility] Cells RBC 3.30 (L) 4.4 - 5.5 M/UL [facility] Hemoglobin 10.9 (L) 13.5 - 16.5 GM/DL [facility] Hematocrit 31.6 (L) 40 - 50 % [facility] MCV 95.6 80 - 100 FL [facility] MCH 33.0 26 - 34 PG [facility] MCHC 34.5 32.0 - 36.0 G/DL [facility] RDW 13.3 11 - 15 % [facility] Platelet Count 156 150 - 400 K/UL [facility] MPV 7.6 7 - 11 FL [facility] Performing Organization Address [facility] Phone Number [facility] [address] [place] [phone] * BASIC METABOLIC PANEL (08/14/2018 5:06 AM CDT) Sodium 138 137 - 147 MMOL/L [facility] Potassium 4.1 3.5 - 5.1 MMOL/L [...] >60 >60 mL/min [facility] Comment: [place] The eGFR is not validated for use in drug dosing adjustments.Continue to use estimated creatinine clearance per dosing reference text.Please contact the Clinical Pharmacist for questions. eGFR >60 >60 mL/min [facility] [place]ian Comment: The eGFR is not validated for use in drug dosing adjustments.Continue to use estimated creatinine clearance per dosing reference text.Please contact the Clinical Pharmacist for questions. Performing Organization Address City/State/Zipcode Phone Number MAIN LAB [address] [place] [address] * REGADENOSON MPI STRESS TEST (08/13/2018 7:43 [...] Kwon 41 OTHER OUTSIDE LAB Study Number [id number] OTHER OUTSIDE LAB PUL TO LUIS M [...] OTHER OUTSIDE LAB Nuclear Report [facility] Division of Nuclear Cardiac Imaging Consultation Report EXAMINATION:D-SPECT Gated [id number] Chloride myocardial perfusion single-photon emission computed tomography for viability, resting regional wall function, resting ejection fraction, and perfusion imaging utilizing Regadenoson pharmacological stress. Date of Study:08/13/18 Study #:[id number] NAHID Billing ID:[id number] Referring Physician: Requested by:Kong La MD BMI: [...] Approximately 20 seconds later 1.33 mCi of [id number] was injected intravenously. Throughout the infusion continuous electrocardiographic monitoring and serial electrocardiograms were obtained, as well as intermittent blood pressure recordings.Gated upright D-SPECT tomographic images were then acquired approximately 5 minutes after discontinuation of the regadenoson infusion. When indicated supine D-SPECT images were also obtained.The patient returned in approximately 4 hours and received an additional intravenous injection of 0.45 mCi of [id number] Chloride as a reinjected dose to assist [...] Conclusion:Pharmacologic stress ECG is negative for ischemia. Xllchlkax-wi-Hyjuuddpnu Count Ratio:0.38(normal=or < 0.52). Scintigraphic Findings:Raw images [...] annual cardiovascular mortality rate. Performing Organization Address City/[facility] Phone Number OTHER OUTSIDE LAB * TYPE & CROSSMATCH (08/13/2018 7:00 AM CDT) Pathologist [facility] Units Ordered 0 MAIN LAB Crossmatch 08/16/2018 [facility] Expires Record Check FOUND [facility] ABO/RH(D) A POS MAIN LAB Antibody Screen NEG MAIN LAB Electronic YES MAIN LAB Crossmatch Specimen Blood Performing Organization Address [facility]alsNext[facility] Phone Number MAIN LAB [address] [place] [address] * MAGNESIUM (08/13/2018 5:19 AM CDT) [facility] Magnesium 1.9 1.6 - 2.6 mg/dL MAIN LAB Performing Organization Address [facility] Phone Number [facility]IN [facility] [address] [place] [address] * CBC (08/13/2018 5:19 AM CDT) Pathologist [...] 11 FL MAIN LAB Performing Organization Address [facility] Phone Number [facility]IN LAB [address] [place] [address] * BASIC METABOLIC PANEL (08/13/2018 5:19 AM [...] >60 >60 mL/min [facility] Comment: [place] The eGFR is not validated for use in drug dosing adjustments.Continue to use estimated creatinine clearance per dosing reference text.Please contact the Clinical Pharmacist for questions. eGFR >60 >60 mL/min [facility] [place] Comment: The eGFR is not validated for use in drug dosing adjustments.Continue to use estimated creatinine clearance per dosing reference text.Please contact the Clinical Pharmacist for questions. Performing Organization Address City/State/Zipcode Phone Number [facility] [address] [place] [address] * MAGNESIUM (08/12/2018 4:32 AM CDT) Magnesium 1.9 1.6 - 2.6 mg/dL MAIN LAB Performing Organization Address City/[facility]/Zipcode Phone Number [facility] [address] [place] [phone] * BASIC METABOLIC PANEL (08/12/2018 4:32 AM [...] >60 >60 mL/min [facility] Comment: [place] The eGFR is not validated for use in drug dosing adjustments.Continue to use estimated creatinine clearance per dosing reference text.Please contact the Clinical Pharmacist for questions. eGFR >60 >60 mL/min [facility] [place] Comment: The eGFR is not validated for use in drug dosing adjustments.Continue to use estimated creatinine clearance per dosing reference text.Please contact the Clinical Pharmacist for questions. Performing Organization Address City/State/Zipcode Phone Number MAIN LAB [address] [place] [address] * CBC (08/12/2018 4:32 AM CDT) White [...] [facility] Performing Organization Address City/[facility] Phone Number [facility]IN LAB [address] [place] [address] * CT ABD/PELV W CONTRAST (08/11/2018 2:31 [...] throughout both lobes of the liver. A agency service representative mass in segment 3 measures 2.5 [...] throughout both lobes of the liver. A agency service representative mass in segment 3 measures 2.5 [...] throughout both lobes of the liver. A agency service representative mass in segment 3 measures 2.5 [...] throughout both lobes of the liver. A agency service representative mass in segment 3 measures 2.5 [...] 34 OTHER OUTSIDE Index LAB Cardiology Siemens [id number] OTHER OUTSIDE Ultrasound LAB Machine Left Ventricle [...] - Urine Straight Catheter Performing Organization Address City/[facility] Phone Number [facility] [address] [id number] * MAGNESIUM (08/11/2018 6:06 AM CDT) Magnesium 1.9 1.6 - 2.6 mg/dL [facility] Performing Organization Address City/[facility] Phone Number [facility] [address] [place] [address] * BASIC METABOLIC PANEL (08/11/2018 6:06 AM [...] >60 >60 mL/min [facility] Comment: [place] The eGFR is not validated for use in drug dosing adjustments.Continue to use estimated creatinine clearance per dosing reference text.Please contact the Clinical Pharmacist for questions. eGFR >60 >60 mL/min [facility] [place] Comment: The eGFR is not validated for use in drug dosing adjustments.Continue to use estimated creatinine clearance per dosing reference text.Please contact the Clinical Pharmacist for questions. Performing Organization Address City/[facility]/Zipcode Phone Number MAIN LAB [address] [place] [address] * CBC (08/11/2018 6:06 AM CDT) White [...] [facility] Performing Organization Address City/[facility] Phone Number [facility] [address] [place] [address] * PHOSPHORUS (08/11/2018 6:06 AM CDT) Phosphorus 3.1Comment: NOTE NEW REFERENCE 2.0 - 4.5 MG/DL [facility] RANGES Performing Organization Address City/[facility]/Zipcode Phone Number [facility] [address] [place] [address] * TROPONIN-I (08/11/2018 12:23 AM CDT) Pathologist [facility] Troponin-I 0.01 0.0 - 0.05 NG/ML MAIN LAB Specimen Blood Performing Organization Address City/[facility]/Zipcode Phone Number [facility] [address] [place] [address] * TROPONIN-I (08/10/2018 7:25 PM CDT) Troponin-I 0.01 0.0 - 0.05 NG/ML MAIN LAB Specimen Blood Performing Organization Address [facility] Phone Number [facility] [address] [place] [address] * CULTURE-URINE W/SENSITIVITY (08/10/2018 1:51 PM CDT) Battery Name URINE CULTURE MAIN LAB Specimen URINE MAIN LAB Description Special NONE MAIN LAB Requests Culture <10,000 organisms/ml MAIN LAB MIXED CONTAMINANTS Report Status FINAL MAIN LAB 08/11/2018 Specimen Urine - Urine Performing Organization Address [facility] Phone Number MAIN LAB [address] [place] [address] * URINALYSIS, MICROSCOPIC (08/10/2018 1:51 PM CDT) WBCs,UA PACKED 0 - 2 /HPF MAIN LAB RBCs,UA PACKED 0 - 3 /HPF MAIN LAB MucousUA 1+ MAIN LAB Bacteria,UA FEW (A) NEG-NEG MAIN LAB Squamous 2-5 0 - 5 MAIN LAB Epithelial Cells Specimen Urine - Urine Performing Organization Address [facility] Phone Number MAIN LAB [address] [place] [address] * URINALYSIS DIPSTICK (08/10/2018 1:51 PM CDT) Color,UA BRENDA MAIN LAB Turbidity,UA 2+ (A) CLEAR-CLEAR MAIN LAB Specific 1.018 1.003 - 1.035 MAIN LAB [place]-Urine pH,UA 5.0 5.0 - 8.0 [facility] MAIN [...] Specimen Urine - Urine Performing Organization Address City/[facility]/Zipcode Phone Number MAIN LAB [address] [place] [address] * CHEST SINGLE VIEW (08/10/2018 1:38 PM [...] on 08/10/2018 2:08 PM. Performing Organization Address [facility]/Zipcode Phone Number [facility] RAD RESULTS * POC TROPONIN (08/10/2018 1:15 PM CDT) Wggncacm-Z-COF 0.01 0.00 - 0.05 NG/ML [facility] MAIN LAB Performing Organization Address [facility]/Zipcode Phone Number MAIN LAB [address] [place] [address] * TSH WITH FREE T4 REFLEX (08/10/2018 1:07 PM CDT) TSH 1.010 0.35 - 5.00 MCU/ML [facility] Specimen Blood Performing Organization Address City/[facility]/Zipcode Phone Number [facility] [address] [place] [address] * PHOSPHORUS (08/10/2018 1:07 PM CDT) Phosphorus 3.3Comment: NOTE NEW REFERENCE 2.0 - 4.5 MG/DL [facility] RANGES Specimen Blood Performing Organization Address City/[facility] Phone Number MAIN LAB [address] [place] [address] * MAGNESIUM (08/10/2018 1:07 PM CDT) Magnesium 2.1 1.6 - 2.6 mg/dL [facility] Specimen Blood Performing Organization Address [facility]als[facility] Phone Number [facility] [address] [place] [address] * COMPREHENSIVE METABOLIC PANEL (08/10/2018 1:07 PM CDT) Pathologist [facility] Sodium 138 [...] (L) >60 mL/min [facility] Comment: [place] The eGFR is not validated for use in drug dosing adjustments.Continue to use estimated creatinine clearance per dosing reference text.Please contact the Clinical Pharmacist for questions. eGFR >60 >60 mL/min [facility] [place] Comment: The eGFR is not validated for use in drug dosing adjustments.Continue to use estimated creatinine clearance per dosing reference text.Please contact the Clinical Pharmacist for questions. Specimen Blood Performing Organization Address City/[facility]/Zipcode Phone Number MAIN LAB [address] [place] [address] * CBC AND DIFF (08/10/2018 1:07 PM [...] Basophil Count Specimen Blood Performing Organization Address City/[facility]/Zipcode Phone Number MAIN LAB [address] [place] [address] * TELEMETRY STRIPS-SCAN (08/10/2018 12:00 AM CDT) [...] Until Fri08/11/18 at 1421, For Procedure, A aircrewman may only administer Definity through a saline [...] Given 0.4 mg, Intravenous, ONCE, 1 dose, [facility] 08/13/18 at 0700, Inject 0.4 mg Regadenoson [...]
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
--- OUTSIDE RECORDS SUMMARY | 2018-09-18 08:47 | XMS REPORT | Encounter Summary ---
Author Author [facility] Organization [facility] Address Unknown Phone Unavailable Care Team Providers Care Cable Installation Technician Name Role Phone Ebonie Isaacs DO PCP Reason for Visit * Reason Comments Hypotension Pt sent from [facility] for low blood pressure and dizziness. Pt states his BP was in the 60s. 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 08/14/2018 Surgery [facility] - [facility] OR [address] [address] Social History Date Tobacco Use [...] 08/15/2018 Attending Physician: Shelli Stone MD Service: [facility] P 4709 Physician Summary completed by: Shelli [...] 08/10/18 1:15 PM Result Value Ref Range Auskrshq-K-NRP 0.01 0.00 - 0.05 NG/ML URINALYSIS DIPSTICK Collection Time: 08/10/18 1:51 PM Result Value Ref Range Color,UA BRENDA Turbidity,UA 2+ (A) CLEAR-CLEAR Specific Kohler-Urine 1.018 1.003 - 1.035 pH,UA 5.0 5.0 [...] on amiodarone an d also restarted his COLOR MAKER beta-johnathan. CT C/A/P 08/12/18- Development of multipl [...] results and call patient with the [facility] ults and arrange outpatient follow-up based [...] or concerns regarding your hospital stay. Call [phone] Discharging attending physician: SHELLI STONE [[id number]] Regular Diet You have no dietary restriction. [...] Your Medications These medications were sent to [facility] - [place], [place] - [address] [address] amiodarone 400 mg tablet bacitracin 500 unit/g [...] HTN / HLD CAD s/p CABG - COLOR MAKER on enalapril and metop xl. - restarted BB, holding ACEI for now. - continue statin Recent CVA: - admitted to [facility] and was noted to have (per Urology [...] home in stable state. >31 minutes in quiy-ew-jaqk time spent with patient, patient/family counseling, coordination [...] Sher MD Urology PGY-3 Please page urology coupon collection clerk with questions SUBJECTIVE: Overnight events: No acute [...] 0700 08/15/18 0701 - 08/16/18 0700 Shift 5750-2875 5547-5900 24 Hour Total 1761-8442 1560-0546 24 Hour Total INTAKE P.O. 100 100 [...] FOR HYOSCAMINE & RECIEVED A DOSE. Time MD/CHEMICAL SUPERVISOR Notified: 0604 /CHEMICAL SUPERVISOR Name: MPP REVENUE INTEGRITY ANALYST PAGER [phone] /CHEMICAL SUPERVISOR Response: Interventions: * Singh English, JODI - 08/15/2018 3:51 AM CDT Patient Problem called about: (document change in assessment or concern): C/O B URNING IN PENIS SHAFT. CBI GOING WELL. SOME SEDIMENT IN TUBING. BUT LIGHT YELLOW . FENTANYL NOT VERY EFFECTIVE. JUST GAVE TYLENOL. NOT SURE WHAT ELSE CAN BE DONE . HAD PARTIAL TRANS URETHRAL TUMOR RESECT 08/14 Time MD/CHEMICAL SUPERVISOR Notified: 0340 MD/CHEMICAL SUPERVISOR Name: DR Janki SHER MD/CHEMICAL SUPERVISOR Response: LEVSIN 0.125 Q6HPRN BACITRACIN AROUND TIP [...] as above. - getting records from [facility] HTN / HLD CAD s/p CABG - COLOR MAKER on enalapril and metop xl. - restarted BB, holding ACEI for now. - continue statin Recent CVA: - admitted to [facility] and was noted to have (per Urology note) MRI brain wit h punctate areas of diffusion restriction in both cerebellar hemispheres c/w acu te punctate infarctions, probably from a cardiogenic source. Old infarcts are pr esent in the left frontal lobe and left temporal lobe. small vessel disease. - will try to obtain records from [facility] - currently not on antiplatelets due to [...] Laughlin MD Urology PGY-2 Please page urology coupon collection clerk with questions ATTESTATION I personally performed the [...] - 08/14/18 0708/14/18700 - 08/15/18 07 Shift [id number] 6199-2120 24 Hour Total 8645-5031 4735-0946 24 Hour Total INTAKE P.O. 0 0 0 Shift Total(mL/kg) 0(0) 0(0) 0(0) OUTPUT Urine(mL/kg/hr) 825(0.9) 775(0.9) 1600(0.9) Urine 381 223 4978 Shift Total(mL/kg) 825(10.9) 775(10.3) 1600(21.2) NET -825 [...] PROGRESS NOTE Patient Name: Sara Leiva Room/Bed: [place] [address] Admitting Diagnosis: Mobility Progressive Mobility Level: Walk [...] to the ED for asymptomatic hypotension Precautions: Standard(TELLER on left side) Pain / Complaints: Patient [...] s no AE/DME. Prior Function Level Of [place]: Independent with ADLs and functional transfers;Independen t [...] Patient Will Perform All ADL's: w/ Modified [place] Functional Transfer Goals Pt Will Perform All Functional Transfers: Modified Independent OT Discharge Recommendations OT Discharge Recommendations: Home with family assist Equipment Recommendations: Too early to be determined Additional Information: Anticipate patient to be at baseline function prior to d /c home. Recommend ongoing assistance for: Ambulation, Stairs, Safety concerns Therapist: FAUSTO Luciano/Nanette [id number] Date: 08/13/2018 * Yo Cunningham MD - [...] HTN / HLD CAD s/p CABG - COLOR MAKER on enalapril and metop xl. - restarted BB, holding ACEI for now. - continue statin Recent CVA: - admitted to [facility] and was noted to have (per Urology note) MRI brain wit h punctate areas of diffusion restriction in both cerebellar hemispheres c/w acu te punctate infarctions, probably from a cardiogenic source. Old infarcts are pr esent in the left frontal lobe and left temporal lobe. small vessel disease. - will try to obtain records from [facility] - currently not on antiplatelets due to [...] be at 1215. Nurse called downstairs to [facility] and confirmed that the cystoscopy was cancelled 08/12. Talked with primary MD which confirmed that pt is able to eat and drink what on [facility] nuclear cardiology for thallium images. * Mee Nazario RN - 08/13/2018 5:51 AM CDT Report received from [facility] RN. Anticipating patient to [address] [address] . Ella Calling lab to see if type and cross is needed, only screen done by bb, need type and cross for surgery. did not get this drawn when he arrived to pre p ost before he was sent back to his room. Informed floor RN that TYPE and Cross still needed. [place] [address], case was moved because patient needs a stress test before surgery. [place] [id number], will call for patient when they are ready fo r him. He is in good spirits and understands, transporter is [facility]. Notifying RN. * Jeanette Denton RN - 08/12/2018 3:57 PM CDT I have reviewed the notes, assessment, flow sheets and/or procedures performed Galina Zarate, Student Nurse and concur with her/his documentation unless oth erwise noted. Jeanette Denton RN [facility] Clinical Senior Research Executive * Edgar Nieves - 08/12/2018 3:01 PM [...] THERAPY ASSESSMENT NOTE Patient Name: Sara Gonzales [place] Room/Bed: [place] [address] Admitting Diagnosis: Mobility Progressive Mobility Level: Walk [...] to the ED for asymptomatic hypotension Precautions: Standard(TELLER on left side) Pain / Complaints: Patient [...] s no AE/DME. Prior Function Level Of [place]: Independent with ADLs and functional transfers;Independen t [...] Patient Will Perform All ADL's: w/ Modified [place] Functional Transfer Goals Pt Will Perform All Functional Transfers: Modified Independent OT Discharge Recommendations OT Discharge Recommendations: Home with family assist Equipment Recommendations: Too early to be determined Additional Information: Anticipate patient to be at baseline function prior to d /c home. Recommend ongoing assistance for: Ambulation, Stairs, Safety concerns Therapist: FAUSTO Roberts/Nanette [id number] Date: 08/12/2018 * Michaelle James, PT - [...] Current Oral Intake: Inadequate Estimated Calorie Needs: 3499-0555(30-35 kcal/kg present wt 75.4kg) Estimated Protein Needs: 98-113(1.3-1.5 g/kg present wt) Oral Diet Order: Cardiac ICD-10 code E43: Chronic illness/Severe malnutrition Weight loss: >10% x 6 months, Severe loss of muscle mass Loss of Subcutaneous Fat: Yes Mild Orbital, Triceps Muscle Wasting: Yes Severe Gnosticist, Clavicle, Interosseous Edema: No Malnutrition Interventions: Boost Plus [place] TIDWM. Comments: 77 M with HTN, HLD, CAD s/p CABG, PVD, recent CVA, was seen in Urology clinic fo r evaluation for bladder cancer/hematuria and was sent to the ED for asymptomati c hypotension. Pt sleeping soundly at time of visit, did not wake to name or whi le verifying wristband with . reports pt with poor appetite COLOR MAKER and now , biggest limiting factor to [...] Throughout Stay Radha Pena RD, LD Phone: [phone] Pager: [phone] * Saundra Hernandez MD - 08/12/2018 10:24 [...] as above. - getting records from [facility] UTI: - patient is not sure if [...] HTN / HLD CAD s/p CABG - COLOR MAKER on enalapril and metop xl. - restarted BB, holding ACEI for now. - continue statin Multiple PVCs,VTach? On tele: - consulting cardiology today. - restart BB - monitor Recent CVA: - admitted to [facility] and was noted to have (per Urology note) MRI brain wit h punctate areas of diffusion restriction in both cerebellar hemispheres c/w acu te punctate infarctions, probably from a cardiogenic source. Old infarcts are pr esent in the left frontal lobe and left temporal lobe. small vessel disease. - will try to obtain records from [facility] - currently not on antiplatelets due [...] as above. - getting records from [facility] Presumed stage IV bladder cancer/Hematuria - presented [...] HTN / HLD CAD s/p CABG - COLOR MAKER on enalapril and metop xl. will hold both in setting of hypotension above - continue statin Recent CVA: - admitted to [facility] and was noted to have (per Urology note) MRI brain wit h punctate areas of diffusion restriction in both cerebellar hemispheres c/w acu te punctate infarctions, probably from a cardiogenic source. Old infarcts are pr esent in the left frontal lobe and left temporal lobe. small vessel disease. - will try to obtain records from [facility] - currently not on antiplatelets due [...] 08/10/18 1:15 PM Result Value Ref Range Evwvxtoy-M-HXM 0.01 0.00 - 0.05 NG/ML URINALYSIS DIPSTICK Collection Time: 08/10/18 1:51 PM Result Value Ref Range Color,UA BRENDA Turbidity,UA 2+ (A) CLEAR-CLEAR Specific Kohler-Urine 1.018 1.003 - 1.035 pH,UA 5.0 5.0 [...] PM CDT Patient arrived to room # (51408) via cart accompanied by transport. Patient tra [...] HTN / HLD CAD s/p CABG - COLOR MAKER on enalapril and metop xl. will hold both in setting of hypotension above - continue statin Recent CVA: - admitted to [facility] and was noted to have (per [...] to medicine. Tiffany Morales MD Internal Medicine [id number] __ Chief Complaint: hypotension History of Present Illness: Sara Leiva is a 77 y.o. male with CAD s/p CABG , HTN, HLD, PVD, recent CVA, who was evaluated in [place] for ongoing hematuri a, had cystoscopy that [...] file Gets together: Not on file Attends buddhism service: Not on file Active member of [...] 08/10/18 1:15 PM Result Value Ref Range Cnjxikxz-N-CDY 0.01 0.00 - 0.05 NG/ML URINALYSIS DIPSTICK Collection Time: 08/10/18 1:51 PM Result Value Ref Range Color,UA BRENDA Turbidity,UA 2+ (A) CLEAR-CLEAR Specific Kohler-Urine 1.018 1.003 - 1.035 pH,UA 5.0 5.0 [...] with urologic ca, [facility] Referring Provider: [...] Escamilla MD Urology Resident Please page Urology sales operations manager with questions. ATTESTATION I personally performed the [...] Vargas RN - 08/10/2018 4:53 PM CDT [id number] bed assigned, please call Nya for report @ [phone], thanks! * Nya Bhatti RN - 08/10/2018 2:[address] Hall was notified that patient was still orthostatic after 1 L NS. * Sravan Sullivan MD - 08/10/2018 2:37 PM CDT Sara Leiva is a 77 y.o. male. Chief Complaint: Chief Complaint Patient presents with Hypotension Pt sent from [facility] for low blood pressure and dizziness. Pt states h is BP was in the 60s. History of Present Illness: Patient is a 77-year-old male with a past medical history of hypertension, hyper lipidemia, CAD status post CABG, PVD, CVA who presents the ED today from outpati ent urology clinic at [facility] for hypertension. Per report patient was noted to be systolic in the 60s, however was asymptomatic, was being evaluated f or possible stage IV bladder cancer, and [facility]. Patient denies [...] Final Turbidity,UA 2+ (*) CLEAR-CLEAR Final Specific Kohler-Urine 1.018 1.003 - 1.035 Final pH,UA 5.0 [...] 0.35 - 5.00 MCU/ML Final POC TROPONIN Vifxajjg-Y-ERF 0.01 0.00 - 0.05 NG/ML Final POC TROPONIN Radiology Interpretation: CHEST SINGLE VIEW Final Result No acute cardiopulmonary abnormality. Approved by aNbeel Berrios M.D. on 08/10/2018 3:09 PM By my electronic signature, I attest that I have personally reviewed the images for this examination and formulated the interpretations and opinions expressed i n this report Finalized by SHIRLEY FISHER M.D. on 08/10/2018 3:15 PM. Dictated by Nabeel Berrios M.D. on 08/10/2018 2:08 PM. EK lead EKG shows rate of 77 and sinus rhythm. MA interval, QRS duration, QT interval within normal [...] visit, discussed case with resident and concur [facility] resident documentation of history, physical exam, assessment, and treatment p shazia unless otherwise noted. Sravan Sullivan MD * Nya Bhatti RN - 08/10/2018 1:22 PM CDT Sara Leiva 77 y/o male presents to ED 32 from triage in wheelchair. Patient was sent over from [place] due to hypotension. Patient reports his bp [...] monitor, call light within reach. Belongings: [employer] White shirt Phone All valuables will [...] 77 y.o. male : 1940 MRN#: [id number] DATE OF OPERATION: 08/14/2018 Surgeon(s) and Role: [...] rile. We began by inserting the 26 divehi resectoscope with visual obturator in to the [...] to the scope in place a 22 Danish three-way catheter and started CBI. Patient was [...] Fermin MD 901 Augusto Sher MD Pager [phone] * Case Mgmt DC Deirdre - Vianney [...] for dc needs. Patient Address/Phone [address] [facility] [address] (home) Emergency Contact Extended Emergency Contact Information Primary Emergency Contact: angelia leiva Relation: Spouse Healthcare Directive Transportation Does the patient need discharge transport arranged?: No Transportation Name, Phone and Availability #1: Angelia hall [phone] Does the patient use Medicaid Transportation?: No [...] Source of Income Source Of Income: Other senior care income ? Financial Assistance Needed? Pt does not have prescription coverage - please be aware when prescribing medica tions. Psychosocial Needs ? Mental Health Mental Health History: No ? Substance Use History Substance Use History Screen: No ? Other Current/Previous Services ? PCP Ebonie Isaacs, , ? Pharmacy [facility] [phone] [address] ? Durable Medical Equipment Durable Medical Equipment [...] ? Outpatient Therapy PT: No OT: No DRIVER STARTING GATE: No ? Usp Facility/Half-Way SNF: No NH: No ? Inpatient Rehab IPR: No ? Long-Term Acute Care Hospital LTACH: No ? 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, marketing senior recruiter [phone] documented in this encounter Plan of Treatment [...] Address City/State/Zipcode Phone Number [facility] [address] [place] [address] * CBC (08/15/2018 4:30 AM CDT) White [...] Address City/State/Zipcode Phone Number MAIN LAB [address] [place] [address] * BASIC METABOLIC PANEL (08/15/2018 4:30 AM [...] >60 >60 mL/min [facility] Comment: [place] The eGFR is not validated for use in drug dosing adjustments.Continue to use estimated creatinine clearance per dosing reference text.Please contact the Clinical Pharmacist for questions. eGFR >60 >60 mL/min [facility] [place] Comment: The eGFR is not validated for use in drug dosing adjustments.Continue to use estimated creatinine clearance per dosing reference text.Please contact the Clinical Pharmacist for questions. Performing Organization Address City/[facility]/Zipcode Phone Number [facility] [address] [place] [address] * SURGICAL PATHOLOGY (08/14/2018 9:09 AM CDT) PATHOLOGY [facility] [email or web address] Department of Pathology and Laboratory Medicine [address] [place] [address] Surgical Pathology Office:[phone] :[phone] SURGICAL PATHOLOGY REPORT NAME: SARA LEIVA SURG PATH #: [id number] MR #: [id number] SPECIMEN CLASS: SR BILLING #: [id number] ALT ID #:LOCATION: DISCHARGED DATE OF PROCEDURE: [...] cells, supporting the diagnosis. Pursuant to the Agency Director Program at the [facility] Pathology Department, selected slides from [...] of Pathology and Laboratory Medicine of the [facility] ([employer]) in compliance [...] of Pathology and Laboratory Medicine of the [facility].It has not been cleared or approved by the FDA.The FDA has determined that such clearance or approval is not necessary. Performing Organization Address City/State/Zipcode Phone Number [facility] [address] [place] [address] * MAGNESIUM (08/14/2018 5:06 AM CDT) Pathologist [facility] Magnesium 2.0 1.6 - 2.6 mg/dL [facility] Performing Organization Address City/[facility]/Zipcode Phone Number [facility] [address] [place] [address] * CBC (08/14/2018 5:06 AM CDT) Pathologist [facility] White Blood 6.0 4.5 - 11.0 K/UL [...] FL [facility] Performing Organization Address [facility] Phone Number [facility] [address] [place] [address] * BASIC METABOLIC PANEL (08/14/2018 5:06 AM CDT) Pathologist [facility] Sodium 138 137 - 147 MMOL/L [facility] [...] >60 >60 mL/min [facility] Comment: [place] The eGFR is not validated for use in drug dosing adjustments.Continue to use estimated creatinine clearance per dosing reference text.Please contact the Clinical Pharmacist for questions. eGFR >60 >60 mL/min [facility] [place] Comment: The eGFR is not validated for use in drug dosing adjustments.Continue to use estimated creatinine clearance per dosing reference text.Please contact the Clinical Pharmacist for questions. Performing Organization Address City/State/Zipcode Phone Number [facility] [address] [place] [address] * REGADENOSON MPI STRESS TEST (08/13/2018 7:43 [...] Kwon 41 OTHER OUTSIDE LAB Study Number [id number] OTHER OUTSIDE LAB PUL TO LUIS M [...] At OTHER OUTSIDE LAB Nuclear Report [facility] Division of Nuclear Cardiac Imaging Consultation Report EXAMINATION:D-SPECT Gated [id number] Chloride myocardial perfusion single-photon emission computed tomography for viability, resting regional wall function, resting ejection fraction, and perfusion imaging utilizing Regadenoson pharmacological stress. Date of Study:08/13/18 Study #:[id number] [facility] Billing ID:[id number] Referring Physician: Requested by:oKng La MD BMI: 22.5 kg/m2 INDICATIONS FOR [...] Approximately 20 seconds later 1.33 mCi of [id number] was injected intravenously. Throughout the infusion continuous electrocardiographic monitoring and serial electrocardiograms were obtained, as well as intermittent blood pressure recordings.Gated upright D-SPECT tomographic images were then acquired approximately 5 minutes after discontinuation of the regadenoson infusion. When indicated supine D-SPECT images were also obtained.The patient returned in approximately 4 hours and received an additional intravenous injection of 0.45 mCi of [id number] Chloride as a reinjected dose to assist [...] Conclusion:Pharmacologic stress ECG is negative for ischemia. Wskzbfqik-zu-Acsiwmpfgi Count Ratio:0.38(normal=or < 0.52). Scintigraphic Findings:Raw images [...] (08/13/2018 7:00 AM CDT) Units Ordered 0 [facility] Crossmatch 08/16/2018 [facility] Expires Record Check FOUND [facility] ABO/RH(D) A POS [facility] Antibody Screen NEG [facility] Electronic YES [facility] Crossmatch Specimen Blood Performing Organization Address City/State/Zipcode Phone Number MAIN [facility] [address] [place] [address] * MAGNESIUM (08/13/2018 5:19 AM CDT) Pathologist [facility] Magnesium 1.9 1.6 - 2.6 mg/dL [facility] Performing Organization Address City/[facility]/Zipcode Phone Number MAIN LAB [address] [place] [address] * CBC (08/13/2018 5:19 AM CDT) Pathologist [facility] White Blood 6.2 4.5 - 11.0 K/UL [...] FL [facility] Performing Organization Address [facility]/Zipcode Phone Number [facility] [address] [place] [address] * BASIC METABOLIC PANEL (08/13/2018 5:19 AM CDT) Pathologist [facility] Sodium 139 137 - 147 MMOL/L [facility] [...] >60 >60 mL/min [facility] Comment: [place] The eGFR is not validated for use in drug dosing adjustments.Continue to use estimated creatinine clearance per dosing reference text.Please contact the Clinical Pharmacist for questions. eGFR >60 >60 mL/min [facility] [place] Comment: The eGFR is not validated for use in drug dosing adjustments.Continue to use estimated creatinine clearance per dosing reference text.Please contact the Clinical Pharmacist for questions. Performing Organization Address City/[facility]/Zipcode Phone Number [facility] [address] [place] [phone] * MAGNESIUM (08/12/2018 4:32 AM CDT) Magnesium 1.9 1.6 - 2.6 mg/dL [facility] Performing Organization Address City/[facility] Phone Number [facility] [address] [place] [address] * BASIC METABOLIC PANEL (08/12/2018 4:32 AM [...] >60 >60 mL/min [facility] Comment: [place] The eGFR is not validated for use in drug dosing adjustments.Continue to use estimated creatinine clearance per dosing reference text.Please contact the Clinical Pharmacist for questions. eGFR >60 >60 mL/min [facility] [place] Comment: The eGFR is not validated for use in drug dosing adjustments.Continue to use estimated creatinine clearance per dosing reference text.Please contact the Clinical Pharmacist for questions. Performing Organization Address City/[facility]/Zipcode Phone Number [facility] [address] [place] [address] * CBC (08/12/2018 4:32 AM CDT) White [...] Address City/State/Zipcode Phone Number [facility] [address] [place] [address] * CT ABD/PELV W CONTRAST (08/11/2018 2:31 [...] throughout both lobes of the liver. A senior human resources representative mass in segment 3 measures 2.5 [...] throughout both lobes of the liver. A senior human resources representative mass in segment 3 measures 2.5 [...] throughout both lobes of the liver. A senior human resources representative mass in segment 3 measures 2.5 [...] throughout both lobes of the liver. A senior human resources representative mass in segment 3 measures 2.5 [...] 34 OTHER OUTSIDE Index LAB Cardiology Siemens [id number] OTHER OUTSIDE Ultrasound LAB Machine Left Ventricle [...] - Urine Straight Catheter Performing Organization Address [facility]/Zipcode Phone Number MAIN LAB [address] [place] [address] * MAGNESIUM (08/11/2018 6:06 AM CDT) Pathologist [facility] Magnesium 1.9 1.6 - 2.6 mg/dL MAIN LAB Performing Organization Address University [facility]/Zipcode Phone Number MAIN LAB [address] [place] [address] * BASIC METABOLIC PANEL (08/11/2018 6:06 AM CDT) Pathologist [facility] Sodium 139 137 - 147 MMOL/L MAIN [...] Non >60 >60 mL/min MAIN LAB Comment: [place] The eGFR is not validated for use in drug dosing adjustments.Continue to use estimated creatinine clearance per dosing reference text.Please contact the Clinical Pharmacist for questions. eGFR >60 >60 mL/min MAIN LAB [place] Comment: The eGFR is not validated for use in drug dosing adjustments.Continue to use estimated creatinine clearance per dosing reference text.Please contact the Clinical Pharmacist for questions. Performing Organization Address City/[facility]/Zipcode Phone Number MAIN LAB [address] [place] [address] * CBC (08/11/2018 6:06 AM CDT) White [...] FL KU MAIN LAB Performing Organization Address City/[facility] Phone Number MAIN LAB [address] [place] [address] * PHOSPHORUS (08/11/2018 6:06 AM CDT) Phosphorus 3.1Comment: NOTE NEW REFERENCE 2.0 - 4.5 MG/DL MAIN LAB RANGES Performing Organization Address City/[facility] Phone Number MAIN LAB [address] [place] [address] * TROPONIN-I (08/11/2018 12:23 AM CDT) Troponin-I 0.01 0.0 - 0.05 NG/ML MAIN LAB Specimen Blood Performing Organization Address City/[facility]/Zipcode Phone Number MAIN LAB [address] [place] [address] * TROPONIN-I (08/10/2018 7:25 PM CDT) Troponin-I 0.01 0.0 - 0.05 NG/ML MAIN LAB Specimen Blood Performing Organization Address [facility] Phone Number MAIN LAB [address] [place] [address] * CULTURE-URINE W/SENSITIVITY (08/10/2018 1:51 PM CDT) Battery Name URINE CULTURE MAIN LAB Specimen URINE MAIN LAB Description Special NONE [facility] MAIN LAB Requests Culture <10,000 organisms/ml MAIN LAB MIXED CONTAMINANTS Report Status FINAL MAIN LAB 08/11/2018 Specimen Urine - Urine Performing Organization Address [facility]/Zipcode Phone Number MAIN LAB [address] [place] [address] * URINALYSIS, MICROSCOPIC (08/10/2018 1:51 PM CDT) WBCs,UA PACKED 0 - 2 /HPF K[facility] MAIN LAB RBCs,UA PACKED 0 - 3 /HPF K[facility] MAIN LAB MucousUA 1+ [facility] MAIN LAB Bacteria,UA FEW (A) NEG-NEG [facility] MAIN LAB Squamous 2-5 0 - 5 [facility] MAIN LAB Epithelial Cells Specimen Urine - Urine Performing Organization Address [facility] Phone Number [facility] MAIN LAB [address] [place] [address] * URINALYSIS DIPSTICK (08/10/2018 1:51 PM CDT) Color,UA BRENDA [facility] MAIN LAB Turbidity,UA 2+ (A) CLEAR-CLEAR [facility] MAIN LAB Specific 1.018 1.003 - 1.035 K[facility] MAIN LAB Kohler-Urine pH,UA 5.0 5.0 - 8.0 [facility] MAIN [...] Urine - Urine Performing Organization Address [facility] Phone Number [facility] MAIN LAB [address] [place] [address] * CHEST SINGLE VIEW (08/10/2018 1:38 PM [...] on 08/10/2018 2:08 PM. Performing Organization Address City/[facility] Phone Number RAD RESULTS * POC TROPONIN (08/10/2018 1:15 PM CDT) Pathologist [facility] [id number] 0.01 0.00 - 0.05 NG/ML MAIN LAB Performing Organization Address [facility] Services[facility] Phone Number MAIN LAB [address] [place] [address] * TSH WITH FREE T4 REFLEX (08/10/2018 1:07 PM CDT) Pathologist [facility] TSH 1.010 0.35 - 5.00 MCU/ML MAIN LAB Specimen Blood Performing Organization Address [facility] Services[facility] Phone Number MAIN LAB [address] [place] [address] * PHOSPHORUS (08/10/2018 1:07 PM CDT) Pathologist [facility] Phosphorus 3.3Comment: NOTE NEW REFERENCE 2.0 - 4.5 MG/DL MAIN LAB RANGES Specimen Blood Performing Organization Address [facility] Phone Number MAIN LAB [address] [place] [address] * MAGNESIUM (08/10/2018 1:07 PM CDT) Pathologist [facility] Magnesium 2.1 1.6 - 2.6 mg/dL MAIN LAB Specimen Blood Performing Organization Address [facility] Services[facility] Phone Number MAIN LAB [address] [place] [address] * COMPREHENSIVE METABOLIC PANEL (08/10/2018 1:07 PM [...] (L) >60 mL/min [facility] MAIN LAB Comment: [place] The eGFR is not validated for use in drug dosing adjustments.Continue to use estimated creatinine clearance per dosing reference text.Please contact the Clinical Pharmacist for questions. eGFR >60 >60 mL/min [facility] MAIN LAB [place] Comment: The eGFR is not validated for use in drug dosing adjustments.Continue to use estimated creatinine clearance per dosing reference text.Please contact the Clinical Pharmacist for questions. Specimen Blood Performing Organization Address City/State/Zipcode Phone Number MAIN LAB [address] [place] [address] * CBC AND DIFF (08/10/2018 1:07 PM [...] Phone Number KU MAIN LAB [address] [place] [address] * TELEMETRY STRIPS-SCAN (08/10/2018 12:00 AM CDT) [...]
--- OUTSIDE RECORDS SUMMARY | 2018-09-18 08:48 | XMS REPORT | Encounter Summary ---
Author Author [facility] Organization [facility] Address Unknown Phone Unavailable Care Team Providers Care Brush Cleaner Name Role Phone Ebonie Isaacs PCP Reason for Referral * Radiology Services (Routine) Referred By Contact Referred To Contact Status Reason Specialty Diagnoses / Procedures Sedrikc Bertrand MD [address] [place] [address] [address] No Auth Needed Radiology Diagnoses Bladder mass P rocedures CT ABD/PELV W CONTRAST CHG CT THORAX W/CONTRAST MATERIAL Reason for Visit * Reason Comments New Patient BLADDER MASS * Auth/Cert Referred By Contact Referred To Contact Status Reason Specialty Diagnoses / Procedures Diagnoses Bladder tumor Bladder tumor [D49.4] P rocedures [place] CYSTOURETHROSCOPY W/DEST &/RMVL TUMOR LARGE CYSTOURETHROSCOPY WITH FULGURATION/ RESECTION BLADDER TUMOR -LARGE - GREATER THAN 5.0 CM Encounter Details Care Team Description Date Type Department Sedrick Bertrand MD [address] [place] [address] Bladder mass (Primary Dx) 08/10/2018 Office Visit The [address] [address] Social History Date Tobacco Use Types Packs/Day [...] RN - 08/10/2018 9:00 AM CDT [facility] Pre-Operative Instructions Surgical Procedure: Transurethral resection [...] multivitamin, red yeast rice, GABRIELA-e, saw palmetto, [place] s wort, turmeric, valerian root, Vascepa, Vitamin A, Vitamin B complex, Vitamin C, Vitamin E ? You DO NOT need to stop: iron, magnesium, potassium 7 days prior to surgery: ? Stop anti-inflammatory medications such as ibuprofen (Advil, Motrin), naproxen (Aleve), [address], Excedrin, Midol, celecoxib (Celebrex), diclofenac (Ventress peng), diflunisal, etodolac, flurbiprofen, indomethacin, ketoprofen, ketorolac, [...] questions, please contact your provider's office at [phone] . For emergencies during evenings, nights, weekends, and holidays, contact [facility] filter tank operator and request they contact the on-call Urology Resident at [phone]. documented in this encounter Progress Notes * [...] for over a year. He presented to [facility] ER Apr 2018 with gross [...] that patient is in the hospital at [facility] in [place], [place] Mr. Leiva went to [facility]'s ER 08/05/2018 with right arm/hand numb [...] file. HTN HLD, ED Hx of strokes, VT CAD SurgHx: No past surgical history on [...] such as pe rcutaneous nephrostomy tube, laparotomy, VT, PE, stroke and . Patient verb alized [...] Comments Procedure Name Priority Date/Time Associated Diagnosis NON-ROLLED HAM LACER CYTOLOGY (BODY 08/10/2018 FLUIDS/TISSUE) 2:10 PM CDT documented in this encounter Results * NON-ROLLED HAM LACER CYTOLOGY (BODY FLUIDS/TISSUE) (08/10/2018 2:10 PM CDT) Cytology [facility] [email or web address] Department of Pathology and Laboratory Medicine [address] [place] [address] Surgical Pathology Office:[phone] :[phone] CYTOLOGY REPORT NAME: SARA LEIVA CYTOLOGY #: [id number] MR #: [id number] ALT ID #: BILLING #: [id number] LOCATION: [facility] DATE OF PROCEDURE: 08/10/2018 AGE: 77 SEX: [...] PhD Anna Holliday D.O. Performing Organization Address City/[facility] [address]/Zipcode Phone Number [facility] LAB [address] [place] [address] * CBC (08/10/2018 10:47 AM CDT) White [...] KU LAB Specimen Blood Performing Organization Address City/[facility] [address]/[facility] Cent[facility] Phone Number [facility] [address] [place] [address] * COMPREHENSIVE METABOLIC PANEL (08/10/2018 10:47 AM [...] 52 (L) >60 mL/min [facility] LAB Comment: [place] The eGFR is not validated for use in drug dosing adjustments.Continue to use estimated creatinine clearance per dosing reference text.Please contact the Clinical Pharmacist for questions. eGFR >60 >60 mL/min [facility] LAB [place] Comment: The eGFR is not validated for use in drug dosing adjustments.Continue to use estimated creatinine clearance per dosing reference text.Please contact the Clinical Pharmacist for questions. Performing Organization Address City/State/Zipcode Phone Number [facility] LAB [address] [place] [address] documented in this encounter Visit Diagnoses Diagnosis Bladder mass - Primary Other specified disorders of bladder documented in this encounter
--- OUTSIDE RECORDS SUMMARY | 2018-09-18 08:48 | XMS REPORT | Encounter Summary ---
Author Author [facility] Organization [facility] Address Unknown Phone Unavailable Care Team Providers Care Labor Relations Representative Name Role Phone Ebonie Isaacs PCP Reason for Visit * Auth/Cert Referred By Contact Referred To Contact Status Reason Specialty Diagnoses / Procedures Diagnoses Bladder tumor Bladder tumor [D49.4] P rocedures [place] CYSTOURETHROSCOPY W/DEST &/RMVL TUMOR LARGE CYSTOURETHROSCOPY WITH FULGURATION/ RESECTION BLADDER TUMOR -LARGE - GREATER THAN 5.0 CM Encounter Details Care Team Description Date Type Department Helen Eaton SRNA 08/13/2018 Anesthesia The [facility] OR [address] [place] [address] Anesthesia Record Responsible Anesthesiologist Anesthesia Start Time [...] Evaluation - GabrielSheela farooq APRN - 08/10/2018 11:06 AM CDT [...]
--- OUTSIDE RECORDS SUMMARY | 2018-09-18 08:48 | XMS REPORT | Encounter Summary ---
Author Author [facility] Organization [facility] Address Unknown Phone Unavailable Care Team Providers Care Film Numberer Name Role Phone IsaacsEbonie kaiser PCP Encounter Details Care Team Description Date Type Department Bernardino Garcia 08/03/2018 Documentation The [facility] [address] [phone] Social History Date Tobacco Use Types Packs/Day [...]
--- OUTSIDE RECORDS SUMMARY | 2018-09-18 08:48 | XMS REPORT | Encounter Summary ---
Author Author [facility] Organization [facility] Address Unknown Phone Unavailable Care Team Providers Care Insulation Nozzleman Name Role Phone Eboine Isaacs PCP Reason for Visit * Auth/Cert Referred By Contact Referred To Contact Status Reason Specialty Diagnoses / Procedures Diagnoses Bladder tumor Bladder tumor [D49.4] P rocedures [place] CYSTOURETHROSCOPY W/DEST &/RMVL TUMOR LARGE CYSTOURETHROSCOPY WITH FULGURATION/ RESECTION BLADDER TUMOR -LARGE - GREATER THAN 5.0 CM Encounter Details Care Team Description Date Type Department Sedrick Bertrand MD [address] [facility] [place] [address] Bladder mass 08/10/2018 Ancillary The [address] [address] Anesthesia Record Responsible Anesthesiologist Anesthesia [...] and any other valuables at home. The [facility] is not responsible for the loss or breakage of [employer] items. Remove nail tongan, makeup and all jewelry (including piercings) before comin g to the hospital. The morning of your procedure: brush your teeth and tongue do not smoke do not shave the area where you will have surgery What to bring to the hospital ID/ Insurance Card Baggage Checker card Official documents for legal guardianship Copy [...] not receive a c all, please call [phone] before 4:30pm or [phone] after 4:30pm. Notify us at [facility]: if you need to cancel your procedure if you are going to be late Arrival at the [facility] [address] [place] [address] Park in the Parking Garage, located directly across from the main entrance to the hospital. Director Payment parking is available from 7 AM to 4 PM Friday through Friday. Enter through the ground floor [facility] entrance and check in at [...] medicine updates o r questions. E-mail: [email or web address] Before going home from the hospital, [...] Blood Performing Organization Address City/State/Zipcode Phone Number [facility] LAB [address] [place] [address] * COMPREHENSIVE METABOLIC PANEL (08/10/2018 10:47 AM [...] 52 (L) >60 mL/min [facility] LAB Comment: [place] The eGFR is not validated for use in drug dosing adjustments.Continue to use estimated creatinine clearance per dosing reference text.Please contact the Clinical Pharmacist for questions. eGFR >60 >60 mL/min [facility] LAB [place] Comment: The eGFR is not validated for use in drug dosing adjustments.Continue to use estimated creatinine clearance per dosing reference text.Please contact the Clinical Pharmacist for questions. Performing Organization Address City/State/Zipcode Phone Number [facility] [address] [place] [address] * CBC (08/10/2018 10:47 AM CDT) White [...] Blood Performing Organization Address City/State/Zipcode Phone Number [facility] [address] [place] [address] documented in this encounter Visit Diagnoses Diagnosis Bladder mass Other specified disorders of bladder documented in this encounter
--- OUTSIDE RECORDS SUMMARY | 2018-09-18 08:48 | XMS REPORT | Encounter Summary ---
Author Author [facility] Organization [facility] Address Unknown Phone Unavailable Care Team Providers Care Engine Wiper Name Role Phone PCP Unavailable Encounter Details Care Team Description Date Type Department 07/23/2018 Hospital [facility] Encounter Health System [address] [address] Social History Date Tobacco Use [...]
--- OUTSIDE RECORDS SUMMARY | 2018-09-18 08:48 | XMS REPORT | Encounter Summary ---
Author Author [facility] Organization [facility] Address Unknown Phone Unavailable Care Team Providers Care Financial Services Counselor Name Role Phone Ebonie Isaacs DO PCP Encounter Details Care Team Description Date Type Department Sedrick Bertrand MD [address] [place], [place] [phone] Bladder tumor (Primary Dx) 08/10/2018 Prep for Case The [address] [phone] Social History Date Tobacco Use Types Packs/Day [...]
--- OUTSIDE RECORDS SUMMARY | 2018-09-18 08:48 | XMS REPORT | Encounter Summary ---
Author Author [facility] Organization [facility] Address Unknown Phone Unavailable Care Team Providers Care Bingo Attendant Name Role Phone Ebonie Isaacs PCP Encounter Details Care Team Description Date Type Department 08/06/2018 Hospital [facility] Encounter Health System [address] [address] Social History Date Tobacco Use [...]
--- OUTSIDE RECORDS SUMMARY | 2018-09-18 08:48 | XMS REPORT | Encounter Summary ---
Author Author [facility] Organization [facility] Address Unknown Phone Unavailable Care Team Providers Care Adoption Worker Name Role Phone Ebonie Isaacs PCP Encounter Details Care Team Description Date Type Department 08/05/2018 Hospital [facility] Encounter Health System [address] [address] Social History Date Tobacco Use [...]
--- OUTSIDE RECORDS SUMMARY | 2018-09-18 08:48 | XMS REPORT | Encounter Summary ---
Author Author [facility] Organization [facility] Address Unknown Phone Unavailable Care Team Providers Care Ammonia Print Operator Name Role Phone Ebonie Isaacs DO PCP Reason for Visit * Reason Comments Navigation Assessment Encounter Details Care Team Description Date Type Department Sedrick Bertrand MD [address] [place] [address] [phone] Navigation Assessment 08/06/2018 Telephone [address] [phone] Social History Date Tobacco Use Types Packs/Day [...] Center 08/10/2018 9:00 AM Sedrick Bertrand MD [facility] Exam 08/10/2018 9:30 AM CC PROCEDURE ROOM 1 CCC2 [facility] Exam 08/10/2018 10:30 AM [id number] WWPRE [id number] Diagnosis & Reason for Visit: Bladder mass Physician Info: Referring Physician: Tigre Brush MD PCP: Fozia Isaacs MD Location of Films: PACS Location of Pathology: None History of Present Illness: - 77 y/o male with history of hematuria with clots for over a year. He presented to [facility] ER Apr 2018 with gross hematuria [...] patient is in the hospital at [facility] in [place], [place] Mr. Leiva went to [facility]'s ER 08/05/2018 with right arm/hand numb [...]
[2018-09-18 09:11] LABS: HEMATOCRIT 34 % (40-54); HEMOGLOBIN 11.3 G/DL (13.3-17.7); LYMPHOCYTES % (AUTO) 11 % (12-44); MEAN CORPUSCULAR HEMOGLOBIN 31 PG (25-34); MEAN CORPUSCULAR HGB CONC 33 G/DL (32-36); MEAN CORPUSCULAR VOLUME 94 FL (80-99); MEAN PLATELET VOLUME 10.8 FL (7.4-10.4); MONOCYTES % (AUTO) 8 % (0-12); NEUTROPHILS % (AUTO) 80 % (42-75); PLATELET COUNT 114 10^3/uL (130-400); RED CELL DISTRIBUTION WIDTH 17.7 % (10.0-14.5); WHITE BLOOD COUNT 13.2 10^3/uL (4.3-11.0)
[2018-09-18 09:12] LABS: BASOPHILS % (AUTO) 0 % (0-10); EOSINOPHILS % (AUTO) 0 % (0-10); LYMPHOCYTES # (AUTO) 1.4 X 10^3 (1.0-4.0); MONOCYTES # (AUTO) 1.1 X 10^3 (0.0-1.0); NEUTROPHILS # (AUTO) 10.6 X 10^3 (1.8-7.8)
[2018-09-18] MEDS ORDERED: DEXTROSE 50% 50 ML (IMS) SYR ONE (09:36)
[2018-09-18 09:37] LABS: POTASSIUM 4.8 MMOL/L (3.6-5.0)
[2018-09-18 09:38] LABS: CREATININE SERUM 1.37 MG/DL (0.60-1.30)
[2018-09-18 09:39] LABS: CALCIUM 8.4 MG/DL (8.5-10.1)
[2018-09-18] MEDS ORDERED: DEXTROSE 50% 50 ML (IMS) SYR IV ONE ×2 (09:45→11:00)
--- NOTE | 2018-09-18 10:14 | Diagnostic Imaging Report ---
INDICATION: Generalized weakness. Shortness of air. COMPARISON: 01/16/2018 FINDINGS: Single frontal radiographic view of the chest was obtained and demonstrates bibasilar effusions with associated airspace disease. These findings are more conspicuous on the accompanying CT chest from same day. Multiple well-circumscribed opacities are seen projecting over the right lung and measure 19 to 16 mm in diameter. These are felt to correspond to multiple micronodular density seen within the included lung bases on CT abdomen from same day and are concerning for metastatic disease. There is probable background emphysematous disease. Scarring and/or atelectatic type changes are noted within the bilateral mid and lower lung stoddard. No pneumothorax is seen on either side. Cardiac silhouette and pulmonary vasculature within normal limits. Sternotomy wires and left-sided subclavian Port-A-Cath are noted. Bony structures show no gross acute abnormalities. IMPRESSION: 1. Multiple nodular and micronodular density on the right concerning for metastatic disease. Correlation with dedicated CT chest is recommended. 2. Bibasilar effusions with associated bibasilar scarring, atelectasis, and/or infiltrate. Dictated by: Dictated on workstation # [id number]
--- NOTE | 2018-09-18 10:28 | ED Abdominal Pain ---
General Stated Complaint: GENERAL WEAKNESS Source of Information: Patient History of Present Illness Date Seen by Provider: September 18, 2018 Time Seen by Provider: 09:30 Initial Comments Patient is a 77-year-old male with recent diagnosis of bladder cancer with widespread spread metastases who presents with generalized weakness failure to thrive and decreased oral intake. Symptoms gradually occurred over the past several days. Patient's spouse states patient has not been getting off the recliner has not been eating meals although he has been drinking fluids. He states he does not like the way food tastes does not want to eat it. He he denies chest pain, or shortness of breath but has reported of sweats and fever. Also reports increased abdominal girth with no bowel movement in the past week. No nausea or vomiting. Patient did have a port placed the anticipation of immunotherapy for the purposes of palpable care, but reportedly is too weak to receive therapy modality. No reported falls or injuries. Patient is somnolent. History obtained primarily from the patient's spouse. Timing/Duration: 1 Week Severity/Quality: Moderate Location: Generalized Abdomen Activities at Onset: None Allergies and Home Medications Allergies Coded Allergies: No Known Drug Allergies (Unverified , 09/02/18) Home Medications Amiodarone HCl 400 Mg Tablet, 400 MG PO DAILY, (Reported) Cefdinir 300 Mg Capsule, 300 MG PO BID Prescribed by: SARAH ASTORGA on 09/14/18 1352 Docusate Sodium 100 Mg Capsule, 100 MG PO BID Prescribed by: JM ISAACS on 09/07/18 09 Finasteride 5 Mg Tablet, 5 MG PO DAILY, (Reported) Metoprolol Succinate 25 Mg Tab.er.24h, 25 MG PO DAILY, (Reported) HOLD FOR PULSE <60 Oxycodone HCl/Acetaminophen 1 Each Tablet, 1 TAB PO Q4H PRN for PAIN-MODERATE Prescribed by: JM ISAACS on 09/07/18 09 Sennosides 15 Mg Tablet, 15 MG PO Q48H Prescribed by: JM ISAACS on 09/07/18 09 Tamsulosin HCl 0.4 Mg Cap, 0.4 MG PO BID, (Reported) Patient Home Medication List Home Medication List Reviewed: Yes Review of Systems Review of Systems Constitutional: see HPI EENTM: See HPI Respiratory: See HPI Gastrointestinal: See HPI Genitourinary: See HPI Musculoskeletal: see HPI Skin: see HPI Psychiatric/Neurological: See HPI Endocrine: See HPI Hematologic/Lymphatic: See HPI Past Lrfqkcx-Mvxitc-Kaxuzw Hx Past Med/Social Hx: Reviewed Nursing Past Med/Soc Hx Patient Social History Type Used: Cigarettes 2nd Hand Smoke Exposure: Yes Recent Hopitalizations: No Immunizations Up To Date Tetanus Booster (TDap): Unknown PED Vaccines UTD: No Seasonal Allergies Seasonal Allergies: No Past Medical History Surgeries: Yes (OPEN HEART, BACK) Angioplasty, CABG Respiratory: No Currently Using CPAP: No Currently Using BIPAP: No Cardiac: Yes Coronary Artery Disease, Heart Attack, High Cholesterol, Irregular Heartbeat, Peripheral Vascular Neurological: No Concussion, TIA Reproductive Disorders: No Sexually Transmitted Disease: No HIV/AIDS: No Genitourinary: No Benign Prostatic Hyperpl, Prostate Problems Gastrointestinal: No Musculoskeletal: No Arthritis Endocrine: No HEENT: Yes Loss of Vision: Denies Hearing Impairment: Hard of Hearing Cancer: No Bladder, Lung What Type of Treatment Did You: Surgical Intervention Psychosocial: No Anxiety Integumentary: No Blood Disorders: No Adverse Reaction/Blood Tranf: No Family Medical History Diabetes mellitus 19 FATHER 19 MOTHER Myocardial infarction 19 MOTHER G8 BROTHER G8 SISTER Neoplasm G8 BROTHER (lung and bladder cancer ) Physical Exam Vital Signs Capillary Refill : Height/Weight/BMI Height: 6'0" Weight: 178lbs. 8.0oz. [id number]; 21.5 BMI Method:Stated General Appearance: no apparent distress, cachetic HEENT: normal ENT inspection, TMs normal, other Neck: supple (dry mucous membranes) Respiratory: No normal breath sounds, No no respiratory distress; decreased breath sounds; No accessory muscle use; rhonchi Cardiovascular: normal peripheral pulses, regular rate, rhythm Gastrointestinal: soft, other (distended) Extremities: non-tender Back: normal inspection Neurologic/Psychiatric: other (somewhat) Progress/Results/Core Measures Results/Orders Lab Results Laboratory Tests Test 09/18/18 08:53 Range/Units White Blood Count 13.2 H 4.3-11.0 10^3/uL Red Blood Count 3.65 L 4.35-5.85 10^6/uL Hemoglobin 11.3 L 13.3-17.7 G/DL Hematocrit 34 L 40-54 % Mean Corpuscular Volume 94 80-99 FL Mean Corpuscular Hemoglobin 31 25-34 PG Mean Corpuscular Hemoglobin Concent 33 32-36 G/DL Red Cell Distribution Width 17.7 H 10.0-14.5 % Platelet Count 114 L 130-400 10^3/uL Mean Platelet Volume 10.8 H 7.4-10.4 FL Neutrophils (%) (Auto) 80 H 42-75 % Lymphocytes (%) (Auto) 11 L 12-44 % Monocytes (%) (Auto) 8 0-12 % Eosinophils (%) (Auto) 0 0-10 % Basophils (%) (Auto) 0 0-10 % Neutrophils # (Auto) 10.6 H 1.8-7.8 X 10^3 Lymphocytes # (Auto) 1.4 1.0-4.0 X 10^3 Monocytes # (Auto) 1.1 H 0.0-1.0 X 10^3 Eosinophils # (Auto) 0.0 0.0-0.3 10^3/uL Basophils # (Auto) 0.0 0.0-0.1 10^3/uL Sodium Level 135 135-145 MMOL/L Potassium Level 4.8 3.6-5.0 MMOL/L Chloride Level 94 L 98-107 MMOL/L Carbon Dioxide Level 14 L 21-32 MMOL/L Anion Gap 27 H 5-14 MMOL/L Blood Urea Nitrogen 53 H 7-18 MG/DL Creatinine 1.37 H 0.60-1.30 MG/DL Estimat Glomerular Filtration Rate 51 BUN/Creatinine Ratio 39 Glucose Level 47 *L 70-105 MG/DL Calcium Level 8.4 L 8.5-10.1 MG/DL Corrected Calcium 10.0 8.5-10.1 MG/DL Total Bilirubin 4.0 H 0.1-1.0 MG/DL Aspartate Amino Transf (AST/SGOT) 397 H 5-34 U/L Alanine Aminotransferase (ALT/SGPT) 123 H 0-55 U/L Alkaline Phosphatase 346 H 40-136 U/L Troponin T 41 H <=15 NG/L Pro-B-Type Natriuretic Peptide 1496.0 H <75.0 PG/ML Total Protein 5.0 L 6.4-8.2 GM/DL Albumin 2.0 L 3.2-4.5 GM/DL My Orders Orders - KOURTNEY GIL DO Cbc With Automated Diff (09/18/18 08:59) Comprehensive Metabolic Panel (09/18/18 08:59) Urinalysis (09/18/18 08:59) Troponin T (09/18/18 08:59) Chest 1 View Ap/Pa Only (09/18/18 08:59) Ekg Tracing (09/18/18 08:59) Probnp Fs (09/18/18 08:59) Blood Culture (09/18/18 08:59) Ns Iv 1000 Ml (Sodium Chloride 0.9%) (09/18/18 09:00) Ct Abdomen/Pelvis Wo (09/18/18 09:02) D50w (Emergency) Syringe (Dextrose 50% 5 (09/18/18 09:45) D50w (Emergency) Syringe (Dextrose 50% 5 (09/18/18 09:36) Medications Given in ED Current Medications Medications Dose Ordered Sig/Ayesha Route Start Time Stop Time Status Last Admin Dose Admin Dextrose 25 ml ONCE ONCE IV 09/18/18 09:45 09/18/18 09:46 DC 09/18/18 09:48 25 ML Departure Communication (Admissions) Patient with recently diagnosed metastatic disease with rapid progression since initial diagnosis previous [address] findings. Patient with multiorgan system failure. Blood pressure treated in the ED. Patient spouses expresses wishes for palliative care therapy. Dr. Isaacs accepts patient to [facility]. Impression Primary Impression: Hypotension Additional Impressions: Altered mental status Multi-organ failure with heart failure Metastatic disease Bladder carcinoma Disposition: SHT-TRM HOSP Condition: Critical Transfer Method of Transfer: EMS Departure-Patient Inst. Decision time for Depature: 10:00 Referrals: JM ISAACS DO (PCP/Family) Primary Care Physician KOURTNEY GIL DO September 18, 2018 10:28
--- NOTE | 2018-09-18 10:34 | Diagnostic Imaging Report ---
PROCEDURE: CT abdomen and pelvis without contrast. TECHNIQUE: Multiple contiguous axial images were obtained through the abdomen and pelvis without the use of intravenous contrast. Auto Exposure Controls were utilized during the CT exam to meet ALARA standards for radiation dose reduction. INDICATION: Liver lesions and abnormal appearance of the bladder is seen on nonenhanced CT 07/23/2018. Patient has generalized weakness and pain. Noncontrast abdominal pelvic CT is again performed. There are bilateral pleural effusions new layering dependently right greater than left. The right pleural fluid to a maximal AP depth of 4.7 cm. The right lower lobe lung mass is either new or was above the [id number] on the prior and measures a diameter of 10 mm. There are some clearly new, juxtapleural nodules in the right lower lobe and right middle lobe at the far anterior aspect of the lung base maximal 9 mm. There are new nodules in the left base at the lingular segment of the upper lobe. Multifocal pulmonary metastatic disease is presumed to have developed. While liver evaluation is limited by the absence of contrast there has been progressive and now extensive multifocal hepatic areas of infiltration and presumed masslike replacement of much of the liver parenchyma. Widespread hepatic metastatic disease is presumed. Largest confluent process in the right hepatic lobe posteriorly is 15 x 10 cm largest in the left lobe is about 18 x 10 cm. No bile duct dilatation. The unopacified pancreas appear grossly unremarkable. There is no adrenal mass. The spleen unremarkable. There is new small volume of abdominal pelvic ascites as well as diffuse integumentary edema is a new finding. The kidneys are unobstructed with no visualized radiodense stone. There is thickening of the bladder however its very poorly distended substantially limiting its evaluation. There are new lytic lesions presumptively metastatic involving the L5 vertebral body, no identifiable pathological fracture. Pelvic sidewall and iliac chain lymphadenopathy also has progressed presumed worsened pelvic julius metastatic disease. There is no resultant bowel obstruction. The colon tanner are mildly thickened and mild nonspecific colitis could not be excluded. No obstruction, perforation or abscess however. Some adenopathy in the right upper quadrant of the vijaya hepatis is also mildly increased. Impression: Substantial progressive metastatic disease when compared with study of 07/23. New multifocal pulmonary parenchymal metastases, new lytic bone disease, progressive lymphadenopathy and marked progression of profound hepatic involvement by metastasis. A new third space fluids with pleural effusions, diffuse integumentary edema and abdominal pelvic ascites, but no loculated collection or abscess. Questionable findings for mild nonspecific colitis. This is a borderline finding. No bowel, biliary or urinary tract obstruction. Atherosclerotic aorta ectasia unchanged. Dictated by: Dictated on workstation # [id number]
[2018-09-18] MEDS ORDERED: D5 NS 1000 ML IV SOLUTION 1,000 ML IV SCH (10:45)
--- NOTE | 2018-09-18 11:09 | NUR ---
Patient to be transferred to [facility] per Dr. Isaacs's preference.
[2018-09-18] MEDS ORDERED: ONDANSETRON 4 MG/2 ML (SDV) Z0FRAN ONE (11:27)
[2018-09-18] MEDS ORDERED: fentaNYL INJECTION 100 MCG/2 ML AMP ONE (11:27)
[2018-09-18] MEDS ORDERED: ONDANSETRON 4 MG/2 ML (SDV) Z0FRAN IVP ONE (11:30)
[2018-09-18] MEDS ORDERED: fentaNYL INJECTION 100 MCG/2 ML AMP IVP ONE (11:30)
[2018-09-18 12:00] VITALS: BP 99/40
== END 2018-09-18 12:12 | disposition short-term general hospital (02) ==
LOC: EDUNIT# 08:38 → ER FS 08:39
DX: C67.9 Malignant neoplasm of bladder, unspecified (principal); C78.00 Secondary malignant neoplasm of unspecified lung; I95.9 Hypotension, unspecified; R41.82 Altered mental status, unspecified; I50.9 Heart failure, unspecified; R62.7 Adult failure to thrive; I25.10 Atherosclerotic heart disease of native coronary artery without angina pectoris; E78.00 Pure hypercholesterolemia, unspecified; I73.9 Peripheral vascular disease, unspecified; Z86.73 Personal history of transient ischemic attack (TIA), and cerebral infarction without residual deficits; Z77.22 Contact with and (suspected) exposure to environmental tobacco smoke (acute) (chronic); Z95.5 Presence of coronary angioplasty implant and graft; Z95.1 Presence of aortocoronary bypass graft; Z80.52 Family history of malignant neoplasm of bladder; Z80.1 Family history of malignant neoplasm of trachea, bronchus and lung
CPT/HCPCS: 36415; 71045; 74176; 80053; 82962; 83880; 84484; 85025; 87040